=== PATIENT | female | born 1950 | race Caucasian/White ===

== ENCOUNTER → 2016-11-04 | Outpatient (CLI) | payer BC ==
--- NOTE | 2016-11-04 13:31 | US ---
EXAMINATION TYPE: US venous doppler duplex LE LT DATE OF EXAM: 11/04/2016 1:00 PM COMPARISON: NONE CLINICAL HISTORY: Lt [id number]/Calf pain Z86.718,. Patient had injury that required fluid to be kaylie ined from knee and it is swollen, patient in on thinners due to h/o right leg DVT previously SIDE PERFORMED: Left TECHNIQUE: The lower extremity deep venous system is examined utilizing real time linear array sonog mar with graded compression, doppler sonography and color-flow sonography. VESSELS IMAGED: External Iliac Vein (EIV) Common Femoral Vein Deep Femoral Vein Greater Saphenous Vein * Femoral Vein Popliteal Vein Small Saphenous Vein * Proximal Calf Veins (* superficial vessels) Left Leg: Appears negative for DVT, 4.0cm complex fluid collection noted at medial pop fossa anterio r to vessels. *tech impression to Dr Galindo's nurse @ 13:10 IMPRESSION: 1. No deep venous thrombosis by ultrasound left lower extremity.
== END | disposition home or self-care (01) ==
LOC: RADUSWWP 12:30
PROVIDERS: ATTEND Orthopaedic Surgery
DX: I80.9 Phlebitis and thrombophlebitis of unspecified site (principal); M17.12 Unilateral primary osteoarthritis, left knee

== ENCOUNTER 2017-03-31 09:08 | Day surgery (SDC) | payer BC ==
[2017-03-27 10:52] VITALS: BMI 28.7
[~2017-03-31 09:08] MED LIST: LACTATED RINGERS 1,000 ML IV SCH
[2017-03-31 10:01] VITALS: TEMP 97.1
[2017-03-31] MEDS ORDERED: LIDOCAINE 1% 20 ML VIAL (10MG/ML) FOR IV START INTRADERMA ONE (10:10)
[2017-03-31 10:19] LABS: Glucose,Whole Blood 142 mg/dL (75-99)
[2017-03-31] MEDS ORDERED: LIDOCAINE 1% INJ 10MG/ML (20 ML MDV) ONE (10:31)
[2017-03-31] MEDS ORDERED: fentaNYL (PF) 50 MCG/ML 2 ML AMP ONE (10:31)
[2017-03-31] MEDS ORDERED: PROPOFOL 10 MG/ML 20 ML VIAL IV ONE (10:31)
[2017-03-31] MEDS ORDERED: MIDAZOLAM 2 MG/2 ML VIAL ONE (10:31)
--- NOTE | 2017-03-31 11:27 | P.PCN ---
Date of Procedure: 03/31/17 Procedure(s) Performed: Procedures: 1. Esophagogastroduodenoscopy and biopsy. 2. Colonoscopy and polypectomy. Preoperative diagnosis: Hemoccult-positive stools. Postoperative diagnosis: 1. Small sliding hiatal hernia and low-grade distal esophagitis. 2. Mild antral gastritis. 3. Very early mild sigmoid diverticulosis with no evidence of acute diverticulitis or strictures. 4. Small splenic flexure polyp snared but no large polyps or cancer. Preparation: HalfLytely prep. Sedation: Was provided by anesthesia. Brief clinical history: The patient is a 66-year-old female with family history of colon cancer who I have evaluated in the past. Her last colonoscopy was in October 2011 which was essentially normal exam. The patient is referred for this evaluation this time because of finding of blood in her stools. She denies any new GI complaints or any overt bleeding or anemia. Procedure: With the patient on her left lateral decubitus position and after informed consent and adequate sedation, I passed the Olympus-GIF 160 video upper endoscope through cricopharyngeus down the esophagus. GE junction was around 39-40 cm from the incisors and there was a small sliding hiatal hernia. There was a very short superficial distal esophageal erosion terminating at the GE junction, with no ulcers or strictures or any evidence of Gerardo's esophagus. The endoscope was then passed into the stomach which was insufflated with air and inspected in detail including the retroflex view in the cardia. There was some mottling and erythema in the antrum but no ulcers or erosions. Pyloric channel, duodenal bulb, post bulbar area and descending duodenum appeared within normal limits. I obtained biopsies from the antrum and the esophagus then the endoscope was withdrawn and I then proceeded to do colonoscopy. Perianal area did not show any fissures or fistulas. There were no masses felt on digital rectal examination. The Olympus CFQ 160L video colonoscope was then inserted in the rectum in the usual fashion and advanced to the cecum. There was a small polyp around the splenic flexure which I snared and retrieved by suction. No other significant polyps or tumors were seen. In the distal sigmoid, there was an occasional very small early diverticular orifice with no evidence of acute diverticulitis or strictures. The mucosa appeared healthy. I retroflexed the endoscope in the rectum before the endoscope was withdrawn. The patient tolerated the procedure well. Plan: The patient was reassured. Will await pathology results. I anticipate repeating her colonoscopy in 5 years. We discussed dietary measures. She will follow-up with you as planned.
[2017-03-31 11:37] VITALS: RESP 16
[2017-03-31 12:00] VITALS: BP 135/74; PULSE 86
== END 2017-03-31 12:15 | disposition home or self-care (01) ==
LOC: ORWHC2ENDO 09:08
DX: D12.3 Benign neoplasm of transverse colon (principal); K57.30 Diverticulosis of large intestine without perforation or abscess without bleeding; K21.0 Gastro-esophageal reflux disease with esophagitis; K29.50 Unspecified chronic gastritis without bleeding; K44.9 Diaphragmatic hernia without obstruction or gangrene; Z80.0 Family history of malignant neoplasm of digestive organs; Z87.01 Personal history of pneumonia (recurrent); I10 Essential (primary) hypertension; E78.5 Hyperlipidemia, unspecified; Z87.09 Personal history of other diseases of the respiratory system; E11.9 Type 2 diabetes mellitus without complications; Z79.84 Long term (current) use of oral hypoglycemic drugs; Z79.01 Long term (current) use of anticoagulants; Z79.811 Long term (current) use of aromatase inhibitors; Z79.51 Long term (current) use of inhaled steroids; Z79.899 Other long term (current) drug therapy; Z88.0 Allergy status to penicillin; Z88.2 Allergy status to sulfonamides; Z88.8 Allergy status to other drugs, medicaments and biological substances; Z91.09 Other allergy status, other than to drugs and biological substances
CPT/HCPCS: 81025; 88305; 88342; 45385; 43239; J2250; J2001; J3010; J2704

== ENCOUNTER → 2017-04-09 | Outpatient (CLI) | payer BC ==
--- NOTE | 2017-04-11 09:09 | MM ---
Reason for exam: screening (asymptomatic). Last mammogram was performed 3 years and 2 months ago. History: Patient is postmenopausal, has history of high-risk lesion on a previous biopsy at age 57, and has history of breast cancer at age 52. Family history of breast cancer in paternal aunt and premenopausal breast cancer in daughter at age 32. Excisional biopsy of the left breast, January 01, 2008. High risk left mammotome panel of the left breast, October 07, 2007. Took estrogen for 20 years beginning at age 27. Taking other hormone for 6 months beginning at age 57. Physical Findings: A clinical breast exam by your physician is recommended on an annual basis and results should be correlated with mammographic findings. MG Screening Mammo w CAD Bilateral CC and MLO view(s) were taken. Prior study comparison: January 25, 2014, bilateral MG diagnostic mammo w CAD JERMAINE. August 24, 2010, CAD bilateral diagnostic mammogram. Possible skin thickening right breast, clinical correlation recommended. Scar marker x 2 left breast. ASSESSMENT: Benign, BI-RAD 2 RECOMMENDATION: Routine screening mammogram of both breasts in 1 year.
== END | disposition home or self-care (01) ==
LOC: RADMAMWWP 14:06
PROVIDERS: ATTEND Family Medicine
DX: Z12.31 Encounter for screening mammogram for malignant neoplasm of breast (principal)
CPT/HCPCS: 77067

== ENCOUNTER 2018-05-28 08:12 | Inpatient (IN) | payer MEDICARE ==
[2018-05-28 11:38] LABS: Glucose,Whole Blood 184 mg/dL (75-99)
[2018-05-28] MEDS ORDERED: IPRATROPIUM-ALBUTEROL 3 ML NEB INHALATION PRN (13:59)
--- NOTE | 2018-05-28 15:59 | XR ---
EXAMINATION TYPE: XR chest 1V DATE OF EXAM: 05/28/2018 CLINICAL HISTORY: Difficulty breathing progress study. Cough and congestion. TECHNIQUE: Single AP portable upright view of the chest is obtained. COMPARISON: Chest x-ray from September 12, 2014. Outside chest x-ray and CTA chest from 2 days ago. Outsid e chest x-ray earlier today. FINDINGS: Background cardiomegaly is redemonstrated. Postsurgical change bilateral shoulders is part ially imaged. Multifocal alveolar and interstitial opacities remains present bilaterally involving up per and lower lungs most prominent centrally. No pleural effusion or pneumothorax is seen. Progressio n from May 26 is seen. No significant change from outside study earlier today. IMPRESSION: Cardiomegaly with multifocal bilateral alveolar and interstitial edema and/or infiltrates all redemonstrated. No significant change from chest x-ray earlier today. Progression from studies 2 days earlier noted. Consider developing ARDS.
[2018-05-28] MEDS: IPRATROPIUM-ALBUTEROL 3 ML NEB INHALATION SCH ×2 (16:14→20:53)
[2018-05-28 16:37] LABS: Glucose,Whole Blood 248 mg/dL (75-99)
--- NOTE | 2018-05-28 16:38 | P.HPIM ---
History of Present Illness H&P Date: 05/28/18 Chief Complaint: Shortness of breath Patient is a 67-year-old female with a known history of atrial fibrillation on anticoagulation, history of DVT/PE, diabetes type 2, history of CVA/TIA and hypertension, hypothyroidism and other multiple medical problems initially presents to walk-in clinic [facility] on Friday with complaints of shortness of breath cough and fever 102.4. Patient was sent home with Z-Samuel and Tessalon pearls as well as Mucinex. Patient has been taking her medications and symptoms did not resolve which made her to go back to hospital on Friday. Patient was hypoxic and tachycardic at the time. Patient had CT angiogram of the chest to rule out pulmonary embolism. No pulmonary embolism was noted. Patient was found to have pulmonary nodules and repeat CT was recommended after resolution of pneumonia. Due to extensive pneumonia and pulmonary nodules and sepsis patient was transferred to [facility] for further evaluation and possible pulmonary consult. Currently patient is on oxygen via nasal cannula. Patient otherwise denied any complaints of chest pain. Patient does have nausea and bloating in the abdomen. No diarrhea. Currently patient is afebrile. No headache or dizziness or lightheadedness. Patient does have shortness of breath. No complaints of chest pain otherwise. Laboratory data reviewed from [facility]. Influenza was negative. Review of Systems Constitutional: Patient does have fever and chills. Generalized weakness and malaise.. Abdomen: Patient denied nausea vomiting and diarrhea and abdominal pain. Cardiovascular: Patient denies any chest pain or short of breath no palpitations. Respiratory: Without sputum production and patient does have short of breath Neurologic: Patient denied any numbness or tingling headache. Musculoskeletal: Patient denies any complaints of joint swelling or deformity. Skin: Negative Psychiatric: Negative Endocrine: No heat or cold intolerance. No recent weight gain. Genitourinary: No dysuria or hematuria. All other 14 point ROS negative except the above Past Medical History Past Medical History: Atrial Fibrillation, Asthma, Cancer, CVA/TIA, Diabetes Mellitus, Deep Vein Thrombosis (DVT), Eye Disorder, GERD/Reflux, Hyperlipidemia, Hypertension, Osteoarthritis (OA), Pneumonia, Pulmonary Embolus (PE), Skin Disorder, Thyroid Disorder Additional Past Medical History / Comment(s): NIDDM type II, neuropathy bilateral feet, bronchitis, sarcoidosis of the lung, seasonal allergies, sinus problems, TIA, DVT R leg x 3, pulmonary emboli x 1, L breast cancer with surgery/chemo, migraines, DDD, chronic back and cervical pain, L leg sciatica, possibly one seizure following cervical surgery, hypothyroid, pt had some kind of liver problem as a child and was hospitalized, cellulitis at IV site, recently states she had dark "spot" cover her R eye and then it lifted but still having vision changes in that eye. History of Any Multi-Drug Resistant Organisms: None Reported Past Surgical History: Appendectomy, Breast Surgery, Section, Hysterectomy, Joint Replacement, Orthopedic Surgery, Tonsillectomy Additional Past Surgical History / Comment(s): DVT 16 inches long removed from R leg, R thorascopy-diagnosed with sarcoidosis, D&C, salpingoophorectomy d/t ectopic , L breast biopsy, L breast lumpectomy, bilateral total shoulder replacements, cervical fusions x2 has titanium plate/screws, EGD, colonoscopy with benign polypectomy, epidural injections, D&C Past Anesthesia/Blood Transfusion Reactions: Motion Sickness Additional Past Anesthesia/Blood Transfusion Reaction / Comment(s): diff IV starts Smoking Status: Never smoker - Past Family History Daughter(s) Family Medical History: Cancer Father Family Medical History: Deep Vein Thrombosis (DVT) Mother Family Medical History: Deep Vein Thrombosis (DVT) Additional Family Medical History / Comment(s): Maternal grandmother had DVT and 3 of pt's maternal aunts had DVTs. Medications and Allergies Home Medications Medication Instructions Recorded Confirmed Type Citalopram Hydrobromide [CeleXA] 40 mg PO HS 07/19/13 03/27/17 History Ezetimibe [Zetia] 10 mg PO HS 07/19/13 05/28/18 History Levothyroxine Sodium [Synthroid] 200 mcg PO DAILY 07/19/13 05/28/18 History Lisinopril [Zestril] 10 mg PO HS 07/19/13 03/27/17 History Morphine Sulfate ER [Ms Contin] 60 mg PO Q12HR 07/19/13 05/28/18 History Anastrozole [Arimidex] 1 mg PO QAM 07/28/13 03/27/17 History Docusate [Colace] 100 mg PO TID 07/28/13 03/27/17 History Calcium Citrate 500 mg PO DAILY 08/30/14 05/28/18 History Cholecalciferol [Vitamin D3] 2,000 unit PO DAILY 08/30/14 05/28/18 History Citalopram Hydrobromide [CeleXA] 20 mg PO QAM 08/30/14 05/28/18 History Ipratropium/Albuterol Sulfate 1 puff INHALATION DAILY PRN 08/30/14 03/27/17 History [Combivent Respimat Inhaler] Multivitamins, Thera [Multivitamin 1 tab PO DAILY 08/30/14 05/28/18 History (formulary)] Rolaids 1 - 2 tab PO DAILY PRN 08/30/14 03/31/17 History Triamcinolone 0.1% Cream [Kenalog 1 applic TOPICAL BID 08/30/14 03/27/17 History 0.1% Cream] Warfarin [Coumadin] 5 mg PO SUSA 08/30/14 05/28/18 History Biotin 5,000 mcg PO DAILY 03/27/17 05/28/18 History Fenofibrate Nanocrystallized 145 mg PO DAILY 03/27/17 03/27/17 History [Tricor] Morphine Sulfate Ir [Msir] 15 mg PO TID PRN 03/27/17 05/28/18 History clonazePAM [KlonoPIN] 0.5 mg PO HS 03/27/17 03/27/17 History metFORMIN HCL 1,000 mg PO BID 03/27/17 05/28/18 History tiZANidine [Zanaflex] 4 mg PO TID PRN 03/27/17 03/27/17 History Cetirizine HCl [Zyrtec] 10 mg PO DAILY 05/28/18 05/28/18 History Fenofibrate [Lofibra] 160 mg PO DAILY 05/28/18 05/28/18 History Fluticasone Nasal [place] [Flonase 1 spray EA NOSTRIL DAILY 05/28/18 05/28/18 History Nasal [place]] Spironolactone 75 mg PO DAILY 05/28/18 05/28/18 History Warfarin [Coumadin] 2.5 mg PO MOTUWETHFR 05/28/18 05/28/18 History busPIRone HCl [Buspar] 10 mg PO BID 05/28/18 05/28/18 History Allergies Allergy/AdvReac Type Severity Reaction Status Date / Time guaifenesin Allergy Rapid Verified 05/28/18 12:53 Heart Rate loratadine Allergy Rapid Verified 05/28/18 12:53 [From Claritin-D 12 Hour] Heart Rate monosodium glutamate Allergy swelling, Verified 05/28/18 12:53 headache Penicillins Allergy Anaphylaxis Verified 05/28/18 12:53 pseudoephedrine HCl Allergy Dyspnea/rapid Verified 05/28/18 12:53 [From Sudafed] heart rate pseudoephedrine sulfate Allergy Rapid Verified 05/28/18 12:53 [From Claritin-D 12 Hour] Heart Rate Sulfa (Sulfonamide Allergy Itching Verified 05/28/18 12:53 Antibiotics) molds Allergy Anaphylaxis Uncoded 03/31/17 09:48 Physical Exam Vitals: Vital Signs Temp Pulse Resp BP Pulse Ox 05/28/18 11:32 94 L 05/28/18 11:07 98.0 F 75 20 159/75 95 Intake and Output 05/28/18 05/28/18 05/28/18 06:59 14:59 22:59 Intake Total 480 Balance 480 Intake: Oral 480 Other: # Voids 1 Weight 105.7 kg PHYSICAL EXAMINATION: Patient is lying in the bed comfortably, no acute distress, awake alert and oriented.. HEENT: Normocephalic. Neck is supple. Pupils reactive. Nostrils clear. Oral cavity is moist. Ears reveal no drainage. Neck reveals no JVD, carotid bruits, or thyromegaly. CHEST EXAMINATION: Trachea is central. Symmetrical expansion. Bilateral diffuse coarse breath sounds. No wheezing. Nonlabored breathing.. CARDIAC: Normal S1, S2 with no gallops. No murmurs ABDOMEN: Soft. Bowel sounds normal. No organomegaly. No abdominal bruits. Extremities: Trace edema. No clubbing or cyanosis Neurologically awake, alert, oriented x3 with well-coordinated movements. No focal deficits noted Skin: No rash or skin lesions. Psychiatric: Coperative. Nonsuicidal Musculoskeletal: No joint swelling or deformity. Normal range of motion. Results Labs: Abnormal Lab Results - Last 24 Hours (Table) 05/28/18 Range/Units 11:35 POC Glucose (mg/dL) 184 H (75-99) mg/dL Thrombosis Risk Factor Assmnt - DVT/VTE Prophylaxis DVT/VTE Prophylaxis: Pharmacologic Prophylaxis ordered - Choose All That Apply Any of the Below Risk Factors Present?: Yes Each Factor Represents 1 point: Obesity (BMI >25), Serious lung disease incl. pneumonia (< 1month) Other Risk Factors: Yes Each Risk Factor Represents 2 Points: Age 61-74 years, Malignancy Each Risk Factor Represents 3 Points: Family history of DVT/PE, History of DVT/PE Other congenital or acquired thrombophilia - If yes, enter type in comment: No Thrombosis Risk Factor Assessment Total Risk Factor Score: 12 Thrombosis Risk Factor Assessment Level: High Risk Assessment and Plan Assessment: Acute hypoxic respiratory failure secondary to pneumonia. Multifocal pneumonia with sepsis Pulmonary nodules multiple likely infectious etiology. Repeat CT in 3 months was recommended. Chronic atrial fibrillation on anticoagulation with Coumadin Right lower extremity DVT extensively with 16 inches long was removed Asthma History of breast cancer status post surgery and chemotherapy Migraine headaches Degenerative disc disease and chronic back pain and cervical pain Left leg sciatic pain Hypothyroidism History of CVA/TIA with no residual weakness GERD Hypertension Hyperlipidemia Osteoarthritis of multiple joints GI prophylaxis with Protonix. DVT prophylaxis patient is already on Coumadin. Plan: Patient be continued on antibiotics of Levaquin. Continue with DuoNeb's. Continue with home medications including anticoagulation. Pulmonary is following. Further recommendations based on the clinical course. r Time with Patient: Greater than 30
--- NOTE | 2018-05-28 17:06 | CONS ---
CONSULTATION DATE OF SERVICE: 05/28/2018. PULMONARY/CRITICAL CARE CONSULTATION: This is a 67-year-old female whom I saw last summer. At that time she was getting over an episode of bilateral pneumonia [facility]. She had a history of sarcoidosis, but no history of intrinsic pulmonary disease. She was inpatient at [facility] for about 4 or 5 days and saw me in followup. When she saw me in followup, the patient was still on oxygen and we were able to determine that she did not need the oxygen. Her room-air and exercise-induced saturations were all above 90. Hence the oxygen was discontinued. Her primary care physician is Dr. Renea Nieto down in [place]. Anyway, she was seen in the hospital up in [place]. There she was evaluated and admitted and had an influenza screen which was negative and a CT angiogram which was apparently negative for pulmonary embolism. She did have multiple pulmonary nodules which might relate to her underlying sarcoidosis. They were bilateral and they were all less than a centimeter in size. In addition, she has some ground-glass opacities at the lower lobe, possibly consistent with pneumonia. Her symptoms over the last couple of days prior to admission included shortness of breath, cough, wheezing, chest tightness, phlegm production and some fever and chills. Again, she tested negative for influenza and she also was ruled out for pulmonary embolism. We have asked the radiology department to download her CT scan. Currently she is requiring oxygen at higher than normal concentrations. She states that she just was not getting better at that hospital. As mentioned, her complaints include chest congestion, cough, wheezing, shortness of breath and occasional phlegm production. CURRENT HOME MEDICATIONS: Include: 1. BuSpar. 2. Aldactone. 3. Multivitamins. 4. Morphine sulfate. 5. Calcium citrate. 6. Biotin. 7. Zanaflex. 8. Metformin. 9. Clonazepam. 10.Warfarin. 11.Triamcinolone cream. 12.Rolaids. 13.Zestril. 14.Levothyroxine. 15.Updrafts. 16.Fenofibrate. 17.Zetia. 18.Colace. 19.Celexa. 20.Vitamin D3. 21.Arimidex. ALLERGIES: 1. GUAIFENESIN. 2. LORATADINE. 3. MONOSODIUM GLUTAMATE (MSG). 4. PENICILLIN. 5. SUDAFED. 6. SULFA. 7. MOLDS. PAST MEDICAL HISTORY: Positive for: 1. Diabetes mellitus. 2. DVT. 3. GERD. 4. Hypertension. 5. Hyperlipidemia. 6. DJD. 7. Pulmonary embolism. 8. Hypothyroidism. 9. Sarcoidosis. 10.She also has a previous history of pneumonia. FAMILY HISTORY: Positive for DVT and pulmonary embolism. SOCIAL HISTORY: Negative for tobacco use. She is a lifelong nonsmoker. Home medications are reviewed. Surgical history is remote or negative. REVIEW OF SYSTEMS: CONSTITUTIONAL: Fever, chills. NEUROLOGIC: Negative. HEENT: Negative. CARDIOVASCULAR: Negative. PULMONARY: Shortness of breath, chest tightness, wheezing, cough and occasional phlegm production. GI/: Negative. RHEUMATOLOGIC/IMMUNOLOGIC: Negative. ENDOCRINOLOGIC: Negative. DERMATOLOGIC: Negative. PHYSICAL EXAMINATION: Current vital signs are reviewed. Her temperature is 98, heart rate 75, respiratory rate 20, blood pressure 159/75, mean 103, and saturations on 15 L high flow are 95% to 96%. Appears in no acute distress. Certainly not tachypneic or dyspneic. No conversational dyspnea. No use of accessory muscles. No audible wheezing. HEENT examination is grossly unremarkable. Mucous membranes are moist. No oral lesions. Mask is noted. NECK: Supple. Full range of motion. No adenopathy or thyromegaly. Neck veins are flat. Cardiovascular examination reveals regular rhythm and rate. S1, S2 normal. There is no S3, S4 or murmur. LUNGS: Scattered rhonchi. No wheezes. No crackles. Breath sounds are equal bilaterally but diminished throughout. Abdomen is obese. Bowel sounds are heard. Extremities are intact. No cyanosis, clubbing or edema. Skin without rash. Neurologic examination is brief but nonfocal. LAB DATA/IMAGING: Lab data currently pending. Chest x-ray has not yet been loaded, nor has the CT scan. Medications are reviewed. No medications have been ordered as yet. A chest x-ray was ordered. It does not appear that it has been done as yet. ASSESSMENT: 1. Bibasilar pneumonia based on CT scan results at [facility]. 2. No evidence of pulmonary embolism. 3. No evidence of influenza. 4. History of diabetes mellitus. 5. History of deep venous thrombosis and pulmonary embolism. 6. History of gastroesophageal reflux disease. 7. History of hypertension. 8. Hyperlipidemia. 9. Degenerative joint disease. 10.History of hypothyroidism. PLAN: Will await the chest x-ray. Will make sure the patient is on updrafts and breathing treatments. Additional recommendations and suggestions are forthcoming. Prognosis is guarded. Pending results of the chest x-ray, additional recommendations and suggestions might be made, including bronchoscopy or repeat CT scan. Apparently the CT scan at the outside hospital was negative for pulmonary embolism. MMODL / IJN: [id number] /
[2018-05-28] MEDS: LEVOFLOXACIN 750MG-D5W PMX 750 MG in DEXTROSE/WATER 1 150ML.BAG IVPB SCH (17:08)
[2018-05-28] MEDS: PANTOPRAZOLE 40 MG TABLET PO SCH (17:09)
[2018-05-28] MEDS ORDERED: WARFARIN 2.5 MG TAB PO SCH (18:00)
[2018-05-28] MEDS ORDERED: MORPHINE SULFATE IR 15 MG TABLET PO PRN (20:28)
[2018-05-28 20:56] LABS: Glucose,Whole Blood 197 mg/dL (75-99)
[2018-05-28] MEDS: metFORMIN 500 MG TAB PO SCH (20:59)
[2018-05-28] MEDS: DOCUSATE 100 MG CAP PO SCH (20:59)
[2018-05-28] MEDS: EZETIMIBE 10 MG TAB PO SCH (20:59)
[2018-05-28] MEDS: busPIRone HCl 10 MG TAB PO SCH (20:59)
[2018-05-28] MEDS: LISINOPRIL 10 MG TAB PO SCH (20:59)
[2018-05-28] MEDS ORDERED: MORPHINE SULFATE ER 60 MG TABLET PO SCH (21:00)
[2018-05-28] MEDS ORDERED: clonazePAM 0.5 MG TAB PO SCH (21:00)
[2018-05-28] MEDS ORDERED: FUROSEMIDE 10 MG/ML 4 ML VIAL IV STA (21:18)
[2018-05-28] MEDS ORDERED: FUROSEMIDE 10 MG/ML 4 ML VIAL ONE (21:18)
--- NOTE | 2018-05-28 21:45 | XR ---
EXAMINATION TYPE: XR chest 1V DATE OF EXAM: 05/28/2018 COMPARISON: Today HISTORY: Respiratory distress TECHNIQUE: Single frontal view of the chest is obtained. FINDINGS: There is pulmonary edema. Heart appears enlarged. There are chest leads. There are bilater al shoulder prostheses. IMPRESSION: Moderate pulmonary edema that is unchanged compared to exam earlier today. This is consi stent with heart failure or RDS.
[2018-05-28 22:00] LABS: Basophils % (A) 0 %; Eosinophils # (A) 0.1 k/uL (0-0.7); Eosinophils % (A) 2 %; HGB 13.3 gm/dL (11.4-16.0); Lymphocytes # (A) 0.3 k/uL (1.0-4.8); Lymphocytes % (A) 8 %; MCH 27.2 pg (25.0-35.0); MCHC 32.4 g/dL (31.0-37.0); MCV 84.2 fL (80.0-100.0); Mean Platelet Volume 6.2; Monocytes # (A) 0.1 k/uL (0-1.0); Monocytes % (A) 2 %; Neutrophils # (A) 3.1 k/uL (1.3-7.7); Neutrophils % (A) 86 %; Platelet Count 254 k/uL (150-450); RBC 4.87 m/uL (3.80-5.40); RDW 13.3 % (11.5-15.5); WBC 3.6 k/uL (3.8-10.6)
[2018-05-28 22:09] LABS: Creatine Kinase 105 U/L (30-135)
[2018-05-28 22:22] LABS: Anion Gap 11 mmol/L; Blood Urea Nitrogen 10 mg/dL (7-17); Calcium 8.7 mg/dL (8.4-10.2); Carbon Dioxide 26 mmol/L (22-30); Chloride 103 mmol/L (98-107); Glucose 207 mg/dL (74-99); Magnesium 1.7 mg/dL (1.6-2.3); Potassium 4.2 mmol/L (3.5-5.1); Sodium 140 mmol/L (137-145)
[2018-05-28 22:23] LABS: Creatine Kinase MB 1.2 ng/mL (0.0-2.4); Troponin I <0.012 ng/mL (0.000-0.034)
[2018-05-28] MEDS: ONDANSETRON 4 MG/2 ML VIAL IVP PRN (23:38)
[2018-05-28 23:50] LABS: Appearance,Urine Clear (Clear); Bilirubin,Urine Negative (Negative); Blood,Urine Negative (Negative); Color,Urine Light Yellow; Glucose,Urine (UA) 4+ (Negative); Ketones,Urine Negative (Negative); Leukocyte Esterase,Urine Negative (Negative); Nitrite,Urine Negative (Negative); PH, Urine 6.5 (5.0-8.0); Protein,Urine Negative (Negative); Specific Gravity,Urine 1.007 (1.001-1.035); Urobilinogen,Urine <2.0 mg/dL (<2.0)
[2018-05-29 06:04] LABS: Glucose,Whole Blood 216 mg/dL (75-99)
[2018-05-29] MEDS: LEVOTHYROXINE 100 MCG TAB PO SCH (06:29)
[2018-05-29] MEDS: PANTOPRAZOLE 40 MG TABLET PO SCH (06:29)
[2018-05-29 06:55] LABS: Basophils % (A) 0 %; Eosinophils % (A) 1 %; HCT 36.2 % (34.0-46.0); HGB 11.5 gm/dL (11.4-16.0); Hypochromasia Slight; Lymphocytes # (A) 0.3 k/uL (1.0-4.8); Lymphocytes % (A) 9 %; MCH 27.5 pg (25.0-35.0); MCHC 31.8 g/dL (31.0-37.0); MCV 86.5 fL (80.0-100.0); Mean Platelet Volume 6.1; Monocytes # (A) 0.1 k/uL (0-1.0); Monocytes % (A) 3 %; Neutrophils # (A) 2.5 k/uL (1.3-7.7); Neutrophils % (A) 85 %; Platelet Count 256 k/uL (150-450); RBC 4.19 m/uL (3.80-5.40); RDW 13.4 % (11.5-15.5)
[2018-05-29 07:11] LABS: ALT 37 U/L (9-52); AST 52 U/L (14-36); Albumin 2.9 g/dL (3.5-5.0); Alkaline Phosphatase 76 U/L (38-126); Anion Gap 10 mmol/L; Blood Urea Nitrogen 13 mg/dL (7-17); Calcium 8.3 mg/dL (8.4-10.2); Carbon Dioxide 27 mmol/L (22-30); Chloride 103 mmol/L (98-107); Glucose 196 mg/dL (74-99); Potassium 4.1 mmol/L (3.5-5.1); Sodium 140 mmol/L (137-145); Total Bilirubin 0.4 mg/dL (0.2-1.3); Total Protein 5.5 g/dL (6.3-8.2)
[2018-05-29] MEDS: IPRATROPIUM-ALBUTEROL 3 ML NEB INHALATION SCH ×4 (07:19→19:32)
[2018-05-29] MEDS ORDERED: FENOFIBRATE 160 MG TAB PO SCH (09:00)
[2018-05-29 11:10] LABS: Glucose,Whole Blood 140 mg/dL (75-99)
[2018-05-29] MEDS: FUROSEMIDE 10 MG/ML 2 ML VIAL IV SCH ×2 (12:09→21:44)
[2018-05-29 12:57] LABS: INR 6.3 (<1.2)
[2018-05-29] MEDS: metFORMIN 500 MG TAB PO SCH ×2 (13:16→21:44)
[2018-05-29] MEDS: ZYRTEC 10MG PO SCH (13:17)
[2018-05-29] MEDS: NON-FORMULARY DRUG (Biotin [Biotin] 5,000 MCG) PO SCH (13:17)
[2018-05-29] MEDS: FLUTICASONE 50MCG/SPRAY NASAL 16GM EA NOSTRIL SCH (13:18)
--- NOTE | 2018-05-29 13:54 | P.PN ---
Subjective Progress Note Date: 05/29/18 Principal diagnosis: Bibasilar pneumonia, hypoxemic respiratory failure This is a 67-year-old white female patient who was received as a transfer from [facility] on 05/28/2018. Patient had presented with complaints of chest congestion, cough, wheezing, shortness of breath and occasional phlegm production. Influenza screen and CT angiogram were completed at the [facility], and they were negative for influenza A and pulmonary embolism. Patient did have multiple pulmonary nodules that could relate to her underlying sarcoidosis. In addition she has some groundglass opacities at the lower lobes possibly consistent with pneumonia. We did obtain a chest x-ray at this hospital yesterday, which showed cardiomegaly with multifocal bilateral alveolar and interstitial edema and/or infiltrates. Possible developing ARDS. She lab work showed a white blood cell count of 3.6, hemoglobin 13.3, d-dimer was slightly elevated at 1.05, but CT angios was negative for any evidence of PE, renal profile and electrolytes were within normal limits, proBNP was within normal limits at 467, troponin was negative, urinalysis was negative for any sign of infection. Patient's medical history significant for atrial fibrillation on anticoagulation in the form of Coumadin, history of DVT/PE, diabetes mellitus type 2, history of CVA and TIA and hypertension, hypo thyroidism. The patient was given IV lasix, and she has significantly diuresed, she is in -3560 mL fluid balance in last 24 hours, in her breathing had worsened, along with her oxygenation, and patient had to be placed on BiPAP support. On today's exam patient is seen on BiPAP support with pressures of 12 and 5, 80%, and her pulse ox is 94%, she is quite tachypneic, lung sounds are positive for diffuse crackles, and rhonchi, patient appears to be in mild to moderate amount of distress, and for that reason patient will be removed down to the intensive care unit, today's chest x-ray has been reviewed, showed persistence of bladder pulmonary edema, and airspace disease bilaterally, likely related to underlying pneumonia. Afebrile, hemodynamically stable. Denies any chest pain, wasn't able to produce any sputum for culture. She states she still has the urge to cough, but not able to bring up anything. Antibiotic coverage in the form of Levaquin. Objective - Vital Signs Vital signs: Vital Signs Temp 98.1 F 05/29/18 13:01 Pulse 74 05/29/18 13:01 Resp 19 05/29/18 13:01 BP 156/76 05/29/18 13:01 Pulse Ox 97 05/29/18 13:01 Intake & Output 05/28/18 05/29/18 05/29/18 18:59 06:59 18:59 Intake Total 720 220 Output Total 4500 Balance 720 -4280 Weight 105.7 kg 105.5 kg Intake: Oral 720 220 Output: Urine 4500 Uretheral (Anaya) 950 Other: Voiding Method Toilet Toilet Indwelling Catheter # Voids 1 1 - Exam GENERAL EXAM: Alert, slightly anxious, 67-year-old white female, currently on BiPAP support, with pressures of 12 and 5, and FiO2 of 80%, with O2 saturation is 94%, tachypnea HEAD: Normocephalic/atraumatic. EYES: Normal reaction of pupils, equal size. Conjunctiva pink, sclera white. NOSE: Clear with pink turbinates. THROAT: No erythema or exudates. NECK: No masses, no JVD, no thyroid enlargement, no adenopathy. CHEST: No chest wall deformity. Symmetrical expansion. LUNGS: Equal air entry with diffuse crackles and rhonchi CVS: Regular rate and rhythm, normal S1 and S2, no gallops, no murmurs, no rubs ABDOMEN: Soft, nontender. No hepatosplenomegaly, normal bowel sounds, no guarding or rigidity. EXTREMITIES: No clubbing, no edema, no cyanosis, 2+ pulses and upper and lower extremities. MUSCULOSKELETAL: Muscle strength and tone normal. SPINE: No scoliosis or deformity SKIN: No rashes CENTRAL NERVOUS SYSTEM: Alert and oriented -3. No focal deficits, tone is normal in all 4 extremities. PSYCHIATRIC: Alert and oriented -3. Appropriate affect. Intact judgment and insight. - Labs CBC & Chem 7: 05/29/18 06:20 05/29/18 06:20 Labs: Abnormal Lab Results - Last 24 Hours (Table) 05/28/18 05/28/18 05/28/18 Range/Units 16:35 20:55 21:34 WBC (3.8-10.6) k/uL Lymphocytes # (1.0-4.8) k/uL PT (9.0-12.0) sec INR (<1.2) D-Dimer (<0.60) mg/L FEU Glucose (74-99) mg/dL POC Glucose (mg/dL) 248 H 197 H (75-99) mg/dL Calcium (8.4-10.2) mg/dL AST (14-36) U/L Total Protein (6.3-8.2) g/dL Albumin (3.5-5.0) g/dL Urine Glucose (UA) 4+ H (Negative) 05/28/18 05/28/18 05/28/18 Range/Units 21:35 21:35 21:35 WBC 3.6 L (3.8-10.6) k/uL Lymphocytes # 0.3 L (1.0-4.8) k/uL PT (9.0-12.0) sec INR (<1.2) D-Dimer 1.05 H (<0.60) mg/L FEU Glucose 207 H (74-99) mg/dL POC Glucose (mg/dL) (75-99) mg/dL Calcium (8.4-10.2) mg/dL AST (14-36) U/L Total Protein (6.3-8.2) g/dL Albumin (3.5-5.0) g/dL Urine Glucose (UA) (Negative) 05/29/18 05/29/18 05/29/18 Range/Units 06:03 06:20 06:20 WBC 3.0 L (3.8-10.6) k/uL Lymphocytes # 0.3 L (1.0-4.8) k/uL PT (9.0-12.0) sec INR (<1.2) D-Dimer (<0.60) mg/L FEU Glucose 196 H (74-99) mg/dL POC Glucose (mg/dL) 216 H (75-99) mg/dL Calcium 8.3 L (8.4-10.2) mg/dL AST 52 H (14-36) U/L Total Protein 5.5 L (6.3-8.2) g/dL Albumin 2.9 L (3.5-5.0) g/dL Urine Glucose (UA) (Negative) 05/29/18 05/29/18 Range/Units 11:08 11:57 WBC (3.8-10.6) k/uL Lymphocytes # (1.0-4.8) k/uL PT 61.0 H (9.0-12.0) sec INR 6.3 H* (<1.2) D-Dimer (<0.60) mg/L FEU Glucose (74-99) mg/dL POC Glucose (mg/dL) 140 H (75-99) mg/dL Calcium (8.4-10.2) mg/dL AST (14-36) U/L Total Protein (6.3-8.2) g/dL Albumin (3.5-5.0) g/dL Urine Glucose (UA) (Negative) Assessment and Plan Plan: Assessment: #1. Acute hypoxemic respiratory failure secondary to bilateral pneumonia, and there may be a component of pulmonary edema/ARDS, proBNP was within normal limits. Influenza screen was negative, CT angios the chest was negative for any pulmonary embolism, showed groundglass opacities at bilateral bases, likely related to underlying pneumonia #2. Pulmonary nodules, could relate to underlying sarcoidosis, or infectious etiology #3. Diabetes mellitus type 2 #4. Chronic atrial fibrillation, and history of DVT and pulmonary embolism, on chronic anticoagulation in the form of Coumadin. Supratherapeutic on today's l abs we'll hold Coumadin #5. GERD/reflux #6. Hypertention, hyperlipidemia #7. DJD #8. Hypothyroidism #9. Osteoarthritis of multiple joints Plan: Patient has been transferred to the intensive care unit for closer monitoring, there has been no worsening in the appearance of bilateral lung infiltrates today's chest x-ray, will continue with BiPAP support, at 12 and 5 and FiO2 to keep her saturations above 92%. Patient is diuresing, continue current antibiotic coverage, breathing treatments, will continue close hemodynamic monitoring. INR is supratherapeutic today, we'll hold the Coumadin. GI and DVT prophylaxis. I performed a history & physical examination of the patient and discussed their management with my nurse practitioner, Sharona Klein. I reviewed the nurse practitioner's note and agree with the documented findings and plan of care. Lung sounds are positive for diffuse rhonchi. The findings and the impression was discussed with the patient. I attest to the documentation by the nurse practitioner. Time with Patient: Greater than 30
[2018-05-29] MEDS: DOCUSATE 100 MG CAP PO SCH ×3 (14:13→21:44)
[2018-05-29] MEDS: MULTIVITAMINS, THERA 1 EACH TAB PO SCH (14:14)
[2018-05-29] MEDS: ACETAMINOPHEN IV (For NPO) 1,000 MG in EMPTY BAG 1 BAG IVPB PRN ×2 (14:38→23:26)
[2018-05-29] MEDS: ANASTROZOLE 1 MG TAB PO SCH (14:45)
[2018-05-29] MEDS: CHOLECALCIFEROL 1,000 UNIT TAB PO SCH (14:45)
[2018-05-29] MEDS: busPIRone HCl 10 MG TAB PO SCH ×2 (14:55→22:41)
[2018-05-29] MEDS: SPIRONOLACTONE 25 MG TAB PO SCH (15:06)
[2018-05-29] MEDS: CITALOPRAM HYDROBROMIDE 20 MG TAB PO SCH (15:06)
[2018-05-29] MEDS: CALCIUM CARBONATE 500 MG CHEWABLE PO SCH (15:06)
[2018-05-29] MEDS: LEVOFLOXACIN 750MG-D5W PMX 750 MG in DEXTROSE/WATER 1 150ML.BAG IVPB SCH (15:32)
[2018-05-29] MEDS: BACLOFEN 10 MG TAB PO PRN (15:32)
[2018-05-29] MEDS: FENOFIBRATE 160 MG TAB PO SCH (15:32)
[2018-05-29 17:25] LABS: Glucose,Whole Blood 179 mg/dL (75-99)
[2018-05-29 21:00] LABS: Glucose,Whole Blood 146 mg/dL (75-99)
[2018-05-29] MEDS: LISINOPRIL 10 MG TAB PO SCH (21:44)
[2018-05-29] MEDS: INSULIN ASPART (NovoLOG) 100 UNIT/ML VIAL SQ SCH (21:45)
[2018-05-29] MEDS: traZODone HCL 50 MG TAB PO SCH (22:41)
[2018-05-29] MEDS: EZETIMIBE 10 MG TAB PO SCH (22:41)
[2018-05-29] MEDS: ONDANSETRON 4 MG/2 ML VIAL IVP PRN (23:39)
--- NOTE | 2018-05-29 23:51 | P.PN ---
Subjective Progress Note Date: 05/29/18 Principal diagnosis: Multifocal pneumonia Acute hypoxemic respiratory failure Patient is a 67-year-old female with a known history of atrial fibrillation on anticoagulation, history of DVT/PE, diabetes type 2, history of CVA/TIA and hypertension, hypothyroidism and other multiple medical problems initially presents to walk-in clinic [facility] on Friday with complaints of shortness of breath cough and fever 102.4. Patient was sent home with Z-Samuel and [employer] pearls as well as Mucinex. Patient has been taking her medications and symptoms did not resolve which made her to go back to hospital on Friday. Patient was hypoxic and tachycardic at the time. Patient had CT angiogram of the chest to rule out pulmonary embolism. No pulmonary embolism was noted. Patient was found to have pulmonary nodules and repeat CT was recommended after resolution of pneumonia. Due to extensive pneumonia and pulmonary nodules and sepsis patient was transferred to [facility] for further evaluation and possible pulmonary consult. Currently patient is on oxygen via nasal cannula. Patient otherwise denied any complaints of chest pain. Patient does have nausea and bloating in the abdomen. No diarrhea. Currently patient is afebrile. No headache or dizziness or lightheadedness. Patient does have shortness of breath. No complaints of chest pain otherwise. Laboratory data reviewed from [facility]. Influenza was negative. 05/29/2018 Patient did have worsening shortness of breath last night and was placed on BiPAP. Chest x-ray showed moderate pulmonary edema. Patient was given a dose of IV Lasix and is being continued currently. Patient appears to be in moderate distress and is being transferred to MICU. Otherwise patient is being continued on antibiotics in the form of Levaquin. Continued on breathing treatments and oxygen therapy. Patient has been afebrile. No complaints of chest pain. Active Medications Generic Name Dose Route Start Last Admin Trade Name Freq PRN Reason Stop Dose Admin Albuterol/Ipratropium 3 ml 05/28/18 16:00 05/29/18 19:32 Duoneb 0.5 Mg-3 Mg/3 Ml Soln INHALATION 3 ml RT-QID SHELBY Administration Albuterol/Ipratropium 3 ml 05/28/18 13:59 Duoneb 0.5 Mg-3 Mg/3 Ml Soln INHALATION RT-QID PRN Shortness Of Breath Or Wheezing Anastrozole 1 mg 05/29/18 09:00 05/29/18 14:45 Arimidex PO Not Given QAM SHELBY Baclofen 10 mg 05/29/18 14:52 05/29/18 15:32 Lioresal PO 10 mg TID PRN Administration Muscle Spasm Buspirone HCl 10 mg 05/28/18 21:00 05/29/18 22:41 Buspar PO 10 mg BID SHELBY Administration Calcium Carbonate/Glycine 500 mg 05/29/18 09:00 05/29/18 15:06 Tums PO 500 mg DAILY SHELBY Administration Cholecalciferol 2,000 unit 05/29/18 09:00 05/29/18 14:45 Vitamin D3 PO Not Given DAILY [facility] Citalopram Hydrobromide 20 mg 05/29/18 09:00 05/29/18 15:06 Celexa PO 20 mg QAM SHELBY Administration Docusate Sodium 100 mg 05/28/18 22:00 05/29/18 21:44 Colace PO 100 mg TID SHELBY Administration Ezetimibe 10 mg 05/28/18 21:00 05/29/18 22:41 Zetia PO 10 mg HS SHELBY Administration Fenofibrate 160 mg 05/29/18 09:00 05/29/18 15:32 Lofibra PO 160 mg DAILY [facility] Administration Fluticasone Propionate 1 spray 05/29/18 09:00 05/29/18 13:18 Flonase Nasal [place] EA NOSTRIL Not Given DAILY [facility] Furosemide 20 mg 05/29/18 12:00 05/29/18 21:44 Lasix IV 20 mg Q12HR SHELBY Administration Levofloxacin 750 mg/ IV 150 mls @ 100 mls/hr 05/28/18 15:00 05/29/18 15:32 Solution IVPB 100 mls/hr Q24H SHELBY Administration Acetaminophen 1,000 mg/ IV 100 mls @ 400 mls/hr 05/29/18 13:36 05/29/18 23:26 Solution IVPB 05/30/18 06:14 400 mls/hr Q6HR PRN Administration Pain Insulin Aspart 0 unit 05/29/18 21:00 05/29/18 21:45 Novolog SQ 1 unit ACHS SHELBY Administration Protocol Levothyroxine Sodium 200 mcg 05/29/18 06:30 05/29/18 06:29 Synthroid PO 200 mcg 0630 SHELBY Administration Lisinopril 10 mg 05/28/18 21:00 05/29/18 21:44 Zestril PO 10 mg HS [facility] Administration Metformin HCl 1,000 mg 05/28/18 21:00 05/29/18 21:44 Glucophage PO 1,000 mg BID SHELBY Administration Multivitamins 1 each 05/29/18 12:00 05/29/18 14:14 Theragran PO Not Given 1200 [facility] Non-Formulary Medication 5,000 mcg 05/29/18 09:00 05/29/18 13:17 Biotin [Biotin] PO Not Given DAILY [facility] Non-Formulary Medication 10 mg 05/29/18 09:00 05/29/18 13:17 Cetirizine Hcl [Zyrtec] PO Not Given DAILY [facility] Ondansetron HCl 4 mg 05/28/18 22:33 05/29/18 23:39 Zofran IVP 4 mg Q6HR PRN Administration Nausea And Vomiting Pantoprazole Sodium 40 mg 05/28/18 16:00 05/29/18 06:29 Protonix PO 40 mg AC-BRKFST [facility] Administration Spironolactone 75 mg 05/29/18 09:00 05/29/18 15:06 Aldactone PO 75 mg DAILY [facility] Administration Trazodone HCl 50 mg 05/29/18 21:00 05/29/18 22:41 Desyrel PO 50 mg HS [facility] Administration Objective - Vital Signs Vital signs: Vital Signs Temp 97.9 F 05/29/18 16:00 Pulse 81 05/29/18 19:43 Resp 14 05/29/18 19:30 BP 138/70 05/29/18 19:30 Pulse Ox 93 L 05/29/18 19:30 Intake & Output 05/29/18 05/29/18 05/30/18 06:59 18:59 06:59 Intake Total 220 250 Output Total 4500 1525 60 Balance -4280 -1275 -60 Weight 105.5 kg Intake: IV 250 ACETAMINOPHEN IV (For NPO 100 ) 1,000 mg In Empty Bag 1 bag @ 400 mls/hr IVPB Q6HR PRN Rx#:[id number] Levofloxacin 750Mg-D5w 150 Pmx 750 mg In Dextrose/ Water 1 150ml.bag @ 100 mls/hr IVPB Q24H [facility]LBY Rx#: [id number] Oral 220 Output: Urine 4500 1525 60 Uretheral (Anaya) 950 Other: Voiding Method Toilet Indwelling Catheter # Voids 1 - Exam PHYSICAL EXAMINATION: Patient is lying in the bed comfortably, no acute distress, awake alert and oriented. Currently on BiPAP. HEENT: Normocephalic. Neck is supple. Pupils reactive. Nostrils clear. Oral cavity is moist. Ears reveal no drainage. Neck reveals no JVD, carotid bruits, or thyromegaly. CHEST EXAMINATION: Trachea is central. Symmetrical expansion. Bilateral diffuse rhonchi and crackles.. CARDIAC: Normal S1, S2 with no gallops. No murmurs ABDOMEN: Soft. Bowel sounds normal. No organomegaly. No abdominal bruits. Extremities: reveal no edema. No clubbing or cyanosis Neurologically awake, alert, oriented x3 with well-coordinated movements. No focal deficits noted Skin: No rash or skin lesions. Psychiatric: Coperative. Nonsuicidal Musculoskeletal: No joint swelling or deformity. Normal range of motion. - Labs CBC & Chem 7: 05/29/18 06:20 05/29/18 06:20 Labs: Abnormal Lab Results - Last 24 Hours (Table) 05/28/18 05/29/18 05/29/18 Range/Units 21:34 06:03 06:20 WBC 3.0 L (3.8-10.6) k/uL Lymphocytes # 0.3 L (1.0-4.8) k/uL PT (9.0-12.0) sec INR (<1.2) Glucose (74-99) mg/dL POC Glucose (mg/dL) 216 H (75-99) mg/dL Calcium (8.4-10.2) mg/dL AST (14-36) U/L Total Protein (6.3-8.2) g/dL Albumin (3.5-5.0) g/dL Urine Glucose (UA) 4+ H (Negative) 05/29/18 05/29/18 05/29/18 Range/Units 06:20 11:08 11:57 WBC (3.8-10.6) k/uL Lymphocytes # (1.0-4.8) k/uL PT 61.0 H (9.0-12.0) sec INR 6.3 H* (<1.2) Glucose 196 H (74-99) mg/dL POC Glucose (mg/dL) 140 H (75-99) mg/dL Calcium 8.3 L (8.4-10.2) mg/dL AST 52 H (14-36) U/L Total Protein 5.5 L (6.3-8.2) g/dL Albumin 2.9 L (3.5-5.0) g/dL Urine Glucose (UA) (Negative) 05/29/18 05/29/18 Range/Units 17:23 20:59 WBC (3.8-10.6) k/uL Lymphocytes # (1.0-4.8) k/uL PT (9.0-12.0) sec INR (<1.2) Glucose (74-99) mg/dL POC Glucose (mg/dL) 179 H 146 H (75-99) mg/dL Calcium (8.4-10.2) mg/dL AST (14-36) U/L Total Protein (6.3-8.2) g/dL Albumin (3.5-5.0) g/dL Urine Glucose (UA) (Negative) Assessment and Plan Assessment: Acute hypoxic respiratory failure secondary to pneumonia with pulmonary interstitial edema/ARDS. Multifocal pneumonia with sepsis Pulmonary nodules multiple likely infectious etiology. Repeat CT in 3 months was recommended. Chronic atrial fibrillation on anticoagulation with Coumadin Right lower extremity DVT extensively with 16 inches long was removed Asthma History of breast cancer status post surgery and chemotherapy Migraine headaches Degenerative disc disease and chronic back pain and cervical pain Left leg sciatic pain Hypothyroidism History of CVA/TIA with no residual weakness GERD Hypertension Hyperlipidemia Osteoarthritis of multiple joints GI prophylaxis with Protonix. DVT prophylaxis patient is already on Coumadin. Plan: Continued on BiPAP. Transferred to MICU. Patient be continued on antibiotics of Levaquin. Continue with DuoNeb's. Continue with home medications including anticoagulation. Pulmonary is following. Further recommendations based on the clinical course. r Time with Patient: Greater than 30
[2018-05-30] MEDS ORDERED: NITROGLYCERIN SL TABS 0.4 MG TAB SUBLINGUAL PRN (02:34)
[2018-05-30 06:10] LABS: Basophils % (A) 1 %; Eosinophils % (A) 0 %; HCT 38.9 % (34.0-46.0); HGB 12.2 gm/dL (11.4-16.0); Hypochromasia Slight; Lymphocytes # (A) 0.4 k/uL (1.0-4.8); Lymphocytes % (A) 11 %; MCH 26.9 pg (25.0-35.0); MCHC 31.3 g/dL (31.0-37.0); MCV 85.8 fL (80.0-100.0); Mean Platelet Volume 6.3; Monocytes # (A) 0.2 k/uL (0-1.0); Monocytes % (A) 6 %; Neutrophils # (A) 3.1 k/uL (1.3-7.7); Neutrophils % (A) 80 %; Platelet Count 329 k/uL (150-450); RBC 4.54 m/uL (3.80-5.40); RDW 13.2 % (11.5-15.5); WBC 3.9 k/uL (3.8-10.6)
[2018-05-30 06:32] LABS: Anion Gap 15 mmol/L; Calcium 8.7 mg/dL (8.4-10.2); Carbon Dioxide 23 mmol/L (22-30); Chloride 103 mmol/L (98-107); Glucose 140 mg/dL (74-99); Sodium 141 mmol/L (137-145)
[2018-05-30 06:33] LABS: Blood Urea Nitrogen 13 mg/dL (7-17); Magnesium 1.8 mg/dL (1.6-2.3); Phosphorus 1.8 mg/dL (2.5-4.5); Potassium 4.1 mmol/L (3.5-5.1)
--- NOTE | 2018-05-30 06:41 | XR ---
EXAMINATION TYPE: XR chest 1V DATE OF EXAM: 05/30/2018 HISTORY: shortness of breath. REFERENCE: Previous study dated 05/28/2018. FINDINGS: There are bilateral shoulder prostheses in place. There has been a previous ACDF in the low er cervical spine. There continues be bilateral airspace disease. There may have been some interval clearing. Heart size upper limits of normal. Pleural spaces are clear. IMPRESSION: OPTIMISTICALLY, THERE MAY HAVE BEEN SLIGHT IMPROVED AERATION OF THE LUNGS.
[2018-05-30 06:46] LABS: Prothrombin Time 64.5 sec (9.0-12.0)
[2018-05-30 06:49] LABS: INR 6.6 (<1.2)
[2018-05-30] MEDS: LEVOTHYROXINE 100 MCG TAB PO SCH (06:53)
[2018-05-30] MEDS: IPRATROPIUM-ALBUTEROL 3 ML NEB INHALATION SCH ×4 (06:56→19:24)
[2018-05-30 07:10] LABS: Glucose,Whole Blood 140 mg/dL (75-99)
[2018-05-30] MEDS ORDERED: PHYTONADIONE ORAL 5 MG/5 ML ORAL.SYRG PO STA (07:55)
[2018-05-30 08:23] LABS: Glucose,Whole Blood 138 mg/dL (75-99)
[2018-05-30] MEDS: INSULIN ASPART (NovoLOG) 100 UNIT/ML VIAL SQ SCH ×4 (08:39→20:11)
[2018-05-30] MEDS: FUROSEMIDE 10 MG/ML 2 ML VIAL IV SCH ×2 (08:40→20:10)
[2018-05-30] MEDS: ONDANSETRON 4 MG/2 ML VIAL IVP PRN (08:40)
[2018-05-30] MEDS: DOCUSATE 100 MG CAP PO SCH ×3 (08:41→20:13)
[2018-05-30] MEDS: CHOLECALCIFEROL 1,000 UNIT TAB PO SCH (08:41)
[2018-05-30] MEDS: METOPROLOL TARTRATE 25 MG TAB PO SCH ×2 (08:41→20:10)
[2018-05-30] MEDS: metFORMIN 500 MG TAB PO SCH ×2 (08:41→20:10)
[2018-05-30] MEDS: CITALOPRAM HYDROBROMIDE 20 MG TAB PO SCH (08:42)
[2018-05-30] MEDS: FENOFIBRATE 160 MG TAB PO SCH (08:42)
[2018-05-30] MEDS: CALCIUM CARBONATE 500 MG CHEWABLE PO SCH (08:42)
[2018-05-30] MEDS: ANASTROZOLE 1 MG TAB PO SCH (08:43)
[2018-05-30] MEDS: busPIRone HCl 10 MG TAB PO SCH ×2 (08:43→20:10)
[2018-05-30] MEDS: FLUTICASONE 50MCG/SPRAY NASAL 16GM EA NOSTRIL SCH (08:46)
[2018-05-30] MEDS: SPIRONOLACTONE 25 MG TAB PO SCH (08:59)
[2018-05-30] MEDS: ZYRTEC 10MG PO SCH (09:31)
[2018-05-30] MEDS: NON-FORMULARY DRUG (Biotin [Biotin] 5,000 MCG) PO SCH (09:31)
[2018-05-30] MEDS ORDERED: HYDROmorphone 0.5 MG/0.5 ML SYRINGE IVP PRN (10:37)
[2018-05-30] MEDS: HYDROmorphone 1 MG/ML 1 ML SYRINGE IVP PRN ×6 (10:57→22:12)
[2018-05-30] MEDS: PANTOPRAZOLE 40 MG TABLET PO SCH (10:59)
[2018-05-30] MEDS ORDERED: VANCOMYCIN 1,000 MG in SODIUM CHLORIDE 0.9% 250 ML IVPB STA (11:47)
--- NOTE | 2018-05-30 11:55 | P.PN ---
Subjective Progress Note Date: 05/30/18 Principal diagnosis: Bibasilar pneumonia, hypoxemic respiratory failure The patient is seen today in follow-up in the intensive care unit. She is currently awake and alert answering appropriately. She has mainly remained BiPAP dependent due to the severity of her hypoxemia and pneumonia. She is currently on settings of 12/5 in the 100% FiO2. According to staff she desatura nikole rather quickly went off the BiPAP. She continues to maintain O2 saturations in the low 90s. She's been afebrile. Hemodynamically stable. White count 3.9. Hemoglobin 12.2. INR 6.6. Creatinine 0.55. Troponins were negative 2. Glucose 138. She is currently maintained on DuoNeb inhalations, IV here at X, Levaquin. Today's chest x-ray continues to show bilateral airspace disease with some minimal improvement in aeration. Objective - Vital Signs Vital signs: Vital Signs Temp 97.1 F L 05/30/18 04:00 Pulse 74 05/30/18 11:32 Resp 20 05/30/18 11:00 BP 127/69 05/30/18 11:00 Pulse Ox 93 L 05/30/18 11:00 Intake & Output 05/29/18 05/30/18 05/30/18 18:59 06:59 18:59 Intake Total 250 400 500 Output Total 1525 1600 1200 Balance -1275 -1200 -700 Weight 105.5 kg 101.5 kg Intake: IV 250 100 ACETAMINOPHEN IV (For NPO 100 100 ) 1,000 mg In Empty Bag 1 bag @ 400 mls/hr IVPB Q6HR PRN Rx#:[id number] Levofloxacin 750Mg-D5w 150 Pmx 750 mg In Dextrose/ Water 1 150ml.bag @ 100 mls/hr IVPB Q24H [facility] Rx#: [id number] Oral 300 500 Output: Urine 1525 1600 1200 Other: Voiding Method Indwelling Catheter Indwelling Catheter - Exam GENERAL EXAM: Alert, anxious female, currently on BiPAP support, with pressures of 12 and 5, and FiO2 of 100%, with O2 saturation is 94%, tachypnea HEAD: Normocephalic/atraumatic. EYES: Normal reaction of pupils, equal size. Conjunctiva pink, sclera white. NOSE: Clear with pink turbinates. THROAT: No erythema or exudates. NECK: No masses, no JVD, no thyroid enlargement, no adenopathy. CHEST: No chest wall deformity. Symmetrical expansion. LUNGS: Equal air entry with diffuse crackles and rhonchi CVS: Regular rate and rhythm, normal S1 and S2, no gallops, no murmurs, no rubs ABDOMEN: Soft, nontender. No hepatosplenomegaly, normal bowel sounds, no guarding or rigidity. EXTREMITIES: No clubbing, no edema, no cyanosis, 2+ pulses and upper and lower extremities. MUSCULOSKELETAL: Muscle strength and tone normal. SPINE: No scoliosis or deformity SKIN: No rashes CENTRAL NERVOUS SYSTEM: No focal deficits, tone is normal in all 4 extremities. PSYCHIATRIC: Alert and oriented -3. Appropriate affect. Intact judgment and i nsight. - Labs CBC & Chem 7: 05/30/18 05:48 05/30/18 05:48 Labs: Abnormal Lab Results - Last 24 Hours (Table) 05/29/18 05/29/18 05/29/18 Range/Units 11:57 17:23 20:59 Lymphocytes # (1.0-4.8) k/uL PT 61.0 H (9.0-12.0) sec INR 6.3 H* (<1.2) Glucose (74-99) mg/dL POC Glucose (mg/dL) 179 H 146 H (75-99) mg/dL Phosphorus (2.5-4.5) mg/dL 05/30/18 05/30/18 05/30/18 Range/Units 05:48 05:48 05:48 Lymphocytes # 0.4 L (1.0-4.8) k/uL PT 64.5 H (9.0-12.0) sec INR 6.6 H* (<1.2) Glucose 140 H (74-99) mg/dL POC Glucose (mg/dL) (75-99) mg/dL Phosphorus 1.8 L (2.5-4.5) mg/dL 05/30/18 05/30/18 Range/Units 07:09 08:21 Lymphocytes # (1.0-4.8) k/uL PT (9.0-12.0) sec INR (<1.2) Glucose (74-99) mg/dL POC Glucose (mg/dL) 140 H 138 H (75-99) mg/dL Phosphorus (2.5-4.5) mg/dL Assessment and Plan Assessment: Assessment: #1. Acute hypoxemic respiratory failure secondary to bilateral pneumonia, and there may be a component of pulmonary edema/ARDS, proBNP was within normal limits. Influenza screen was negative, CT angios the chest was negative for any pulmonary embolism, showed groundglass opacities at bilateral bases, likely related to underlying pneumonia #2. Pulmonary nodules, could relate to underlying sarcoidosis, or infectious etiology #3. Diabetes mellitus type 2 #4. Chronic atrial fibrillation, and history of DVT and pulmonary embolism, on chronic anticoagulation in the form of Coumadin. Supratherapeutic 6.6 on today's labs we'll hold Coumadin #5. GERD/reflux #6. Hypertention, hyperlipidemia #7. DJD #8. Hypothyroidism #9. Osteoarthritis of multiple joints Plan: The patient was seen and evaluated by Dr. Garzon. Chest x-ray and labs reviewed. The patient is requiring 100% FiO2 on the BiPAP 12/5 to maintain O2 saturations in the low 90s. We'll discontinue the Levaquin. Give vancomycin 1 g 1, initiate Rocephin and azithromycin. Repeat cultures that were previously done at outside hospital. Utilize minimal Dilaudid as needed. Continue to monitor her here here closely in the intensive care unit. Continue to titrate down the FiO2 as tolerated. Repeat a chest x-ray in the a.m. We will continue to follow and make further recommendations based on her clinical status. Critical care time 38 minutes. I, the cosigning physician, performed a history & physical examination of the patient. Lungs sounds with bilateral scattered rhonchi, crackles in the bases. Maintaining good O2 saturations in the 90s on 100% FiO2 via BiPAP 12/5. I discussed the assessment and plan of care with my nurse practitioner, Chasity Duarte. I attest to the above note as dictated by her. Time with Patient: Greater than 30
[2018-05-30] MEDS ORDERED: VANCOMYCIN 2,000 MG in SODIUM CHLORIDE 0.9% 500 ML 500 ML IVPB STA (12:01)
[2018-05-30] MEDS: MULTIVITAMINS, THERA 1 EACH TAB PO SCH (12:03)
[2018-05-30 12:08] LABS: Glucose,Whole Blood 188 mg/dL (75-99)
[2018-05-30] MEDS: AZITHROMYCIN 500 MG in SODIUM CHLORIDE 0.9% 250 ML IVPB SCH (13:04)
--- NOTE | 2018-05-30 16:38 | ECHOF ---
Referral Reason:Afib history MEASUREMENTS -------- HEIGHT: 157.5 cm WEIGHT: 113.4 kg BP: RVIDd: 3.2 cm (< 3.3) IVSd: 1.4 cm (0.6 - 1.1) LVIDd: 4.2 cm (3.9 - 5.3) LVPWd: 1.3 cm (0.6 - 1.1) IVSs: 1.5 cm LVIDs: 3.1 cm LVPWs: 1.2 cm LA Diam: 3.9 cm (2.7 - 3.8) LAESV Index (A-L): 25.73 ml/m Ao Diam: 3.4 cm (2.0 - 3.7) AV Cusp: 2.1 cm (1.5 - 2.6) LA Diam: 3.2 cm (2.7 - 3.8) MV E Jameel: 0.72 m/s MV DecT: 218 ms MV A Jameel: 0.69 m/s MV E/A Ratio: 1.04 RAP: 5.00 mmHg RVSP: 13.38 mmHg FINDINGS -------- Sinus rhythm. This was a technically adequate study. The left ventricular size is normal. There is moderate concentric left ventricular hypertrophy. O verall left ventricular systolic function is normal with, an EF between 55 - 60 %. The right ventricle is normal in size. The left atrial size is normal. The right atrial size is normal. The aortic valve was not well visualized. Mild mitral annular calcification present. Mild mitral regurgitation is present. Mild tricuspid regurgitation present. There is no evidence of pulmonary hypertension. The right v entricular systolic pressure, as measured by Doppler, is 13.38mmHg. The pulmonic valve was not well visualized. The aortic root size is normal. Echo free space represents a pericardial fat pad. CONCLUSIONS -------- 1. The left ventricular size is normal. 2. There is moderate concentric left ventricular hypertrophy. 3. The right ventricle is normal in size. 4. The left atrial size is normal. 5. The right atrial size is normal. 6. The aortic valve was not well visualized. 7. Mild mitral annular calcification present. 8. Mild mitral regurgitation is present. 9. Mild tricuspid regurgitation present. 10. There is no evidence of pulmonary hypertension. 11. The right ventricular systolic pressure, as measured by Doppler, is 13.38mmHg. 12. The pulmonic valve was not well visualized. 13. The aortic root size is normal. 14. Echo free space represents a pericardial fat pad. COPY CHIEF: Loreta Richey RDCS
[2018-05-30 17:02] LABS: Glucose,Whole Blood 133 mg/dL (75-99)
--- NOTE | 2018-05-30 17:59 | CONS ---
CONSULTATION Cris Uribe is a 67-year-old lady who has been transferred here to [facility] from [facility] where she was in the acute care. This is a 67-year-old lady apparently she [place] [facility]. She is known to have had previous bilateral pneumonia. She came in to [facility], was evaluated and her main complaint was increasing shortness of breath, lack of energy. A CT angiogram was performed and pulmonary embolism was ruled out. Influenza screen was also negative. She is known to have pulmonary nodules with underlying sarcoidosis. Because of the fact that she had bilateral lower lobe pneumonia and was not getting better from a respiratory standpoint, she was transferred here and after arrival she complained of some sharp pains in the chest. The quality of the chest pain seems very atypical. The pain at the time of my questioning is completely resolved. She indicated to me that she had pain and sharp feeling on the right anterior chest and also in the mid sternal area, but she is quite asymptomatic at the time of my evaluation. Her troponin levels are normal and EKG does not reveal any significant ST- segment changes to indicate ischemia. Patient was on BiPAP and her oxygenation was somewhat suboptimal, but she seems to be holding her own. Another issue also was that she has history of paroxysmal or chronic atrial fibrillation and has been on Coumadin. INR was 6.6. She seems to have paroxysmal atrial fibrillation and EKG that was performed here today suggests possible flutter with a controlled ventricular rate. She does not have any chest pain at the time of my evaluation. PAST MEDICAL HISTORY: 1. Remarkable for atrial fibrillation probably paroxysmal. 2. Hypertension. 3. Bronchial asthma. 4. Sarcoidosis. 5. History of pulmonary embolism in the past. 6. Type 2 diabetes mellitus. 7. Smoking and chronic obstructive pulmonary disease. MEDICATIONS: At home include Celexa, Zetia, Synthroid, Zestril, Coumadin 5 mg daily, fenofibrate, Aldactone 75 mg daily and also takes some vitamin supplements. ALLERGIES: SHE IS ALLERGIC TO GUAIFENESIN. SHE IS ALSO ALLERGIC TO PSEUDOEPHEDRINE AND SULFA, ALSO LORATADINE. SHE IS ALSO ALLERGIC TO PENICILLIN. PHYSICAL EXAMINATION: Blood pressure is 130/70, pulse rate is 70 per minute. Appears to be regular today. HEENT unremarkable. Fundus was not examined by me. NECK: Supple. There is JVD of 1 cm. No carotid bruit. S1-S2 heard normally. Short systolic murmur is audible. Lungs reveal bilateral diminished air entry over both bases with fine rales. Abdomen is soft, nontender. Lower extremities reveal diminished pulses. Central nervous system is normal. IMPRESSION: 1. Bilateral pneumonia with respiratory failure showing modest improvement. 2. History of atrial flutter fibrillation syndrome, probably paroxysmal. The patient had mostly sinus rhythm but there is 1 EKG with atrial flutter. 3. History of hypertension. 4. History of sarcoidosis. RECOMMENDATIONS: I am recommending that we give vitamin K 10 mg orally. Check PT/INR daily. Obtain echocardiogram to assess LV function and also add metoprolol tartrate 25 mg b.i.d. to her regimen. I discussed my thoughts in detail with the patient. Thank you very much for the consult. HERNANDEZ / RADHA: [id number] / MTDD
[2018-05-30] MEDS ORDERED: WARFARIN 5 MG TAB PO SCH (18:00)
[2018-05-30 20:07] LABS: Glucose,Whole Blood 198 mg/dL (75-99)
[2018-05-30] MEDS: traZODone HCL 50 MG TAB PO SCH (20:10)
[2018-05-30] MEDS: LISINOPRIL 10 MG TAB PO SCH (20:10)
[2018-05-30] MEDS: EZETIMIBE 10 MG TAB PO SCH (20:10)
--- NOTE | 2018-05-30 23:42 | P.PN ---
Subjective Progress Note Date: 05/30/18 Principal diagnosis: Multifocal pneumonia Acute hypoxemic respiratory failure Patient is a 67-year-old female with a known history of atrial fibrillation on anticoagulation, history of DVT/PE, diabetes type 2, history of CVA/TIA and hypertension, hypothyroidism and other multiple medical problems initially presents to walk-in clinic [facility] on Friday with complaints of shortness of breath cough and fever 102.4. Patient was sent home with Z-Samuel and GCWsalFiix pearls as well as Mucinex. Patient has been taking her medications and symptoms did not resolve which made her to go back to hospital on Friday. Patient was hypoxic and tachycardic at the time. Patient had CT angiogram of the chest to rule out pulmonary embolism. No pulmonary embolism was noted. Patient was found to have pulmonary nodules and repeat CT was recommended after resolution of pneumonia. Due to extensive pneumonia and pulmonary nodules and sepsis patient was transferred to [facility] for further evaluation and possible pulmonary consult. Currently patient is on oxygen via nasal cannula. Patient otherwise denied any complaints of chest pain. Patient does have nausea and bloating in the abdomen. No diarrhea. Currently patient is afebrile. No headache or dizziness or lightheadedness. Patient does have shortness of breath. No complaints of chest pain otherwise. Laboratory data reviewed from [facility]. Influenza was negative. 05/29/2018 Patient did have worsening shortness of breath last night and was placed on BiPAP. Chest x-ray showed moderate pulmonary edema. Patient was given a dose of IV Lasix and is being continued currently. Patient appears to be in moderate distress and is being transferred to MICU. Otherwise patient is being continued on antibiotics in the form of Levaquin. Continued on breathing treatments and oxygen therapy. Patient has been afebrile. No complaints of chest pain. 05/30/2018 Patient is currently on BiPAP machine and being monitored in the MICU.. No complaints of chest pain. No worsening shortness of breath. Chest x-ray showed improved aeration. Minimal. Otherwise patient is being continued on IV steroids and breathing treatments and antibiotics in the form of Levaquin. No fever no chills. No nausea vomiting or abdominal pain. No diarrhea. Current medications reviewed. Active Medications Generic Name Dose Route Start Last Admin Trade Name Freq PRN Reason Stop Dose Admin Albuterol/Ipratropium 3 ml 05/28/18 16:00 05/30/18 19:24 Duoneb 0.5 Mg-3 Mg/3 Ml Soln INHALATION 3 ml RT-QID [facility] Administration Albuterol/Ipratropium 3 ml 05/28/18 13:59 Duoneb 0.5 Mg-3 Mg/3 Ml Soln INHALATION RT-QID PRN Shortness Of Breath Or Wheezing Anastrozole 1 mg 05/29/18 09:00 05/30/18 08:43 Arimidex PO Not Given QAM [facility] Baclofen 10 mg 05/29/18 14:52 05/29/18 15:32 Lioresal PO 10 mg TID PRN Administration Muscle Spasm Buspirone HCl 10 mg 05/28/18 21:00 05/30/18 20:10 Buspar PO 10 mg BID [facility] Administration Calcium Carbonate/Glycine 500 mg 05/29/18 09:00 05/30/18 08:42 Tums PO 500 mg DAILY [facility] Administration Cholecalciferol 2,000 unit 05/29/18 09:00 05/30/18 08:41 Vitamin D3 PO 2,000 unit DAILY [facility] Administration Citalopram Hydrobromide 20 mg 05/29/18 09:00 05/30/18 08:42 Celexa PO 20 mg QAM [facility] Administration Docusate Sodium 100 mg 05/28/18 22:00 05/30/18 20:13 Colace PO Not Given TID [facility] Ezetimibe 10 mg 05/28/18 21:00 05/30/18 20:10 Zetia PO 10 mg HS [facility] Administration Fenofibrate 160 mg 05/29/18 09:00 05/30/18 08:42 Lofibra PO 160 mg DAILY [facility] Administration Fluticasone Propionate 1 spray 05/29/18 09:00 05/30/18 08:46 Flonase Nasal [place] EA NOSTRIL 1 spray DAILY [facility] Administration Furosemide 20 mg 05/29/18 12:00 05/30/18 20:10 Lasix IV 20 mg Q12HR [facility] Administration Hydromorphone HCl 0.5 mg 05/30/18 10:37 Dilaudid IVP Q2HR PRN Moderate Pain Hydromorphone HCl 1 mg 05/30/18 10:37 05/30/18 22:12 Dilaudid IVP 1 mg Q2HR PRN Administration Severe Pain Azithromycin 500 mg/ Sodium 250 mls @ 250 mls/hr 05/30/18 12:00 05/30/18 13:04 Chloride IVPB 250 mls/hr DAILY [facility] Administration Ceftriaxone Sodium 1 gm/ 50 mls @ 100 mls/hr 05/30/18 12:00 05/30/18 13:04 Sodium Chloride IVPB 100 mls/hr Q24HR [facility] Administration Insulin Aspart 0 unit 05/29/18 21:00 05/30/18 20:11 Novolog SQ 3 unit ACHS [facility] Administration Protocol Levothyroxine Sodium 200 mcg 05/29/18 06:30 05/30/18 06:53 Synthroid PO 200 mcg 0630 [facility] Administration Lisinopril 10 mg 05/28/18 21:00 05/30/18 20:10 Zestril PO 10 mg HS [facility] Administration Metformin HCl 1,000 mg 05/28/18 21:00 05/30/18 20:10 Glucophage PO 1,000 mg BID [facility] Administration Metoprolol Tartrate 25 mg 05/30/18 09:00 05/30/18 20:10 Lopressor PO 25 mg BID [facility] Administration Multivitamins 1 each 05/29/18 12:00 05/30/18 12:03 Theragran PO 1 each 1200 [facility] Administration Nitroglycerin 0.4 mg 05/30/18 02:34 Nitrostat SUBLINGUAL Q10M PRN Chest Pain Non-Formulary Medication 5,000 mcg 05/29/18 09:00 05/30/18 09:31 Biotin [Biotin] PO Not Given DAILY [facility] Non-Formulary Medication 10 mg 05/29/18 09:00 05/30/18 09:31 Cetirizine Hcl [Zyrtec] PO Not Given DAILY [facility] Ondansetron HCl 4 mg 05/28/18 22:33 05/30/18 08:40 Zofran IVP 4 mg Q6HR PRN Administration Nausea And Vomiting Pantoprazole Sodium 40 mg 05/28/18 16:00 05/30/18 10:59 Protonix PO 40 mg AC-BRKFST [facility] Administration Spironolactone 75 mg 05/29/18 09:00 05/30/18 08:59 Aldactone PO 75 mg DAILY [facility] Administration Trazodone HCl 50 mg 05/29/18 21:00 05/30/18 20:10 Desyrel PO 50 mg HS [facility] Administration Objective - Vital Signs Vital signs: Vital Signs Temp 97.8 F 05/30/18 20:00 Pulse 68 05/30/18 22:00 Resp 14 05/30/18 22:00 BP 126/66 05/30/18 22:00 Pulse Ox 88 L 05/30/18 22:00 Intake & Output 05/30/18 05/30/18 05/31/18 06:59 18:59 06:59 Intake Total 400 1800 Output Total 1600 1660 1325 Balance -1200 140 -1325 Weight 101.5 kg Intake: IV 100 800 ACETAMINOPHEN IV (For NPO 100 ) 1,000 mg In Empty Bag 1 bag @ 400 mls/hr IVPB Q6HR PRN Rx#:[id number] Azithromycin 500 mg In 250 Sodium Chloride 0.9% 250 ml @ 250 mls/hr IVPB DAILY [facility] Rx#:[id number] Vancomycin 2,000 mg In 500 Sodium Chloride 0.9% 500 ml 500 ml @ 167 mls/hr IVPB ONCE STA Rx#: [id number] cefTRIAXone 1 gm In 50 Sodium Chloride 0.9% 50 ml @ 100 mls/hr IVPB Q24HR [facility] Rx#:[id number] Oral 300 1000 Output: Urine 1600 1660 1325 Other: Voiding Method Indwelling Catheter Indwelling Catheter - Exam PHYSICAL EXAMINATION: Patient is lying in the bed comfortably, no acute distress, awake alert and oriented. Currently on BiPAP. HEENT: Normocephalic. Neck is supple. Pupils reactive. Nostrils clear. Oral cavity is moist. Ears reveal no drainage. Neck reveals no JVD, carotid bruits, or thyromegaly. CHEST EXAMINATION: Trachea is central. Symmetrical expansion. Bilateral diffuse rhonchi and crackles.. CARDIAC: Normal S1, S2 with no gallops. No murmurs ABDOMEN: Soft. Bowel sounds normal. No organomegaly. No abdominal bruits. Extremities: reveal no edema. No clubbing or cyanosis Neurologically awake, alert, oriented x3 with well-coordinated movements. No focal deficits noted Skin: No rash or skin lesions. Psychiatric: Coperative. Nonsuicidal Musculoskeletal: No joint swelling or deformity. Normal range of motion. - Labs CBC & Chem 7: 05/30/18 05:48 05/30/18 05:48 Labs: Abnormal Lab Results - Last 24 Hours (Table) 05/30/18 05/30/18 05/30/18 Range/Units 05:48 05:48 05:48 Lymphocytes # 0.4 L (1.0-4.8) k/uL PT 64.5 H (9.0-12.0) sec INR 6.6 H* (<1.2) Glucose 140 H (74-99) mg/dL POC Glucose (mg/dL) (75-99) mg/dL Phosphorus 1.8 L (2.5-4.5) mg/dL 05/30/18 05/30/18 05/30/18 Range/Units 07:09 08:21 12:06 Lymphocytes # (1.0-4.8) k/uL PT (9.0-12.0) sec INR (<1.2) Glucose (74-99) mg/dL POC Glucose (mg/dL) 140 H 138 H 188 H (75-99) mg/dL Phosphorus (2.5-4.5) mg/dL 05/30/18 05/30/18 Range/Units 17:00 20:05 Lymphocytes # (1.0-4.8) k/uL PT (9.0-12.0) sec INR (<1.2) Glucose (74-99) mg/dL POC Glucose (mg/dL) 133 H 198 H (75-99) mg/dL Phosphorus (2.5-4.5) mg/dL Microbiology - Last 24 Hours (Table) 05/30/18 11:50 Urine Culture - Preliminary Urine,Catheterized Assessment and Plan Assessment: Acute hypoxic respiratory failure secondary to pneumonia with pulmonary interstitial edema/ARDS. Multifocal pneumonia with sepsis Pulmonary nodules multiple likely infectious etiology. Rule out sarcoidosis. Repeat CT in 3 months was recommended. Chronic atrial fibrillation on anticoagulation with Coumadin Right lower extremity DVT extensively with 16 inches long was removed Asthma History of breast cancer status post surgery and chemotherapy Migraine headaches Degenerative disc disease and chronic back pain and cervical pain Left leg sciatic pain Hypothyroidism History of CVA/TIA with no residual weakness GERD Hypertension Hyperlipidemia Osteoarthritis of multiple joints GI prophylaxis with Protonix. DVT prophylaxis patient is already on Coumadin. Plan: Continued on BiPAP. Patient be continued on antibiotics of Levaquin. Continue with DuoNeb's. Continue with home medications including anticoagulation. Pulmonary is following. Further recommendations based on the clinical course. r Time with Patient: Greater than 30
[2018-05-31] MEDS: HYDROmorphone 1 MG/ML 1 ML SYRINGE IVP PRN ×10 (00:30→23:05)
[2018-05-31 04:54] LABS: Basophils % (A) 1 %; Eosinophils % (A) 1 %; HCT 37.4 % (34.0-46.0); Hypochromasia Slight; Lymphocytes # (A) 0.4 k/uL (1.0-4.8); Lymphocytes % (A) 9 %; MCH 27.5 pg (25.0-35.0); MCV 85.8 fL (80.0-100.0); Mean Platelet Volume 6.2; Monocytes # (A) 0.4 k/uL (0-1.0); Monocytes % (A) 8 %; Neutrophils # (A) 4.1 k/uL (1.3-7.7); Neutrophils % (A) 80 %; Platelet Count 404 k/uL (150-450); RBC 4.36 m/uL (3.80-5.40); RDW 13.1 % (11.5-15.5); WBC 5.1 k/uL (3.8-10.6)
[2018-05-31 04:57] LABS: INR 1.5 (<1.2); Prothrombin Time 15.4 sec (9.0-12.0)
[2018-05-31 05:07] LABS: Anion Gap 11 mmol/L; Blood Urea Nitrogen 15 mg/dL (7-17); Calcium 8.8 mg/dL (8.4-10.2); Carbon Dioxide 30 mmol/L (22-30); Chloride 97 mmol/L (98-107); Glucose 160 mg/dL (74-99); Magnesium 1.6 mg/dL (1.6-2.3); Phosphorus 2.1 mg/dL (2.5-4.5); Potassium 3.9 mmol/L (3.5-5.1); Sodium 138 mmol/L (137-145)
[2018-05-31] MEDS ORDERED: Phosphorus Replacement Protoco 1 EACH MISC MISCELLANE PRN (05:34)
[2018-05-31] MEDS ORDERED: Magnesium Replacement Protocol 1 EACH MISC MISCELLANE PRN (05:35)
[2018-05-31] MEDS: LEVOTHYROXINE 100 MCG TAB PO SCH (05:39)
[2018-05-31] MEDS: MAGNESIUM SULFATE-D5W PMX 1 GM in DEXTROSE/WATER 1 100ML.BAG IVPB SCH ×2 (06:13→08:57)
[2018-05-31] MEDS ORDERED: POTASSIUM PHOSPHATE 10 MMOL in SODIUM CHLORIDE 0.9% 250 ML IV ONE (06:30)
[2018-05-31] MEDS: ONDANSETRON 4 MG/2 ML VIAL IVP PRN ×2 (06:32→15:18)
[2018-05-31] MEDS ORDERED: WARFARIN 2 MG TAB PO ONE ×2 (06:55→18:00)
[2018-05-31 06:59] LABS: Glucose,Whole Blood 164 mg/dL (75-99)
[2018-05-31] MEDS: INSULIN ASPART (NovoLOG) 100 UNIT/ML VIAL SQ SCH ×4 (07:03→20:53)
[2018-05-31] MEDS: IPRATROPIUM-ALBUTEROL 3 ML NEB INHALATION SCH ×4 (07:09→19:18)
--- NOTE | 2018-05-31 07:52 | XR ---
EXAMINATION TYPE: XR chest 1V portable DATE OF EXAM: 05/31/2018 COMPARISON: Prior chest x-ray 05/30/2018 HISTORY: Pneumonia TECHNIQUE: Single frontal view of the chest is obtained. FINDINGS: There are overlying cardiac leads. Bilateral airspace disease persists. Heart size is stab le. Interstitium and central vascularity are prominent. IMPRESSION: Essentially stable findings. Correlate for pneumonia, pulmonary edema, congestive heart failure, follow-up recommended
[2018-05-31] MEDS: ANASTROZOLE 1 MG TAB PO SCH (08:41)
--- NOTE | 2018-05-31 08:57 | PN ---
PROGRESS NOTE Mrs. Uribe is a lady with a paroxysmal atrial fibrillation, came in with bilateral pneumonia. She also had a coagulopathy with INR of 6.6. I gave her 10 mg of vitamin K. This morning she is in sinus rhythm. Her INR is 1.5. I will resume Coumadin at 2 mg daily. Echo was performed yesterday. Ejection fraction 55%. Her hypoxia is also improving gradually. Vital signs are stable. S1-S2 heard normally. Short systolic murmur noted. Lungs reveal fine rales over both bases. Abdomen and lower extremity exam unchanged. Patient has used BiPAP through the night, but she feels better this morning. From a cardiac standpoint, I would recommend that we continue anticoagulation, keep the INR between 2.0 and 2.5. We will resume Coumadin at 2 mg today and continue her other medications including antibiotics. MMFLASHL / KAYLINN: [id number] /
[2018-05-31] MEDS: PANTOPRAZOLE 40 MG TABLET PO SCH (08:58)
[2018-05-31] MEDS: SPIRONOLACTONE 25 MG TAB PO SCH (08:58)
[2018-05-31] MEDS: AZITHROMYCIN 500 MG in SODIUM CHLORIDE 0.9% 250 ML IVPB SCH (08:58)
[2018-05-31] MEDS: metFORMIN 500 MG TAB PO SCH ×2 (08:58→20:54)
[2018-05-31] MEDS: DOCUSATE 100 MG CAP PO SCH ×3 (08:58→20:54)
[2018-05-31] MEDS: CHOLECALCIFEROL 1,000 UNIT TAB PO SCH (08:58)
[2018-05-31] MEDS: CITALOPRAM HYDROBROMIDE 20 MG TAB PO SCH ×2 (08:59→20:53)
[2018-05-31] MEDS: FLUTICASONE 50MCG/SPRAY NASAL 16GM EA NOSTRIL SCH (08:59)
[2018-05-31] MEDS: FUROSEMIDE 10 MG/ML 2 ML VIAL IV SCH ×2 (08:59→20:53)
[2018-05-31] MEDS: CALCIUM CARBONATE 500 MG CHEWABLE PO SCH (08:59)
[2018-05-31] MEDS: METOPROLOL TARTRATE 25 MG TAB PO SCH ×2 (08:59→20:54)
[2018-05-31] MEDS: FENOFIBRATE 160 MG TAB PO SCH (09:00)
[2018-05-31] MEDS: NON-FORMULARY DRUG (Biotin [Biotin] 5,000 MCG) PO SCH (09:00)
[2018-05-31] MEDS: busPIRone HCl 10 MG TAB PO SCH ×2 (09:00→20:52)
--- NOTE | 2018-05-31 09:14 | P.PN ---
Subjective Progress Note Date: 05/31/18 Principal diagnosis: Bibasilar pneumonia, hypoxemic respiratory failure This is a 67-year-old white female patient who was received as a transfer from [facility] on 05/28/2018. Patient had presented with complaints of chest congestion, cough, wheezing, shortness of breath and occasional phlegm production. Influenza screen and CT angiogram were completed at the [facility], and they were negative for influenza A and pulmonary embolism. Patient did have multiple pulmonary nodules that could relate to her underlying sarcoidosis. In addition she has some groundglass opacities at the lower lobes possibly consistent with pneumonia. We did obtain a chest x-ray at this hospital yesterday, which showed cardiomegaly with multifocal bilateral alveolar and interstitial edema and/or infiltrates. Possible developing ARDS. She lab work showed a white blood cell count of 3.6, hemoglobin 13.3, d-dimer was slightly elevated at 1.05, but CT angios was negative for any evidence of PE, renal profile and electrolytes were within normal limits, proBNP was within normal limits at 467, troponin was negative, urinalysis was negative for any sign of infection. Patient's medical history significant for atrial fibrillation on anticoagulation in the form of Coumadin, history of DVT/PE, diabetes mellitus type 2, history of CVA and TIA and hypertension, hypo thyroidism. The patient was given IV lasix, and she has significantly diuresed, she is in -3560 mL fluid balance in last 24 hours, in her breathing had worsened, along with her oxygenation, and patient had to be placed on BiPAP support. On today's exam patient is seen on BiPAP support with pressures of 12 and 5, 80%, and her pulse ox is 94%, she is quite tachypneic, lung sounds are positive for diffuse crackles, and rhonchi, patient appears to be in mild to moderate amount of distress, and for that reason patient will be removed down to the intensive care unit, today's chest x-ray has been reviewed, showed persistence of bladder pulmonary edema, and airspace disease bilaterally, likely related to underlying pneumonia. Afebrile, hemodynamically stable. Denies any chest pain, wasn't able to produce any sputum for culture. She states she still has the urge to cough, but not able to bring up anything. Antibiotic coverage in the form of Levaquin. On 05/31/2018 patient seen in follow-up in the intensive care unit, she is awake and alert, she is anxious, she states she could not sleep last night, but overall her breathing is better, she remains on BiPAP support with pressures of 12 and 5 and FiO2 of 100%, her O2 sat is 98%, she sinus rhythm on the monitor at a rate of 81 BPM, no IV fluids, IVs have been hep-locked, today's chest x-ray has been reviewed with Dr. Sotomayor, and shows bilateral diffuse infiltrates, improved in appearance from previous exams. Today's INR is 1.5, and we'll start the patient on heparin drip per weight-based protocol for anticoagulation, hold off on Coumadin right now in case patient needs any invasive procedures. His labs have been reviewed, and his CBC was essentially unremarkable, sodium was 138, potassium 3.9, chloride was 97, CO2 is 30, BUN was 15 and creatinine 0.54, antibiotic coverage in the form of Zithromax and Rocephin, and vancomycin. So far the culture data remains negative, patient is still not able to produce any sputum for culture. No fever or chills. We'll try the patient on Airvo. Lung sounds reveal diminished breath sounds, with a few scattered rales. Objective - Vital Signs Vital signs: Vital Signs Temp 98.5 F 05/31/18 04:00 Pulse 84 05/31/18 07:23 Resp 20 05/31/18 07:00 BP 131/60 05/31/18 07:00 Pulse Ox 97 05/31/18 08:53 Intake & Output 05/30/18 05/31/18 05/31/18 18:59 06:59 18:59 Intake Total 1800 225 Output Total 1660 1855 95 Balance 140 -1855 130 Weight 99.1 kg Intake: IV 800 225 Azithromycin 500 mg In 250 Sodium Chloride 0.9% 250 ml @ 250 mls/hr IVPB DAILY [facility] Rx#:[id number] Magnesium Sulfate-D5w Pmx 100 1 gm In Dextrose/Water 1 100ml.bag @ 100 mls/hr IVPB Q1H [facility] Rx#: [id number] Potassium Phosphate 10 125 mmol In Sodium Chloride 0 .9% 250 ml @ 125 mls/hr IV ONCE ONE Rx#:[id number] Vancomycin 2,000 mg In 500 Sodium Chloride 0.9% 500 ml 500 ml @ 167 mls/hr IVPB ONCE STA Rx#: [id number] cefTRIAXone 1 gm In 50 Sodium Chloride 0.9% 50 ml @ 100 mls/hr IVPB Q24HR [facility] Rx#:[id number] Oral 1000 Output: Urine 1660 1855 95 Other: Voiding Method Indwelling Catheter Indwelling Catheter - Exam GENERAL EXAM: Alert, slightly anxious, 67-year-old white female, currently on BiPAP support, with pressures of 12 and 5, and FiO2 of 100%, with O2 saturation is 98%, a bit emotional, anxious, but not tachypneic, not using accessory muscles of breathing. HEAD: Normocephalic/atraumatic. EYES: Normal reaction of pupils, equal size. Conjunctiva pink, sclera white. NOSE: Clear with pink turbinates. THROAT: No erythema or exudates. NECK: No masses, no JVD, no thyroid enlargement, no adenopathy. CHEST: No chest wall deformity. Symmetrical expansion. LUNGS: Equal air entry with diffuse crackles CVS: Regular rate and rhythm, normal S1 and S2, no gallops, no murmurs, no rubs ABDOMEN: Soft, nontender. No hepatosplenomegaly, normal bowel sounds, no guarding or rigidity. EXTREMITIES: No clubbing, no edema, no cyanosis, 2+ pulses and upper and lower extremities. MUSCULOSKELETAL: Muscle strength and tone normal. SPINE: No scoliosis or deformity SKIN: No rashes CENTRAL NERVOUS SYSTEM: Alert and oriented -3. No focal deficits, tone is normal in all 4 extremities. PSYCHIATRIC: Alert and oriented -3. Appropriate affect. Intact judgment and insight. - Labs CBC & Chem 7: 05/31/18 04:23 05/31/18 04:23 Labs: Abnormal Lab Results - Last 24 Hours (Table) 05/30/18 05/30/18 05/30/18 Range/Units 12:06 17:00 20:05 Lymphocytes # (1.0-4.8) k/uL PT (9.0-12.0) sec INR (<1.2) Chloride (98-107) mmol/L Glucose (74-99) mg/dL POC Glucose (mg/dL) 188 H 133 H 198 H (75-99) mg/dL Phosphorus (2.5-4.5) mg/dL 05/31/18 05/31/18 05/31/18 Range/Units 04:23 04:23 04:23 Lymphocytes # 0.4 L (1.0-4.8) k/uL PT 15.4 H (9.0-12.0) sec INR 1.5 H (<1.2) Chloride 97 L (98-107) mmol/L Glucose 160 H (74-99) mg/dL POC Glucose (mg/dL) (75-99) mg/dL Phosphorus 2.1 L (2.5-4.5) mg/dL 05/31/18 Range/Units 06:57 Lymphocytes # (1.0-4.8) k/uL PT (9.0-12.0) sec INR (<1.2) Chloride (98-107) mmol/L Glucose (74-99) mg/dL POC Glucose (mg/dL) 164 H (75-99) mg/dL Phosphorus (2.5-4.5) mg/dL Microbiology - Last 24 Hours (Table) 05/30/18 11:50 Urine Culture - Preliminary Urine,Catheterized Assessment and Plan Plan: Assessment: #1. Acute hypoxemic respiratory failure secondary to bilateral pneumonia, and there may be a component of pulmonary edema/ARDS, proBNP was within normal limits. Influenza screen was negative, CT angios the chest was negative for any pulmonary embolism, showed groundglass opacities at bilateral bases, likely related to underlying pneumonia #2. Pulmonary nodules, could relate to underlying sarcoidosis, or infectious etiology #3. Diabetes mellitus type 2 #4. Chronic atrial fibrillation, and history of DVT and pulmonary embolism, on chronic anticoagulation in the form of Coumadin. Supratherapeutic on today's labs we'll hold Coumadin #5. GERD/reflux #6. Hypertention, hyperlipidemia #7. DJD #8. Hypothyroidism #9. Osteoarthritis of multiple joints Plan: We'll continue current antibiotic coverage, nebulized treatments, today's chest x-ray has been reviewed with Dr. Sotomayor, and there is some improvement in the appearance of infiltrates. Clinically patient is doing better, breathing easier, no tachypnea, and uses accessory muscles of breathing, we'll try the patient on Airvo, incentive spirometer to the bedside, encouraged her breathing and coughing, culture dated remains negative thus far, fever or chills. We'll continue to follow, patient will remain in the ICU today. I performed a history & physical examination of the patient and discussed their management with my nurse practitioner, Sharona Klein. I reviewed the nurse practitioner's note and agree with the documented findings and plan of care. Lung sounds are positive for diffuse rhonchi. The findings and the impression was discussed with the patient. I attest to the documentation by the nurse practitioner. Time with Patient: Greater than 30
[2018-05-31] MEDS ORDERED: HEPARIN SODIUM,PORCINE 5,000 UNIT/ML 1 ML VIAL IV ONE (09:54)
[2018-05-31] MEDS: BACLOFEN 10 MG TAB PO PRN ×2 (10:09→21:01)
[2018-05-31 10:25] LABS: Basophils % (A) 0 %; Eosinophils % (A) 0 %; HCT 40.6 % (34.0-46.0); HGB 12.7 gm/dL (11.4-16.0); Lymphocytes # (A) 0.3 k/uL (1.0-4.8); Lymphocytes % (A) 5 %; MCH 26.4 pg (25.0-35.0); MCHC 31.2 g/dL (31.0-37.0); MCV 84.8 fL (80.0-100.0); Mean Platelet Volume 6.5; Monocytes # (A) 0.4 k/uL (0-1.0); Monocytes % (A) 6 %; Neutrophils # (A) 5.4 k/uL (1.3-7.7); Neutrophils % (A) 87 %; Platelet Count 393 k/uL (150-450); RDW 13.4 % (11.5-15.5); WBC 6.2 k/uL (3.8-10.6)
[2018-05-31 10:34] LABS: INR 1.3 (<1.2); Partial Thromboplastin Time 25.7 sec (22.0-30.0); Prothrombin Time 13.4 sec (9.0-12.0)
[2018-05-31] MEDS: HEPARIN SOD,PORK IN 0.45% NACL 25,000 UNIT in 0.45% NACL 1 250ML.BAG IV SCH (10:46)
[2018-05-31] MEDS: ZYRTEC 10MG PO SCH (10:58)
[2018-05-31 11:54] LABS: Glucose,Whole Blood 176 mg/dL (75-99)
[2018-05-31] MEDS: MULTIVITAMINS, THERA 1 EACH TAB PO SCH (12:18)
[2018-05-31 17:32] LABS: Glucose,Whole Blood 183 mg/dL (75-99)
[2018-05-31] MEDS: HEPARIN SODIUM,PORCINE 5,000 UNIT/ML 1 ML VIAL IV PRN (17:37)
[2018-05-31 20:32] LABS: Glucose,Whole Blood 176 mg/dL (75-99)
[2018-05-31] MEDS: EZETIMIBE 10 MG TAB PO SCH (20:53)
[2018-05-31] MEDS: traZODone HCL 50 MG TAB PO SCH (20:54)
[2018-05-31] MEDS: LISINOPRIL 10 MG TAB PO SCH (20:54)
[2018-06-01] MEDS ORDERED: HEPARIN SODIUM,PORCINE 5,000 UNIT/ML 1 ML VIAL IV STA (00:58)
[2018-06-01] MEDS: HYDROmorphone 1 MG/ML 1 ML SYRINGE IVP PRN ×4 (01:11→08:49)
[2018-06-01] MEDS: HEPARIN SODIUM,PORCINE 5,000 UNIT/ML 1 ML VIAL IV PRN (01:12)
[2018-06-01 05:31] LABS: INR 1.2 (<1.2); Prothrombin Time 12.3 sec (9.0-12.0)
[2018-06-01 05:34] LABS: Basophils % (A) 0 %; Eosinophils % (A) 0 %; HCT 36.1 % (34.0-46.0); HGB 11.4 gm/dL (11.4-16.0); Lymphocytes # (A) 0.6 k/uL (1.0-4.8); Lymphocytes % (A) 9 %; MCH 26.3 pg (25.0-35.0); MCHC 31.4 g/dL (31.0-37.0); MCV 83.8 fL (80.0-100.0); Mean Platelet Volume 7.2; Monocytes # (A) 0.5 k/uL (0-1.0); Monocytes % (A) 8 %; Neutrophils % (A) 81 %; Platelet Count 386 k/uL (150-450); RBC 4.31 m/uL (3.80-5.40); RDW 13.4 % (11.5-15.5); WBC 6.2 k/uL (3.8-10.6)
[2018-06-01 05:35] LABS: Anion Gap 7 mmol/L; Blood Urea Nitrogen 12 mg/dL (7-17); Calcium 8.6 mg/dL (8.4-10.2); Carbon Dioxide 34 mmol/L (22-30); Chloride 98 mmol/L (98-107); Glucose 155 mg/dL (74-99); Magnesium 1.6 mg/dL (1.6-2.3); Phosphorus 2.5 mg/dL (2.5-4.5); Potassium 3.7 mmol/L (3.5-5.1); Sodium 139 mmol/L (137-145)
[2018-06-01] MEDS ORDERED: Potassium Replacement Protocol 1 EACH MISC MISCELLANE PRN (05:55)
[2018-06-01] MEDS ORDERED: POTASSIUM CHLORIDE ER 20 MEQ TAB.ER PO SCH (06:00)
[2018-06-01] MEDS: LEVOTHYROXINE 100 MCG TAB PO SCH (06:08)
[2018-06-01] MEDS: MAGNESIUM SULFATE-D5W PMX 1 GM in DEXTROSE/WATER 1 100ML.BAG IVPB SCH ×2 (06:08→08:53)
[2018-06-01 06:57] LABS: Glucose,Whole Blood 167 mg/dL (75-99)
[2018-06-01] MEDS: INSULIN ASPART (NovoLOG) 100 UNIT/ML VIAL SQ SCH ×4 (07:04→21:21)
--- NOTE | 2018-06-01 07:22 | XR ---
EXAMINATION TYPE: XR chest 1V portable DATE OF EXAM: 06/01/2018 Comparison: 05/31/2018 Clinical History: 67-year-old female Bilateral pna Findings: Heart mildly enlarged. Worsening bilateral diffuse airspace opacity. Underlying trace left pleural ef fusion difficult to exclude. Prominent aortic knob is unchanged. Bilateral shoulder arthroplasties. Impression: Cardiomegaly with worsening bilateral diffuse airspace disease. Correlate for severe multifocal pneum onia, developing ARDS, vasculitis, or pulmonary edema.
[2018-06-01] MEDS: IPRATROPIUM-ALBUTEROL 3 ML NEB INHALATION SCH ×4 (07:44→19:42)
[2018-06-01] MEDS: PANTOPRAZOLE 40 MG TABLET PO SCH (08:54)
[2018-06-01] MEDS: ANASTROZOLE 1 MG TAB PO SCH (08:55)
[2018-06-01] MEDS: ZYRTEC 10MG PO SCH (08:56)
[2018-06-01] MEDS: busPIRone HCl 10 MG TAB PO SCH ×2 (08:56→20:28)
[2018-06-01] MEDS: CALCIUM CARBONATE 500 MG CHEWABLE PO SCH (08:56)
[2018-06-01] MEDS: CITALOPRAM HYDROBROMIDE 20 MG TAB PO SCH ×2 (08:57→20:29)
[2018-06-01] MEDS: DOCUSATE 100 MG CAP PO SCH ×3 (08:57→21:16)
[2018-06-01] MEDS: CHOLECALCIFEROL 1,000 UNIT TAB PO SCH (08:57)
[2018-06-01] MEDS: FENOFIBRATE 160 MG TAB PO SCH (08:57)
[2018-06-01] MEDS: FLUTICASONE 50MCG/SPRAY NASAL 16GM EA NOSTRIL SCH (08:58)
[2018-06-01] MEDS: FUROSEMIDE 10 MG/ML 2 ML VIAL IV SCH (08:58)
[2018-06-01] MEDS: metFORMIN 500 MG TAB PO SCH ×2 (08:59→20:29)
[2018-06-01] MEDS: SPIRONOLACTONE 25 MG TAB PO SCH (08:59)
[2018-06-01] MEDS: METOPROLOL TARTRATE 25 MG TAB PO SCH ×2 (08:59→20:29)
[2018-06-01] MEDS ORDERED: AZITHROMYCIN 500 MG TAB PO SCH (09:00)
[2018-06-01] MEDS: NON-FORMULARY DRUG (Biotin [Biotin] 5,000 MCG) PO SCH (09:00)
[2018-06-01] MEDS: CEFEPIME 2 GM in SODIUM CHLORIDE 0.9% 100 ML IVPB SCH ×2 (09:11→20:28)
[2018-06-01] MEDS: methylPREDNISolone SOD SUCCI 125 MG/2 ML VIAL IV SCH ×4 (09:46→23:36)
--- NOTE | 2018-06-01 09:58 | PN ---
PROGRESS NOTE Mrs Uribe is here with bilateral pneumonia, transferred from [place]. She is in sinus rhythm doing better. Denies chest pain. Her breathing is easier. She is on a BiPAP at night. Vital signs stable. S1-S2 heard normally. Short systolic murmur noted, regular rhythm. Lungs reveal fine rales over both bases. Abdomen and lower extremity exam is unchanged. Plan is to add Eliquis 5 mg b.i.d. if okay with Dr. Garzon. She has history of DVT, previous episodes of paroxysmal atrial fibrillation, and therefore, Eliquis would be advisable unless any procedure is being performed. MMODL / IJN: [id number] /
[2018-06-01] MEDS: HEPARIN SOD,PORK IN 0.45% NACL 25,000 UNIT in 0.45% NACL 1 250ML.BAG IV SCH ×2 (10:58→20:31)
[2018-06-01] MEDS: MORPHINE SULFATE ER 60 MG TABLET PO SCH ×2 (10:59→20:30)
[2018-06-01] MEDS: LEVOFLOXACIN 750MG-D5W PMX 750 MG in DEXTROSE/WATER 1 150ML.BAG IVPB SCH (10:59)
[2018-06-01] MEDS: BACLOFEN 10 MG TAB PO PRN ×2 (11:00→20:31)
[2018-06-01] MEDS: ONDANSETRON 4 MG/2 ML VIAL IVP PRN ×2 (12:10→19:41)
[2018-06-01] MEDS: MULTIVITAMINS, THERA 1 EACH TAB PO SCH (12:10)
[2018-06-01 12:32] LABS: Glucose,Whole Blood 206 mg/dL (75-99)
[2018-06-01] MEDS: MORPHINE SULFATE IR 15 MG TABLET PO PRN (14:50)
--- NOTE | 2018-06-01 16:40 | P.PN ---
Subjective Progress Note Date: 06/01/18 67-year-old here patient was being seen in follow-up in the intensive care unit for acute hypoxic respiratory failure and bilateral pneumonia. The patient has history of sarcoidosis. She also has history of chronic bronchial asthma, hypothyroidism and previous history of DVT 3 and pulmonary embolism and for that reason the patient is demented on long-term articulation with warfarin. The patient also has previous history of breast cancer for which she has undergone lumpectomy. She has chronic back pain and she has undergone previous back fusion, chronic anxiety and depression. On today's evaluation the patient continues to be BiPAP dependent. I reviewed her chest x-ray and there is extensive bilateral infiltrate typical of bilateral pneumonia/ARDS. Her previous influenza screen was negative. Unable to provide any sputum Gram stain and culture. She had blood cultures of been negative. She was being treated with a combination of Rocephin and Zithromax. Noted the patient has been given Zithromax even on outpatient basis on 05/24/2018 in addition to Tessalon Perles and despite that her condition progressed. For that reason she end up in the hospital. She has also developed leukocytosis. The white cell count is at 6.2. Hemoglobin is 11.4. This morning she is on a BiPAP at a pressure of 12/5 cm of water and FiO2 100%. She was unable to tolerate airflow/high flow oxygen that was provided to her at the flow of 60 L with an FiO2 of 90%. For that reason she was switched back to BiPAP which is able to tolerate without any major difficulties. She remains hemodynamically stable. She remains in a normal sinus rhythm in the mid 80s. She is able to communicate. She is rather strong and she is able to get herself out of bed without any major difficulties.Echocardiogram showed an ejection fraction of 55- 60%. Currently she is on IV fluids at [facility]. The toxic Coumadin level at the time of admission was treated and the patient's INR is down to 1.2 and the patient is currently on IV heparin. She has peripheral lines. Her CODE STATUS is full. Objective - Vital Signs Vital signs: Vital Signs Temp 98.5 F 06/01/18 08:00 Pulse 73 06/01/18 16:24 Resp 10 L 06/01/18 15:00 BP 116/59 06/01/18 15:00 Pulse Ox 94 L 06/01/18 16:08 Intake & Output 05/31/18 06/01/18 06/01/18 18:59 06:59 18:59 Intake Total 1693.826 281.174 500 Output Total 1580 1575 1270 Balance 113.826 -1293.826 -770 Weight 99.1 kg 97.5 kg Intake: IV 625 100 400 Azithromycin 500 mg In 250 Sodium Chloride 0.9% 250 ml @ 250 mls/hr IVPB DAILY [facility] Rx#:[id number] Levofloxacin 750Mg-D5w 150 Pmx 750 mg In Dextrose/ Water 1 150ml.bag @ 100 mls/hr IVPB Q24H [facility] Rx#: [id number] Magnesium Sulfate-D5w Pmx 200 100 1 gm In Dextrose/Water 1 100ml.bag @ 100 mls/hr IVPB Q1H [facility] Rx#: [id number] Magnesium Sulfate-D5w Pmx 200 1 gm In Dextrose/Water 1 100ml.bag @ 100 mls/hr IVPB Q1H [facility] Rx#: [id number] Potassium Phosphate 10 125 mmol In Sodium Chloride 0 .9% 250 ml @ 125 mls/hr IV ONCE ONE Rx#:[id number] cefTRIAXone 1 gm In 50 50 Sodium Chloride 0.9% 50 ml @ 100 mls/hr IVPB Q24HR [facility] Rx#:[id number] Intake, IV Titration 68.826 181.174 100 Amount Cefepime 2 gm In Sodium 100 Chloride 0.9% 100 ml @ 200 mls/hr IVPB Q12HR [facility] Rx#:[id number] Heparin Sod,Pork in 0.45% 68.826 181.174 NaCl 25,000 unit In 0.45 % NaCl 1 250ml.bag @ 10. 09 UNITS/KG/HR 9.999 mls/ hr IV .Q24H [facility] Rx#: [id number] Oral 1000 Output: Urine 1580 1575 1270 Other: Voiding Method Indwelling Catheter Indwelling Catheter Indwelling Catheter # Bowel Movements 1 1 1 - Exam GENERAL EXAM: Alert, slightly anxious, 67-year-old white female, currently on BiPAP support, with pressures of 12 and 5, and FiO2 of 100%, with O2 saturation is 98%, a bit emotional, anxious, but not tachypneic, not using accessory muscles of breathing. HEAD: Normocephalic/atraumatic. EYES: Normal reaction of pupils, equal size. Conjunctiva pink, sclera white. NOSE: Clear with pink turbinates. THROAT: No erythema or exudates. NECK: No masses, no JVD, no thyroid enlargement, no adenopathy. CHEST: No chest wall deformity. Symmetrical expansion. LUNGS: Equal air entry with diffuse crackles CVS: Regular rate and rhythm, normal S1 and S2, no gallops, no murmurs, no rubs ABDOMEN: Soft, nontender. No hepatosplenomegaly, normal bowel sounds, no guarding or rigidity. EXTREMITIES: No clubbing, no edema, no cyanosis, 2+ pulses and upper and lower extremities. MUSCULOSKELETAL: Muscle strength and tone normal. SPINE: No scoliosis or deformity SKIN: No rashes CENTRAL NERVOUS SYSTEM: Alert and oriented -3. No focal deficits, tone is normal in all 4 extremities. PSYCHIATRIC: Alert and oriented -3. Appropriate affect. Intact judgment and insight. - Labs CBC & Chem 7: 06/01/18 04:43 06/01/18 04:43 Labs: Abnormal Lab Results - Last 24 Hours (Table) 05/31/18 05/31/18 05/31/18 Range/Units 17:31 20:31 23:59 Lymphocytes # (1.0-4.8) k/uL PT (9.0-12.0) sec INR (<1.2) APTT 32.6 H (22.0-30.0) sec Carbon Dioxide (22-30) mmol/L Glucose (74-99) mg/dL POC Glucose (mg/dL) 183 H 176 H (75-99) mg/dL 06/01/18 06/01/18 06/01/18 Range/Units 04:43 04:43 04:43 Lymphocytes # 0.6 L (1.0-4.8) k/uL PT 12.3 H (9.0-12.0) sec INR 1.2 H (<1.2) APTT (22.0-30.0) sec Carbon Dioxide 34 H (22-30) mmol/L Glucose 155 H (74-99) mg/dL POC Glucose (mg/dL) (75-99) mg/dL 06/01/18 06/01/18 06/01/18 Range/Units 06:56 07:58 12:30 Lymphocytes # (1.0-4.8) k/uL PT (9.0-12.0) sec INR (<1.2) APTT 49.5 H (22.0-30.0) sec Carbon Dioxide (22-30) mmol/L Glucose (74-99) mg/dL POC Glucose (mg/dL) 167 H 206 H (75-99) mg/dL Microbiology - Last 24 Hours (Table) 05/30/18 12:21 Blood Culture - Preliminary Blood No Growth after 48 hours 05/30/18 11:50 Urine Culture - Final Urine,Catheterized Assessment and Plan Plan: #1. Acute hypoxemic respiratory failure secondary to bilateral pneumonia, and there may be a component of pulmonary edema/ARDS, proBNP was within normal limits. Influenza screen was negative, CT angios the chest was negative for any pulmonary embolism, showed groundglass opacities at bilateral bases, likely related to underlying pneumonia. Suspect atypical or viral pneumonia although possibilities of other gram-negative pneumonia is cannot be completely excluded. Staphylococcal pneumonia is felt to be less likely at this point. The patient remains in acute hypoxic respiratory failure, very much BiPAP dependent which is being done at a pressure of 12/5 cm support there were no FiO2 of 100%. Chest x-ray from today shows cardiomegaly with worsening of bilateral diffuse airspace disease consistent with severe multifocal pneumonia. #2. Pulmonary nodules, could relate to underlying sarcoidosis, #3. Diabetes mellitus type 2 #4. Chronic atrial fibrillation, and her current rhythm is sinus and the patient is hemodynamically stable. #5. GERD/reflux #6. Hypertention, #7. DJD #8. Hypothyroidism #9. Osteoarthritis of multiple joints #10 history of DVT and pulmonary embolism, on chronic anticoagulation in the form of Coumadin. Supratherapeutic at a time of admission and INR is down to 1.2 and the patient is currently on IV heparin. #11 hyperlipidemia Plan Check a Legionella urine antigen. Broaden antibiotic coverage to utilize a combination of cefepime and Levaquin. Initiate the patient on IV Solu-Medrol 60 mg every 6 hours. Daily chest x-ray. Continue BiPAP therapy for now and try to go to high flow oxygen and the patient is able to tolerate and she maintained a saturation above 90%. We'll continue IV heparin for now. Monitor the cardiac rhythm. Echo cardiac exam was noted. Ejection fraction is 55-60%. Restart this patient for influenza. Agree on daily Lasix 20 mg IV push every 24 hours to keep the patient is-year-old were negative fluid balance. Rest of the outpatient medications have been ordered resume. I'm going to discontinue the Dilaudid and put the patient MS Contin. We'll continue to follow. High likely that the patient may ultimately failed requiring intubation mechanical vent ilation. She was made aware of that. We'll continue to follow. Critically care evaluation that was done more than 30 minutes. Time with Patient: Greater than 30
[2018-06-01 18:34] LABS: Glucose,Whole Blood 341 mg/dL (75-99)
[2018-06-01] MEDS: LISINOPRIL 10 MG TAB PO SCH (20:29)
[2018-06-01] MEDS: EZETIMIBE 10 MG TAB PO SCH (20:29)
[2018-06-01] MEDS: traZODone HCL 50 MG TAB PO SCH (20:30)
[2018-06-01 21:20] LABS: Glucose,Whole Blood 161 mg/dL (75-99)
[2018-06-02] MEDS: MORPHINE SULFATE IR 15 MG TABLET PO PRN ×2 (04:25→12:07)
[2018-06-02 04:55] LABS: Basophils % (A) 0 %; Eosinophils % (A) 1 %; HCT 36.5 % (34.0-46.0); HGB 11.5 gm/dL (11.4-16.0); Lymphocytes # (A) 0.3 k/uL (1.0-4.8); Lymphocytes % (A) 5 %; MCH 26.8 pg (25.0-35.0); MCHC 31.6 g/dL (31.0-37.0); MCV 84.6 fL (80.0-100.0); Mean Platelet Volume 6.4; Monocytes # (A) 0.3 k/uL (0-1.0); Monocytes % (A) 5 %; Neutrophils # (A) 5.3 k/uL (1.3-7.7); Neutrophils % (A) 87 %; Platelet Count 461 k/uL (150-450); RBC 4.31 m/uL (3.80-5.40); RDW 13.1 % (11.5-15.5)
[2018-06-02 05:04] LABS: INR 1.1 (<1.2); Partial Thromboplastin Time 40.7 sec (22.0-30.0); Prothrombin Time 11.2 sec (9.0-12.0)
[2018-06-02 05:07] LABS: Anion Gap 8 mmol/L; Blood Urea Nitrogen 13 mg/dL (7-17); Calcium 8.9 mg/dL (8.4-10.2); Carbon Dioxide 33 mmol/L (22-30); Chloride 98 mmol/L (98-107); Glucose 231 mg/dL (74-99); Magnesium 1.9 mg/dL (1.6-2.3); Phosphorus 2.8 mg/dL (2.5-4.5); Potassium 4.2 mmol/L (3.5-5.1); Sodium 139 mmol/L (137-145)
[2018-06-02] MEDS: HEPARIN SODIUM,PORCINE 5,000 UNIT/ML 1 ML VIAL IV PRN (05:46)
[2018-06-02] MEDS: methylPREDNISolone SOD SUCCI 125 MG/2 ML VIAL IV SCH ×4 (05:51→23:51)
[2018-06-02] MEDS: LEVOTHYROXINE 100 MCG TAB PO SCH (05:52)
[2018-06-02] MEDS: MAGNESIUM SULFATE-D5W PMX 1 GM in DEXTROSE/WATER 1 100ML.BAG IVPB SCH ×2 (06:41→08:46)
[2018-06-02 06:52] LABS: Glucose,Whole Blood 204 mg/dL (75-99)
[2018-06-02] MEDS: INSULIN ASPART (NovoLOG) 100 UNIT/ML VIAL SQ SCH ×4 (07:08→21:33)
--- NOTE | 2018-06-02 07:28 | XR ---
EXAMINATION TYPE: XR chest 1V portable DATE OF EXAM: 06/02/2018 COMPARISON: 06/01/2018 HISTORY: Hypoxemia TECHNIQUE: Single frontal view of the chest is obtained. FINDINGS: Diffuse centrally predominant alveolar and interstitial airspace disease is seen with a ce ntral predominance. No pleural effusion or pneumothorax. Cardiomediastinal silhouette is mildly enlar ged. Postsurgical changes are seen of the glenohumeral joints. IMPRESSION: Redemonstration of multifocal alveolar and interstitial edema with relative sparing of t he peripheral upper lungs. ARDS or multifocal pneumonia are possibilities however considering the mor e central predominance other etiologies such as on her hemorrhage or pulmonary edema are also conside rations.
[2018-06-02] MEDS: IPRATROPIUM-ALBUTEROL 3 ML NEB INHALATION SCH ×4 (08:12→20:20)
[2018-06-02] MEDS: ANASTROZOLE 1 MG TAB PO SCH (08:36)
[2018-06-02] MEDS: NON-FORMULARY DRUG (Biotin [Biotin] 5,000 MCG) PO SCH (08:36)
[2018-06-02] MEDS: DOCUSATE 100 MG CAP PO SCH ×3 (08:37→21:34)
[2018-06-02] MEDS: PANTOPRAZOLE 40 MG TABLET PO SCH (08:47)
[2018-06-02] MEDS: busPIRone HCl 10 MG TAB PO SCH ×2 (08:47→21:31)
[2018-06-02] MEDS: CEFEPIME 2 GM in SODIUM CHLORIDE 0.9% 100 ML IVPB SCH ×2 (08:48→21:45)
[2018-06-02] MEDS: CALCIUM CARBONATE 500 MG CHEWABLE PO SCH (08:48)
[2018-06-02] MEDS: FUROSEMIDE 10 MG/ML 2 ML VIAL IV SCH (08:49)
[2018-06-02] MEDS: FENOFIBRATE 160 MG TAB PO SCH (08:49)
[2018-06-02] MEDS: CITALOPRAM HYDROBROMIDE 20 MG TAB PO SCH ×2 (08:49→21:28)
[2018-06-02] MEDS: CHOLECALCIFEROL 1,000 UNIT TAB PO SCH (08:49)
[2018-06-02] MEDS: metFORMIN 500 MG TAB PO SCH ×2 (08:50→21:30)
[2018-06-02] MEDS: METOPROLOL TARTRATE 25 MG TAB PO SCH ×2 (08:50→21:31)
[2018-06-02] MEDS: MORPHINE SULFATE ER 60 MG TABLET PO SCH ×2 (08:50→21:28)
[2018-06-02] MEDS: ZYRTEC 10MG PO SCH (08:51)
[2018-06-02] MEDS: FLUTICASONE 50MCG/SPRAY NASAL 16GM EA NOSTRIL SCH (08:51)
[2018-06-02] MEDS: SPIRONOLACTONE 25 MG TAB PO SCH (09:15)
[2018-06-02] MEDS: LEVOFLOXACIN 750MG-D5W PMX 750 MG in DEXTROSE/WATER 1 150ML.BAG IVPB SCH (09:39)
[2018-06-02] MEDS: BACLOFEN 10 MG TAB PO PRN ×2 (09:39→22:02)
--- NOTE | 2018-06-02 10:26 | PN ---
PROGRESS NOTE Mrs Uribe is here with bilateral pneumonia. She is still hypoxic, uses a CPAP. She also has paroxysmal AFib. Yesterday, I had considered Eliquis but Dr. Hartley feels he may do bronchoscopy. Therefore, we will leave her on heparin. She is maintaining sinus rhythm. Vital signs are stable, S1-S2 heard normally. Lungs reveal diminished air entry with rales on both bases. Abdomen and lower extremity exam unchanged. Whenever she is ready to for oral anticoagulation, will switch her to Eliquis and then bridge over to Coumadin. Discussed my thoughts in detail with the patient. Thank you very much for the consult. MMODL / IJN: [id number] /
[2018-06-02] MEDS: HEPARIN SOD,PORK IN 0.45% NACL 25,000 UNIT in 0.45% NACL 1 250ML.BAG IV SCH (11:06)
[2018-06-02] MEDS: MULTIVITAMINS, THERA 1 EACH TAB PO SCH (16:02)
--- NOTE | 2018-06-02 16:30 | P.PN ---
Subjective Progress Note Date: 06/02/18 Principal diagnosis: Bibasilar pneumonia, hypoxemic respiratory failure This is a 67-year-old white female patient who was received as a transfer from [facility] on 05/28/2018. Patient had presented with complaints of chest congestion, cough, wheezing, shortness of breath and occasional phlegm production. Influenza screen and CT angiogram were completed at the [facility], and they were negative for influenza A and pulmonary embolism. Patient did have multiple pulmonary nodules that could relate to her underlying sarcoidosis. In addition she has some groundglass opacities at the lower lobes possibly consistent with pneumonia. We did obtain a chest x-ray at this hospital yesterday, which showed cardiomegaly with multifocal bilateral alveolar and interstitial edema and/or infiltrates. Possible developing ARDS. She lab work showed a white blood cell count of 3.6, hemoglobin 13.3, d-dimer was slightly elevated at 1.05, but CT angios was negative for any evidence of PE, renal profile and electrolytes were within normal limits, proBNP was within normal limits at 467, troponin was negative, urinalysis was negative for any sign of infection. Patient's medical history significant for atrial fibrillation on anticoagulation in the form of Coumadin, history of DVT/PE, diabetes mellitus type 2, history of CVA and TIA and hypertension, hypo thyroidism. The patient was given IV lasix, and she has significantly diuresed, she is in -3560 mL fluid balance in last 24 hours, in her breathing had worsened, along with her oxygenation, and patient had to be placed on BiPAP support. On today's exam patient is seen on BiPAP support with pressures of 12 and 5, 80%, and her pulse ox is 94%, she is quite tachypneic, lung sounds are positive for diffuse crackles, and rhonchi, patient appears to be in mild to moderate amount of distress, and for that reason patient will be removed down to the intensive care unit, today's chest x-ray has been reviewed, showed persistence of bladder pulmonary edema, and airspace disease bilaterally, likely related to underlying pneumonia. Afebrile, hemodynamically stable. Denies any chest pain, wasn't able to produce any sputum for culture. She states she still has the urge to cough, but not able to bring up anything. Antibiotic coverage in the form of Levaquin. On 05/31/2018 patient seen in follow-up in the intensive care unit, she is awake and alert, she is anxious, she states she could not sleep last night, but overall her breathing is better, she remains on BiPAP support with pressures of 12 and 5 and FiO2 of 100%, her O2 sat is 98%, she sinus rhythm on the monitor at a rate of 81 BPM, no IV fluids, IVs have been hep-locked, today's chest x-ray has been reviewed with Dr. Sotomayor, and shows bilateral diffuse infiltrates, improved in appearance from previous exams. Today's INR is 1.5, and we'll start the patient on heparin drip per weight-based protocol for anticoagulation, hold off on Coumadin right now in case patient needs any invasive procedures. His labs have been reviewed, and his CBC was essentially unremarkable, sodium was 138, potassium 3.9, chloride was 97, CO2 is 30, BUN was 15 and creatinine 0.54, antibiotic coverage in the form of Zithromax and Rocephin, and vancomycin. So far the culture data remains negative, patient is still not able to produce any sputum for culture. No fever or chills. We'll try the patient on Airvo. Lung sounds reveal diminished breath sounds, with a few scattered rales. On 06/02/2018 patient seen in follow-up in the intensive care unit, she remains on interval, currently at 60 L and FiO2 of 91%, and her pulse ox is 91-93%, but patient is noted to be easily desaturating with any exertion, speaking or eating. She is awake and alert, in no acute distress, lung sounds reveal a few scattered rhonchi, she is in sinus rhythm with a rate of 80 BPM, today's chest x-ray shows slight improvement in the appearance of diffuse pulmonary infiltrates. Afebrile, blood and urine cultures showed no growth, we have not been able to collect a sputum specimen. Legionella urine antigen is pending, today's lab work showed a white blood cell count of 6.0, hemoglobin is 11.5, electrolytes were within normal limits, CO2 is 33, renal profile was within normal limits. No complaint of chest pain, no significant chest congestion or coughing. Yesterday we switched the antibiotic coverage to cefepime, Levaquin and vancomycin, we added IV Solu-Medrol, nebulized bronchodilators. Objective - Vital Signs Vital signs: Vital Signs Temp 98.1 F 06/02/18 16:00 Pulse 64 06/02/18 16:00 Resp 19 06/02/18 16:00 BP 101/53 06/02/18 16:00 Pulse Ox 92 L 06/02/18 16:00 Intake & Output 06/01/18 06/02/18 06/02/18 18:59 06:59 18:59 Intake Total 500 349.766 695.611 Output Total 1821944 1370 Balance -1320 -1595.234 -674.389 Weight 98.8 kg Intake: IV 400 50 600 Cefepime 2 gm In Sodium 200 Chloride 0.9% 100 ml @ 200 mls/hr IVPB Q12HR [facility] Rx#:[id number] Levofloxacin 750Mg-D5w 150 100 Pmx 750 mg In Dextrose/ Water 1 150ml.bag @ 100 mls/hr IVPB Q24H [facility] Rx#: [id number] Magnesium Sulfate-D5w Pmx 200 100 1 gm In Dextrose/Water 1 100ml.bag @ 100 mls/hr IVPB Q1H [facility] Rx#: [id number] Magnesium Sulfate-D5w Pmx 200 1 gm In Dextrose/Water 1 100ml.bag @ 100 mls/hr IVPB Q1H [facility] Rx#: [id number] cefTRIAXone 1 gm In 50 50 Sodium Chloride 0.9% 50 ml @ 100 mls/hr IVPB Q24HR [facility] Rx#:[id number] Intake, IV Titration 100 299.766 95.611 Amount Cefepime 2 gm In Sodium 100 Chloride 0.9% 100 ml @ 200 mls/hr IVPB Q12HR [facility] Rx#:[id number] Heparin Sod,Pork in 0.45% 299.766 95.611 NaCl 25,000 unit In 0.45 % NaCl 1 250ml.bag @ 10. 09 UNITS/KG/HR 9.999 mls/ hr IV .Q24H [facility] Rx#: [id number] Output: Urine 1819 1944 1370 Other: Voiding Method Indwelling Catheter Indwelling Catheter Indwelling Catheter # Bowel Movements 1 - Exam GENERAL EXAM: Alert, slightly anxious, 67-year-old white female, on Airvo, currently at 60 L, and FiO2 of 91%, fairly comfortable HEAD: Normocephalic/atraumatic. EYES: Normal reaction of pupils, equal size. Conjunctiva pink, sclera white. NOSE: Clear with pink turbinates. THROAT: No erythema or exudates. NECK: No masses, no JVD, no thyroid enlargement, no adenopathy. CHEST: No chest wall deformity. Symmetrical expansion. LUNGS: Equal air entry with diffuse crackles CVS: Regular rate and rhythm, normal S1 and S2, no gallops, no murmurs, no rubs ABDOMEN: Soft, nontender. No hepatosplenomegaly, normal bowel sounds, no guarding or rigidity. EXTREMITIES: No clubbing, no edema, no cyanosis, 2+ pulses and upper and lower extremities. MUSCULOSKELETAL: Muscle strength and tone normal. SPINE: No scoliosis or deformity SKIN: No rashes CENTRAL NERVOUS SYSTEM: Alert and oriented -3. No focal deficits, tone is normal in all 4 extremities. PSYCHIATRIC: Alert and oriented -3. Appropriate affect. Intact judgment and insight. - Labs CBC & Chem 7: 06/02/18 04:11 06/02/18 04:11 Labs: Abnormal Lab Results - Last 24 Hours (Table) 06/01/18 06/01/18 06/02/18 Range/Units 18:33 21:18 04:11 Plt Count (150-450) k/uL Lymphocytes # (1.0-4.8) k/uL APTT 40.7 H (22.0-30.0) sec Carbon Dioxide (22-30) mmol/L Glucose (74-99) mg/dL POC Glucose (mg/dL) 341 H 161 H (75-99) mg/dL 06/02/18 06/02/18 06/02/18 Range/Units 04:11 04:11 06:50 Plt Count 461 H (150-450) k/uL Lymphocytes # 0.3 L (1.0-4.8) k/uL APTT (22.0-30.0) sec Carbon Dioxide 33 H (22-30) mmol/L Glucose 231 H (74-99) mg/dL POC Glucose (mg/dL) 204 H (75-99) mg/dL 06/02/18 Range/Units 11:50 Plt Count (150-450) k/uL Lymphocytes # (1.0-4.8) k/uL APTT 52.4 H (22.0-30.0) sec Carbon Dioxide (22-30) mmol/L Glucose (74-99) mg/dL POC Glucose (mg/dL) (75-99) mg/dL Microbiology - Last 24 Hours (Table) 05/30/18 12:21 Blood Culture - Preliminary Blood No Growth after 72 hours Assessment and Plan Plan: Assessment: #1. Acute hypoxemic respiratory failure secondary to bilateral pneumonia, and there may be a component of pulmonary edema/ARDS, proBNP was within normal limits. Influenza screen was negative, CT angios the chest was negative for any pulmonary embolism, showed groundglass opacities at bilateral bases, likely related to underlying pneumonia #2. Pulmonary nodules, could relate to underlying sarcoidosis, or infectious etiology #3. Diabetes mellitus type 2 #4. Chronic atrial fibrillation, and history of DVT and pulmonary embolism, on chronic anticoagulation in the form of Coumadin. Supratherapeutic on today's labs we'll hold Coumadin #5. GERD/reflux #6. Hypertention, hyperlipidemia #7. DJD #8. Hypothyroidism #9. Osteoarthritis of multiple joints Plan: Continue IV diuretics, continue IV Solu-Medrol, current antibiotic coverage, sputum for culture, Legionella urine antigen is pending, no fever or chills, on today's exam patient sounds less congested and wheezy, she is breathing easier, continue titrating down the FiO2. GI and DVT prophylaxis, repeat chest x-ray in the morning. I performed a history & physical examination of the patient and discussed their management with my nurse practitioner, Sharona Klein. I reviewed the nurse practitioner's note and agree with the documented findings and plan of care. Lung sounds are positive for diffuse rhonchi. The findings and the impression was discussed with the patient. I attest to the documentation by the nurse practitioner. Time with Patient: Greater than 30
[2018-06-02 17:16] LABS: Glucose,Whole Blood 199 mg/dL (75-99)
[2018-06-02 20:27] LABS: Glucose,Whole Blood 264 mg/dL (75-99)
[2018-06-02] MEDS ORDERED: INSULIN DETEMIR (LEVEMIR) 100 UNIT/ML SYR SQ SCH (21:00)
[2018-06-02] MEDS ORDERED: INSULIN ASPART (NovoLOG) 100 UNIT/ML VIAL SQ ONE (21:12)
[2018-06-02] MEDS: LISINOPRIL 10 MG TAB PO SCH (21:28)
[2018-06-02] MEDS: traZODone HCL 50 MG TAB PO SCH (21:31)
[2018-06-02] MEDS: EZETIMIBE 10 MG TAB PO SCH (21:31)
--- NOTE | 2018-06-02 22:44 | P.PN ---
Subjective Progress Note Date: 05/31/18 Principal diagnosis: Multifocal pneumonia Acute hypoxemic respiratory failure Patient is a 67-year-old female with a known history of atrial fibrillation on anticoagulation, history of DVT/PE, diabetes type 2, history of CVA/TIA and hypertension, hypothyroidism and other multiple medical problems initially presents to walk-in clinic [facility] on Friday with complaints of shortness of breath cough and fever 102.4. Patient was sent home with Z-Samuel and Tessalon pearls as well as Mucinex. Patient has been taking her medications and symptoms did not resolve which made her to go back to hospital on Friday. Patient was hypoxic and tachycardic at the time. Patient had CT angiogram of the chest to rule out pulmonary embolism. No pulmonary embolism was noted. Patient was found to have pulmonary nodules and repeat CT was recommended after resolution of pneumonia. Due to extensive pneumonia and pulmonary nodules and sepsis patient was transferred to [facility] for further evaluation and possible pulmonary consult. Currently patient is on oxygen via nasal cannula. Patient otherwise denied any complaints of chest pain. Patient does have nausea and bloating in the abdomen. No diarrhea. Currently patient is afebrile. No headache or dizziness or lightheadedness. Patient does have shortness of breath. No complaints of chest pain otherwise. Laboratory data reviewed from [facility]. Influenza was negative. 05/29/2018 Patient did have worsening shortness of breath last night and was placed on BiPAP. Chest x-ray showed moderate pulmonary edema. Patient was given a dose of IV Lasix and is being continued currently. Patient appears to be in moderate distress and is being transferred to MICU. Otherwise patient is being continued on antibiotics in the form of Levaquin. Continued on breathing treatments and oxygen therapy. Patient has been afebrile. No complaints of chest pain. 05/30/2018 Patient is currently on BiPAP machine and being monitored in the MICU.. No complaints of chest pain. No worsening shortness of breath. Chest x-ray showed improved aeration. Minimal. Otherwise patient is being continued on IV steroids and breathing treatments and antibiotics in the form of Levaquin. No fever no chills. No nausea vomiting or abdominal pain. No diarrhea. 05/31/2018 Patient is currently on BiPAP support. Chest x-ray showed bilateral diffuse infiltrates improved from previous exam. Patient was started on heparin and subtherapeutic INR level. Otherwise patient is being continued on antibiotics in the form of ceftriaxone and azithromycin. Cultures have been negative. No fever or chills. Current medications reviewed. Objective - Vital Signs Vital signs: Vital Signs Temp 97.9 F 05/31/18 16:00 Pulse 71 05/31/18 17:00 Resp 23 05/31/18 17:00 BP 111/61 05/31/18 17:00 Pulse Ox 93 L 05/31/18 17:00 Intake & Output 05/30/18 05/31/18 05/31/18 18:59 06:59 18:59 Intake Total 1800 1693.826 Output Total 1660 1855 1455 Balance 140 -1855 238.826 Weight 99.1 kg 99.1 kg Intake: IV 800 625 Azithromycin 500 mg In 250 250 Sodium Chloride 0.9% 250 ml @ 250 mls/hr IVPB DAILY [facility] Rx#:[id number] Magnesium Sulfate-D5w Pmx 200 1 gm In Dextrose/Water 1 100ml.bag @ 100 mls/hr IVPB Q1H [facility] Rx#: [id number] Potassium Phosphate 10 125 mmol In Sodium Chloride 0 .9% 250 ml @ 125 mls/hr IV ONCE ONE Rx#:[id number] Vancomycin 2,000 mg In 500 Sodium Chloride 0.9% 500 ml 500 ml @ 167 mls/hr IVPB ONCE [facility] Rx#: [id number] cefTRIAXone 1 gm In 50 50 Sodium Chloride 0.9% 50 ml @ 100 mls/hr IVPB Q24HR [facility] Rx#:[id number] Intake, IV Titration 68.826 Amount Heparin Sod,Pork in 0.45% 68.826 NaCl 25,000 unit In 0.45 % NaCl 1 250ml.bag @ 10. 09 UNITS/KG/HR 9.999 mls/ hr IV .Q24H [facility] Rx#: [id number] Oral 1000 1000 Output: Urine 1660 1855 1455 Other: Voiding Method Indwelling Catheter Indwelling Catheter Indwelling Catheter # Bowel Movements 1 - Exam PHYSICAL EXAMINATION: Patient is lying in the bed comfortably, no acute distress, awake alert and oriented. Currently on BiPAP. HEENT: Normocephalic. Neck is supple. Pupils reactive. Nostrils clear. Oral cavity is moist. Ears reveal no drainage. Neck reveals no JVD, carotid bruits, or thyromegaly. CHEST EXAMINATION: Trachea is central. Symmetrical expansion. Bilateral diffuse rhonchi and crackles.. CARDIAC: Normal S1, S2 with no gallops. No murmurs ABDOMEN: Soft. Bowel sounds normal. No organomegaly. No abdominal bruits. Extremities: reveal no edema. No clubbing or cyanosis Neurologically awake, alert, oriented x3 with well-coordinated movements. No focal deficits noted Skin: No rash or skin lesions. Psychiatric: Coperative. Nonsuicidal Musculoskeletal: No joint swelling or deformity. Normal range of motion. - Labs CBC & Chem 7: 06/02/18 04:11 06/02/18 04:11 Labs: Abnormal Lab Results - Last 24 Hours (Table) 05/30/18 05/31/18 05/31/18 Range/Units 20:05 04:23 04:23 Lymphocytes # 0.4 L (1.0-4.8) k/uL PT 15.4 H (9.0-12.0) sec INR 1.5 H (<1.2) Chloride (98-107) mmol/L Glucose (74-99) mg/dL POC Glucose (mg/dL) 198 H (75-99) mg/dL Phosphorus (2.5-4.5) mg/dL 05/31/18 05/31/18 05/31/18 Range/Units 04:23 06:57 10:16 Lymphocytes # 0.3 L (1.0-4.8) k/uL PT (9.0-12.0) sec INR (<1.2) Chloride 97 L (98-107) mmol/L Glucose 160 H (74-99) mg/dL POC Glucose (mg/dL) 164 H (75-99) mg/dL Phosphorus 2.1 L (2.5-4.5) mg/dL 05/31/18 05/31/18 05/31/18 Range/Units 10:16 11:52 17:31 Lymphocytes # (1.0-4.8) k/uL PT 13.4 H (9.0-12.0) sec INR 1.3 H (<1.2) Chloride (98-107) mmol/L Glucose (74-99) mg/dL POC Glucose (mg/dL) 176 H 183 H (75-99) mg/dL Phosphorus (2.5-4.5) mg/dL Microbiology - Last 24 Hours (Table) 05/30/18 12:21 Blood Culture - Preliminary Blood No Growth after 24 hours 05/30/18 11:50 Urine Culture - Preliminary Urine,Catheterized Assessment and Plan Assessment: Acute hypoxic respiratory failure secondary to pneumonia with pulmonary inters titial edema/ARDS. Multifocal pneumonia with sepsis Pulmonary nodules multiple likely infectious etiology. Rule out sarcoidosis. Repeat CT in 3 months was recommended. Chronic atrial fibrillation on anticoagulation with Coumadin Right lower extremity DVT extensively with 16 inches long was removed Asthma History of breast cancer status post surgery and chemotherapy Migraine headaches Degenerative disc disease and chronic back pain and cervical pain Left leg sciatic pain Hypothyroidism History of CVA/TIA with no residual weakness GERD Hypertension Hyperlipidemia Osteoarthritis of multiple joints GI prophylaxis with Protonix. DVT prophylaxis patient is already on Coumadin. Plan: Continued on BiPAP. Patient was on Levaquin. Changed to ceftriaxone and azithromycin and vancomycin added. Continue with DuoNeb's. Continue with home medications including anticoagulation. Pulmonary is following. Further recommendations based on the clinical course. r Time with Patient: Greater than 30
--- NOTE | 2018-06-02 22:48 | P.PN ---
Subjective Progress Note Date: 06/01/18 Principal diagnosis: Multifocal pneumonia Acute hypoxemic respiratory failure Patient is a 67-year-old female with a known history of atrial fibrillation on anticoagulation, history of DVT/PE, diabetes type 2, history of CVA/TIA and hypertension, hypothyroidism and other multiple medical problems initially presents to walk-in clinic [facility] on Friday with complaints of shortness of breath cough and fever 102.4. Patient was sent home with Z-Samuel and Tessalon pearls as well as Mucinex. Patient has been taking her medications and symptoms did not resolve which made her to go back to hospital on Friday. Patient was hypoxic and tachycardic at the time. Patient had CT angiogram of the chest to rule out pulmonary embolism. No pulmonary embolism was noted. Patient was found to have pulmonary nodules and repeat CT was recommended after resolution of pneumonia. Due to extensive pneumonia and pulmonary nodules and sepsis patient was transferred to [facility] for further evaluation and possible pulmonary consult. Currently patient is on oxygen via nasal cannula. Patient otherwise denied any complaints of chest pain. Patient does have nausea and bloating in the abdomen. No diarrhea. Currently patient is afebrile. No headache or dizziness or lightheadedness. Patient does have shortness of breath. No complaints of chest pain otherwise. Laboratory data reviewed from [facility]. Influenza was negative. 05/29/2018 Patient did have worsening shortness of breath last night and was placed on BiPAP. Chest x-ray showed moderate pulmonary edema. Patient was given a dose of IV Lasix and is being continued currently. Patient appears to be in moderate distress and is being transferred to MICU. Otherwise patient is being continued on antibiotics in the form of Levaquin. Continued on breathing treatments and oxygen therapy. Patient has been afebrile. No complaints of chest pain. 05/30/2018 Patient is currently on BiPAP machine and being monitored in the MICU.. No complaints of chest pain. No worsening shortness of breath. Chest x-ray showed improved aeration. Minimal. Otherwise patient is being continued on IV steroids and breathing treatments and antibiotics in the form of Levaquin. No fever no chills. No nausea vomiting or abdominal pain. No diarrhea. 05/31/2018 Patient is currently on BiPAP support. Chest x-ray showed bilateral diffuse infiltrates improved from previous exam. Patient was started on heparin and subtherapeutic INR level. Otherwise patient is being continued on antibiotics in the form of ceftriaxone and azithromycin. Cultures have been negative. No fever or chills. 06/01/2018 Patient is currently on BiPAP machine last night and this morning.. Antibiotics have been changed to Levaquin and vancomycin. Otherwise patient is awake alert oriented 3. No complaints of chest pain. No worsening shortness of breath. No nausea vomiting or abdominal pain or diarrhea. Chest x-ray showed extensive bilateral infiltrate. Continued on IV heparin due to subtherapeutic INR level Current medications reviewed. Objective - Vital Signs Vital signs: Vital Signs Temp 98.5 F 06/01/18 20:00 Pulse 67 06/01/18 22:00 Resp 17 06/01/18 22:00 BP 110/57 06/01/18 22:00 Pulse Ox 90 L 06/01/18 22:00 Intake & Output 06/01/18 06/01/18 06/02/18 06:59 18:59 06:59 Intake Total 281.174 500 202.275 Output Total 1575 1820 825 Balance -1293.826 -1320 -622.725 Weight 97.5 kg Intake: IV 100 400 50 Levofloxacin 750Mg-D5w 150 Pmx 750 mg In Dextrose/ Water 1 150ml.bag @ 100 mls/hr IVPB Q24H [facility] Rx#: [id number] Magnesium Sulfate-D5w Pmx 100 1 gm In Dextrose/Water 1 100ml.bag @ 100 mls/hr IVPB Q1H [facility] Rx#: [id number] Magnesium Sulfate-D5w Pmx 200 1 gm In Dextrose/Water 1 100ml.bag @ 100 mls/hr IVPB Q1H [facility] Rx#: [id number] cefTRIAXone 1 gm In 50 50 Sodium Chloride 0.9% 50 ml @ 100 mls/hr IVPB Q24HR [facility] Rx#:[id number] Intake, IV Titration 181.174 100 152.275 Amount Cefepime 2 gm In Sodium 100 Chloride 0.9% 100 ml @ 200 mls/hr IVPB Q12HR [facility] Rx#:[id number] Heparin Sod,Pork in 0.45% 181.174 152.275 NaCl 25,000 unit In 0.45 % NaCl 1 250ml.bag @ 10. 09 UNITS/KG/HR 9.999 mls/ hr IV .Q24H [facility] Rx#: [id number] Output: Urine 1575 1820 825 Other: Voiding Method Indwelling Catheter Indwelling Catheter Indwelling Catheter # Bowel Movements 1 1 - Exam PHYSICAL EXAMINATION: Patient is lying in the bed comfortably, no acute distress, awake alert and oriented. Currently on BiPAP. HEENT: Normocephalic. Neck is supple. Pupils reactive. Nostrils clear. Oral cavity is moist. Ears reveal no drainage. Neck reveals no JVD, carotid bruits, or thyromegaly. CHEST EXAMINATION: Trachea is central. Symmetrical expansion. Bilateral diffuse rhonchi and crackles.. CARDIAC: Normal S1, S2 with no gallops. No murmurs ABDOMEN: Soft. Bowel sounds normal. No organomegaly. No abdominal bruits. Extremities: reveal no edema. No clubbing or cyanosis Neurologically awake, alert, oriented x3 with well-coordinated movements. No focal deficits noted Skin: No rash or skin lesions. Psychiatric: Coperative. Nonsuicidal Musculoskeletal: No joint swelling or deformity. Normal range of motion. - Labs CBC & Chem 7: 06/02/18 04:11 06/02/18 04:11 Labs: Abnormal Lab Results - Last 24 Hours (Table) 05/31/18 06/01/18 06/01/18 Range/Units 23:59 04:43 04:43 Lymphocytes # (1.0-4.8) k/uL PT 12.3 H (9.0-12.0) sec INR 1.2 H (<1.2) APTT 32.6 H (22.0-30.0) sec Carbon Dioxide 34 H (22-30) mmol/L Glucose 155 H (74-99) mg/dL POC Glucose (mg/dL) (75-99) mg/dL 06/01/18 06/01/18 06/01/18 Range/Units 04:43 06:56 07:58 Lymphocytes # 0.6 L (1.0-4.8) k/uL PT (9.0-12.0) sec INR (<1.2) APTT 49.5 H (22.0-30.0) sec Carbon Dioxide (22-30) mmol/L Glucose (74-99) mg/dL POC Glucose (mg/dL) 167 H (75-99) mg/dL 06/01/18 06/01/18 06/01/18 Range/Units 12:30 18:33 21:18 Lymphocytes # (1.0-4.8) k/uL PT (9.0-12.0) sec INR (<1.2) APTT (22.0-30.0) sec Carbon Dioxide (22-30) mmol/L Glucose (74-99) mg/dL POC Glucose (mg/dL) 206 H 341 H 161 H (75-99) mg/dL Microbiology - Last 24 Hours (Table) 05/30/18 12:21 Blood Culture - Preliminary Blood No Growth after 48 hours 05/30/18 11:50 Urine Culture - Final Urine,Catheterized Assessment and Plan Assessment: Acute hypoxic respiratory failure secondary to pneumonia with pulmonary int erstitial edema/ARDS. Multifocal pneumonia with sepsis Pulmonary nodules multiple likely infectious etiology. Rule out sarcoidosis. Repeat CT in 3 months was recommended. Chronic atrial fibrillation on anticoagulation with Coumadin Right lower extremity DVT extensively with 16 inches long was removed Asthma History of breast cancer status post surgery and chemotherapy Migraine headaches Degenerative disc disease and chronic back pain and cervical pain Left leg sciatic pain Hypothyroidism History of CVA/TIA with no residual weakness GERD Hypertension Hyperlipidemia Osteoarthritis of multiple joints GI prophylaxis with Protonix. DVT prophylaxis patient is already on Coumadin. Plan: Continued on BiPAP. Patient was on Levaquin. Changed ceftriaxone and azithromycin to Levaquin and vancomycin added. Continue with DuoNeb's. Continue with home medications including anticoagulation. Pulmonary is following. Further recommendations based on the clinical course. r Time with Patient: Greater than 30
--- NOTE | 2018-06-02 22:50 | P.PN ---
Subjective Progress Note Date: 06/02/18 Principal diagnosis: Multifocal pneumonia Acute hypoxemic respiratory failure Patient is a 67-year-old female with a known history of atrial fibrillation on anticoagulation, history of DVT/PE, diabetes type 2, history of CVA/TIA and hypertension, hypothyroidism and other multiple medical problems initially presents to walk-in clinic [facility] on Friday with complaints of shortness of breath cough and fever 102.4. Patient was sent home with Z-Samuel and Tessalon pearls as well as Mucinex. Patient has been taking her medications and symptoms did not resolve which made her to go back to hospital on Friday. Patient was hypoxic and tachycardic at the time. Patient had CT angiogram of the chest to rule out pulmonary embolism. No pulmonary embolism was noted. Patient was found to have pulmonary nodules and repeat CT was recommended after resolution of pneumonia. Due to extensive pneumonia and pulmonary nodules and sepsis patient was transferred to [facility] for further evaluation and possible pulmonary consult. Currently patient is on oxygen via nasal cannula. Patient otherwise denied any complaints of chest pain. Patient does have nausea and bloating in the abdomen. No diarrhea. Currently patient is afebrile. No headache or dizziness or lightheadedness. Patient does have shortness of breath. No complaints of chest pain otherwise. Laboratory data reviewed from [facility]. Influenza was negative. 05/29/2018 Patient did have worsening shortness of breath last night and was placed on BiPAP. Chest x-ray showed moderate pulmonary edema. Patient was given a dose of IV Lasix and is being continued currently. Patient appears to be in moderate distress and is being transferred to MICU. Otherwise patient is being continued on antibiotics in the form of Levaquin. Continued on breathing treatments and oxygen therapy. Patient has been afebrile. No complaints of chest pain. 05/30/2018 Patient is currently on BiPAP machine and being monitored in the MICU.. No complaints of chest pain. No worsening shortness of breath. Chest x-ray showed improved aeration. Minimal. Otherwise patient is being continued on IV steroids and breathing treatments and antibiotics in the form of Levaquin. No fever no chills. No nausea vomiting or abdominal pain. No diarrhea. 05/31/2018 Patient is currently on BiPAP support. Chest x-ray showed bilateral diffuse infiltrates improved from previous exam. Patient was started on heparin and subtherapeutic INR level. Otherwise patient is being continued on antibiotics in the form of ceftriaxone and azithromycin. Cultures have been negative. No fever or chills. 06/01/2018 Patient is currently on BiPAP machine last night and this morning.. Antibiotics have been changed to Levaquin and vancomycin. Otherwise patient is awake alert oriented 3. No complaints of chest pain. No worsening shortness of breath. No nausea vomiting or abdominal pain or diarrhea. Chest x-ray showed extensive bilateral infiltrate. Continued on IV heparin due to subtherapeutic INR level 06/02/2018 Patient is currently sitting in the chair. Currently on high flow oxygen. Awake alert and no distress. No compressive chest pain. No nausea vomiting or abdominal pain. Patient chest x-ray showed slight improvement in the appearance of diffuse pulmonary infiltrates. Patient has been afebrile. Cultures have been no growth so far. Patient is currently on vancomycin and cefepime and Levaquin. IV Solu-Medrol has been added. Pulmonary is following closely. No fever no chills. Current medications reviewed. Objective - Vital Signs Vital signs: Vital Signs Temp 98.1 F 06/02/18 16:00 Pulse 79 06/02/18 20:32 Resp 13 06/02/18 19:00 BP 124/66 06/02/18 19:00 Pulse Ox 93 L 06/02/18 20:20 Intake & Output 06/02/18 06/02/18 06/03/18 06:59 18:59 06:59 Intake Total 349.766 695.611 600 Output Total 1945 1870 100 Balance -1595.234 -1174.389 500 Weight 98.8 kg Intake: IV 50 600 Cefepime 2 gm In Sodium 200 Chloride 0.9% 100 ml @ 200 mls/hr IVPB Q12HR [facility] Rx#:[id number] Levofloxacin 750Mg-D5w 100 Pmx 750 mg In Dextrose/ Water 1 150ml.bag @ 100 mls/hr IVPB Q24H [facility] Rx#: [id number] Magnesium Sulfate-D5w Pmx 100 1 gm In Dextrose/Water 1 100ml.bag @ 100 mls/hr IVPB Q1H [facility] Rx#: [id number] Magnesium Sulfate-D5w Pmx 200 1 gm In Dextrose/Water 1 100ml.bag @ 100 mls/hr IVPB Q1H [facility] Rx#: [id number] cefTRIAXone 1 gm In 50 Sodium Chloride 0.9% 50 ml @ 100 mls/hr IVPB Q24HR [facility] Rx#:[id number] Intake, IV Titration 299.766 95.611 Amount Heparin Sod,Pork in 0.45% 299.766 95.611 NaCl 25,000 unit In 0.45 % NaCl 1 250ml.bag @ 10. 09 UNITS/KG/HR 9.999 mls/ hr IV .Q24H [facility] Rx#: [id number] Oral 600 Output: Urine 19440 100 Other: Voiding Method Indwelling Catheter Indwelling Catheter - Exam PHYSICAL EXAMINATION: Patient is lying in the bed comfortably, no acute distress, awake alert and oriented. Currently on BiPAP. HEENT: Normocephalic. Neck is supple. Pupils reactive. Nostrils clear. Oral cavity is moist. Ears reveal no drainage. Neck reveals no JVD, carotid bruits, or thyromegaly. CHEST EXAMINATION: Trachea is central. Symmetrical expansion. Bilateral diffuse rhonchi and crackles.. CARDIAC: Normal S1, S2 with no gallops. No murmurs ABDOMEN: Soft. Bowel sounds normal. No organomegaly. No abdominal bruits. Extremities: reveal no edema. No clubbing or cyanosis Neurologically awake, alert, oriented x3 with well-coordinated movements. No focal deficits noted Skin: No rash or skin lesions. Psychiatric: Coperative. Nonsuicidal Musculoskeletal: No joint swelling or deformity. Normal range of motion. - Labs CBC & Chem 7: 06/02/18 04:11 06/02/18 04:11 Labs: Abnormal Lab Results - Last 24 Hours (Table) 06/02/18 06/02/18 06/02/18 Range/Units 04:11 04:11 04:11 Plt Count 461 H (150-450) k/uL Lymphocytes # 0.3 L (1.0-4.8) k/uL APTT 40.7 H (22.0-30.0) sec Carbon Dioxide 33 H (22-30) mmol/L Glucose 231 H (74-99) mg/dL POC Glucose (mg/dL) (75-99) mg/dL 06/02/18 06/02/18 06/02/18 Range/Units 06:50 11:50 17:14 Plt Count (150-450) k/uL Lymphocytes # (1.0-4.8) k/uL APTT 52.4 H (22.0-30.0) sec Carbon Dioxide (22-30) mmol/L Glucose (74-99) mg/dL POC Glucose (mg/dL) 204 H 199 H (75-99) mg/dL 06/02/18 Range/Units 20:25 Plt Count (150-450) k/uL Lymphocytes # (1.0-4.8) k/uL APTT (22.0-30.0) sec Carbon Dioxide (22-30) mmol/L Glucose (74-99) mg/dL POC Glucose (mg/dL) 264 H (75-99) mg/dL Microbiology - Last 24 Hours (Table) 05/30/18 12:21 Blood Culture - Preliminary Blood No Growth after 72 hours Assessment and Plan Assessment: Acute hypoxic respiratory failure secondary to pneumonia with pulmonary interstitial edema/ARDS. Multifocal pneumonia with sepsis Pulmonary nodules multiple likely infectious etiology. Rule out sarcoidosis. Repeat CT in 3 months was recommended. Chronic atrial fibrillation on anticoagulation with Coumadin Right lower extremity DVT extensively with 16 inches long was removed Asthma History of breast cancer status post surgery and chemotherapy Migraine headaches Degenerative disc disease and chronic back pain and cervical pain Left leg sciatic pain Hypothyroidism History of CVA/TIA with no residual weakness GERD Hypertension Hyperlipidemia Osteoarthritis of multiple joints GI prophylaxis with Protonix. DVT prophylaxis patient is already on Coumadin. Plan: Continued on BiPAP. Patient was on Levaquin. Changed ceftriaxone and azithromycin to Levaquin and cefepime/vancomycin added. Continue with DuoNeb's. Continue with current management and IV heparin.. Pulmonary is following. Further recommendations based on the clinical course. r Time with Patient: Greater than 30
[2018-06-03] MEDS: HEPARIN SOD,PORK IN 0.45% NACL 25,000 UNIT in 0.45% NACL 1 250ML.BAG IV SCH ×2 (01:28→17:13)
[2018-06-03] MEDS: MORPHINE SULFATE IR 15 MG TABLET PO PRN ×2 (01:38→15:01)
[2018-06-03 04:56] LABS: Basophils % (A) 0 %; Eosinophils % (A) 0 %; HCT 36.3 % (34.0-46.0); HGB 11.1 gm/dL (11.4-16.0); Lymphocytes # (A) 0.4 k/uL (1.0-4.8); Lymphocytes % (A) 5 %; MCH 25.8 pg (25.0-35.0); MCHC 30.6 g/dL (31.0-37.0); MCV 84.5 fL (80.0-100.0); Mean Platelet Volume 6.5; Monocytes # (A) 0.6 k/uL (0-1.0); Monocytes % (A) 7 %; Neutrophils % (A) 87 %; Platelet Count 528 k/uL (150-450); RDW 13.2 % (11.5-15.5); WBC 8.1 k/uL (3.8-10.6)
[2018-06-03 05:51] LABS: Anion Gap 5 mmol/L; Blood Urea Nitrogen 15 mg/dL (7-17); Calcium 9.3 mg/dL (8.4-10.2); Carbon Dioxide 36 mmol/L (22-30); Chloride 100 mmol/L (98-107); Glucose 148 mg/dL (74-99); Magnesium 1.9 mg/dL (1.6-2.3); Sodium 141 mmol/L (137-145)
[2018-06-03 06:09] LABS: Potassium 4.4 mmol/L (3.5-5.1)
[2018-06-03] MEDS: methylPREDNISolone SOD SUCCI 125 MG/2 ML VIAL IV SCH ×4 (06:43→23:35)
[2018-06-03] MEDS: MAGNESIUM SULFATE-D5W PMX 1 GM in DEXTROSE/WATER 1 100ML.BAG IVPB SCH ×2 (06:44→08:07)
[2018-06-03] MEDS: LEVOTHYROXINE 100 MCG TAB PO SCH (06:44)
[2018-06-03 06:45] LABS: Glucose,Whole Blood 167 mg/dL (75-99)
[2018-06-03] MEDS: PANTOPRAZOLE 40 MG TABLET PO SCH (07:11)
[2018-06-03] MEDS: BACLOFEN 10 MG TAB PO PRN ×2 (07:11→22:15)
[2018-06-03] MEDS: IPRATROPIUM-ALBUTEROL 3 ML NEB INHALATION SCH ×4 (07:13→19:13)
[2018-06-03] MEDS: INSULIN ASPART (NovoLOG) 100 UNIT/ML VIAL SQ SCH ×4 (08:06→21:08)
--- NOTE | 2018-06-03 08:10 | XR ---
EXAMINATION TYPE: XR chest 1V portable DATE OF EXAM: 06/03/2018 COMPARISON: 06/02/2018 HISTORY: SOB, Follow Up FINDINGS: Diffuse bilateral airspace infiltrates persist. Correlate for pneumonia or ARDS. Stable appearance of the cardio-mediastinal structures at this time. Pleural effusion not present. IMPRESSION: 1. Stable portable chest. Clinical correlation and follow up until resolution is recommended.
[2018-06-03] MEDS: ANASTROZOLE 1 MG TAB PO SCH (08:22)
[2018-06-03] MEDS: NON-FORMULARY DRUG (Biotin [Biotin] 5,000 MCG) PO SCH (08:23)
[2018-06-03] MEDS: busPIRone HCl 10 MG TAB PO SCH ×2 (08:23→21:09)
[2018-06-03] MEDS: CEFEPIME 2 GM in SODIUM CHLORIDE 0.9% 100 ML IVPB SCH ×2 (08:24→21:08)
[2018-06-03] MEDS: CALCIUM CARBONATE 500 MG CHEWABLE PO SCH (08:24)
[2018-06-03] MEDS: ZYRTEC 10MG PO SCH (08:24)
[2018-06-03] MEDS: CITALOPRAM HYDROBROMIDE 20 MG TAB PO SCH ×2 (08:25→21:09)
[2018-06-03] MEDS: CHOLECALCIFEROL 1,000 UNIT TAB PO SCH (08:25)
[2018-06-03] MEDS: DOCUSATE 100 MG CAP PO SCH ×3 (08:26→21:13)
[2018-06-03] MEDS: FENOFIBRATE 160 MG TAB PO SCH (08:26)
[2018-06-03] MEDS: FUROSEMIDE 10 MG/ML 2 ML VIAL IV SCH (08:27)
[2018-06-03] MEDS: metFORMIN 500 MG TAB PO SCH ×2 (08:27→21:11)
[2018-06-03] MEDS: FLUTICASONE 50MCG/SPRAY NASAL 16GM EA NOSTRIL SCH (08:27)
[2018-06-03] MEDS: MORPHINE SULFATE ER 60 MG TABLET PO SCH ×2 (08:28→21:11)
[2018-06-03] MEDS: METOPROLOL TARTRATE 25 MG TAB PO SCH ×2 (08:28→21:11)
[2018-06-03] MEDS: SPIRONOLACTONE 25 MG TAB PO SCH (08:29)
[2018-06-03] MEDS: FLUCONAZOLE 100 MG TAB PO SCH (10:08)
[2018-06-03] MEDS: LEVOFLOXACIN 750MG-D5W PMX 750 MG in DEXTROSE/WATER 1 150ML.BAG IVPB SCH (10:08)
[2018-06-03 11:51] LABS: Glucose,Whole Blood 223 mg/dL (75-99)
[2018-06-03] MEDS: MULTIVITAMINS, THERA 1 EACH TAB PO SCH (12:12)
--- NOTE | 2018-06-03 15:00 | PN ---
PROGRESS NOTE This is a 67-year-old lady with bilateral pneumonia who also has paroxysmal atrial fibrillation and history of DVT. Cardiac-arias, she is doing well. She is maintaining sinus rhythm. Vital signs are stable. Her oxygenation is actually somewhat better, S1-S2 heard normally. Lungs reveal improved air entry with fine rales over both bases. Abdomen and lower extremity exam unchanged. The patient's anticoagulation can be resumed and I would recommend that we use Eliquis and we can always switch over to Coumadin as an outpatient after a week or so by bridging it with Eliquis which will be more expeditious for her. I explained this to her and she is agreeable with this approach. I will see her as needed from a cardiac standpoint. Vital signs stable, S1-S2 heard normally. There is no short systolic murmur noted. Lungs reveal bilateral diminished breath sounds over both bases with fine rales. Abdomen and lower extremity exam unchanged. Overall air entry appears to be better in the lungs. MMODL / IJN: [id number] /
--- NOTE | 2018-06-03 16:11 | P.PN ---
Subjective Progress Note Date: 06/03/18 This is a 67-year-old white female patient who was received as a transfer from [facility] on 05/28/2018. Patient had presented with complaints of chest congestion, cough, wheezing, shortness of breath and occasional phlegm production. Influenza screen and CT angiogram were completed at the [facility], and they were negative for influenza A and pulmonary embolism. Patient did have multiple pulmonary nodules that could relate to her underlying sarcoidosis. In addition she has some groundglass opacities at the lower lobes possibly consistent with pneumonia. We did obtain a chest x-ray at this hospital yesterday, which showed cardiomegaly with multifocal bilateral alveolar and interstitial edema and/or infiltrates. Possible developing ARDS. She lab work showed a white blood cell count of 3.6, hemoglobin 13.3, d-dimer was slightly elevated at 1.05, but CT angios was negative for any evidence of PE, renal profile and electrolytes were within normal limits, proBNP was within normal limits at 467, troponin was negative, urinalysis was negative for any sign of infection. Patient's medical history significant for atrial fibrillation on anticoagulation in the form of Coumadin, history of DVT/PE, diabetes mellitus type 2, history of CVA and TIA and hypertension, hy pothyroidism. The patient was given IV lasix, and she has significantly diuresed, she is in -3560 mL fluid balance in last 24 hours, in her breathing had worsened, along with her oxygenation, and patient had to be placed on BiPAP support. On today's exam patient is seen on BiPAP support with pressures of 12 and 5, 80%, and her pulse ox is 94%, she is quite tachypneic, lung sounds are positive for diffuse crackles, and rhonchi, patient appears to be in mild to moderate amount of distress, and for that reason patient will be removed down to the intensive care unit, today's chest x-ray has been reviewed, showed persistence of bladder pulmonary edema, and airspace disease bilaterally, likely related to underlying pneumonia. Afebrile, hemodynamically stable. Denies any chest pain, wasn't able to produce any sputum for culture. She states she still has the urge to cough, but not able to bring up anything. Antibiotic coverage in the form of Levaquin. On 05/31/2018 patient seen in follow-up in the intensive care unit, she is awake and alert, she is anxious, she states she could not sleep last night, but overall her breathing is better, she remains on BiPAP support with pressures of 12 and 5 and FiO2 of 100%, her O2 sat is 98%, she sinus rhythm on the monitor at a rate of 81 BPM, no IV fluids, IVs have been hep-locked, today's chest x-ray has been reviewed with Dr. Sotomayor, and shows bilateral diffuse infiltrates, improved in appearance from previous exams. Today's INR is 1.5, and we'll start the patient on heparin drip per weight-based protocol for anticoagulation, hold off on Coumadin right now in case patient needs any invasive procedures. His labs have been reviewed, and his CBC was essentially unremarkable, sodium was 138, potassium 3.9, chloride was 97, CO2 is 30, BUN was 15 and creatinine 0.54, antibiotic coverage in the form of Zithromax and Rocephin, and vancomycin. So far the culture data remains negative, patient is still not able to produce any sputum for culture. No fever or chills. We'll try the patient on Airvo. Lung sounds reveal diminished breath sounds, with a few scattered rales. On 06/02/2018 patient seen in follow-up in the intensive care unit, she remains on interval, currently at 60 L and FiO2 of 91%, and her pulse ox is 91-93%, but patient is noted to be easily desaturating with any exertion, speaking or eating. She is awake and alert, in no acute distress, lung sounds reveal a few scattered rhonchi, she is in sinus rhythm with a rate of 80 BPM, today's chest x-ray shows slight improvement in the appearance of diffuse pulmonary infiltrates. Afebrile, blood and urine cultures showed no growth, we have not been able to collect a sputum specimen. Legionella urine antigen is pending, today's lab work showed a white blood cell count of 6.0, hemoglobin is 11.5, electrolytes were within normal limits, CO2 is 33, renal profile was within normal limits. No complaint of chest pain, no significant chest congestion or coughing. Yesterday we switched the antibiotic coverage to cefepime, Levaquin and vancomycin, we added IV Solu-Medrol, nebulized bronchodilators. On 06/03/2018, I'm seeing this patient for a follow-up. The patient remains in acute hypoxic respiratory failure and the patient is currently on Airvo 60 L, 7 5% FiO2. The patient is calm and comfortable. She is hemodynamically stable. No tachycardia. No hypotension. Hemodynamically stable and she is on no pressors. Antibiotic coverage including a combination of cefepime, Levaquin and Diflucan was also added as the patient was noted to have some thrush. The patient is calm and comfortable. She is interactive. She is able to sit up on a chair. Her chest x-ray still showing stable bilateral pulmonary infiltrates, that remains rather unchanged over the past 24 hours. All of the cultures of been negative. Urine Legionella was not detected and was negative. Patient is receiving 20 mg of IV Lasix every 24 hours. She remains on IV Solu-Medrol. No signs of any fluid overload. No altered mentation. No hemoptysis. No chest pain. No pleurisy. No other significant events overnight. She is tolerating her diet for now. Objective - Vital Signs Vital signs: Vital Signs Temp 97.5 F L 06/03/18 12:00 Pulse 68 06/03/18 15:34 Resp 16 06/03/18 14:00 BP 101/56 06/03/18 14:00 Pulse Ox 94 L 06/03/18 15:20 Intake & Output 06/02/18 06/03/18 06/03/18 18:59 06:59 18:59 Intake Total 137.878 5520 2960 Output Total 1870 1825 2450 Balance -1174.389 -455 510 Weight 98.6 kg 98.6 kg Intake: IV 600 280 440 Cefepime 2 gm In Sodium 200 100 100 Chloride 0.9% 100 ml @ 200 mls/hr IVPB Q12HR [facility] Rx#:[id number] Levofloxacin 750Mg-D5w 100 150 Pmx 750 mg In Dextrose/ Water 1 150ml.bag @ 100 mls/hr IVPB Q24H [facility] Rx#: [id number] Magnesium Sulfate-D5w Pmx 100 1 gm In Dextrose/Water 1 100ml.bag @ 100 mls/hr IVPB Q1H [facility] Rx#: [id number] Magnesium Sulfate-D5w Pmx 200 1 gm In Dextrose/Water 1 100ml.bag @ 100 mls/hr IVPB Q1H [facility] Rx#: [id number] Magnesium Sulfate-D5w Pmx 100 1 gm In Dextrose/Water 1 100ml.bag @ 100 mls/hr IVPB Q1H [facility] Rx#: [id number] kvo 180 90 Intake, IV Titration 95.611 250 Amount Heparin Sod,Pork in 0.45% 95.611 250 NaCl 25,000 unit In 0.45 % NaCl 1 250ml.bag @ 10. 09 UNITS/KG/HR 9.999 mls/ hr IV .Q24H [facility] Rx#: [id number] Oral 840 2520 Output: Urine 1870 1825 2450 Other: Voiding Method Indwelling Catheter Indwelling Catheter Indwelling Catheter # Voids 1 - Exam GENERAL EXAM: Alert, slightly anxious, 67-year-old white female, on Airvo, currently at 60 L, and FiO2 of 75% HEAD: Normocephalic/atraumatic. EYES: Normal reaction of pupils, equal size. Conjunctiva pink, sclera white. NOSE: Clear with pink turbinates. THROAT: No erythema or exudates. NECK: No masses, no JVD, no thyroid enlargement, no adenopathy. CHEST: No chest wall deformity. Symmetrical expansion. LUNGS: Equal air entry with diffuse crackles CVS: Regular rate and rhythm, normal S1 and S2, no gallops, no murmurs, no rubs ABDOMEN: Soft, nontender. No hepatosplenomegaly, normal bowel sounds, no guarding or rigidity. EXTREMITIES: No clubbing, no edema, no cyanosis, 2+ pulses and upper and lower extremities. MUSCULOSKELETAL: Muscle strength and tone normal. SPINE: No scoliosis or deformity SKIN: No rashes CENTRAL NERVOUS SYSTEM: Alert and oriented -3. No focal deficits, tone is normal in all 4 extremities. PSYCHIATRIC: Alert and oriented -3. Appropriate affect. Intact judgment and insight. - Labs CBC & Chem 7: 06/03/18 04:06 06/03/18 04:06 Labs: Abnormal Lab Results - Last 24 Hours (Table) 06/02/18 06/02/18 06/03/18 Range/Units 17:14 20:25 04:06 Hgb (11.4-16.0) gm/dL MCHC (31.0-37.0) g/dL Plt Count (150-450) k/uL Lymphocytes # (1.0-4.8) k/uL APTT 51.9 H (22.0-30.0) sec Carbon Dioxide (22-30) mmol/L Glucose (74-99) mg/dL POC Glucose (mg/dL) 199 H 264 H (75-99) mg/dL 06/03/18 06/03/18 06/03/18 Range/Units 04:06 04:06 06:42 Hgb 11.1 L (11.4-16.0) gm/dL MCHC 30.6 L (31.0-37.0) g/dL Plt Count 528 H (150-450) k/uL Lymphocytes # 0.4 L (1.0-4.8) k/uL APTT (22.0-30.0) sec Carbon Dioxide 36 H (22-30) mmol/L Glucose 148 H (74-99) mg/dL POC Glucose (mg/dL) 167 H (75-99) mg/dL 06/03/18 Range/Units 11:49 Hgb (11.4-16.0) gm/dL MCHC (31.0-37.0) g/dL Plt Count (150-450) k/uL Lymphocytes # (1.0-4.8) k/uL APTT (22.0-30.0) sec Carbon Dioxide (22-30) mmol/L Glucose (74-99) mg/dL POC Glucose (mg/dL) 223 H (75-99) mg/dL Microbiology - Last 24 Hours (Table) 05/30/18 12:21 Blood Culture - Preliminary Blood No Growth after 96 hours Assessment and Plan Plan: #1. Acute hypoxemic respiratory failure secondary to bilateral pneumonia, and there may be a component of pulmonary edema/ARDS, proBNP was within normal limits. Influenza screen was negative, CT angios the chest was negative for any pulmonary embolism, showed groundglass opacities at bilateral bases, likely related to underlying pneumonia. Suspect atypical or viral pneumonia although possibilities of other gram-negative pneumonia is cannot be completely excluded. Staphylococcal pneumonia is felt to be less likely at this point. The patient was initially on a BiPAP. At the later stages the patient was switched to a high flow oxygen at a flow of 60 L and FiO2 of 75%. She is actually taking well. Chest x-ray findings are stable. Antibiotics are essentially the same she remains on IV Solu-Medrol. Consider development of a postinfectious ARDS. All of the cultures of been negative including a Legionella urine antigen that came back negative. #2. Pulmonary nodules, could relate to underlying sarcoidosis, #3. Diabetes mellitus type 2 currently on Levemir 20 units daily #4. Chronic atrial fibrillation, and her current rhythm is sinus and the patient is hemodynamically stable. #5. GERD/reflux #6. Hypertention, #7. DJD #8. Hypothyroidism #9. Osteoarthritis of multiple joints #10 history of DVT and pulmonary embolism, on chronic anticoagulation in the form of Coumadin. Supratherapeutic at a time of admission and INR is down to 1.2 and the patient is currently on IV heparin. #11 hyperlipidemia Plan Antinea our efforts to wean down the FiO2 as tolerated to maintain a saturation above 90%. Continue the same antibiotic coverage. Continue the bronchodilat ors. Continue systemic steroids. Monitor the blood sugar. Keep the patient IV heparin. The patient was recommended to be switched to Eliquis. However she wanted to go on warfarin and Eliquis. For that reason, I'm going to give her another day of IV heparin and started on gradual antibiotic ventilation with warfarin once and make sure that her pneumonia is settled and she is improving and there is going to be no need for any further procedures or interventions. We'll continue to follow. She'll be kept in ICU for now. Quite
[2018-06-03 16:51] LABS: Glucose,Whole Blood 189 mg/dL (75-99)
[2018-06-03] MEDS ORDERED: INSULIN ASPART (NovoLOG) 100 UNIT/ML VIAL SQ SCH (17:30)
[2018-06-03 20:35] LABS: Glucose,Whole Blood 270 mg/dL (75-99)
[2018-06-03] MEDS ORDERED: INSULIN ASPART (NovoLOG) 100 UNIT/ML VIAL SQ ONE (21:00)
[2018-06-03] MEDS: EZETIMIBE 10 MG TAB PO SCH (21:10)
[2018-06-03] MEDS: LISINOPRIL 10 MG TAB PO SCH (21:10)
[2018-06-03] MEDS: traZODone HCL 50 MG TAB PO SCH (21:12)
[2018-06-03] MEDS: INSULIN DETEMIR (LEVEMIR) 100 UNIT/ML SYR SQ SCH (22:15)
[2018-06-04] MEDS: MORPHINE SULFATE IR 15 MG TABLET PO PRN (04:38)
[2018-06-04] MEDS: LEVOTHYROXINE 100 MCG TAB PO SCH (05:30)
[2018-06-04] MEDS: HEPARIN SOD,PORK IN 0.45% NACL 25,000 UNIT in 0.45% NACL 1 250ML.BAG IV SCH ×2 (05:30→20:55)
[2018-06-04] MEDS: methylPREDNISolone SOD SUCCI 125 MG/2 ML VIAL IV SCH ×3 (05:30→17:52)
[2018-06-04 05:37] LABS: Basophils % (A) 0 %; Eosinophils % (A) 0 %; HCT 36.3 % (34.0-46.0); HGB 11.6 gm/dL (11.4-16.0); Lymphocytes # (A) 0.4 k/uL (1.0-4.8); Lymphocytes % (A) 4 %; MCV 84.7 fL (80.0-100.0); Mean Platelet Volume 6.7; Monocytes # (A) 0.6 k/uL (0-1.0); Monocytes % (A) 6 %; Neutrophils # (A) 8.4 k/uL (1.3-7.7); Neutrophils % (A) 88 %; Platelet Count 551 k/uL (150-450); RBC 4.28 m/uL (3.80-5.40); RDW 13.2 % (11.5-15.5); WBC 9.5 k/uL (3.8-10.6)
[2018-06-04 06:25] LABS: Anion Gap 8 mmol/L; Blood Urea Nitrogen 15 mg/dL (7-17); Calcium 9.2 mg/dL (8.4-10.2); Carbon Dioxide 33 mmol/L (22-30); Chloride 96 mmol/L (98-107); Glucose 200 mg/dL (74-99); Magnesium 1.7 mg/dL (1.6-2.3); Potassium 4.3 mmol/L (3.5-5.1); Sodium 137 mmol/L (137-145)
[2018-06-04] MEDS: MAGNESIUM SULFATE-D5W PMX 1 GM in DEXTROSE/WATER 1 100ML.BAG IVPB SCH ×2 (06:53→09:06)
[2018-06-04 07:08] LABS: Glucose,Whole Blood 183 mg/dL (75-99)
[2018-06-04] MEDS: INSULIN ASPART (NovoLOG) 100 UNIT/ML VIAL SQ SCH ×7 (07:11→20:54)
[2018-06-04] MEDS: IPRATROPIUM-ALBUTEROL 3 ML NEB INHALATION SCH ×4 (07:41→20:29)
--- NOTE | 2018-06-04 07:51 | XR ---
EXAMINATION TYPE: XR chest 1V portable DATE OF EXAM: 06/04/2018 Comparison: 06/03/2018 Clinical History: 67-year-old female pneumonia/ARDS Findings: Heart remains borderline enlarged. Multifocal interstitial and airspace opacities persist. Possible t race left effusion. No significant change from prior. Right shoulder arthroplasty partially visualize d. Only a small portion of the patient's left shoulder arthroplasty is seen. Impression: Stable multifocal patchy and confluent airspace disease.
[2018-06-04] MEDS: PANTOPRAZOLE 40 MG TABLET PO SCH (09:06)
[2018-06-04] MEDS: NON-FORMULARY DRUG (Biotin [Biotin] 5,000 MCG) PO SCH (09:07)
[2018-06-04] MEDS: ANASTROZOLE 1 MG TAB PO SCH (09:07)
[2018-06-04] MEDS: CALCIUM CARBONATE 500 MG CHEWABLE PO SCH (09:08)
[2018-06-04] MEDS: CHOLECALCIFEROL 1,000 UNIT TAB PO SCH (09:09)
[2018-06-04] MEDS: DOCUSATE 100 MG CAP PO SCH ×3 (09:09→20:55)
[2018-06-04] MEDS: FENOFIBRATE 160 MG TAB PO SCH (09:09)
[2018-06-04] MEDS: FLUTICASONE 50MCG/SPRAY NASAL 16GM EA NOSTRIL SCH (09:09)
[2018-06-04] MEDS: ZYRTEC 10MG PO SCH (09:09)
[2018-06-04] MEDS: CITALOPRAM HYDROBROMIDE 20 MG TAB PO SCH ×2 (09:09→20:52)
[2018-06-04] MEDS: MORPHINE SULFATE ER 60 MG TABLET PO SCH ×2 (09:10→20:52)
[2018-06-04] MEDS: metFORMIN 500 MG TAB PO SCH ×2 (09:10→20:51)
[2018-06-04] MEDS: LEVOFLOXACIN 750 MG TAB PO SCH (09:10)
[2018-06-04] MEDS: METOPROLOL TARTRATE 25 MG TAB PO SCH ×2 (09:10→20:50)
[2018-06-04] MEDS: FUROSEMIDE 10 MG/ML 2 ML VIAL IV SCH (09:10)
[2018-06-04] MEDS: SPIRONOLACTONE 25 MG TAB PO SCH (09:11)
[2018-06-04] MEDS: BACLOFEN 10 MG TAB PO PRN ×2 (09:12→21:31)
[2018-06-04] MEDS: busPIRone HCl 10 MG TAB PO SCH ×2 (09:12→20:50)
[2018-06-04] MEDS: FLUCONAZOLE 100 MG TAB PO SCH (09:13)
[2018-06-04] MEDS: CEFEPIME 2 GM in SODIUM CHLORIDE 0.9% 100 ML IVPB SCH ×2 (09:28→20:50)
[2018-06-04 12:16] LABS: Glucose,Whole Blood 164 mg/dL (75-99)
[2018-06-04] MEDS: MULTIVITAMINS, THERA 1 EACH TAB PO SCH (13:34)
--- NOTE | 2018-06-04 15:07 | P.PN ---
Subjective Progress Note Date: 06/04/18 This is a 67-year-old white female patient who was received as a transfer from [facility] on 05/28/2018. Patient had presented with complaints of chest congestion, cough, wheezing, shortness of breath and occasional phlegm production. Influenza screen and CT angiogram were completed at the [facility], and they were negative for influenza A and pulmonary embolism. Patient did have multiple pulmonary nodules that could relate to her underlying sarcoidosis. In addition she has some groundglass opacities at the lower lobes possibly consistent with pneumonia. We did obtain a chest x-ray at this hospital yesterday, which showed cardiomegaly with multifocal bilateral alveolar and interstitial edema and/or infiltrates. Possible developing ARDS. She lab work showed a white blood cell count of 3.6, hemoglobin 13.3, d-dimer was slightly elevated at 1.05, but CT angios was negative for any evidence of PE, renal profile and electrolytes were within normal limits, proBNP was within normal limits at 467, troponin was negative, urinalysis was negative for any sign of infection. Patient's medical history significant for atrial fibrillation on anticoagulation in the form of Coumadin, history of DVT/PE, diabetes mellitus type 2, history of CVA and TIA and hypertension, hy pothyroidism. The patient was given IV lasix, and she has significantly diuresed, she is in -3560 mL fluid balance in last 24 hours, in her breathing had worsened, along with her oxygenation, and patient had to be placed on BiPAP support. On today's exam patient is seen on BiPAP support with pressures of 12 and 5, 80%, and her pulse ox is 94%, she is quite tachypneic, lung sounds are positive for diffuse crackles, and rhonchi, patient appears to be in mild to moderate amount of distress, and for that reason patient will be removed down to the intensive care unit, today's chest x-ray has been reviewed, showed persistence of bladder pulmonary edema, and airspace disease bilaterally, likely related to underlying pneumonia. Afebrile, hemodynamically stable. Denies any chest pain, wasn't able to produce any sputum for culture. She states she still has the urge to cough, but not able to bring up anything. Antibiotic coverage in the form of Levaquin. On 05/31/2018 patient seen in follow-up in the intensive care unit, she is awake and alert, she is anxious, she states she could not sleep last night, but overall her breathing is better, she remains on BiPAP support with pressures of 12 and 5 and FiO2 of 100%, her O2 sat is 98%, she sinus rhythm on the monitor at a rate of 81 BPM, no IV fluids, IVs have been hep-locked, today's chest x-ray has been reviewed with Dr. Sotomayor, and shows bilateral diffuse infiltrates, improved in appearance from previous exams. Today's INR is 1.5, and we'll start the patient on heparin drip per weight-based protocol for anticoagulation, hold off on Coumadin right now in case patient needs any invasive procedures. His labs have been reviewed, and his CBC was essentially unremarkable, sodium was 138, potassium 3.9, chloride was 97, CO2 is 30, BUN was 15 and creatinine 0.54, antibiotic coverage in the form of Zithromax and Rocephin, and vancomycin. So far the culture data remains negative, patient is still not able to produce any sputum for culture. No fever or chills. We'll try the patient on Airvo. Lung sounds reveal diminished breath sounds, with a few scattered rales. On 06/02/2018 patient seen in follow-up in the intensive care unit, she remains on interval, currently at 60 L and FiO2 of 91%, and her pulse ox is 91-93%, but patient is noted to be easily desaturating with any exertion, speaking or eating. She is awake and alert, in no acute distress, lung sounds reveal a few scattered rhonchi, she is in sinus rhythm with a rate of 80 BPM, today's chest x-ray shows slight improvement in the appearance of diffuse pulmonary infiltrates. Afebrile, blood and urine cultures showed no growth, we have not been able to collect a sputum specimen. Legionella urine antigen is pending, today's lab work showed a white blood cell count of 6.0, hemoglobin is 11.5, electrolytes were within normal limits, CO2 is 33, renal profile was within normal limits. No complaint of chest pain, no significant chest congestion or coughing. Yesterday we switched the antibiotic coverage to cefepime, Levaquin and vancomycin, we added IV Solu-Medrol, nebulized bronchodilators. On 06/03/2018, I'm seeing this patient for a follow-up. The patient remains in acute hypoxic respiratory failure and the patient is currently on Airvo 60 L, 7 5% FiO2. The patient is calm and comfortable. She is hemodynamically stable. No tachycardia. No hypotension. Hemodynamically stable and she is on no pressors. Antibiotic coverage including a combination of cefepime, Levaquin and Diflucan was also added as the patient was noted to have some thrush. The patient is calm and comfortable. She is interactive. She is able to sit up on a chair. Her chest x-ray still showing stable bilateral pulmonary infiltrates, that remains rather unchanged over the past 24 hours. All of the cultures of been negative. Urine Legionella was not detected and was negative. Patient is receiving 20 mg of IV Lasix every 24 hours. She remains on IV Solu-Medrol. No signs of any fluid overload. No altered mentation. No hemoptysis. No chest pain. No pleurisy. No other significant events overnight. She is tolerating her diet for now. On 06/04/2018 and seeing this patient for a follow-up. The patient is on high flow oxygen. FiO2 has been increased up to 81%. She is doing well. Chest x- ray findings are essentially stable and the patient has bilateral pulmonary infiltrates unchanged compared to yesterday. Clinically she is feeling better. She is able to get up on a chair. She still on the same antibiotic coverage including a combination of cefepime, Levaquin and Diflucan. The patient is also on IV Solu-Medrol. No significant cough or sputum production. No pleurisy or hemoptysis. No nausea or vomiting. No abdominal distention. She is resting comfortably in bed. We will try to attempt to wean down the FiO2 to maintain a saturation above 90%. Cultures of been all negative. This is a postinfectious ARDS and the patient is being supported with high flow oxygen for now. The patient is also receiving Lasix on a daily basis. No signs of fluid overload. Objective - Vital Signs Vital signs: Vital Signs Temp 97.5 F L 06/04/18 12:00 Pulse 65 06/04/18 14:00 Resp 13 06/04/18 14:00 BP 113/59 06/04/18 14:00 Pulse Ox 93 L 06/04/18 14:00 Intake & Output 06/03/18 06/04/18 06/04/18 18:59 06:59 18:59 Intake Total 4490 3080.203 390 Output Total 3725 3300 2280 Balance 765 -219.797 -1890 Weight 98.6 kg 99.3 kg Intake: IV 520 460 390 Cefepime 2 gm In Sodium 100 100 100 Chloride 0.9% 100 ml @ 200 mls/hr IVPB Q12HR [facility] Rx#:[id number] Levofloxacin 750Mg-D5w 150 Pmx 750 mg In Dextrose/ Water 1 150ml.bag @ 100 mls/hr IVPB Q24H [facility] Rx#: [id number] Magnesium Sulfate-D5w Pmx 100 100 1 gm In Dextrose/Water 1 100ml.bag @ 100 mls/hr IVPB Q1H [facility] Rx#: [id number] Magnesium Sulfate-D5w Pmx 200 1 gm In Dextrose/Water 1 100ml.bag @ 100 mls/hr IVPB Q1H [facility] Rx#: [id number] kvo 170 260 90 Intake, IV Titration 250 220.203 Amount Heparin Sod,Pork in 0.45% 250 220.203 NaCl 25,000 unit In 0.45 % NaCl 1 250ml.bag @ 10. 09 UNITS/KG/HR 9.999 mls/ hr IV .Q24H [facility] Rx#: [id number] Oral 3720 2400 Output: Urine 3725 3300 2280 Other: Voiding Method Indwelling Catheter Indwelling Catheter Indwelling Catheter - Exam GENERAL EXAM: Alert, slightly anxious, 67-year-old white female, on Airvo, currently at 60 L, and FiO2 of 75% HEAD: Normocephalic/atraumatic. EYES: Normal reaction of pupils, equal size. Conjunctiva pink, sclera white. NOSE: Clear with pink turbinates. THROAT: No erythema or exudates. NECK: No masses, no JVD, no thyroid enlargement, no adenopathy. CHEST: No chest wall deformity. Symmetrical expansion. LUNGS: Equal air entry with diffuse crackles CVS: Regular rate and rhythm, normal S1 and S2, no gallops, no murmurs, no rubs ABDOMEN: Soft, nontender. No hepatosplenomegaly, normal bowel sounds, no guarding or rigidity. EXTREMITIES: No clubbing, no edema, no cyanosis, 2+ pulses and upper and lower extremities. MUSCULOSKELETAL: Muscle strength and tone normal. SPINE: No scoliosis or deformity SKIN: No rashes CENTRAL NERVOUS SYSTEM: Alert and oriented -3. No focal deficits, tone is normal in all 4 extremities. PSYCHIATRIC: Alert and oriented -3. Appropriate affect. Intact judgment and insight. - Labs CBC & Chem 7: 06/04/18 05:02 06/04/18 05:02 Labs: Abnormal Lab Results - Last 24 Hours (Table) 06/03/18 06/03/18 06/04/18 Range/Units 16:50 20:33 05:02 Plt Count 551 H (150-450) k/uL Neutrophils # 8.4 H (1.3-7.7) k/uL Lymphocytes # 0.4 L (1.0-4.8) k/uL APTT (22.0-30.0) sec Chloride (98-107) mmol/L Carbon Dioxide (22-30) mmol/L Glucose (74-99) mg/dL POC Glucose (mg/dL) 189 H 270 H (75-99) mg/dL 06/04/18 06/04/18 06/04/18 Range/Units 05:02 05:02 07:06 Plt Count (150-450) k/uL Neutrophils # (1.3-7.7) k/uL Lymphocytes # (1.0-4.8) k/uL APTT 66.5 H (22.0-30.0) sec Chloride 96 L (98-107) mmol/L Carbon Dioxide 33 H (22-30) mmol/L Glucose 200 H (74-99) mg/dL POC Glucose (mg/dL) 183 H (75-99) mg/dL 06/04/18 Range/Units 12:15 Plt Count (150-450) k/uL Neutrophils # (1.3-7.7) k/uL Lymphocytes # (1.0-4.8) k/uL APTT (22.0-30.0) sec Chloride (98-107) mmol/L Carbon Dioxide (22-30) mmol/L Glucose (74-99) mg/dL POC Glucose (mg/dL) 164 H (75-99) mg/dL Microbiology - Last 24 Hours (Table) 05/30/18 12:21 Blood Culture - Preliminary Blood No Growth after 120 hours Assessment and Plan Plan: #1. Acute hypoxemic respiratory failure secondary to bilateral pneumonia, and there may be a component of pulmonary edema/ARDS. Oxidation remains stable and the patient remains on high flow oxygen at 80% FiO2. Chest x-ray findings are also stable. Clinically stable. She remains on a combination of bronchodilators and steroids. She is mainly receiving supportive care in the ICU. #2. Pulmonary nodules, could relate to underlying sarcoidosis, #3. Diabetes mellitus type 2 currently on Levemir 20 units daily #4. Chronic atrial fibrillation, and her current rhythm is sinus and the patient is hemodynamically stable. #5. GERD/reflux #6. Hypertention, #7. DJD #8. Hypothyroidism #9. Osteoarthritis of multiple joints #10 history of DVT and pulmonary embolism, on chronic anticoagulation in the form of Coumadin. Supratherapeutic at a time of admission and INR is down to 1.2 and the patient is currently on IV heparin. #11 hyperlipidemia Plan Continue supportive care. Continue high flow oxygen for oxygenation. Keep same antibiotic coverage. Continue with IV Solu-Medrol. We will attempt to wean down the FiO2 gradually to maintain a saturation above 90%. Chest x-ray findings are stable. Hemodynamically stable. Blood work is also within normal limits. Continue to follow.
[2018-06-04 17:17] LABS: Glucose,Whole Blood 163 mg/dL (75-99)
[2018-06-04 20:29] LABS: Glucose,Whole Blood 138 mg/dL (75-99)
[2018-06-04] MEDS: traZODone HCL 50 MG TAB PO SCH (20:50)
[2018-06-04] MEDS: LISINOPRIL 10 MG TAB PO SCH (20:52)
[2018-06-04] MEDS: INSULIN DETEMIR (LEVEMIR) 100 UNIT/ML SYR SQ SCH (20:54)
[2018-06-04] MEDS: EZETIMIBE 10 MG TAB PO SCH (21:31)
--- NOTE | 2018-06-04 22:47 | P.PN ---
Subjective Progress Note Date: 06/03/18 Principal diagnosis: Multifocal pneumonia Acute hypoxemic respiratory failure Patient is a 67-year-old female with a known history of atrial fibrillation on anticoagulation, history of DVT/PE, diabetes type 2, history of CVA/TIA and hypertension, hypothyroidism and other multiple medical problems initially presents to walk-in clinic [facility] on Friday with complaints of shortness of breath cough and fever 102.4. Patient was sent home with Z-Samuel and Tessalon pearls as well as Mucinex. Patient has been taking her medications and symptoms did not resolve which made her to go back to hospital on Friday. Patient was hypoxic and tachycardic at the time. Patient had CT angiogram of the chest to rule out pulmonary embolism. No pulmonary embolism was noted. Patient was found to have pulmonary nodules and repeat CT was recommended after resolution of pneumonia. Due to extensive pneumonia and pulmonary nodules and sepsis patient was transferred to [facility] for further evaluation and possible pulmonary consult. Currently patient is on oxygen via nasal cannula. Patient otherwise denied any complaints of chest pain. Patient does have nausea and bloating in the abdomen. No diarrhea. Currently patient is afebrile. No headache or dizziness or lightheadedness. Patient does have shortness of breath. No complaints of chest pain otherwise. Laboratory data reviewed from [facility]. Influenza was negative. 05/29/2018 Patient did have worsening shortness of breath last night and was placed on BiPAP. Chest x-ray showed moderate pulmonary edema. Patient was given a dose of IV Lasix and is being continued currently. Patient appears to be in moderate distress and is being transferred to MICU. Otherwise patient is being continued on antibiotics in the form of Levaquin. Continued on breathing treatments and oxygen therapy. Patient has been afebrile. No complaints of chest pain. 05/30/2018 Patient is currently on BiPAP machine and being monitored in the MICU.. No complaints of chest pain. No worsening shortness of breath. Chest x-ray showed improved aeration. Minimal. Otherwise patient is being continued on IV steroids and breathing treatments and antibiotics in the form of Levaquin. No fever no chills. No nausea vomiting or abdominal pain. No diarrhea. 05/31/2018 Patient is currently on BiPAP support. Chest x-ray showed bilateral diffuse infiltrates improved from previous exam. Patient was started on heparin and subtherapeutic INR level. Otherwise patient is being continued on antibiotics in the form of ceftriaxone and azithromycin. Cultures have been negative. No fever or chills. 06/01/2018 Patient is currently on BiPAP machine last night and this morning.. Antibiotics have been changed to Levaquin and vancomycin. Otherwise patient is awake alert oriented 3. No complaints of chest pain. No worsening shortness of breath. No nausea vomiting or abdominal pain or diarrhea. Chest x-ray showed extensive bilateral infiltrate. Continued on IV heparin due to subtherapeutic INR level 06/02/2018 Patient is currently sitting in the chair. Currently on high flow oxygen. Awake alert and no distress. No compressive chest pain. No nausea vomiting or abdominal pain. Patient chest x-ray showed slight improvement in the appearance of diffuse pulmonary infiltrates. Patient has been afebrile. Cultures have been no growth so far. Patient is currently on vancomycin and cefepime and Levaquin. IV Solu-Medrol has been added. Pulmonary is following closely. No fever no chills. 06/03/2018 Patient is currently sitting on the change. Comfortable. Still on high flow oxygen via AirvO2. Acute on breathing treatments and IV Solu-Medrol. No complaints of chest pain. Currently being continued on antibiotics the form of cefepime, Levaquin. Chest x-ray showed stable bilateral pulmonary infiltrates, unchanged over the past 24 hours. Urine Legionella antigen is negative. Tolerating oral diet. No nausea vomiting or abdominal pain or diarrhea. Current medications reviewed. Objective - Vital Signs Vital signs: Vital Signs Temp 97.6 F 06/03/18 16:00 Pulse 74 06/03/18 19:27 Resp 12 06/03/18 19:00 BP 118/56 06/03/18 19:00 Pulse Ox 90 L 06/03/18 19:13 Intake & Output 06/03/18 06/03/18 06/04/18 06:59 18:59 06:59 Intake Total 1370 4490 500 Output Total 1825 3725 500 Balance -455 765 0 Weight 98.6 kg 98.6 kg Intake: IV 280 520 20 Cefepime 2 gm In Sodium 100 100 Chloride 0.9% 100 ml @ 200 mls/hr IVPB Q12HR [facility] Rx#:[id number] Levofloxacin 750Mg-D5w 150 Pmx 750 mg In Dextrose/ Water 1 150ml.bag @ 100 mls/hr IVPB Q24H [facility] Rx#: [id number] Magnesium Sulfate-D5w Pmx 100 1 gm In Dextrose/Water 1 100ml.bag @ 100 mls/hr IVPB Q1H [facility] Rx#: [id number] kvo 180 170 20 Intake, IV Titration 250 250 Amount Heparin Sod,Pork in 0.45% 250 250 NaCl 25,000 unit In 0.45 % NaCl 1 250ml.bag @ 10. 09 UNITS/KG/HR 9.999 mls/ hr IV .Q24H [facility] Rx#: [id number] Oral 840 3720 480 Output: Urine 1825 3725 500 Other: Voiding Method Indwelling Catheter Indwelling Catheter # Voids 1 - Exam PHYSICAL EXAMINATION: Patient is lying in the bed comfortably, no acute distress, awake alert and oriented. Currently on BiPAP. HEENT: Normocephalic. Neck is supple. Pupils reactive. Nostrils clear. Oral cavity is moist. Ears reveal no drainage. Neck reveals no JVD, carotid bruits, or thyromegaly. CHEST EXAMINATION: Trachea is central. Symmetrical expansion. Bilateral air entry improved. Scattered rhonchi and bibasilar diminished sounds... CARDIAC: Normal S1, S2 with no gallops. No murmurs ABDOMEN: Soft. Bowel sounds normal. No organomegaly. No abdominal bruits. Extremities: reveal no edema. No clubbing or cyanosis Neurologically awake, alert, oriented x3 with well-coordinated movements. No focal deficits noted Skin: No rash or skin lesions. Psychiatric: Coperative. Nonsuicidal Musculoskeletal: No joint swelling or deformity. Normal range of motion. - Labs CBC & Chem 7: 06/04/18 05:02 06/04/18 05:02 Labs: Abnormal Lab Results - Last 24 Hours (Table) 06/03/18 06/03/18 06/03/18 Range/Units 04:06 04:06 04:06 Hgb 11.1 L (11.4-16.0) gm/dL MCHC 30.6 L (31.0-37.0) g/dL Plt Count 528 H (150-450) k/uL Lymphocytes # 0.4 L (1.0-4.8) k/uL APTT 51.9 H (22.0-30.0) sec Carbon Dioxide 36 H (22-30) mmol/L Glucose 148 H (74-99) mg/dL POC Glucose (mg/dL) (75-99) mg/dL 06/03/18 06/03/18 06/03/18 Range/Units 06:42 11:49 16:50 Hgb (11.4-16.0) gm/dL MCHC (31.0-37.0) g/dL Plt Count (150-450) k/uL Lymphocytes # (1.0-4.8) k/uL APTT (22.0-30.0) sec Carbon Dioxide (22-30) mmol/L Glucose (74-99) mg/dL POC Glucose (mg/dL) 167 H 223 H 189 H (75-99) mg/dL 06/03/18 Range/Units 20:33 Hgb (11.4-16.0) gm/dL MCHC (31.0-37.0) g/dL Plt Count (150-450) k/uL Lymphocytes # (1.0-4.8) k/uL APTT (22.0-30.0) sec Carbon Dioxide (22-30) mmol/L Glucose (74-99) mg/dL POC Glucose (mg/dL) 270 H (75-99) mg/dL Microbiology - Last 24 Hours (Table) 05/30/18 12:21 Blood Culture - Preliminary Blood No Growth after 96 hours Assessment and Plan Assessment: Acute hypoxic respiratory failure secondary to pneumonia with pulmonary interst itial edema/ARDS. Multifocal pneumonia with sepsis Pulmonary nodules multiple likely infectious etiology. Rule out sarcoidosis. Repeat CT in 3 months was recommended. Chronic atrial fibrillation on anticoagulation with Coumadin Right lower extremity DVT extensively with 16 inches long was removed Asthma History of breast cancer status post surgery and chemotherapy Migraine headaches Degenerative disc disease and chronic back pain and cervical pain Left leg sciatic pain Hypothyroidism History of CVA/TIA with no residual weakness GERD Hypertension Hyperlipidemia Osteoarthritis of multiple joints GI prophylaxis with Protonix. DVT prophylaxis patient is already on Coumadin. Plan: Continued on BiPAP as needed. High flow oxygen.. Patient was on Levaquin and cefepime. Continue with IV steroids. Continue with DuoNeb's. Continue with current management and IV heparin.. Pulmonary is following. Further recommendations based on the clinical course. r Time with Patient: Greater than 30
--- NOTE | 2018-06-04 22:50 | P.PN ---
Subjective Progress Note Date: 06/04/18 Principal diagnosis: Multifocal pneumonia Acute hypoxemic respiratory failure Patient is a 67-year-old female with a known history of atrial fibrillation on anticoagulation, history of DVT/PE, diabetes type 2, history of CVA/TIA and hypertension, hypothyroidism and other multiple medical problems initially presents to walk-in clinic [facility] on Friday with complaints of shortness of breath cough and fever 102.4. Patient was sent home with Z-Samuel and Tessalon pearls as well as Mucinex. Patient has been taking her medications and symptoms did not resolve which made her to go back to hospital on Friday. Patient was hypoxic and tachycardic at the time. Patient had CT angiogram of the chest to rule out pulmonary embolism. No pulmonary embolism was noted. Patient was found to have pulmonary nodules and repeat CT was recommended after resolution of pneumonia. Due to extensive pneumonia and pulmonary nodules and sepsis patient was transferred to [facility] for further evaluation and possible pulmonary consult. Currently patient is on oxygen via nasal cannula. Patient otherwise denied any complaints of chest pain. Patient does have nausea and bloating in the abdomen. No diarrhea. Currently patient is afebrile. No headache or dizziness or lightheadedness. Patient does have shortness of breath. No complaints of chest pain otherwise. Laboratory data reviewed from [facility]. Influenza was negative. 05/29/2018 Patient did have worsening shortness of breath last night and was placed on BiPAP. Chest x-ray showed moderate pulmonary edema. Patient was given a dose of IV Lasix and is being continued currently. Patient appears to be in moderate distress and is being transferred to MICU. Otherwise patient is being continued on antibiotics in the form of Levaquin. Continued on breathing treatments and oxygen therapy. Patient has been afebrile. No complaints of chest pain. 05/30/2018 Patient is currently on BiPAP machine and being monitored in the MICU.. No complaints of chest pain. No worsening shortness of breath. Chest x-ray showed improved aeration. Minimal. Otherwise patient is being continued on IV steroids and breathing treatments and antibiotics in the form of Levaquin. No fever no chills. No nausea vomiting or abdominal pain. No diarrhea. 05/31/2018 Patient is currently on BiPAP support. Chest x-ray showed bilateral diffuse infiltrates improved from previous exam. Patient was started on heparin and subtherapeutic INR level. Otherwise patient is being continued on antibiotics in the form of ceftriaxone and azithromycin. Cultures have been negative. No fever or chills. 06/01/2018 Patient is currently on BiPAP machine last night and this morning.. Antibiotics have been changed to Levaquin and vancomycin. Otherwise patient is awake alert oriented 3. No complaints of chest pain. No worsening shortness of breath. No nausea vomiting or abdominal pain or diarrhea. Chest x-ray showed extensive bilateral infiltrate. Continued on IV heparin due to subtherapeutic INR level 06/02/2018 Patient is currently sitting in the chair. Currently on high flow oxygen. Awake alert and no distress. No compressive chest pain. No nausea vomiting or abdominal pain. Patient chest x-ray showed slight improvement in the appearance of diffuse pulmonary infiltrates. Patient has been afebrile. Cultures have been no growth so far. Patient is currently on vancomycin and cefepime and Levaquin. IV Solu-Medrol has been added. Pulmonary is following closely. No fever no chills. 06/03/2018 Patient is currently sitting on the change. Comfortable. Still on high flow oxygen via AirvO2. Acute on breathing treatments and IV Solu-Medrol. No complaints of chest pain. Currently being continued on antibiotics the form of cefepime, Levaquin. Chest x-ray showed stable bilateral pulmonary infiltrates, unchanged over the past 24 hours. Urine Legionella antigen is negative. Tolerating oral diet. No nausea vomiting or abdominal pain or diarrhea. 06/04/2018 Patient was to the hospital with pneumonia and ARDS like chest x-ray findings. Patient remained on the high flow oxygen. Currently in the ICU. Otherwise, and comfortable and sitting in the chair. Chest x-ray showed essentially stable findings and bilateral pulmonary infiltrates unchanged compared to yesterday. Continue on antibiotics in the form of cefepime and Levaquin along with breathing treatments and IV Solu-Medrol. No fever no chills. No nausea vomiting or abdominal pain or diarrhea. Cultures including Legionella urine antigen is negative. Current medications reviewed. Objective - Vital Signs Vital signs: Vital Signs Temp 97.5 F L 06/04/18 12:00 Pulse 72 06/04/18 20:42 Resp 21 06/04/18 18:00 BP 110/58 06/04/18 17:00 Pulse Ox 92 L 06/04/18 20:29 Intake & Output 06/04/18 06/04/18 06/05/18 06:59 18:59 06:59 Intake Total 3080.203 430 250 Output Total 3300 3060 Balance -219.797 -2630 250 Weight 99.3 kg Intake: IV 460 430 Cefepime 2 gm In Sodium 100 100 Chloride 0.9% 100 ml @ 200 mls/hr IVPB Q12HR [facility] Rx#:[id number] Magnesium Sulfate-D5w Pmx 100 1 gm In Dextrose/Water 1 100ml.bag @ 100 mls/hr IVPB Q1H [facility] Rx#: [id number] Magnesium Sulfate-D5w Pmx 200 1 gm In Dextrose/Water 1 100ml.bag @ 100 mls/hr IVPB Q1H [facility] Rx#: [id number] kvo 260 130 Intake, IV Titration 220.203 250 Amount Heparin Sod,Pork in 0.45% 220.203 250 NaCl 25,000 unit In 0.45 % NaCl 1 250ml.bag @ 10. 09 UNITS/KG/HR 9.999 mls/ hr IV .Q24H [facility] Rx#: [id number] Oral 2400 Output: Urine 3300 3060 Other: Voiding Method Indwelling Catheter Indwelling Catheter # Bowel Movements 1 - Exam PHYSICAL EXAMINATION: Patient is lying in the bed comfortably, no acute distress, awake alert and oriented. Currently on BiPAP. HEENT: Normocephalic. Neck is supple. Pupils reactive. Nostrils clear. Oral cavity is moist. Ears reveal no drainage. Neck reveals no JVD, carotid bruits, or thyromegaly. CHEST EXAMINATION: Trachea is central. Symmetrical expansion. Bilateral air entry improved. Scattered rhonchi and bibasilar diminished sounds... CARDIAC: Normal S1, S2 with no gallops. No murmurs ABDOMEN: Soft. Bowel sounds normal. No organomegaly. No abdominal bruits. Extremities: reveal no edema. No clubbing or cyanosis Neurologically awake, alert, oriented x3 with well-coordinated movements. No focal deficits noted Skin: No rash or skin lesions. Psychiatric: Coperative. Nonsuicidal Musculoskeletal: No joint swelling or deformity. Normal range of motion. - Labs CBC & Chem 7: 06/04/18 05:02 06/04/18 05:02 Labs: Abnormal Lab Results - Last 24 Hours (Table) 06/04/18 06/04/18 06/04/18 Range/Units 05:02 05:02 05:02 Plt Count 551 H (150-450) k/uL Neutrophils # 8.4 H (1.3-7.7) k/uL Lymphocytes # 0.4 L (1.0-4.8) k/uL APTT 66.5 H (22.0-30.0) sec Chloride 96 L (98-107) mmol/L Carbon Dioxide 33 H (22-30) mmol/L Glucose 200 H (74-99) mg/dL POC Glucose (mg/dL) (75-99) mg/dL 06/04/18 06/04/18 06/04/18 Range/Units 07:06 12:15 17:15 Plt Count (150-450) k/uL Neutrophils # (1.3-7.7) k/uL Lymphocytes # (1.0-4.8) k/uL APTT (22.0-30.0) sec Chloride (98-107) mmol/L Carbon Dioxide (22-30) mmol/L Glucose (74-99) mg/dL POC Glucose (mg/dL) 183 H 164 H 163 H (75-99) mg/dL 06/04/18 Range/Units 20:27 Plt Count (150-450) k/uL Neutrophils # (1.3-7.7) k/uL Lymphocytes # (1.0-4.8) k/uL APTT (22.0-30.0) sec Chloride (98-107) mmol/L Carbon Dioxide (22-30) mmol/L Glucose (74-99) mg/dL POC Glucose (mg/dL) 138 H (75-99) mg/dL Microbiology - Last 24 Hours (Table) 05/30/18 12:21 Blood Culture - Preliminary Blood No Growth after 120 hours Assessment and Plan Assessment: Acute hypoxic respiratory failure secondary to pneumonia with pulmonary intersti tial edema/ARDS. Multifocal pneumonia with sepsis Pulmonary nodules multiple likely infectious etiology. Rule out sarcoidosis. Repeat CT in 3 months was recommended. Chronic atrial fibrillation on anticoagulation with Coumadin Right lower extremity DVT extensively with 16 inches long was removed Asthma History of breast cancer status post surgery and chemotherapy Migraine headaches Degenerative disc disease and chronic back pain and cervical pain Left leg sciatic pain Hypothyroidism History of CVA/TIA with no residual weakness GERD Hypertension Hyperlipidemia Osteoarthritis of multiple joints GI prophylaxis with Protonix. DVT prophylaxis patient is already on Coumadin. Plan: Continued on BiPAP as needed. High flow oxygen.. Patient was on Levaquin and cefepime. Added Diflucan. Continue with IV steroids. Continue with DuoNeb's. Continue with current management and IV heparin.. Pulmonary is following. Further recommendations based on the clinical course. r Time with Patient: Greater than 30
[2018-06-05] MEDS: methylPREDNISolone SOD SUCCI 125 MG/2 ML VIAL IV SCH ×4 (04:24→17:50)
[2018-06-05] MEDS: MORPHINE SULFATE IR 15 MG TABLET PO PRN ×2 (04:48→18:19)
[2018-06-05 06:07] LABS: Basophils % (A) 0 %; Eosinophils # (A) 0.1 k/uL (0-0.7); Eosinophils % (A) 1 %; HCT 37.6 % (34.0-46.0); HGB 11.6 gm/dL (11.4-16.0); Lymphocytes # (A) 0.9 k/uL (1.0-4.8); Lymphocytes % (A) 9 %; MCH 26.1 pg (25.0-35.0); MCHC 30.8 g/dL (31.0-37.0); Mean Platelet Volume 6.6; Monocytes # (A) 0.6 k/uL (0-1.0); Monocytes % (A) 7 %; Neutrophils # (A) 7.7 k/uL (1.3-7.7); Neutrophils % (A) 82 %; Platelet Count 588 k/uL (150-450); RBC 4.42 m/uL (3.80-5.40); RDW 13.5 % (11.5-15.5); WBC 9.4 k/uL (3.8-10.6)
[2018-06-05 06:21] LABS: Anion Gap 4 mmol/L; Blood Urea Nitrogen 16 mg/dL (7-17); Calcium 8.9 mg/dL (8.4-10.2); Carbon Dioxide 36 mmol/L (22-30); Chloride 96 mmol/L (98-107); Glucose 129 mg/dL (74-99); Potassium 4.4 mmol/L (3.5-5.1); Sodium 136 mmol/L (137-145)
[2018-06-05] MEDS: LEVOTHYROXINE 100 MCG TAB PO SCH (06:23)
[2018-06-05] MEDS: PANTOPRAZOLE 40 MG TABLET PO SCH (06:24)
--- NOTE | 2018-06-05 06:54 | XR ---
EXAMINATION TYPE: XR chest 1V portable DATE OF EXAM: 06/05/2018 CLINICAL HISTORY: Difficulty breathing , pneumonia, ARDS progress study. TECHNIQUE: Single AP portable upright view of the chest is obtained. COMPARISON: Chest x-ray from one day earlier and older studies. Outside CTA chest May 26, 2018. FINDINGS: Metallic hardware from bilateral shoulder surgery is partially imaged. There is persistent multifocal bilateral opacities. Cardiac silhouette size is stable and within normal limits. Anterior fusion plate lower cervical spine is redemonstrated. No large pleural effusion or pneumothorax is no yazmin. IMPRESSION: Overall stable findings over last few days, multifocal areas of edema and/or infiltrate suspicious for ARDS.
[2018-06-05] MEDS: IPRATROPIUM-ALBUTEROL 3 ML NEB INHALATION SCH ×4 (07:04→19:46)
[2018-06-05] MEDS: BACLOFEN 10 MG TAB PO PRN ×2 (07:04→21:07)
[2018-06-05 07:12] LABS: Glucose,Whole Blood 90 mg/dL (75-99)
[2018-06-05] MEDS: INSULIN ASPART (NovoLOG) 100 UNIT/ML VIAL SQ SCH ×7 (07:48→20:54)
[2018-06-05] MEDS: ANASTROZOLE 1 MG TAB PO SCH (08:22)
[2018-06-05] MEDS: CALCIUM CARBONATE 500 MG CHEWABLE PO SCH (08:23)
[2018-06-05] MEDS: metFORMIN 500 MG TAB PO SCH ×2 (08:23→20:56)
[2018-06-05] MEDS: DOCUSATE 100 MG CAP PO SCH ×3 (08:23→23:28)
[2018-06-05] MEDS: SPIRONOLACTONE 25 MG TAB PO SCH (08:24)
[2018-06-05] MEDS: LEVOFLOXACIN 750 MG TAB PO SCH (08:24)
[2018-06-05] MEDS: CHOLECALCIFEROL 1,000 UNIT TAB PO SCH (08:24)
[2018-06-05] MEDS: CITALOPRAM HYDROBROMIDE 20 MG TAB PO SCH ×2 (08:25→20:56)
[2018-06-05] MEDS: METOPROLOL TARTRATE 25 MG TAB PO SCH ×2 (08:25→20:58)
[2018-06-05] MEDS: MORPHINE SULFATE ER 60 MG TABLET PO SCH ×2 (08:26→20:57)
[2018-06-05] MEDS: FUROSEMIDE 10 MG/ML 2 ML VIAL IV SCH (08:26)
[2018-06-05] MEDS: FENOFIBRATE 160 MG TAB PO SCH (08:27)
[2018-06-05] MEDS: busPIRone HCl 10 MG TAB PO SCH ×2 (08:27→20:57)
[2018-06-05] MEDS: FLUCONAZOLE 100 MG TAB PO SCH (08:28)
[2018-06-05] MEDS: FLUTICASONE 50MCG/SPRAY NASAL 16GM EA NOSTRIL SCH (08:29)
[2018-06-05] MEDS: ZYRTEC 10MG PO SCH (08:29)
[2018-06-05] MEDS: NON-FORMULARY DRUG (Biotin [Biotin] 5,000 MCG) PO SCH (08:37)
[2018-06-05] MEDS: CEFEPIME 2 GM in SODIUM CHLORIDE 0.9% 100 ML IVPB SCH ×2 (08:51→20:55)
[2018-06-05] MEDS: HEPARIN SOD,PORK IN 0.45% NACL 25,000 UNIT in 0.45% NACL 1 250ML.BAG IV SCH (11:16)
[2018-06-05 11:54] LABS: Glucose,Whole Blood 130 mg/dL (75-99)
[2018-06-05] MEDS: MULTIVITAMINS, THERA 1 EACH TAB PO SCH (12:04)
--- NOTE | 2018-06-05 16:07 | P.PN ---
Subjective Progress Note Date: 06/05/18 This is a 67-year-old white female patient who was received as a transfer from [facility] on 05/28/2018. Patient had presented with complaints of chest congestion, cough, wheezing, shortness of breath and occasional phlegm production. Influenza screen and CT angiogram were completed at the [facility], and they were negative for influenza A and pulmonary embolism. Patient did have multiple pulmonary nodules that could relate to her underlying sarcoidosis. In addition she has some groundglass opacities at the lower lobes possibly consistent with pneumonia. We did obtain a chest x-ray at this hospital yesterday, which showed cardiomegaly with multifocal bilateral alveolar and interstitial edema and/or infiltrates. Possible developing ARDS. She lab work showed a white blood cell count of 3.6, hemoglobin 13.3, d-dimer was slightly elevated at 1.05, but CT angios was negative for any evidence of PE, renal profile and electrolytes were within normal limits, proBNP was within normal limits at 467, troponin was negative, urinalysis was negative for any sign of infection. Patient's medical history significant for atrial fibrillation on anticoagulation in the form of Coumadin, history of DVT/PE, diabetes mellitus type 2, history of CVA and TIA and hypertension, hy pothyroidism. The patient was given IV lasix, and she has significantly diuresed, she is in -3560 mL fluid balance in last 24 hours, in her breathing had worsened, along with her oxygenation, and patient had to be placed on BiPAP support. On today's exam patient is seen on BiPAP support with pressures of 12 and 5, 80%, and her pulse ox is 94%, she is quite tachypneic, lung sounds are positive for diffuse crackles, and rhonchi, patient appears to be in mild to moderate amount of distress, and for that reason patient will be removed down to the intensive care unit, today's chest x-ray has been reviewed, showed persistence of bladder pulmonary edema, and airspace disease bilaterally, likely related to underlying pneumonia. Afebrile, hemodynamically stable. Denies any chest pain, wasn't able to produce any sputum for culture. She states she still has the urge to cough, but not able to bring up anything. Antibiotic coverage in the form of Levaquin. On 05/31/2018 patient seen in follow-up in the intensive care unit, she is awake and alert, she is anxious, she states she could not sleep last night, but overall her breathing is better, she remains on BiPAP support with pressures of 12 and 5 and FiO2 of 100%, her O2 sat is 98%, she sinus rhythm on the monitor at a rate of 81 BPM, no IV fluids, IVs have been hep-locked, today's chest x-ray has been reviewed with Dr. Sotomayor, and shows bilateral diffuse infiltrates, improved in appearance from previous exams. Today's INR is 1.5, and we'll start the patient on heparin drip per weight-based protocol for anticoagulation, hold off on Coumadin right now in case patient needs any invasive procedures. His labs have been reviewed, and his CBC was essentially unremarkable, sodium was 138, potassium 3.9, chloride was 97, CO2 is 30, BUN was 15 and creatinine 0.54, antibiotic coverage in the form of Zithromax and Rocephin, and vancomycin. So far the culture data remains negative, patient is still not able to produce any sputum for culture. No fever or chills. We'll try the patient on Airvo. Lung sounds reveal diminished breath sounds, with a few scattered rales. On 06/02/2018 patient seen in follow-up in the intensive care unit, she remains on interval, currently at 60 L and FiO2 of 91%, and her pulse ox is 91-93%, but patient is noted to be easily desaturating with any exertion, speaking or eating. She is awake and alert, in no acute distress, lung sounds reveal a few scattered rhonchi, she is in sinus rhythm with a rate of 80 BPM, today's chest x-ray shows slight improvement in the appearance of diffuse pulmonary infiltrates. Afebrile, blood and urine cultures showed no growth, we have not been able to collect a sputum specimen. Legionella urine antigen is pending, today's lab work showed a white blood cell count of 6.0, hemoglobin is 11.5, electrolytes were within normal limits, CO2 is 33, renal profile was within normal limits. No complaint of chest pain, no significant chest congestion or coughing. Yesterday we switched the antibiotic coverage to cefepime, Levaquin and vancomycin, we added IV Solu-Medrol, nebulized bronchodilators. On 06/03/2018, I'm seeing this patient for a follow-up. The patient remains in acute hypoxic respiratory failure and the patient is currently on Airvo 60 L, 7 5% FiO2. The patient is calm and comfortable. She is hemodynamically stable. No tachycardia. No hypotension. Hemodynamically stable and she is on no pressors. Antibiotic coverage including a combination of cefepime, Levaquin and Diflucan was also added as the patient was noted to have some thrush. The patient is calm and comfortable. She is interactive. She is able to sit up on a chair. Her chest x-ray still showing stable bilateral pulmonary infiltrates, that remains rather unchanged over the past 24 hours. All of the cultures of been negative. Urine Legionella was not detected and was negative. Patient is receiving 20 mg of IV Lasix every 24 hours. She remains on IV Solu-Medrol. No signs of any fluid overload. No altered mentation. No hemoptysis. No chest pain. No pleurisy. No other significant events overnight. She is tolerating her diet for now. On 06/04/2018 and seeing this patient for a follow-up. The patient is on high flow oxygen. FiO2 has been increased up to 81%. She is doing well. Chest x- ray findings are essentially stable and the patient has bilateral pulmonary infiltrates unchanged compared to yesterday. Clinically she is feeling better. She is able to get up on a chair. She still on the same antibiotic coverage including a combination of cefepime, Levaquin and Diflucan. The patient is also on IV Solu-Medrol. No significant cough or sputum production. No pleurisy or hemoptysis. No nausea or vomiting. No abdominal distention. She is resting comfortably in bed. We will try to attempt to wean down the FiO2 to maintain a saturation above 90%. Cultures of been all negative. This is a postinfectious ARDS and the patient is being supported with high flow oxygen for now. The patient is also receiving Lasix on a daily basis. No signs of fluid overload. on 06/05/2018, I'm seeing this patient for a follow-up. The patient states that she's feeling better. She states that she is less short of breath. Nevertheless, her oxygenation has remained essentially unchanged compared to yesterday. She remains on high flow oxygen with an FiO2 of 80%. Pulse ox is around 90-91% and there is not much room for her weaning off FiO2. Her chest x- ray also showing diffuse breath and pulmonary infiltrates which remain unchanged compared to yesterday's chest x-ray. I will say objectively the patient is essentially the same and stable compared to yesterday. She remains on a combination of antibiotics including cefepime, Levaquin and Diflucan. The patient is also on IV Solu-Medrol. She is tolerating her diet. Is active. No nausea or vomiting. No abdominal distention. No leg swelling. No chest pain. No pleurisy. No hemoptysis. No altered mentation. No renal insufficiency. No other significant events over the past 24 hours. Family is at the bedside. Objective - Vital Signs Vital signs: Vital Signs Temp 36.1 F L 06/05/18 12:00 Pulse 68 06/05/18 15:46 Resp 31 H 06/05/18 15:00 BP 111/61 06/05/18 15:00 Pulse Ox 96 06/05/18 15:32 Intake & Output 06/04/18 06/05/18 06/05/18 18:59 06:59 18:59 Intake Total 357 477 8751.291 Output Total 3060 1465 1625 Balance -2630 -695 94.291 Weight 99.2 kg Intake: IV 430 120 270 Cefepime 2 gm In Sodium 100 100 Chloride 0.9% 100 ml @ 200 mls/hr IVPB Q12HR [facility] Rx#:[id number] Magnesium Sulfate-D5w Pmx 200 1 gm In Dextrose/Water 1 100ml.bag @ 100 mls/hr IVPB Q1H [facility] Rx#: [id number] kvo 130 120 170 Intake, IV Titration 250 249.291 Amount Heparin Sod,Pork in 0.45% 250 249.291 NaCl 25,000 unit In 0.45 % NaCl 1 250ml.bag @ 10. 09 UNITS/KG/HR 9.999 mls/ hr IV .Q24H [facility] Rx#: [id number] Oral 400 1200 Output: Urine 3060 1465 1625 Other: Voiding Method Indwelling Catheter Indwelling Catheter Indwelling Catheter # Bowel Movements 1 - Exam GENERAL EXAM: Alert, slightly anxious, 67-year-old white female, on Airvo, currently at 60 L, and FiO2 of 80% HEAD: Normocephalic/atraumatic. EYES: Normal reaction of pupils, equal size. Conjunctiva pink, sclera white. NOSE: Clear with pink turbinates. THROAT: No erythema or exudates. NECK: No masses, no JVD, no thyroid enlargement, no adenopathy. CHEST: No chest wall deformity. Symmetrical expansion. LUNGS: Equal air entry with diffuse crackles CVS: Regular rate and rhythm, normal S1 and S2, no gallops, no murmurs, no rubs ABDOMEN: Soft, nontender. No hepatosplenomegaly, normal bowel sounds, no guarding or rigidity. EXTREMITIES: No clubbing, no edema, no cyanosis, 2+ pulses and upper and lower extremities. MUSCULOSKELETAL: Muscle strength and tone normal. SPINE: No scoliosis or deformity SKIN: No rashes CENTRAL NERVOUS SYSTEM: Alert and oriented -3. No focal deficits, tone is normal in all 4 extremities. PSYCHIATRIC: Alert and oriented -3. Appropriate affect. Intact judgment and insight. - Labs CBC & Chem 7: 06/05/18 05:20 06/05/18 05:20 Labs: Abnormal Lab Results - Last 24 Hours (Table) 06/04/18 06/04/18 06/05/18 Range/Units 17:15 20:27 05:20 MCHC 30.8 L (31.0-37.0) g/dL Plt Count 588 H (150-450) k/uL Lymphocytes # 0.9 L (1.0-4.8) k/uL APTT (22.0-30.0) sec Sodium (137-145) mmol/L Chloride (98-107) mmol/L Carbon Dioxide (22-30) mmol/L Glucose (74-99) mg/dL POC Glucose (mg/dL) 163 H 138 H (75-99) mg/dL 06/05/18 06/05/18 06/05/18 Range/Units 05:20 06:53 11:52 MCHC (31.0-37.0) g/dL Plt Count (150-450) k/uL Lymphocytes # (1.0-4.8) k/uL APTT 88.7 H (22.0-30.0) sec Sodium 136 L (137-145) mmol/L Chloride 96 L (98-107) mmol/L Carbon Dioxide 36 H (22-30) mmol/L Glucose 129 H (74-99) mg/dL POC Glucose (mg/dL) 130 H (75-99) mg/dL 06/05/18 Range/Units 14:32 MCHC (31.0-37.0) g/dL Plt Count (150-450) k/uL Lymphocytes # (1.0-4.8) k/uL APTT 61.2 H (22.0-30.0) sec Sodium (137-145) mmol/L Chloride (98-107) mmol/L Carbon Dioxide (22-30) mmol/L Glucose (74-99) mg/dL POC Glucose (mg/dL) (75-99) mg/dL Microbiology - Last 24 Hours (Table) 05/30/18 12:21 Blood Culture - Final Blood No Growth after 144 hours Assessment and Plan Plan: #1. Acute hypoxemic respiratory failure secondary to bilateral pneumonia, and there may be a component of pulmonary edema/ARDS. Oxidation remains stable and the patient remains on high flow oxygen at 80% FiO2. Chest x-ray findings are also stable. Clinically stable. She remains on a combination of bronchodilators and steroids. She is mainly receiving supportive care in the ICU.compared to yesterday, the patient's condition remains critical but stable. Her oxygenation has remained stable. The patient remains on high flow oxygen at 80%. No change in her chest x-ray findings with still showing diffuse bilaterally pulmonary infiltrates. Continue same treatment. Continue high flow oxygen. Continue bronchodilators. Continue steroids. Continue same antibiotic coverage. #2. Pulmonary nodules, could relate to underlying sarcoidosis, #3. Diabetes mellitus type 2 currently on Levemir 20 units daily #4. Chronic atrial fibrillation, and her current rhythm is sinus and the patient is hemodynamically stable. #5. GERD/reflux #6. Hypertention, #7. DJD #8. Hypothyroidism #9. Osteoarthritis of multiple joints #10 history of DVT and pulmonary embolism, on chronic anticoagulation in the form of Coumadin. Supratherapeutic at a time of admission and INR is down to 1.2 and the patient is currently on IV heparin. #11 hyperlipidemia Plan Continue supportive care. Continue high flow oxygen for oxygenation. Keep same antibiotic coverage. Continue with IV Solu-Medrol. suggest continuing the same treatment and keep the patient in ICU. I think she is in a postinfectious ARDS state which will need supportive care unit ICU and very close monitoring. Anti cipate improvement hopefully within next 48 hours. Meanwhile, the patient will be kept on the same treatment. No need for any further adjustments. Her cardiac rhythm is sinus and the patient is on IV heparin regarding his history of DVT and pulmonary embolism.
[2018-06-05 17:00] LABS: Glucose,Whole Blood 203 mg/dL (75-99)
[2018-06-05 20:52] LABS: Glucose,Whole Blood 176 mg/dL (75-99)
[2018-06-05] MEDS: INSULIN DETEMIR (LEVEMIR) 100 UNIT/ML SYR SQ SCH (20:54)
[2018-06-05] MEDS: traZODone HCL 50 MG TAB PO SCH (20:55)
[2018-06-05] MEDS: EZETIMIBE 10 MG TAB PO SCH (20:56)
[2018-06-05] MEDS: LISINOPRIL 10 MG TAB PO SCH (20:57)
[2018-06-05] MEDS: BENZOCAINE/MENTHOL LOZENG 1 EACH LOZENGE MUCOUS MEM PRN (21:02)
[2018-06-06] MEDS: methylPREDNISolone SOD SUCCI 125 MG/2 ML VIAL IV SCH ×5 (01:26→23:26)
[2018-06-06] MEDS: BENZOCAINE/MENTHOL LOZENG 1 EACH LOZENGE MUCOUS MEM PRN ×4 (02:04→21:15)
[2018-06-06 05:37] LABS: HCT 38.1 % (34.0-46.0); HGB 11.9 gm/dL (11.4-16.0); MCH 26.6 pg (25.0-35.0); MCHC 31.3 g/dL (31.0-37.0); Mean Platelet Volume 6.8; Platelet Count 573 k/uL (150-450); RBC 4.48 m/uL (3.80-5.40); RDW 13.5 % (11.5-15.5); WBC 10.5 k/uL (3.8-10.6)
[2018-06-06 06:16] LABS: ALT 25 U/L (9-52); AST 19 U/L (14-36); Albumin 2.7 g/dL (3.5-5.0); Alkaline Phosphatase 74 U/L (38-126); Anion Gap 6 mmol/L; Blood Urea Nitrogen 19 mg/dL (7-17); Calcium 9.3 mg/dL (8.4-10.2); Carbon Dioxide 35 mmol/L (22-30); Chloride 94 mmol/L (98-107); Glucose 217 mg/dL (74-99); Magnesium 1.7 mg/dL (1.6-2.3); Phosphorus 3.5 mg/dL (2.5-4.5); Potassium 4.8 mmol/L (3.5-5.1); Sodium 135 mmol/L (137-145); Total Bilirubin 0.4 mg/dL (0.2-1.3); Total Protein 5.6 g/dL (6.3-8.2)
[2018-06-06] MEDS ORDERED: Magnesium Replacement Protocol 1 EACH MISC MISCELLANE PRN (06:29)
[2018-06-06] MEDS: LEVOTHYROXINE 100 MCG TAB PO SCH (06:35)
[2018-06-06] MEDS: PANTOPRAZOLE 40 MG TABLET PO SCH (06:36)
[2018-06-06] MEDS: HEPARIN SOD,PORK IN 0.45% NACL 25,000 UNIT in 0.45% NACL 1 250ML.BAG IV SCH (06:37)
--- NOTE | 2018-06-06 06:40 | XR ---
EXAMINATION TYPE: XR chest 1V portable DATE OF EXAM: 06/06/2018 HISTORY: pneumonia/ARDS. REFERENCE: Previous study dated 06/05/2018. FINDINGS: A right shoulder hemiarthroplasties in place. There is alveolar airspace disease present bilaterally. This may have worsened slightly. Heart size u pper limits of normal. I could not exclude tiny, bilateral pleural effusions. IMPRESSION: SLIGHT WORSENING IN THE PATIENT'S BILATERAL ALVEOLAR AIRSPACE DISEASE.
[2018-06-06] MEDS: MAGNESIUM SULFATE-D5W PMX 1 GM in DEXTROSE/WATER 1 100ML.BAG IVPB SCH ×2 (06:44→08:23)
[2018-06-06 07:08] LABS: Glucose,Whole Blood 182 mg/dL (75-99)
[2018-06-06] MEDS: NON-FORMULARY DRUG (Biotin [Biotin] 5,000 MCG) PO SCH (08:04)
[2018-06-06] MEDS: CEFEPIME 2 GM in SODIUM CHLORIDE 0.9% 100 ML IVPB SCH ×2 (08:22→21:00)
[2018-06-06] MEDS: FLUTICASONE 50MCG/SPRAY NASAL 16GM EA NOSTRIL SCH (08:23)
[2018-06-06] MEDS: FUROSEMIDE 10 MG/ML 2 ML VIAL IV SCH (08:24)
[2018-06-06] MEDS: CALCIUM CARBONATE 500 MG CHEWABLE PO SCH (08:24)
[2018-06-06] MEDS: ZYRTEC 10MG PO SCH (08:24)
[2018-06-06] MEDS: metFORMIN 500 MG TAB PO SCH ×2 (08:24→20:59)
[2018-06-06] MEDS: CITALOPRAM HYDROBROMIDE 20 MG TAB PO SCH ×2 (08:25→20:59)
[2018-06-06] MEDS: LEVOFLOXACIN 750 MG TAB PO SCH (08:25)
[2018-06-06] MEDS: DOCUSATE 100 MG CAP PO SCH ×3 (08:25→20:56)
[2018-06-06] MEDS: CHOLECALCIFEROL 1,000 UNIT TAB PO SCH (08:25)
[2018-06-06] MEDS: INSULIN ASPART (NovoLOG) 100 UNIT/ML VIAL SQ SCH ×7 (08:26→21:01)
[2018-06-06] MEDS: SPIRONOLACTONE 25 MG TAB PO SCH (08:26)
[2018-06-06] MEDS: busPIRone HCl 10 MG TAB PO SCH ×2 (08:27→21:00)
[2018-06-06] MEDS: IPRATROPIUM-ALBUTEROL 3 ML NEB INHALATION SCH ×4 (08:27→19:27)
[2018-06-06] MEDS: ANASTROZOLE 1 MG TAB PO SCH (08:27)
[2018-06-06] MEDS: METOPROLOL TARTRATE 25 MG TAB PO SCH ×2 (08:28→21:14)
[2018-06-06] MEDS: MORPHINE SULFATE ER 60 MG TABLET PO SCH ×2 (08:28→20:58)
[2018-06-06] MEDS: FENOFIBRATE 160 MG TAB PO SCH (08:28)
[2018-06-06] MEDS: FLUCONAZOLE 100 MG TAB PO SCH (08:28)
[2018-06-06] MEDS: ENOXAPARIN 100 MG/ML SYRINGE SQ SCH ×2 (11:23→20:55)
[2018-06-06] MEDS: MULTIVITAMINS, THERA 1 EACH TAB PO SCH (11:23)
--- NOTE | 2018-06-06 11:27 | P.PN ---
Subjective Progress Note Date: 06/05/18 Principal diagnosis: Acute hypoxic respiratory failure Multifocal pneumonia 67-year-old female with a known history of atrial fibrillation on anticoagulation, history of DVT/PE, diabetes type 2, history of CVA/TIA and hypertension, hypothyroidism and other multiple medical problems initially presents to walk-in clinic [facility] on Friday with complaints of shortness of breath cough and fever 102.4. Patient was sent home with Z-Samuel and Tessalon pearls as well as Mucinex. Patient has been taking her medications and symptoms did not resolve which made her to go back to hospital on Friday. Patient was hypoxic and tachycardic at the time. Patient had CT angiogram of the chest; no pulmonary embolism was noted. Patient was found to have pulmonary nodules and repeat CT was recommended after resolution of pneumonia. Due to extensive pneumonia and pulmonary nodules and sepsis patient was transferred to [facility] for further evaluation and possible pulmonary consult. Influenza was negative. Patient was to the hospital with pneumonia and ARDS like chest x-ray findings. Patient remained on the high flow oxygen. Currently in the ICU. Otherwise, and comfortable and sitting in the chair. Chest x-ray showed essentially stable findings and bilateral pulmonary infiltrates unchanged compared to yesterday. Continue on antibiotics in the form of cefepime and Levaquin along with breathing treatments and IV Solu-Medrol. No fever no chills. No nausea vomiting or abdominal pain or diarrhea. Cultures including Legionella urine antigen is negative. 06/05/2018 Patient is seen and evaluated for a follow-up. The patient states that she is less short of breath; oxygenation has remained essentially unchanged compared to yesterday. She remains on high flow oxygen with an FiO2 of 80%. Pulse ox is around 90-91% and there is not much room for her weaning off FiO2. Her chest x-ray also showing diffuse breath and pulmonary infiltrates which remain unchanged compared to yesterday's chest x-ray. remains on a combination of antibiotics including cefepime, Levaquin and Diflucan. The patient is also on IV Solu-Medrol. She is tolerating her diet; No other significant events over the past 24 hours. Family is at the bedside. Objective - Vital Signs Vital signs: Vital Signs Temp 98.3 F 06/05/18 08:00 Pulse 80 06/05/18 11:33 Resp 17 06/05/18 11:00 BP 124/66 06/05/18 11:00 Pulse Ox 96 06/05/18 11:15 Intake & Output 06/04/18 06/05/18 06/05/18 18:59 06:59 18:59 Intake Total 006 030 1214.291 Output Total 3060 1465 1000 Balance -2630 -695 39.291 Weight 99.2 kg Intake: IV 430 120 190 Cefepime 2 gm In Sodium 100 100 Chloride 0.9% 100 ml @ 200 mls/hr IVPB Q12HR [facility] Rx#:[id number] Magnesium Sulfate-D5w Pmx 200 1 gm In Dextrose/Water 1 100ml.bag @ 100 mls/hr IVPB Q1H [facility] Rx#: [id number] kvo 130 120 90 Intake, IV Titration 250 249.291 Amount Heparin Sod,Pork in 0.45% 250 249.291 NaCl 25,000 unit In 0.45 % NaCl 1 250ml.bag @ 10. 09 UNITS/KG/HR 9.999 mls/ hr IV .Q24H [facility] Rx#: [id number] Oral 400 600 Output: Urine 3060 1465 1000 Other: Voiding Method Indwelling Catheter Indwelling Catheter Indwelling Catheter # Bowel Movements 1 - Exam Patient is lying in the bed comfortably, no acute distress, awake alert and oriented. Currently on BiPAP. HEENT: Normocephalic. Neck is supple. Pupils reactive. Nostrils clear. Oral cavity is moist. Ears reveal no drainage. Neck reveals no JVD, carotid bruits, or thyromegaly. CHEST EXAMINATION: Trachea is central. Symmetrical expansion. Bilateral air entry improved. Scattered rhonchi and bibasilar diminished sounds... CARDIAC: Normal S1, S2 with no gallops. No murmurs ABDOMEN: Soft. Bowel sounds normal. No organomegaly. No abdominal bruits. Extremities: reveal no edema. No clubbing or cyanosis Neurologically awake, alert, oriented x3 with well-coordinated movements. No focal deficits noted - Labs CBC & Chem 7: 06/06/18 04:23 06/06/18 04:23 Labs: Abnormal Lab Results - Last 24 Hours (Table) 06/04/18 06/04/18 06/05/18 Range/Units 17:15 20:27 05:20 MCHC 30.8 L (31.0-37.0) g/dL Plt Count 588 H (150-450) k/uL Lymphocytes # 0.9 L (1.0-4.8) k/uL APTT (22.0-30.0) sec Sodium (137-145) mmol/L Chloride (98-107) mmol/L Carbon Dioxide (22-30) mmol/L Glucose (74-99) mg/dL POC Glucose (mg/dL) 163 H 138 H (75-99) mg/dL 06/05/18 06/05/18 06/05/18 Range/Units 05:20 06:53 11:52 MCHC (31.0-37.0) g/dL Plt Count (150-450) k/uL Lymphocytes # (1.0-4.8) k/uL APTT 88.7 H (22.0-30.0) sec Sodium 136 L (137-145) mmol/L Chloride 96 L (98-107) mmol/L Carbon Dioxide 36 H (22-30) mmol/L Glucose 129 H (74-99) mg/dL POC Glucose (mg/dL) 130 H (75-99) mg/dL Microbiology - Last 24 Hours (Table) 05/30/18 12:21 Blood Culture - Preliminary Blood No Growth after 120 hours Assessment and Plan Assessment: 1. Acute hypoxemic respiratory failure secondary to bilateral pneumonia; component of pulmonary edema/ARDS. -Oxygenation remains stable and the patient remains on high flow oxygen at 80% FiO2. Chest x-ray findings are also stable. Clinically stable. She remains on a combination of bronchodilators and steroids. She is mainly receiving supportive care in the ICU. 2. Pulmonary nodules; underlying sarcoidosis, 3. Diabetes mellitus type 2; remains on Levemir 20 units daily; we will continue with Accu-Cheks every before meals and at bedtime with insulin sliding scale 4. Chronic atrial fibrillation; in normal sinus rhythm. 5. GERD/reflux 6. Hypertention, 7. Hypothyroidism 8. Hyperlipidemia 9. History of DVT and pulmonary embolism, - Patient is on chronic anticoagulation in the form of Coumadin; currently on IV heparin. CODE STATUS; full code Time with Patient: Greater than 30
[2018-06-06 11:28] LABS: Glucose,Whole Blood 260 mg/dL (75-99)
[2018-06-06 11:59] LABS: Glucose,Whole Blood 277 mg/dL (75-99)
--- NOTE | 2018-06-06 13:47 | P.PN ---
Subjective Progress Note Date: 06/06/18 This is a 67-year-old white female patient who was received as a transfer from [facility] on 05/28/2018. Patient had presented with complaints of chest congestion, cough, wheezing, shortness of breath and occasional phlegm production. Influenza screen and CT angiogram were completed at the [facility], and they were negative for influenza A and pulmonary embolism. Patient did have multiple pulmonary nodules that could relate to her underlying sarcoidosis. In addition she has some groundglass opacities at the lower lobes possibly consistent with pneumonia. We did obtain a chest x-ray at this hospital yesterday, which showed cardiomegaly with multifocal bilateral alveolar and interstitial edema and/or infiltrates. Possible developing ARDS. She lab work showed a white blood cell count of 3.6, hemoglobin 13.3, d-dimer was slightly elevated at 1.05, but CT angios was negative for any evidence of PE, renal profile and electrolytes were within normal limits, proBNP was within normal limits at 467, troponin was negative, urinalysis was negative for any sign of infection. Patient's medical history significant for atrial fibrillation on anticoagulation in the form of Coumadin, history of DVT/PE, diabetes mellitus type 2, history of CVA and TIA and hypertension, hy pothyroidism. The patient was given IV lasix, and she has significantly diuresed, she is in -3560 mL fluid balance in last 24 hours, in her breathing had worsened, along with her oxygenation, and patient had to be placed on BiPAP support. On today's exam patient is seen on BiPAP support with pressures of 12 and 5, 80%, and her pulse ox is 94%, she is quite tachypneic, lung sounds are positive for diffuse crackles, and rhonchi, patient appears to be in mild to moderate amount of distress, and for that reason patient will be removed down to the intensive care unit, today's chest x-ray has been reviewed, showed persistence of bladder pulmonary edema, and airspace disease bilaterally, likely related to underlying pneumonia. Afebrile, hemodynamically stable. Denies any chest pain, wasn't able to produce any sputum for culture. She states she still has the urge to cough, but not able to bring up anything. Antibiotic coverage in the form of Levaquin. On 05/31/2018 patient seen in follow-up in the intensive care unit, she is awake and alert, she is anxious, she states she could not sleep last night, but overall her breathing is better, she remains on BiPAP support with pressures of 12 and 5 and FiO2 of 100%, her O2 sat is 98%, she sinus rhythm on the monitor at a rate of 81 BPM, no IV fluids, IVs have been hep-locked, today's chest x-ray has been reviewed with Dr. Sotomayor, and shows bilateral diffuse infiltrates, improved in appearance from previous exams. Today's INR is 1.5, and we'll start the patient on heparin drip per weight-based protocol for anticoagulation, hold off on Coumadin right now in case patient needs any invasive procedures. His labs have been reviewed, and his CBC was essentially unremarkable, sodium was 138, potassium 3.9, chloride was 97, CO2 is 30, BUN was 15 and creatinine 0.54, antibiotic coverage in the form of Zithromax and Rocephin, and vancomycin. So far the culture data remains negative, patient is still not able to produce any sputum for culture. No fever or chills. We'll try the patient on Airvo. Lung sounds reveal diminished breath sounds, with a few scattered rales. On 06/02/2018 patient seen in follow-up in the intensive care unit, she remains on interval, currently at 60 L and FiO2 of 91%, and her pulse ox is 91-93%, but patient is noted to be easily desaturating with any exertion, speaking or eating. She is awake and alert, in no acute distress, lung sounds reveal a few scattered rhonchi, she is in sinus rhythm with a rate of 80 BPM, today's chest x-ray shows slight improvement in the appearance of diffuse pulmonary infiltrates. Afebrile, blood and urine cultures showed no growth, we have not been able to collect a sputum specimen. Legionella urine antigen is pending, today's lab work showed a white blood cell count of 6.0, hemoglobin is 11.5, electrolytes were within normal limits, CO2 is 33, renal profile was within normal limits. No complaint of chest pain, no significant chest congestion or coughing. Yesterday we switched the antibiotic coverage to cefepime, Levaquin and vancomycin, we added IV Solu-Medrol, nebulized bronchodilators. On 06/03/2018, I'm seeing this patient for a follow-up. The patient remains in acute hypoxic respiratory failure and the patient is currently on Airvo 60 L, 7 5% FiO2. The patient is calm and comfortable. She is hemodynamically stable. No tachycardia. No hypotension. Hemodynamically stable and she is on no pressors. Antibiotic coverage including a combination of cefepime, Levaquin and Diflucan was also added as the patient was noted to have some thrush. The patient is calm and comfortable. She is interactive. She is able to sit up on a chair. Her chest x-ray still showing stable bilateral pulmonary infiltrates, that remains rather unchanged over the past 24 hours. All of the cultures of been negative. Urine Legionella was not detected and was negative. Patient is receiving 20 mg of IV Lasix every 24 hours. She remains on IV Solu-Medrol. No signs of any fluid overload. No altered mentation. No hemoptysis. No chest pain. No pleurisy. No other significant events overnight. She is tolerating her diet for now. On 06/04/2018 and seeing this patient for a follow-up. The patient is on high flow oxygen. FiO2 has been increased up to 81%. She is doing well. Chest x- ray findings are essentially stable and the patient has bilateral pulmonary infiltrates unchanged compared to yesterday. Clinically she is feeling better. She is able to get up on a chair. She still on the same antibiotic coverage including a combination of cefepime, Levaquin and Diflucan. The patient is also on IV Solu-Medrol. No significant cough or sputum production. No pleurisy or hemoptysis. No nausea or vomiting. No abdominal distention. She is resting comfortably in bed. We will try to attempt to wean down the FiO2 to maintain a saturation above 90%. Cultures of been all negative. This is a postinfectious ARDS and the patient is being supported with high flow oxygen for now. The patient is also receiving Lasix on a daily basis. No signs of fluid overload. on 06/05/2018, I'm seeing this patient for a follow-up. The patient states that she's feeling better. She states that she is less short of breath. Nevertheless, her oxygenation has remained essentially unchanged compared to yesterday. She remains on high flow oxygen with an FiO2 of 80%. Pulse ox is around 90-91% and there is not much room for her weaning off FiO2. Her chest x- ray also showing diffuse breath and pulmonary infiltrates which remain unchanged compared to yesterday's chest x-ray. I will say objectively the patient is essentially the same and stable compared to yesterday. She remains on a combination of antibiotics including cefepime, Levaquin and Diflucan. The patient is also on IV Solu-Medrol. She is tolerating her diet. Is active. No nausea or vomiting. No abdominal distention. No leg swelling. No chest pain. No pleurisy. No hemoptysis. No altered mentation. No renal insufficiency. No other significant events over the past 24 hours. Family is at the bedside. On 06/06/2018, there has been no major improvement the patient's condition. The patient remains in acute hypoxic respiratory failure related to the bilateral p neumonia/ARDS. FiO2 is still at 80%. The patient is on high flow oxygen. Hemodynamically stable. Chest x-ray findings is still showing diffuse bilateral pulmonary infiltrates unchanged compared to yesterday. Remains on cefepime, Levaquin and Diflucan. Remains on IV Solu-Medrol. Despite all this, the patient has a single organ dysfunction which is essentially pulmonary dysfunction related to the pneumonia/ARDS. Renal function stable. Hemodynamically stable. No altered mentation. No nausea or vomiting pH is able to sit up on a chair and she is quite strong in interactive. She is also in a positive spirits as the patient was to get better recovered from her pneumonia. Objective - Vital Signs Vital signs: Vital Signs Temp 98.1 F 06/06/18 12:00 Pulse 76 06/06/18 13:36 Resp 15 06/06/18 12:00 BP 129/70 06/06/18 12:00 Pulse Ox 92 L 06/06/18 12:00 Intake & Output 06/05/18 06/06/18 06/06/18 18:59 06:59 18:59 Intake Total 2539.291 1070 320 Output Total 1977 2412 9031 Balance 603.969 -3465 -7462 Weight 96.4 kg Intake: IV 330 340 120 Cefepime 2 gm In Sodium 100 100 Chloride 0.9% 100 ml @ 200 mls/hr IVPB Q12HR [facility] Rx#:[id number] kvo 230 240 120 Intake, IV Titration 249.291 250 200 Amount Cefepime 2 gm In Sodium 100 Chloride 0.9% 100 ml @ 200 mls/hr IVPB Q12HR [facility] Rx#:[id number] Heparin Sod,Pork in 0.45% 249.291 250 NaCl 25,000 unit In 0.45 % NaCl 1 250ml.bag @ 10 mls/hr IV .Q24H [facility] Rx#: [id number] Magnesium Sulfate-D5w Pmx 100 1 gm In Dextrose/Water 1 100ml.bag @ 100 mls/hr IVPB Q1H [facility] Rx#: [id number] Oral 1960 480 Output: Urine 2375 2525 2635 Other: Voiding Method Indwelling Catheter Indwelling Catheter Indwelling Catheter - Exam GENERAL EXAM: Alert, slightly anxious, 67-year-old white female, on Airvo, currently at 60 L, and FiO2 of 80% HEAD: Normocephalic/atraumatic. EYES: Normal reaction of pupils, equal size. Conjunctiva pink, sclera white. NOSE: Clear with pink turbinates. THROAT: No erythema or exudates. NECK: No masses, no JVD, no thyroid enlargement, no adenopathy. CHEST: No chest wall deformity. Symmetrical expansion. LUNGS: Equal air entry with diffuse crackles CVS: Regular rate and rhythm, normal S1 and S2, no gallops, no murmurs, no rubs ABDOMEN: Soft, nontender. No hepatosplenomegaly, normal bowel sounds, no guarding or rigidity. EXTREMITIES: No clubbing, no edema, no cyanosis, 2+ pulses and upper and lower extremities. MUSCULOSKELETAL: Muscle strength and tone normal. SPINE: No scoliosis or deformity SKIN: No rashes CENTRAL NERVOUS SYSTEM: Alert and oriented -3. No focal deficits, tone is normal in all 4 extremities. PSYCHIATRIC: Alert and oriented -3. Appropriate affect. Intact judgment and insight. - Labs CBC & Chem 7: 06/06/18 04:23 06/06/18 04:23 Labs: Abnormal Lab Results - Last 24 Hours (Table) 06/05/18 06/05/18 06/05/18 Range/Units 14:32 16:58 20:50 Plt Count (150-450) k/uL APTT 61.2 H (22.0-30.0) sec Sodium (137-145) mmol/L Chloride (98-107) mmol/L Carbon Dioxide (22-30) mmol/L BUN (7-17) mg/dL Glucose (74-99) mg/dL POC Glucose (mg/dL) 203 H 176 H (75-99) mg/dL Total Protein (6.3-8.2) g/dL Albumin (3.5-5.0) g/dL 06/06/18 06/06/18 06/06/18 Range/Units 04:23 04:23 04:23 Plt Count 573 H (150-450) k/uL APTT 67.1 H (22.0-30.0) sec Sodium 135 L (137-145) mmol/L Chloride 94 L (98-107) mmol/L Carbon Dioxide 35 H (22-30) mmol/L BUN 19 H (7-17) mg/dL Glucose 217 H (74-99) mg/dL POC Glucose (mg/dL) (75-99) mg/dL Total Protein 5.6 L (6.3-8.2) g/dL Albumin 2.7 L (3.5-5.0) g/dL 06/06/18 06/06/18 06/06/18 Range/Units 07:06 11:26 11:57 Plt Count (150-450) k/uL APTT (22.0-30.0) sec Sodium (137-145) mmol/L Chloride (98-107) mmol/L Carbon Dioxide (22-30) mmol/L BUN (7-17) mg/dL Glucose (74-99) mg/dL POC Glucose (mg/dL) 182 H 260 H 277 H (75-99) mg/dL Total Protein (6.3-8.2) g/dL Albumin (3.5-5.0) g/dL Microbiology - Last 24 Hours (Table) 05/30/18 12:21 Blood Culture - Final Blood No Growth after 144 hours Assessment and Plan Plan: #1. Acute hypoxemic respiratory failure secondary to bilateral pneumonia, and there may be a component of pulmonary edema/ARDS. Oxidation remains stable and the patient remains on high flow oxygen at 80% FiO2. Chest x-ray findings are also stable. Clinically stable. She remains on a combination of bronchodilators and steroids. She is mainly receiving supportive care in the ICU.compared to yesterday, the patient's condition remains critical but stable. Her oxygenation has remained stable. The patient remains on high flow oxygen at 80%. No change in her chest x-ray findings with still showing diffuse bilaterally pulmonary infiltrates. Continue same treatment. Continue high flow oxygen. Continue bronchodilators. Continue steroids. Continue same antibiotic coverage. #2. Pulmonary nodules, could relate to underlying sarcoidosis, #3. Diabetes mellitus type 2 currently on Levemir 20 units daily #4. Chronic atrial fibrillation, and her current rhythm is sinus and the patient is hemodynamically stable. #5. GERD/reflux #6. Hypertention, #7. DJD #8. Hypothyroidism #9. Osteoarthritis of multiple joints #10 history of DVT and pulmonary embolism, on chronic anticoagulation in the form of Coumadin. Supratherapeutic at a time of admission and INR is down to 1.2 and the patient is currently on IV heparin. #11 hyperlipidemia Plan On today's evaluation 06/05/2018, the findings are essentially stable. Not a whole lot of room for wean the FiO2 for now. Continue same antibiotics. Continue steroids. Anticipate slow recovery. The patient is post ARDS and will continue the steroids and will continue supportive care. No need for BiPAP therapy for now. Continue high flow oxygen. No need in the change in her medications. We'll stop the IV heparin and put the patient on Lovenox 1 mg per KG every 12 hours regarding her previous history of DVT. This is a therapeutic dose. It'll be easier to have a compared to IV heparin. We'll transition this patient to warfarin once she starts recovering from her ARDS. Rest of the medication will be kept unchanged. We'll continue to follow.
[2018-06-06 15:03] LABS: Glucose,Whole Blood 212 mg/dL (75-99)
[2018-06-06 16:56] LABS: Glucose,Whole Blood 179 mg/dL (75-99)
[2018-06-06] MEDS: MORPHINE SULFATE IR 15 MG TABLET PO PRN (19:11)
[2018-06-06 20:33] LABS: Glucose,Whole Blood 247 mg/dL (75-99)
[2018-06-06] MEDS: traZODone HCL 50 MG TAB PO SCH (20:55)
[2018-06-06] MEDS: MELATONIN 5 MG TABLET PO SCH (20:55)
[2018-06-06] MEDS: EZETIMIBE 10 MG TAB PO SCH (20:59)
[2018-06-06] MEDS: LISINOPRIL 10 MG TAB PO SCH (21:00)
[2018-06-06] MEDS: INSULIN DETEMIR (LEVEMIR) 100 UNIT/ML SYR SQ SCH (21:01)
[2018-06-06] MEDS: BACLOFEN 10 MG TAB PO PRN (22:25)
[2018-06-06] MEDS: ZOLPIDEM 5 MG TAB PO PRN (23:26)
[2018-06-07 05:06] LABS: Basophils % (A) 0 %; Eosinophils % (A) 0 %; HCT 39.5 % (34.0-46.0); HGB 12.2 gm/dL (11.4-16.0); Lymphocytes # (A) 0.5 k/uL (1.0-4.8); Lymphocytes % (A) 3 %; MCH 26.1 pg (25.0-35.0); MCHC 30.8 g/dL (31.0-37.0); MCV 84.8 fL (80.0-100.0); Mean Platelet Volume 6.7; Monocytes # (A) 0.8 k/uL (0-1.0); Monocytes % (A) 6 %; Neutrophils # (A) 12.9 k/uL (1.3-7.7); Neutrophils % (A) 89 %; Platelet Count 562 k/uL (150-450); RBC 4.65 m/uL (3.80-5.40); RDW 13.6 % (11.5-15.5); WBC 14.5 k/uL (3.8-10.6)
[2018-06-07 05:17] LABS: Anion Gap 7 mmol/L; Blood Urea Nitrogen 21 mg/dL (7-17); Calcium 9.9 mg/dL (8.4-10.2); Carbon Dioxide 36 mmol/L (22-30); Chloride 93 mmol/L (98-107); Glucose 198 mg/dL (74-99); Magnesium 1.9 mg/dL (1.6-2.3); Sodium 136 mmol/L (137-145)
[2018-06-07] MEDS ORDERED: Magnesium Replacement Protocol 1 EACH MISC MISCELLANE PRN (05:40)
[2018-06-07] MEDS: LEVOTHYROXINE 100 MCG TAB PO SCH (06:51)
[2018-06-07] MEDS: BENZOCAINE/MENTHOL LOZENG 1 EACH LOZENGE MUCOUS MEM PRN (06:51)
[2018-06-07] MEDS: PANTOPRAZOLE 40 MG TABLET PO SCH (06:52)
[2018-06-07] MEDS: methylPREDNISolone SOD SUCCI 125 MG/2 ML VIAL IV SCH ×3 (06:52→17:37)
[2018-06-07] MEDS: MAGNESIUM SULFATE-D5W PMX 1 GM in DEXTROSE/WATER 1 100ML.BAG IVPB SCH ×2 (06:52→09:27)
[2018-06-07 07:01] LABS: Glucose,Whole Blood 183 mg/dL (75-99)
[2018-06-07] MEDS: INSULIN ASPART (NovoLOG) 100 UNIT/ML VIAL SQ SCH ×7 (07:06→22:10)
--- NOTE | 2018-06-07 07:28 | XR ---
EXAMINATION TYPE: XR chest 1V portable DATE OF EXAM: 06/07/2018 Comparison: 06/06/2018 Clinical History: 67-year-old female pneumonia/ARDS Findings: Heart remains mildly enlarged. Continued diffuse bilateral patchy airspace opacities. Partially visua lized right lateral shoulder arthroplasties. Impression: Continued diffuse bilateral airspace disease.
[2018-06-07] MEDS: IPRATROPIUM-ALBUTEROL 3 ML NEB INHALATION SCH ×4 (07:54→19:26)
[2018-06-07] MEDS: ENOXAPARIN 100 MG/ML SYRINGE SQ SCH ×2 (08:13→22:15)
[2018-06-07] MEDS: CEFEPIME 2 GM in SODIUM CHLORIDE 0.9% 100 ML IVPB SCH ×2 (08:13→22:15)
[2018-06-07] MEDS: FLUTICASONE 50MCG/SPRAY NASAL 16GM EA NOSTRIL SCH (08:14)
[2018-06-07] MEDS: ZYRTEC 10MG PO SCH (08:14)
[2018-06-07] MEDS: FENOFIBRATE 160 MG TAB PO SCH (08:14)
[2018-06-07] MEDS: FLUCONAZOLE 100 MG TAB PO SCH (08:14)
[2018-06-07] MEDS: busPIRone HCl 10 MG TAB PO SCH ×2 (08:15→22:10)
[2018-06-07] MEDS: ANASTROZOLE 1 MG TAB PO SCH (08:15)
[2018-06-07] MEDS: MORPHINE SULFATE ER 60 MG TABLET PO SCH ×2 (08:16→21:57)
[2018-06-07] MEDS: CHOLECALCIFEROL 1,000 UNIT TAB PO SCH (08:16)
[2018-06-07] MEDS: metFORMIN 500 MG TAB PO SCH ×2 (08:16→22:12)
[2018-06-07] MEDS: FUROSEMIDE 10 MG/ML 2 ML VIAL IV SCH (08:16)
[2018-06-07] MEDS: CALCIUM CARBONATE 500 MG CHEWABLE PO SCH (08:16)
[2018-06-07] MEDS: LEVOFLOXACIN 750 MG TAB PO SCH (08:17)
[2018-06-07] MEDS: NON-FORMULARY DRUG (Biotin [Biotin] 5,000 MCG) PO SCH (08:17)
[2018-06-07] MEDS: SPIRONOLACTONE 25 MG TAB PO SCH (08:17)
[2018-06-07] MEDS: CITALOPRAM HYDROBROMIDE 20 MG TAB PO SCH ×2 (08:17→22:12)
[2018-06-07] MEDS: METOPROLOL TARTRATE 25 MG TAB PO SCH ×2 (08:17→22:11)
[2018-06-07] MEDS: DOCUSATE 100 MG CAP PO SCH ×3 (08:18→22:16)
[2018-06-07] MEDS: BACLOFEN 10 MG TAB PO PRN ×2 (09:22→22:13)
--- NOTE | 2018-06-07 09:54 | P.PN ---
Subjective Progress Note Date: 06/07/18 This is a 67-year-old white female patient who was received as a transfer from [facility] on 05/28/2018. Patient had presented with complaints of chest congestion, cough, wheezing, shortness of breath and occasional phlegm production. Influenza screen and CT angiogram were completed at the [facility], and they were negative for influenza A and pulmonary embolism. Patient did have multiple pulmonary nodules that could relate to her underlying sarcoidosis. In addition she has some groundglass opacities at the lower lobes possibly consistent with pneumonia. We did obtain a chest x-ray at this hospital yesterday, which showed cardiomegaly with multifocal bilateral alveolar and interstitial edema and/or infiltrates. Possible developing ARDS. She lab work showed a white blood cell count of 3.6, hemoglobin 13.3, d-dimer was slightly elevated at 1.05, but CT angios was negative for any evidence of PE, renal profile and electrolytes were within normal limits, proBNP was within normal limits at 467, troponin was negative, urinalysis was negative for any sign of infection. Patient's medical history significant for atrial fibrillation on anticoagulation in the form of Coumadin, history of DVT/PE, diabetes mellitus type 2, history of CVA and TIA and hypertension, hy pothyroidism. The patient was given IV lasix, and she has significantly diuresed, she is in -3560 mL fluid balance in last 24 hours, in her breathing had worsened, along with her oxygenation, and patient had to be placed on BiPAP support. On today's exam patient is seen on BiPAP support with pressures of 12 and 5, 80%, and her pulse ox is 94%, she is quite tachypneic, lung sounds are positive for diffuse crackles, and rhonchi, patient appears to be in mild to moderate amount of distress, and for that reason patient will be removed down to the intensive care unit, today's chest x-ray has been reviewed, showed persistence of bladder pulmonary edema, and airspace disease bilaterally, likely related to underlying pneumonia. Afebrile, hemodynamically stable. Denies any chest pain, wasn't able to produce any sputum for culture. She states she still has the urge to cough, but not able to bring up anything. Antibiotic coverage in the form of Levaquin. On 05/31/2018 patient seen in follow-up in the intensive care unit, she is awake and alert, she is anxious, she states she could not sleep last night, but overall her breathing is better, she remains on BiPAP support with pressures of 12 and 5 and FiO2 of 100%, her O2 sat is 98%, she sinus rhythm on the monitor at a rate of 81 BPM, no IV fluids, IVs have been hep-locked, today's chest x-ray has been reviewed with Dr. Sotomayor, and shows bilateral diffuse infiltrates, improved in appearance from previous exams. Today's INR is 1.5, and we'll start the patient on heparin drip per weight-based protocol for anticoagulation, hold off on Coumadin right now in case patient needs any invasive procedures. His labs have been reviewed, and his CBC was essentially unremarkable, sodium was 138, potassium 3.9, chloride was 97, CO2 is 30, BUN was 15 and creatinine 0.54, antibiotic coverage in the form of Zithromax and Rocephin, and vancomycin. So far the culture data remains negative, patient is still not able to produce any sputum for culture. No fever or chills. We'll try the patient on Airvo. Lung sounds reveal diminished breath sounds, with a few scattered rales. On 06/02/2018 patient seen in follow-up in the intensive care unit, she remains on interval, currently at 60 L and FiO2 of 91%, and her pulse ox is 91-93%, but patient is noted to be easily desaturating with any exertion, speaking or eating. She is awake and alert, in no acute distress, lung sounds reveal a few scattered rhonchi, she is in sinus rhythm with a rate of 80 BPM, today's chest x-ray shows slight improvement in the appearance of diffuse pulmonary infiltrates. Afebrile, blood and urine cultures showed no growth, we have not been able to collect a sputum specimen. Legionella urine antigen is pending, today's lab work showed a white blood cell count of 6.0, hemoglobin is 11.5, electrolytes were within normal limits, CO2 is 33, renal profile was within normal limits. No complaint of chest pain, no significant chest congestion or coughing. Yesterday we switched the antibiotic coverage to cefepime, Levaquin and vancomycin, we added IV Solu-Medrol, nebulized bronchodilators. On 06/03/2018, I'm seeing this patient for a follow-up. The patient remains in acute hypoxic respiratory failure and the patient is currently on Airvo 60 L, 7 5% FiO2. The patient is calm and comfortable. She is hemodynamically stable. No tachycardia. No hypotension. Hemodynamically stable and she is on no pressors. Antibiotic coverage including a combination of cefepime, Levaquin and Diflucan was also added as the patient was noted to have some thrush. The patient is calm and comfortable. She is interactive. She is able to sit up on a chair. Her chest x-ray still showing stable bilateral pulmonary infiltrates, that remains rather unchanged over the past 24 hours. All of the cultures of been negative. Urine Legionella was not detected and was negative. Patient is receiving 20 mg of IV Lasix every 24 hours. She remains on IV Solu-Medrol. No signs of any fluid overload. No altered mentation. No hemoptysis. No chest pain. No pleurisy. No other significant events overnight. She is tolerating her diet for now. On 06/04/2018 and seeing this patient for a follow-up. The patient is on high flow oxygen. FiO2 has been increased up to 81%. She is doing well. Chest x- ray findings are essentially stable and the patient has bilateral pulmonary infiltrates unchanged compared to yesterday. Clinically she is feeling better. She is able to get up on a chair. She still on the same antibiotic coverage including a combination of cefepime, Levaquin and Diflucan. The patient is also on IV Solu-Medrol. No significant cough or sputum production. No pleurisy or hemoptysis. No nausea or vomiting. No abdominal distention. She is resting comfortably in bed. We will try to attempt to wean down the FiO2 to maintain a saturation above 90%. Cultures of been all negative. This is a postinfectious ARDS and the patient is being supported with high flow oxygen for now. The patient is also receiving Lasix on a daily basis. No signs of fluid overload. on 06/05/2018, I'm seeing this patient for a follow-up. The patient states that she's feeling better. She states that she is less short of breath. Nevertheless, her oxygenation has remained essentially unchanged compared to yesterday. She remains on high flow oxygen with an FiO2 of 80%. Pulse ox is around 90-91% and there is not much room for her weaning off FiO2. Her chest x- ray also showing diffuse breath and pulmonary infiltrates which remain unchanged compared to yesterday's chest x-ray. I will say objectively the patient is essentially the same and stable compared to yesterday. She remains on a combination of antibiotics including cefepime, Levaquin and Diflucan. The patient is also on IV Solu-Medrol. She is tolerating her diet. Is active. No nausea or vomiting. No abdominal distention. No leg swelling. No chest pain. No pleurisy. No hemoptysis. No altered mentation. No renal insufficiency. No other significant events over the past 24 hours. Family is at the bedside. On 06/06/2018, there has been no major improvement the patient's condition. The patient remains in acute hypoxic respiratory failure related to the bilateral p neumonia/ARDS. FiO2 is still at 80%. The patient is on high flow oxygen. Hemodynamically stable. Chest x-ray findings is still showing diffuse bilateral pulmonary infiltrates unchanged compared to yesterday. Remains on cefepime, Levaquin and Diflucan. Remains on IV Solu-Medrol. Despite all this, the patient has a single organ dysfunction which is essentially pulmonary dysfunction related to the pneumonia/ARDS. Renal function stable. Hemodynamically stable. No altered mentation. No nausea or vomiting pH is able to sit up on a chair and she is quite strong in interactive. She is also in a positive spirits as the patient was to get better recovered from her pneumonia. 06/07/2018 I'm seeing this patient in follow-up post pneumonia/ARDS. X-ray still showing diffuse breath and pulmonary infiltrates. Infiltrates are essentially stable and unchanged over the past 48 hours. In fact I do not see any improvement or worsening the patient's condition over the past 48 hours. Chest x-ray findings are essentially the same. Oxidation something. She is able to get up and sit up on a bedside recliner. No significant cough or sputum production. She claims that she had a good night sleep yesterday. She remains on IV Solu-Medrol. Antibiotic coverage includes cefepime Levaquin and Diflucan. Fluid balance is -3.9 L over the past 24 hours and the patient is producing adequate amount of urine output. She is receiving Lasix 20 mg IV every 24 hours. White cell count is at 14.5 which is stable. No significant leukocytosis. No fever. She is tolerating diet and is using incentive spirometer. Objective - Vital Signs Vital signs: Vital Signs Temp 97.1 F L 06/07/18 08:00 Pulse 70 06/07/18 09:00 Resp 13 06/07/18 09:00 BP 128/65 06/07/18 09:00 Pulse Ox 90 L 06/07/18 09:00 Intake & Output 06/06/18 06/07/18 06/07/18 18:59 06:59 18:59 Intake Total 380 2794 20 Output Total 4315 2850 375 Balance -3935 -56 -355 Weight 96.5 kg Intake: IV 180 310 20 Cefepime 2 gm In Sodium 200 Chloride 0.9% 100 ml @ 200 mls/hr IVPB Q12HR [facility] Rx#:[id number] kvo 180 110 20 Intake, IV Titration 200 Amount Cefepime 2 gm In Sodium 100 Chloride 0.9% 100 ml @ 200 mls/hr IVPB Q12HR [facility] Rx#:[id number] Magnesium Sulfate-D5w Pmx 100 1 gm In Dextrose/Water 1 100ml.bag @ 100 mls/hr IVPB Q1H [facility] Rx#: [id number] Oral 2484 Output: Urine 4315 2850 375 Other: Voiding Method Indwelling Catheter Indwelling Catheter - Exam GENERAL EXAM: Alert, slightly anxious, 67-year-old white female, on Airvo, currently at 60 L, and FiO2 of 80% HEAD: Normocephalic/atraumatic. EYES: Normal reaction of pupils, equal size. Conjunctiva pink, sclera white. NOSE: Clear with pink turbinates. THROAT: No erythema or exudates. NECK: No masses, no JVD, no thyroid enlargement, no adenopathy. CHEST: No chest wall deformity. Symmetrical expansion. LUNGS: Equal air entry with diffuse crackles CVS: Regular rate and rhythm, normal S1 and S2, no gallops, no murmurs, no rubs ABDOMEN: Soft, nontender. No hepatosplenomegaly, normal bowel sounds, no guarding or rigidity. EXTREMITIES: No clubbing, no edema, no cyanosis, 2+ pulses and upper and lower extremities. MUSCULOSKELETAL: Muscle strength and tone normal. SPINE: No scoliosis or deformity SKIN: No rashes CENTRAL NERVOUS SYSTEM: Alert and oriented -3. No focal deficits, tone is normal in all 4 extremities. PSYCHIATRIC: Alert and oriented -3. Appropriate affect. Intact judgment and insight. - Labs CBC & Chem 7: 06/07/18 04:35 06/07/18 04:20 Labs: Abnormal Lab Results - Last 24 Hours (Table) 06/06/18 06/06/18 06/06/18 Range/Units 11:26 11:57 15:01 WBC (3.8-10.6) k/uL MCHC (31.0-37.0) g/dL Plt Count (150-450) k/uL Neutrophils # (1.3-7.7) k/uL Lymphocytes # (1.0-4.8) k/uL Sodium (137-145) mmol/L Chloride (98-107) mmol/L Carbon Dioxide (22-30) mmol/L BUN (7-17) mg/dL Glucose (74-99) mg/dL POC Glucose (mg/dL) 260 H 277 H 212 H (75-99) mg/dL 06/06/18 06/06/18 06/07/18 Range/Units 16:55 20:32 04:20 WBC (3.8-10.6) k/uL MCHC (31.0-37.0) g/dL Plt Count (150-450) k/uL Neutrophils # (1.3-7.7) k/uL Lymphocytes # (1.0-4.8) k/uL Sodium 136 L (137-145) mmol/L Chloride 93 L (98-107) mmol/L Carbon Dioxide 36 H (22-30) mmol/L BUN 21 H (7-17) mg/dL Glucose 198 H (74-99) mg/dL POC Glucose (mg/dL) 179 H 247 H (75-99) mg/dL 06/07/18 06/07/18 Range/Units 04:35 06:59 WBC 14.5 H (3.8-10.6) k/uL MCHC 30.8 L (31.0-37.0) g/dL Plt Count 562 H (150-450) k/uL Neutrophils # 12.9 H (1.3-7.7) k/uL Lymphocytes # 0.5 L (1.0-4.8) k/uL Sodium (137-145) mmol/L Chloride (98-107) mmol/L Carbon Dioxide (22-30) mmol/L BUN (7-17) mg/dL Glucose (74-99) mg/dL POC Glucose (mg/dL) 183 H (75-99) mg/dL Assessment and Plan Plan: #1. Acute hypoxemic respiratory failure secondary to bilateral pneumonia, and there may be a component of pulmonary edema/ARDS. The biology was all negative. The patient continues to have diffuse bilateral pulmonary infiltrates typical of ARDS. I think she is in a fibroproliferative phase of ARDS. We'll continue with IV Solu-Medrol. She is gradually show some improvements. No signs of active pneumonia. No fever. No chills. No leukocytosis. No significant spu abdon production. Chest x-rays consistent with diffuse breath and pulmonary infiltrates/ARDS. Negative fluid balance. She was also switched to Lovenox yesterday. #2. Pulmonary nodules, could relate to underlying sarcoidosis, #3. Diabetes mellitus type 2 currently on Levemir 20 units daily #4. Chronic atrial fibrillation, and her current rhythm is sinus and the patient is hemodynamically stable. #5. GERD/reflux #6. Hypertention, #7. DJD #8. Hypothyroidism #9. Osteoarthritis of multiple joints #10 history of DVT and pulmonary embolism, on chronic anticoagulation in the form of Coumadin. Supratherapeutic at a time of admission and INR is down to 1.2 and the patient is currently on IV heparin. #11 hyperlipidemia Plan Condition is essentially stable. No major improvement or progression over the past 48 hours. We'll continue to follow. We'll keep her in ICU for now. She is still keeping up with the program. No altered mentation. She is feeling a bit weak. She is able to tolerate her diet. Rest of the organs are all function at this point in time. We'll continue to follow.
[2018-06-07 11:55] LABS: Glucose,Whole Blood 253 mg/dL (75-99)
[2018-06-07] MEDS: MULTIVITAMINS, THERA 1 EACH TAB PO SCH (12:14)
--- NOTE | 2018-06-07 14:41 | P.PN ---
Subjective Progress Note Date: 06/06/18 Principal diagnosis: Acute hypoxic respiratory failure Multifocal pneumonia 67-year-old female with a known history of atrial fibrillation on anticoagulation, history of DVT/PE, diabetes type 2, history of CVA/TIA and hypertension, hypothyroidism and other multiple medical problems initially presents to walk-in clinic [facility] on Friday with complaints of shortness of breath cough and fever 102.4. Patient was sent home with Z-Samuel and Tessalon pearls as well as Mucinex. Patient has been taking her medications and symptoms did not resolve which made her to go back to hospital on Friday. Patient was hypoxic and tachycardic at the time. Patient had CT angiogram of the chest; no pulmonary embolism was noted. Patient was found to have pulmonary nodules and repeat CT was recommended after resolution of pneumonia. Due to extensive pneumonia and pulmonary nodules and sepsis patient was transferred to [facility] for further evaluation and possible pulmonary consult. Influenza was negative. Patient was to the hospital with pneumonia and ARDS like chest x-ray findings. Patient remained on the high flow oxygen. Currently in the ICU. Otherwise, and comfortable and sitting in the chair. Chest x-ray showed essentially stable findings and bilateral pulmonary infiltrates unchanged compared to yesterday. Continue on antibiotics in the form of cefepime and Levaquin along with breathing treatments and IV Solu-Medrol. No fever no chills. No nausea vomiting or abdominal pain or diarrhea. Cultures including Legionella urine antigen is negative. 06/05/2018 Patient is seen and evaluated for a follow-up. The patient states that she is less short of breath; oxygenation has remained essentially unchanged compared to yesterday. She remains on high flow oxygen with an FiO2 of 80%. Pulse ox is around 90-91% and there is not much room for her weaning off FiO2. Her chest x-ray also showing diffuse breath and pulmonary infiltrates which remain unchanged compared to yesterday's chest x-ray. remains on a combination of antibiotics including cefepime, Levaquin and Diflucan. The patient is also on IV Solu-Medrol. She is tolerating her diet; No other significant events over the past 24 hours. Family is at the bedside. 06/06/2018, there has been no major improvement the patient's condition. The patient remains in acute hypoxic respiratory failure related to the bilateral pneumonia/ARDS. FiO2 is still at 80%. The patient is on high flow oxygen. Hemodynamically stable. Chest x-ray findings is still showing diffuse bilateral pulmonary infiltrates unchanged compared to yesterday. Remains on cefepime, Levaquin and Diflucan. Remains on IV Solu-Medrol. Despite all this, the patient has a single organ dysfunction which is essentially pulmonary dysfunction related to the pneumonia/ARDS. Renal function stable. Hemodynamically stable. No altered mentation. No nausea or vomiting pH is able to sit up on a chair and she is quite strong in interactive. She is also in a positive spirits as the patient was to get better recovered from her pneumonia. Objective - Vital Signs Vital signs: Vital Signs Temp 98.2 F 06/06/18 08:00 Pulse 73 06/06/18 11:00 Resp 20 06/06/18 11:00 BP 119/72 06/06/18 11:00 Pulse Ox 90 L 06/06/18 11:00 Intake & Output 06/05/18 06/06/18 06/06/18 18:59 06:59 18:59 Intake Total 2539.291 1070 280 Output Total 2375 2525 1925 Balance 164.291 -1455 -1645 Weight 96.4 kg Intake: IV 330 340 80 Cefepime 2 gm In Sodium 100 100 Chloride 0.9% 100 ml @ 200 mls/hr IVPB Q12HR [facility] Rx#:[id number] kvo 230 240 80 Intake, IV Titration 249.291 250 200 Amount Cefepime 2 gm In Sodium 100 Chloride 0.9% 100 ml @ 200 mls/hr IVPB Q12HR [facility] Rx#:[id number] Heparin Sod,Pork in 0.45% 249.291 250 NaCl 25,000 unit In 0.45 % NaCl 1 250ml.bag @ 10 mls/hr IV .Q24H [facility] Rx#: [id number] Magnesium Sulfate-D5w Pmx 100 1 gm In Dextrose/Water 1 100ml.bag @ 100 mls/hr IVPB Q1H [facility] Rx#: [id number] Oral 1960 480 Output: Urine 2375 2525 1925 Other: Voiding Method Indwelling Catheter Indwelling Catheter Indwelling Catheter - Exam Patient is lying in the bed comfortably, no acute distress, awake alert and oriented. Currently on BiPAP. HEENT: Normocephalic. Neck is supple. Pupils reactive. Nostrils clear. Oral cavi ty is moist. Ears reveal no drainage. Neck reveals no JVD, carotid bruits, or thyromegaly. CHEST EXAMINATION: Trachea is central. Symmetrical expansion. Bilateral air entry improved. Scattered rhonchi and bibasilar diminished sounds... CARDIAC: Normal S1, S2 with no gallops. No murmurs ABDOMEN: Soft. Bowel sounds normal. No organomegaly. No abdominal bruits. Extremities: reveal no edema. No clubbing or cyanosis Neurologically awake, alert, oriented x3 with well-coordinated movements. No focal deficits noted - Labs CBC & Chem 7: 06/07/18 04:35 06/07/18 04:20 Labs: Abnormal Lab Results - Last 24 Hours (Table) 06/05/18 06/05/18 06/05/18 Range/Units 11:52 14:32 16:58 Plt Count (150-450) k/uL APTT 61.2 H (22.0-30.0) sec Sodium (137-145) mmol/L Chloride (98-107) mmol/L Carbon Dioxide (22-30) mmol/L BUN (7-17) mg/dL Glucose (74-99) mg/dL POC Glucose (mg/dL) 130 H 203 H (75-99) mg/dL Total Protein (6.3-8.2) g/dL Albumin (3.5-5.0) g/dL 06/05/18 06/06/18 06/06/18 Range/Units 20:50 04:23 04:23 Plt Count 573 H (150-450) k/uL APTT 67.1 H (22.0-30.0) sec Sodium (137-145) mmol/L Chloride (98-107) mmol/L Carbon Dioxide (22-30) mmol/L BUN (7-17) mg/dL Glucose (74-99) mg/dL POC Glucose (mg/dL) 176 H (75-99) mg/dL Total Protein (6.3-8.2) g/dL Albumin (3.5-5.0) g/dL 06/06/18 06/06/18 06/06/18 Range/Units 04:23 07:06 11:26 Plt Count (150-450) k/uL APTT (22.0-30.0) sec Sodium 135 L (137-145) mmol/L Chloride 94 L (98-107) mmol/L Carbon Dioxide 35 H (22-30) mmol/L BUN 19 H (7-17) mg/dL Glucose 217 H (74-99) mg/dL POC Glucose (mg/dL) 182 H 260 H (75-99) mg/dL Total Protein 5.6 L (6.3-8.2) g/dL Albumin 2.7 L (3.5-5.0) g/dL Microbiology - Last 24 Hours (Table) 05/30/18 12:21 Blood Culture - Final Blood No Growth after 144 hours Assessment and Plan Assessment: 1. Acute hypoxemic respiratory failure secondary to bilateral pneumonia; component of pulmonary edema/ARDS. -Oxygenation remains stable and the patient remains on high flow oxygen at 80% FiO2. Chest x-ray findings are also stable. Clinically stable. She remains on a combination of bronchodilators and steroids. She is mainly receiving supportive care in the ICU. 2. Pulmonary nodules; underlying sarcoidosis, 3. Diabetes mellitus type 2; remains on Levemir 20 units daily; we will continue with Accu-Cheks every before meals and at bedtime with insulin sliding scale 4. Chronic atrial fibrillation; in normal sinus rhythm. 5. GERD/reflux 6. Hypertention, 7. Hypothyroidism 8. Hyperlipidemia 9. History of DVT and pulmonary embolism, - Patient is on chronic anticoagulation in the form of Coumadin; currently on IV heparin. CODE STATUS; full code Time with Patient: Greater than 30
[2018-06-07] MEDS: MORPHINE SULFATE IR 15 MG TABLET PO PRN (15:50)
[2018-06-07 16:56] LABS: Glucose,Whole Blood 175 mg/dL (75-99)
[2018-06-07 20:44] LABS: Glucose,Whole Blood 317 mg/dL (75-99)
[2018-06-07] MEDS: INSULIN DETEMIR (LEVEMIR) 100 UNIT/ML SYR SQ SCH (22:10)
[2018-06-07] MEDS: ZOLPIDEM 5 MG TAB PO PRN (22:10)
[2018-06-07] MEDS: MELATONIN 5 MG TABLET PO SCH (22:10)
[2018-06-07] MEDS: LISINOPRIL 10 MG TAB PO SCH (22:11)
[2018-06-07] MEDS: EZETIMIBE 10 MG TAB PO SCH (22:12)
[2018-06-07] MEDS: traZODone HCL 50 MG TAB PO SCH (22:13)
[2018-06-08] MEDS: methylPREDNISolone SOD SUCCI 125 MG/2 ML VIAL IV SCH ×5 (00:37→23:47)
[2018-06-08 02:41] LABS: Glucose,Whole Blood 184 mg/dL (75-99)
[2018-06-08] MEDS: IPRATROPIUM-ALBUTEROL 3 ML NEB INHALATION SCH ×4 (05:41→19:47)
[2018-06-08 06:05] LABS: HCT 40.5 % (34.0-46.0); HGB 12.6 gm/dL (11.4-16.0); MCH 26.3 pg (25.0-35.0); Mean Platelet Volume 6.6; Platelet Count 526 k/uL (150-450); RBC 4.77 m/uL (3.80-5.40); RDW 13.5 % (11.5-15.5); WBC 16.1 k/uL (3.8-10.6)
[2018-06-08 06:22] LABS: Anion Gap 7 mmol/L; Blood Urea Nitrogen 22 mg/dL (7-17); Calcium 9.9 mg/dL (8.4-10.2); Carbon Dioxide 36 mmol/L (22-30); Chloride 92 mmol/L (98-107); Glucose 111 mg/dL (74-99); Magnesium 1.9 mg/dL (1.6-2.3); Potassium 4.7 mmol/L (3.5-5.1); Sodium 135 mmol/L (137-145)
[2018-06-08] MEDS: MORPHINE SULFATE IR 15 MG TABLET PO PRN ×2 (06:40→16:33)
[2018-06-08] MEDS: LEVOTHYROXINE 100 MCG TAB PO SCH (06:40)
[2018-06-08 06:58] LABS: Glucose,Whole Blood 103 mg/dL (75-99)
[2018-06-08] MEDS: INSULIN ASPART (NovoLOG) 100 UNIT/ML VIAL SQ SCH ×7 (07:04→22:03)
[2018-06-08] MEDS: PANTOPRAZOLE 40 MG TABLET PO SCH (07:06)
--- NOTE | 2018-06-08 07:10 | XR ---
EXAMINATION TYPE: XR chest 1V portable DATE OF EXAM: 06/08/2018 COMPARISON: 06/07/2018 HISTORY: Shortness of breath TECHNIQUE: Single frontal view of the chest is obtained. FINDINGS: Confluent alveolar and interstitial opacities are seen throughout the lungs with relative sparing of the left lung apex. Right hemidiaphragm elevation is similar to the prior. Cardia mediasti nal silhouette is again enlarged. No sizable pneumothorax or pleural effusion. IMPRESSION: Stable alveolar and interstitial diffuse bilateral airspace disease that may represent A RDS, pneumonia or pulmonary edema.
[2018-06-08] MEDS: ENOXAPARIN 100 MG/ML SYRINGE SQ SCH ×2 (08:24→20:30)
[2018-06-08] MEDS: ANASTROZOLE 1 MG TAB PO SCH (08:24)
[2018-06-08] MEDS: FUROSEMIDE 10 MG/ML 2 ML VIAL IV SCH (08:24)
[2018-06-08] MEDS: CALCIUM CARBONATE 500 MG CHEWABLE PO SCH (08:25)
[2018-06-08] MEDS: BACLOFEN 10 MG TAB PO PRN ×2 (08:25→22:06)
[2018-06-08] MEDS: CHOLECALCIFEROL 1,000 UNIT TAB PO SCH (08:25)
[2018-06-08] MEDS: busPIRone HCl 10 MG TAB PO SCH ×2 (08:25→20:29)
[2018-06-08] MEDS: METOPROLOL TARTRATE 25 MG TAB PO SCH ×2 (08:26→20:31)
[2018-06-08] MEDS: FENOFIBRATE 160 MG TAB PO SCH (08:26)
[2018-06-08] MEDS: CITALOPRAM HYDROBROMIDE 20 MG TAB PO SCH ×2 (08:26→20:45)
[2018-06-08] MEDS: FLUCONAZOLE 100 MG TAB PO SCH (08:26)
[2018-06-08] MEDS: SPIRONOLACTONE 25 MG TAB PO SCH (08:26)
[2018-06-08] MEDS: LEVOFLOXACIN 750 MG TAB PO SCH (08:26)
[2018-06-08] MEDS: DOCUSATE 100 MG CAP PO SCH ×3 (08:27→20:32)
[2018-06-08] MEDS: metFORMIN 500 MG TAB PO SCH ×2 (08:27→20:31)
[2018-06-08] MEDS: FLUTICASONE 50MCG/SPRAY NASAL 16GM EA NOSTRIL SCH (08:30)
[2018-06-08] MEDS: ZYRTEC 10MG PO SCH (08:30)
[2018-06-08] MEDS: NON-FORMULARY DRUG (Biotin [Biotin] 5,000 MCG) PO SCH (08:40)
[2018-06-08] MEDS: CEFEPIME 2 GM in SODIUM CHLORIDE 0.9% 100 ML IVPB SCH ×2 (08:51→20:29)
[2018-06-08] MEDS: MORPHINE SULFATE ER 60 MG TABLET PO SCH ×2 (08:51→20:31)
--- NOTE | 2018-06-08 10:04 | P.PN ---
Subjective Progress Note Date: 06/07/18 Principal diagnosis: Acute hypoxic respiratory failure Multifocal pneumonia 67-year-old female with a known history of atrial fibrillation on anticoagulation, history of DVT/PE, diabetes type 2, history of CVA/TIA and hypertension, hypothyroidism and other multiple medical problems initially presents to walk-in clinic [facility] on Friday with complaints of shortness of breath cough and fever 102.4. Patient was sent home with Z-Samuel and Tessalon pearls as well as Mucinex. Patient has been taking her medications and symptoms did not resolve which made her to go back to hospital on Friday. Patient was hypoxic and tachycardic at the time. Patient had CT angiogram of the chest; no pulmonary embolism was noted. Patient was found to have pulmonary nodules and repeat CT was recommended after resolution of pneumonia. Due to extensive pneumonia and pulmonary nodules and sepsis patient was transferred to [facility] for further evaluation and possible pulmonary consult. Influenza was negative. Patient was to the hospital with pneumonia and ARDS like chest x-ray findings. Patient remained on the high flow oxygen. Currently in the ICU. Otherwise, and comfortable and sitting in the chair. Chest x-ray showed essentially stable findings and bilateral pulmonary infiltrates unchanged compared to yesterday. Continue on antibiotics in the form of cefepime and Levaquin along with breathing treatments and IV Solu-Medrol. No fever no chills. No nausea vomiting or abdominal pain or diarrhea. Cultures including Legionella urine antigen is negative. 06/05/2018 Patient is seen and evaluated for a follow-up. The patient states that she is less short of breath; oxygenation has remained essentially unchanged compared to yesterday. She remains on high flow oxygen with an FiO2 of 80%. Pulse ox is around 90-91% and there is not much room for her weaning off FiO2. Her chest x-ray also showing diffuse breath and pulmonary infiltrates which remain unchanged compared to yesterday's chest x-ray. remains on a combination of antibiotics including cefepime, Levaquin and Diflucan. The patient is also on IV Solu-Medrol. She is tolerating her diet; No other significant events over the past 24 hours. Family is at the bedside. 06/06/2018, there has been no major improvement the patient's condition. The patient remains in acute hypoxic respiratory failure related to the bilateral pneumonia/ARDS. FiO2 is still at 80%. The patient is on high flow oxygen. Hemodynamically stable. Chest x-ray findings is still showing diffuse bilateral pulmonary infiltrates unchanged compared to yesterday. Remains on cefepime, Levaquin and Diflucan. Remains on IV Solu-Medrol. Despite all this, the patient has a single organ dysfunction which is essentially pulmonary dysfunction related to the pneumonia/ARDS. Renal function stable. Hemodynamically stable. No altered mentation. No nausea or vomiting pH is able to sit up on a chair and she is quite strong in interactive. She is also in a positive spirits as the patient was to get better recovered from her pneumonia. 06/07/2018 Remains in ICU for post pneumonia/ARDS. X-ray still showing diffuse breath and pulmonary infiltrates. Infiltrates are essentially stable and unchanged over the past 48 hours. In fact I do not see any improvement or worsening the patient's condition over the past 48 hours. Chest x-ray findings are essentially the same. Oxidation something. She is able to get up and sit up on a bedside recliner. No significant cough or sputum production. She claims that she had a good night sleep yesterday. She remains on IV Solu-Medrol. Antibiotic coverage includes cefepime Levaquin and Diflucan. Fluid balance is - 3.9 L over the past 24 hours and the patient is producing adequate amount of urine output. She is receiving Lasix 20 mg IV every 24 hours. White cell count is at 14.5 which is stable. No significant leukocytosis. No fever. She is tolerating diet and is using incentive spirometer. Objective - Vital Signs Vital signs: Vital Signs Temp 96.8 F L 06/07/18 12:00 Pulse 71 06/07/18 13:08 Resp 17 06/07/18 13:00 BP 117/67 06/07/18 13:00 Pulse Ox 95 06/07/18 13:00 Intake & Output 06/06/18 06/07/18 06/07/18 18:59 06:59 18:59 Intake Total 380 2794 70 Output Total 1786 6503 8 Balance -3935 -56 Weight 96.5 kg Intake: IV 180 310 70 Cefepime 2 gm In Sodium 200 Chloride 0.9% 100 ml @ 200 mls/hr IVPB Q12HR [facility] Rx#:[id number] kvo 180 110 70 Intake, IV Titration 200 Amount Cefepime 2 gm In Sodium 100 Chloride 0.9% 100 ml @ 200 mls/hr IVPB Q12HR [facility] Rx#:[id number] Magnesium Sulfate-D5w Pmx 100 1 gm In Dextrose/Water 1 100ml.bag @ 100 mls/hr IVPB Q1H [facility] Rx#: [id number] Oral 2484 Output: Urine 4315 2850 2065 Other: Voiding Method Indwelling Catheter Indwelling Catheter Indwelling Catheter - Exam Patient is lying in the bed comfortably, no acute distress, awake alert and oriented. Currently on BiPAP. HEENT: Normocephalic. Neck is supple. Pupils reactive. Nostrils clear. Oral cavity is moist. Ears reveal no drainage. Neck reveals no JVD, carotid bruits, or thyromegaly. CHEST EXAMINATION: Trachea is central. Symmetrical expansion. Bilateral air entry improved. Scattered rhonchi and bibasilar diminished sounds... CARDIAC: Normal S1, S2 with no gallops. No murmurs ABDOMEN: Soft. Bowel sounds normal. No organomegaly. No abdominal bruits. Extremities: reveal no edema. No clubbing or cyanosis Neurologically awake, alert, oriented x3 with well-coordinated movements. No focal deficits noted - Labs CBC & Chem 7: 06/07/18 04:35 06/07/18 04:20 Labs: Abnormal Lab Results - Last 24 Hours (Table) 06/06/18 06/06/18 06/06/18 Range/Units 15:01 16:55 20:32 WBC (3.8-10.6) k/uL MCHC (31.0-37.0) g/dL Plt Count (150-450) k/uL Neutrophils # (1.3-7.7) k/uL Lymphocytes # (1.0-4.8) k/uL Sodium (137-145) mmol/L Chloride (98-107) mmol/L Carbon Dioxide (22-30) mmol/L BUN (7-17) mg/dL Glucose (74-99) mg/dL POC Glucose (mg/dL) 212 H 179 H 247 H (75-99) mg/dL 06/07/18 06/07/18 06/07/18 Range/Units 04:20 04:35 06:59 WBC 14.5 H (3.8-10.6) k/uL MCHC 30.8 L (31.0-37.0) g/dL Plt Count 562 H (150-450) k/uL Neutrophils # 12.9 H (1.3-7.7) k/uL Lymphocytes # 0.5 L (1.0-4.8) k/uL Sodium 136 L (137-145) mmol/L Chloride 93 L (98-107) mmol/L Carbon Dioxide 36 H (22-30) mmol/L BUN 21 H (7-17) mg/dL Glucose 198 H (74-99) mg/dL POC Glucose (mg/dL) 183 H (75-99) mg/dL 06/07/18 Range/Units 11:53 WBC (3.8-10.6) k/uL MCHC (31.0-37.0) g/dL Plt Count (150-450) k/uL Neutrophils # (1.3-7.7) k/uL Lymphocytes # (1.0-4.8) k/uL Sodium (137-145) mmol/L Chloride (98-107) mmol/L Carbon Dioxide (22-30) mmol/L BUN (7-17) mg/dL Glucose (74-99) mg/dL POC Glucose (mg/dL) 253 H (75-99) mg/dL Assessment and Plan Assessment: 1. Acute hypoxemic respiratory failure secondary to bilateral pneumonia; component of pulmonary edema/ARDS. -Oxygenation remains stable and the patient remains on high flow oxygen at 80% FiO2. Chest x-ray findings are also stable. Clinically stable. She remains on a combination of bronchodilators and steroids. She is mainly receiving support sandra care in the ICU. 2. Pulmonary nodules; underlying sarcoidosis, 3. Diabetes mellitus type 2; remains on Levemir 20 units daily; we will que nue with Accu-Cheks every before meals and at bedtime with insulin sliding scale 4. Chronic atrial fibrillation; in normal sinus rhythm. 5. GERD/reflux 6. Hypertention, 7. Hypothyroidism 8. Hyperlipidemia 9. History of DVT and pulmonary embolism, - Patient is on chronic anticoagulation in the form of Coumadin; currently on IV heparin. CODE STATUS; full code
[2018-06-08 11:41] LABS: Glucose,Whole Blood 212 mg/dL (75-99)
[2018-06-08 12:05] LABS: Glucose,Whole Blood 213 mg/dL (75-99)
[2018-06-08] MEDS: MULTIVITAMINS, THERA 1 EACH TAB PO SCH (12:06)
--- NOTE | 2018-06-08 12:48 | P.PN ---
Subjective Progress Note Date: 06/08/18 Principal diagnosis: Acute hypoxic respiratory failure secondary to pneumonia and ARDS. This is a 67-year-old white female patient who was received as a transfer from [facility] on 05/28/2018. Patient had presented with complaints of chest congestion, cough, wheezing, shortness of breath and occasional phlegm production. Influenza screen and CT angiogram were completed at the [facility], and they were negative for influenza A and pulmonary embolism. Patient did have multiple pulmonary nodules that could relate to her underlying sarcoidosis. In addition she has some groundglass opacities at the lower lobes possibly consistent with pneumonia. We did obtain a chest x-ray at this hospital yesterday, which showed cardiomegaly with multifocal bilateral alveolar and interstitial edema and/or infiltrates. Possible developing ARDS. She lab work showed a white blood cell count of 3.6, hemoglobin 13.3, d-dimer was slightly elevated at 1.05, but CT angios was negative for any evidence of PE, renal profile and electrolytes were within normal limits, proBNP was within normal limits at 467, troponin was negative, urinalysis was negative for any sign of infection. Patient's medical history significant for atrial fibrillation on anticoagulation in the form of Coumadin, history of DVT/PE, diabetes mellitus type 2, history of CVA and TIA and hypertension, hypothyroidism. The patient was given IV lasix, and she has significantly diuresed, she is in -3560 mL fluid balance in last 24 hours, in her breathing had worsened, along with her oxygenation, and patient had to be placed on BiPAP support. On today's exam patient is seen on BiPAP support with pressures of 12 and 5, 80%, and her pulse ox is 94%, she is quite tachypneic, lung sounds are positive for diffuse crackles, and rhonchi, patient appears to be in mild to moderate amount of distress, and for that reason patient will be removed down to the intensive care unit, today's chest x-ray has been reviewed, showed persistence of bladder pulmonary edema, and airspace disease bilaterally, likely related to underlying pneumonia. Afebrile, hemodynamically stable. Denies any chest pain, wasn't able to produce any sputum for culture. She states she still has the urge to cough, but not able to bring up anything. Antibiotic coverage in the form of Levaquin. 06/07/2018 I'm seeing this patient in follow-up post pneumonia/ARDS. X-ray still showing diffuse breath and pulmonary infiltrates. Infiltrates are essentially stable and unchanged over the past 48 hours. In fact I do not see any improvement or worsening the patient's condition over the past 48 hours. Chest x-ray findings are essentially the same. Oxidation something. She is able to get up and sit up on a bedside recliner. No significant cough or sputum production. She claims that she had a good night sleep yesterday. She remains on IV Solu-Medrol. Antibiotic coverage includes cefepime Levaquin and Diflucan. Fluid balance is -3.9 L over the past 24 hours and the patient is producing adequate amount of urine output. She is receiving Lasix 20 mg IV every 24 hours. White cell count is at 14.5 which is stable. No significant leukocytosis. No fever. She is tolerating diet and is using incentive sp irometer. Reevaluated today on 06/08/2018, patient remains on high flow oxygen, she is actually on airvo with 80% FiO2, 60 L/m, and her O2 saturation remains fairly marginal. However surprisingly the patient remains comfortable, in no distress, and her chest x-ray continues to show diffuse infiltrates bilaterally. Chest x- ray is basically about the same. Patient denies any significant cough, denies any fever or chills, denies any chest pain. Remains on antibiotics in the form of Levaquin and cefepime, she remains on bronchodilators and on Solu-Medrol. Her fluid balance is showing negative balance. Remains on Lasix 20 mg daily. Labs continued to show leukocytosis with WBC of 16.1 hemoglobin is 12.6. Basic metabolic profile is relatively normal. Objective - Vital Signs Vital signs: Vital Signs Temp 97.7 F 06/08/18 08:00 Pulse 64 06/08/18 12:05 Resp 30 H 06/08/18 10:00 BP 118/63 06/08/18 10:00 Pulse Ox 84 L 06/08/18 10:00 Intake & Output 06/07/18 06/08/18 06/08/18 18:59 06:59 18:59 Intake Total 120 680 700 Output Total 3422 5000 550 Balance -3305 -2650 150 Weight 95.3 kg Intake: IV 120 220 140 Cefepime 2 gm In Sodium 100 100 Chloride 0.9% 100 ml @ 200 mls/hr IVPB Q12HR [facility] Rx#:[id number] kvo 120 120 40 Oral 460 560 Output: Urine 3425 3330 550 Other: Voiding Method Indwelling Catheter Indwelling Catheter Indwelling Catheter - Exam Physical Exam: Revealed a 67-year-old female on high flow oxygen, in no distress. Head: Atraumatic, normocephalic HEENT:[Neck is supple.] [No neck masses.] [No thyromegaly.] [No JVD.] PERRLA, EOMI, no icterus. Moist mucous membranes. Chest: [Crackles at the bases, no rhonchi no wheezes. Symmetrical chest expansion.] Cardiac Exam: [Normal S1 and S2, no S3 gallop, no murmur.] Abdomen: [Soft, nontender, no megaly, no rebound, no guarding, normal bowel sounds.] Extremities: [No clubbing, no edema, no cyanosis.] Neurological Exam: [No focal neurologic deficit.] Alert and oriented 3 Skin: No rashes. Psychiatric: Normal mood, affect and mental status examination. Lymphatics: No lymphadenopathy. - Labs CBC & Chem 7: 06/08/18 05:26 06/08/18 05:26 Labs: Abnormal Lab Results - Last 24 Hours (Table) 06/07/18 06/07/18 06/08/18 Range/Units 16:54 20:43 02:30 WBC (3.8-10.6) k/uL Plt Count (150-450) k/uL Sodium (137-145) mmol/L Chloride (98-107) mmol/L Carbon Dioxide (22-30) mmol/L BUN (7-17) mg/dL Glucose (74-99) mg/dL POC Glucose (mg/dL) 175 H 317 H 184 H (75-99) mg/dL 06/08/18 06/08/18 06/08/18 Range/Units 05:26 05:26 06:57 WBC 16.1 H (3.8-10.6) k/uL Plt Count 526 H (150-450) k/uL Sodium 135 L (137-145) mmol/L Chloride 92 L (98-107) mmol/L Carbon Dioxide 36 H (22-30) mmol/L BUN 22 H (7-17) mg/dL Glucose 111 H (74-99) mg/dL POC Glucose (mg/dL) 103 H (75-99) mg/dL 06/08/18 06/08/18 Range/Units 11:39 12:03 WBC (3.8-10.6) k/uL Plt Count (150-450) k/uL Sodium (137-145) mmol/L Chloride (98-107) mmol/L Carbon Dioxide (22-30) mmol/L BUN (7-17) mg/dL Glucose (74-99) mg/dL POC Glucose (mg/dL) 212 H 213 H (75-99) mg/dL Assessment and Plan Assessment: Impression: 1 acute hypoxic respiratory failure secondary to pneumonia and suspect ARDS. 2 history of sarcoidosis 3 type 2 diabetes 4 chronic atrial fibrillation presently in sinus rhythm. 5 hypertension 6 hypothyroidism 7 history of deep vein thromboses and pulmonary embolism on Entocort ablation therapy 8 hyperlipidemia 9 degenerative joint disease and osteoarthritis of multiple joints. 10 GERD without esophagitis. Recommendation: Continue present treatment plan including high flow oxygen, antibiotics, diuretics, steroids, not ready to be transferred out of the ICU at this point yet. Patient is still requiring a high FiO2 and high O2 flow. We'll continue to follow. Prognosis is definitely guarded. Time with Patient: Greater than 30
[2018-06-08 17:25] LABS: Glucose,Whole Blood 148 mg/dL (75-99)
[2018-06-08 20:21] LABS: Glucose,Whole Blood 329 mg/dL (75-99)
[2018-06-08] MEDS: EZETIMIBE 10 MG TAB PO SCH (20:30)
[2018-06-08] MEDS: MELATONIN 5 MG TABLET PO SCH (20:31)
[2018-06-08] MEDS: INSULIN DETEMIR (LEVEMIR) 100 UNIT/ML SYR SQ SCH (20:31)
[2018-06-08] MEDS: LISINOPRIL 10 MG TAB PO SCH (20:31)
[2018-06-08] MEDS: traZODone HCL 50 MG TAB PO SCH (20:32)
[2018-06-08] MEDS: ZOLPIDEM 5 MG TAB PO PRN (20:45)
--- NOTE | 2018-06-08 21:05 | P.PN ---
Subjective Progress Note Date: 06/08/18 Principal diagnosis: Acute hypoxic respiratory failure Multifocal pneumonia 67-year-old female with a known history of atrial fibrillation on anticoagulation, history of DVT/PE, diabetes type 2, history of CVA/TIA and hypertension, hypothyroidism and other multiple medical problems initially presents to walk-in clinic [facility] on Friday with complaints of shortness of breath cough and fever 102.4. Patient was sent home with Z-Samuel and Tessalon pearls as well as Mucinex. Patient has been taking her medications and symptoms did not resolve which made her to go back to hospital on Friday. Patient was hypoxic and tachycardic at the time. Patient had CT angiogram of the chest; no pulmonary embolism was noted. Patient was found to have pulmonary nodules and repeat CT was recommended after resolution of pneumonia. Due to extensive pneumonia and pulmonary nodules and sepsis patient was transferred to [facility] for further evaluation and possible pulmonary consult. Influenza was negative. Patient was to the hospital with pneumonia and ARDS like chest x-ray findings. Patient remained on the high flow oxygen. Currently in the ICU. Otherwise, and comfortable and sitting in the chair. Chest x-ray showed essentially stable findings and bilateral pulmonary infiltrates unchanged compared to yesterday. Continue on antibiotics in the form of cefepime and Levaquin along with breathing treatments and IV Solu-Medrol. No fever no chills. No nausea vomiting or abdominal pain or diarrhea. Cultures including Legionella urine antigen is negative. 06/05/2018 Patient is seen and evaluated for a follow-up. The patient states that she is less short of breath; oxygenation has remained essentially unchanged compared to yesterday. She remains on high flow oxygen with an FiO2 of 80%. Pulse ox is around 90-91% and there is not much room for her weaning off FiO2. Her chest x-ray also showing diffuse breath and pulmonary infiltrates which remain unchanged compared to yesterday's chest x-ray. remains on a combination of antibiotics including cefepime, Levaquin and Diflucan. The patient is also on IV Solu-Medrol. She is tolerating her diet; No other significant events over the past 24 hours. Family is at the bedside. 06/06/2018, there has been no major improvement the patient's condition. The patient remains in acute hypoxic respiratory failure related to the bilateral pneumonia/ARDS. FiO2 is still at 80%. The patient is on high flow oxygen. Hemodynamically stable. Chest x-ray findings is still showing diffuse bilateral pulmonary infiltrates unchanged compared to yesterday. Remains on cefepime, Levaquin and Diflucan. Remains on IV Solu-Medrol. Despite all this, the patient has a single organ dysfunction which is essentially pulmonary dysfunction related to the pneumonia/ARDS. Renal function stable. Hemodynamically stable. No altered mentation. No nausea or vomiting pH is able to sit up on a chair and she is quite strong in interactive. She is also in a positive spirits as the patient was to get better recovered from her pneumonia. 06/07/2018 Remains in ICU for post pneumonia/ARDS. X-ray still showing diffuse breath and pulmonary infiltrates. Infiltrates are essentially stable and unchanged over the past 48 hours. In fact I do not see any improvement or worsening the patient's condition over the past 48 hours. Chest x-ray findings are essentially the same. Oxidation something. She is able to get up and sit up on a bedside recliner. No significant cough or sputum production. She claims that she had a good night sleep yesterday. She remains on IV Solu-Medrol. Antibiotic coverage includes cefepime Levaquin and Diflucan. Fluid balance is - 3.9 L over the past 24 hours and the patient is producing adequate amount of urine output. She is receiving Lasix 20 mg IV every 24 hours. White cell count is at 14.5 which is stable. No significant leukocytosis. No fever. She is tolerating diet and is using incentive spirometer. 06/08/2018, patient remains on high flow oxygen, she is actually on airvo with 80% FiO2, 60 L/m, and her O2 saturation remains fairly marginal. However surprisingly the patient remains comfortable, in no distress, and her chest x-ray continues to show diffuse infiltrates bilaterally. Chest x-ray is basically about the same. Patient denies any significant cough, denies any fever or chills, denies any chest pain. Remains on antibiotics in the form of Levaquin and cefepime, she remains on bronchodilators and on Solu-Medrol. Her fluid balance is showing negative balance. Remains on Lasix 20 mg daily. Labs continued to show leukocytosis with WBC of 16.1 hemoglobin is 12.6. Basic metabolic profile is relatively normal. Objective - Vital Signs Vital signs: Vital Signs Temp 97.7 F 06/08/18 08:00 Pulse 63 06/08/18 08:00 Resp 18 06/08/18 08:00 BP 133/106 06/08/18 08:00 Pulse Ox 94 L 06/08/18 08:00 Intake & Output 06/07/18 06/08/18 06/08/18 18:59 06:59 18:59 Intake Total 120 680 380 Output Total 3425 3330 240 Balance -3305 -2650 140 Weight 95.3 kg Intake: IV 120 220 20 Cefepime 2 gm In Sodium 100 Chloride 0.9% 100 ml @ 200 mls/hr IVPB Q12HR [facility] Rx#:[id number] kvo 120 120 20 Oral 460 360 Output: Urine 3425 3330 240 Other: Voiding Method Indwelling Catheter Indwelling Catheter - Exam Patient is lying in the bed comfortably, no acute distress, awake alert and oriented. Currently on BiPAP. HEENT: Normocephalic. Neck is supple. Pupils reactive. Nostrils clear. Oral cavity is moist. Ears reveal no drainage. Neck reveals no JVD, carotid bruits, or thyromegaly. CHEST EXAMINATION: Trachea is central. Symmetrical expansion. Bilateral air entry improved. Scattered rhonchi and bibasilar diminished sounds... CARDIAC: Normal S1, S2 with no gallops. No murmurs ABDOMEN: Soft. Bowel sounds normal. No organomegaly. No abdominal bruits. Extremities: reveal no edema. No clubbing or cyanosis Neurologically awake, alert, oriented x3 with well-coordinated movements. No focal deficits noted - Labs CBC & Chem 7: 06/08/18 05:26 06/08/18 05:26 Labs: Abnormal Lab Results - Last 24 Hours (Table) 06/07/18 06/07/18 06/07/18 Range/Units 11:53 16:54 20:43 WBC (3.8-10.6) k/uL Plt Count (150-450) k/uL Sodium (137-145) mmol/L Chloride (98-107) mmol/L Carbon Dioxide (22-30) mmol/L BUN (7-17) mg/dL Glucose (74-99) mg/dL POC Glucose (mg/dL) 253 H 175 H 317 H (75-99) mg/dL 06/08/18 06/08/18 06/08/18 Range/Units 02:30 05:26 05:26 WBC 16.1 H (3.8-10.6) k/uL Plt Count 526 H (150-450) k/uL Sodium 135 L (137-145) mmol/L Chloride 92 L (98-107) mmol/L Carbon Dioxide 36 H (22-30) mmol/L BUN 22 H (7-17) mg/dL Glucose 111 H (74-99) mg/dL POC Glucose (mg/dL) 184 H (75-99) mg/dL 06/08/18 Range/Units 06:57 WBC (3.8-10.6) k/uL Plt Count (150-450) k/uL Sodium (137-145) mmol/L Chloride (98-107) mmol/L Carbon Dioxide (22-30) mmol/L BUN (7-17) mg/dL Glucose (74-99) mg/dL POC Glucose (mg/dL) 103 H (75-99) mg/dL Assessment and Plan Assessment: 1. Acute hypoxemic respiratory failure secondary to bilateral pneumonia; component of pulmonary edema/ARDS. -Oxygenation remains stable and the patient remains on high flow oxygen at 80% FiO2. Chest x-ray findings are also stable. Clinically stable. She remains on a combination of bronchodilators and steroids. She is mainly receiving supportive care in the ICU. 2. Pulmonary nodules; underlying sarcoidosis, 3. Diabetes mellitus type 2; remains on Levemir 20 units daily; we will continue with Accu-Cheks every before meals and at bedtime with insulin sliding scale 4. Chronic atrial fibrillation; in normal sinus rhythm. 5. GERD/reflux 6. Hypertention, 7. Hypothyroidism 8. Hyperlipidemia 9. History of DVT and pulmonary embolism, - Patient is on chronic anticoagulation in the form of Coumadin; currently on IV heparin. CODE STATUS; full code Time with Patient: Greater than 30
[2018-06-08 22:09] LABS: Glucose,Whole Blood 304 mg/dL (75-99)
[2018-06-09] MEDS: MORPHINE SULFATE IR 15 MG TABLET PO PRN ×2 (05:17→12:03)
[2018-06-09 05:21] LABS: Basophils % (A) 0 %; Eosinophils # (A) 0.1 k/uL (0-0.7); Eosinophils % (A) 1 %; HCT 41.7 % (34.0-46.0); Hypochromasia Slight; Lymphocytes # (A) 0.5 k/uL (1.0-4.8); Lymphocytes % (A) 3 %; MCH 26.7 pg (25.0-35.0); MCHC 31.2 g/dL (31.0-37.0); MCV 85.4 fL (80.0-100.0); Mean Platelet Volume 7.2; Monocytes # (A) 1.1 k/uL (0-1.0); Monocytes % (A) 7 %; Neutrophils # (A) 13.9 k/uL (1.3-7.7); Neutrophils % (A) 88 %; Platelet Count 533 k/uL (150-450); RBC 4.88 m/uL (3.80-5.40); RDW 14.1 % (11.5-15.5); WBC 15.7 k/uL (3.8-10.6)
[2018-06-09 05:45] LABS: ALT 27 U/L (9-52); AST 21 U/L (14-36); Albumin 3.1 g/dL (3.5-5.0); Alkaline Phosphatase 77 U/L (38-126); Anion Gap 9 mmol/L; Blood Urea Nitrogen 27 mg/dL (7-17); Calcium 10.6 mg/dL (8.4-10.2); Carbon Dioxide 34 mmol/L (22-30); Chloride 91 mmol/L (98-107); Glucose 207 mg/dL (74-99); Magnesium 1.8 mg/dL (1.6-2.3); Phosphorus 4.3 mg/dL (2.5-4.5); Potassium 5.1 mmol/L (3.5-5.1); Sodium 134 mmol/L (137-145); Total Bilirubin 0.5 mg/dL (0.2-1.3); Total Protein 5.7 g/dL (6.3-8.2)
[2018-06-09] MEDS: methylPREDNISolone SOD SUCCI 125 MG/2 ML VIAL IV SCH ×4 (06:01→23:41)
[2018-06-09] MEDS: MAGNESIUM SULFATE-D5W PMX 1 GM in DEXTROSE/WATER 1 100ML.BAG IVPB SCH ×2 (06:01→07:08)
[2018-06-09] MEDS: LEVOTHYROXINE 100 MCG TAB PO SCH (06:02)
[2018-06-09] MEDS: PANTOPRAZOLE 40 MG TABLET PO SCH (07:07)
[2018-06-09] MEDS: INSULIN ASPART (NovoLOG) 100 UNIT/ML VIAL SQ SCH ×7 (07:07→21:05)
[2018-06-09 07:14] LABS: Glucose,Whole Blood 205 mg/dL (75-99)
--- NOTE | 2018-06-09 07:42 | XR ---
EXAMINATION TYPE: XR chest 1V portable DATE OF EXAM: 06/09/2018 COMPARISON: 06/08/2018 HISTORY: Shortness of breath TECHNIQUE: Single frontal view of the chest is obtained. FINDINGS: There is improved aeration in the lungs, however there remains diffuse interstitial promin ence and scattered alveolar opacities. No sizable pneumothorax or pleural effusion. Cardia mediastina l silhouette is rotated and stable. Bilateral humeral arthroplasties are partially visualized. No acu te osseous finding. IMPRESSION: Improved now predominantly interstitial airspace disease that may represent resolving AR DS, multifocal pneumonia or pulmonary edema.
[2018-06-09] MEDS: IPRATROPIUM-ALBUTEROL 3 ML NEB INHALATION SCH ×4 (07:45→19:29)
[2018-06-09] MEDS: ANASTROZOLE 1 MG TAB PO SCH (08:45)
[2018-06-09] MEDS: NON-FORMULARY DRUG (Biotin [Biotin] 5,000 MCG) PO SCH (08:45)
[2018-06-09] MEDS: busPIRone HCl 10 MG TAB PO SCH ×2 (08:46→20:05)
[2018-06-09] MEDS: CALCIUM CARBONATE 500 MG CHEWABLE PO SCH (08:46)
[2018-06-09] MEDS: ZYRTEC 10MG PO SCH (08:47)
[2018-06-09] MEDS: metFORMIN 500 MG TAB PO SCH ×2 (08:47→20:04)
[2018-06-09] MEDS: SPIRONOLACTONE 25 MG TAB PO SCH (08:47)
[2018-06-09] MEDS: METOPROLOL TARTRATE 25 MG TAB PO SCH ×2 (08:48→20:03)
[2018-06-09] MEDS: LEVOFLOXACIN 750 MG TAB PO SCH (08:48)
[2018-06-09] MEDS: MORPHINE SULFATE ER 60 MG TABLET PO SCH ×2 (08:49→20:04)
[2018-06-09] MEDS: FUROSEMIDE 10 MG/ML 2 ML VIAL IV SCH (08:50)
[2018-06-09] MEDS: CHOLECALCIFEROL 1,000 UNIT TAB PO SCH (08:51)
[2018-06-09] MEDS: FENOFIBRATE 160 MG TAB PO SCH (08:52)
[2018-06-09] MEDS: CITALOPRAM HYDROBROMIDE 20 MG TAB PO SCH ×2 (08:53→20:03)
[2018-06-09] MEDS: DOCUSATE 100 MG CAP PO SCH ×3 (08:53→20:04)
[2018-06-09] MEDS: FLUCONAZOLE 100 MG TAB PO SCH (08:53)
[2018-06-09] MEDS: FLUTICASONE 50MCG/SPRAY NASAL 16GM EA NOSTRIL SCH (08:54)
[2018-06-09] MEDS: CEFEPIME 2 GM in SODIUM CHLORIDE 0.9% 100 ML IVPB SCH ×2 (08:56→20:03)
[2018-06-09] MEDS: ENOXAPARIN 100 MG/ML SYRINGE SQ SCH ×2 (08:56→20:06)
[2018-06-09] MEDS: BACLOFEN 10 MG TAB PO PRN ×2 (09:47→20:04)
[2018-06-09 12:00] LABS: Glucose,Whole Blood 180 mg/dL (75-99)
[2018-06-09] MEDS: MULTIVITAMINS, THERA 1 EACH TAB PO SCH (12:03)
--- NOTE | 2018-06-09 12:37 | P.PN ---
Subjective Progress Note Date: 06/09/18 Principal diagnosis: Acute hypoxic respiratory failure secondary to pneumonia and ARDS. This is a 67-year-old white female patient who was received as a transfer from [facility] on 05/28/2018. Patient had presented with complaints of chest congestion, cough, wheezing, shortness of breath and occasional phlegm production. Influenza screen and CT angiogram were completed at the [facility], and they were negative for influenza A and pulmonary embolism. Patient did have multiple pulmonary nodules that could relate to her underlying sarcoidosis. In addition she has some groundglass opacities at the lower lobes possibly consistent with pneumonia. We did obtain a chest x-ray at this hospital yesterday, which showed cardiomegaly with multifocal bilateral alveolar and interstitial edema and/or infiltrates. Possible developing ARDS. She lab work showed a white blood cell count of 3.6, hemoglobin 13.3, d-dimer was slightly elevated at 1.05, but CT angios was negative for any evidence of PE, renal profile and electrolytes were within normal limits, proBNP was within normal limits at 467, troponin was negative, urinalysis was negative for any sign of infection. Patient's medical history significant for atrial fibrillation on anticoagulation in the form of Coumadin, history of DVT/PE, diabetes mellitus type 2, history of CVA and TIA and hypertension, hypothyroidism. The patient was given IV lasix, and she has significantly diuresed, she is in -3560 mL fluid balance in last 24 hours, in her breathing had worsened, along with her oxygenation, and patient had to be placed on BiPAP support. On today's exam patient is seen on BiPAP support with pressures of 12 and 5, 80%, and her pulse ox is 94%, she is quite tachypneic, lung sounds are positive for diffuse crackles, and rhonchi, patient appears to be in mild to moderate amount of distress, and for that reason patient will be removed down to the intensive care unit, today's chest x-ray has been reviewed, showed persistence of bladder pulmonary edema, and airspace disease bilaterally, likely related to underlying pneumonia. Afebrile, hemodynamically stable. Denies any chest pain, wasn't able to produce any sputum for culture. She states she still has the urge to cough, but not able to bring up anything. Antibiotic coverage in the form of Levaquin. 06/07/2018 I'm seeing this patient in follow-up post pneumonia/ARDS. X-ray still showing diffuse breath and pulmonary infiltrates. Infiltrates are essentially stable and unchanged over the past 48 hours. In fact I do not see any improvement or worsening the patient's condition over the past 48 hours. Chest x-ray findings are essentially the same. Oxidation something. She is able to get up and sit up on a bedside recliner. No significant cough or sputum production. She claims that she had a good night sleep yesterday. She remains on IV Solu-Medrol. Antibiotic coverage includes cefepime Levaquin and Diflucan. Fluid balance is -3.9 L over the past 24 hours and the patient is producing adequate amount of urine output. She is receiving Lasix 20 mg IV every 24 hours. White cell count is at 14.5 which is stable. No significant leukocytosis. No fever. She is tolerating diet and is using incentive sp irometer. Reevaluated today on 06/08/2018, patient remains on high flow oxygen, she is actually on airvo with 80% FiO2, 60 L/m, and her O2 saturation remains fairly marginal. However surprisingly the patient remains comfortable, in no distress, and her chest x-ray continues to show diffuse infiltrates bilaterally. Chest x- ray is basically about the same. Patient denies any significant cough, denies any fever or chills, denies any chest pain. Remains on antibiotics in the form of Levaquin and cefepime, she remains on bronchodilators and on Solu-Medrol. Her fluid balance is showing negative balance. Remains on Lasix 20 mg daily. Labs continued to show leukocytosis with WBC of 16.1 hemoglobin is 12.6. Basic metabolic profile is relatively normal. Reevaluated today on 06/09/2018, remains on high fluctuant, unchanged from yesterday. O2 saturation is marginal mostly in the low 90s. Patient is comfortable, in no distress, however she gets short of breath as soon as her O2 saturation dropped down to the mid 80s. Chest x-ray continues to show bilateral diffuse infiltrates. Slightly improved compared to the last few days. WBC count is 15.7 hemoglobin is 13 electrolytes are normal renal profile is normal. Objective - Vital Signs Vital signs: Vital Signs Temp 97.8 F 06/09/18 12:00 Pulse 58 L 06/09/18 12:00 Resp 16 03/26/19 12:00 BP 111/67 06/09/18 12:00 Pulse Ox 96 06/09/18 12:00 Intake & Output 06/08/18 06/09/18 06/09/18 18:59 06:59 18:59 Intake Total 1240 410 150 Output Total 1880 2910 2275 Balance -061 -3862 -1938 Weight 96.3 kg 96.3 kg Intake: IV 220 310 150 Cefepime 2 gm In Sodium 100 100 100 Chloride 0.9% 100 ml @ 200 mls/hr IVPB Q12HR [facility] Rx#:[id number] Magnesium Sulfate-D5w Pmx 100 1 gm In Dextrose/Water 1 100ml.bag @ 100 mls/hr IVPB Q1H [facility] Rx#: [id number] kvo 120 110 50 Oral 1020 100 Output: Urine 1879 2910 2275 Other: Voiding Method Indwelling Catheter Indwelling Catheter Indwelling Catheter - Exam Physical Exam: Revealed a 67-year-old female on high flow oxygen, in no distress. On high flow O2 and high flow FiO2 Head: Atraumatic, normocephalic HEENT:[Neck is supple.] [No neck masses.] [No thyromegaly.] [No JVD.] PERRLA, EOMI, no icterus. Moist mucous membranes. Chest: [Crackles at the bases, no rhonchi no wheezes. Symmetrical chest expansion.] Cardiac Exam: [Normal S1 and S2, no S3 gallop, no murmur.] Abdomen: [Soft, nontender, no megaly, no rebound, no guarding, normal bowel sounds.] Extremities: [No clubbing, no edema, no cyanosis.] Neurological Exam: [No focal neurologic deficit.] Alert and oriented 3 Skin: No rashes. Psychiatric: Normal mood, affect and mental status examination. Lymphatics: No lymphadenopathy. - Labs CBC & Chem 7: 06/09/18 04:48 06/09/18 04:48 Labs: Abnormal Lab Results - Last 24 Hours (Table) 06/08/18 06/08/18 06/08/18 Range/Units 16:54 20:09 21:56 WBC (3.8-10.6) k/uL Plt Count (150-450) k/uL Neutrophils # (1.3-7.7) k/uL Lymphocytes # (1.0-4.8) k/uL Monocytes # (0-1.0) k/uL Sodium (137-145) mmol/L Chloride (98-107) mmol/L Carbon Dioxide (22-30) mmol/L BUN (7-17) mg/dL Glucose (74-99) mg/dL POC Glucose (mg/dL) 148 H 329 H 304 H (75-99) mg/dL Calcium (8.4-10.2) mg/dL Total Protein (6.3-8.2) g/dL Albumin (3.5-5.0) g/dL 06/09/18 06/09/18 06/09/18 Range/Units 04:48 04:48 07:03 WBC 15.7 H (3.8-10.6) k/uL Plt Count 533 H (150-450) k/uL Neutrophils # 13.9 H (1.3-7.7) k/uL Lymphocytes # 0.5 L (1.0-4.8) k/uL Monocytes # 1.1 H (0-1.0) k/uL Sodium 134 L (137-145) mmol/L Chloride 91 L (98-107) mmol/L Carbon Dioxide 34 H (22-30) mmol/L BUN 27 H (7-17) mg/dL Glucose 207 H (74-99) mg/dL POC Glucose (mg/dL) 205 H (75-99) mg/dL Calcium 10.6 H (8.4-10.2) mg/dL Total Protein 5.7 L (6.3-8.2) g/dL Albumin 3.1 L (3.5-5.0) g/dL 06/09/18 Range/Units 11:48 WBC (3.8-10.6) k/uL Plt Count (150-450) k/uL Neutrophils # (1.3-7.7) k/uL Lymphocytes # (1.0-4.8) k/uL Monocytes # (0-1.0) k/uL Sodium (137-145) mmol/L Chloride (98-107) mmol/L Carbon Dioxide (22-30) mmol/L BUN (7-17) mg/dL Glucose (74-99) mg/dL POC Glucose (mg/dL) 180 H (75-99) mg/dL Calcium (8.4-10.2) mg/dL Total Protein (6.3-8.2) g/dL Albumin (3.5-5.0) g/dL Assessment and Plan Assessment: Impression: 1 acute hypoxic respiratory failure secondary to pneumonia and suspect ARDS. Improving but very slowly. Still requiring high flow oxygen and high FiO2 2 history of sarcoidosis 3 type 2 diabetes 4 chronic atrial fibrillation presently in sinus rhythm. 5 hypertension 6 hypothyroidism 7 history of deep vein thromboses and pulmonary embolism on Entocort ablation therapy 8 hyperlipidemia 9 degenerative joint disease and osteoarthritis of multiple joints. 10 GERD without esophagitis. Recommendation: Continue present treatment plan including high flow oxygen, antibiotics, diuretics, steroids, we'll continue to monitor in the ICU, continue GI and DVT prophylaxis, continue present meds as listed all were reviewed and discussed with the patient. Time with Patient: Less than 30
--- NOTE | 2018-06-09 14:45 | P.PN ---
Subjective Patient admitted for respiratory failure secondary to our to pneumonia She is still on high flow oxygen. She said that she feels slightly better than before but still short of breath. She still coughing. No fever no chills, no chest pain racing heart Objective - Vital Signs Vital signs: Vital Signs Temp 97.8 F 06/09/18 12:00 Pulse 71 06/09/18 14:00 Resp 17 06/09/18 14:00 BP 112/57 06/09/18 14:00 Pulse Ox 93 L 06/09/18 14:00 Intake & Output 06/08/18 06/09/18 06/09/18 18:59 06:59 18:59 Intake Total 1240 410 150 Output Total 1880 2910 2275 Balance -992 -7808 -0700 Weight 96.3 kg 96.3 kg Intake: IV 220 310 150 Cefepime 2 gm In Sodium 100 100 100 Chloride 0.9% 100 ml @ 200 mls/hr IVPB Q12HR [facility] Rx#:[id number] Magnesium Sulfate-D5w Pmx 100 1 gm In Dextrose/Water 1 100ml.bag @ 100 mls/hr IVPB Q1H [facility] Rx#: [id number] kvo 120 110 50 Oral 1020 100 Output: Urine 1880 2910 2275 Other: Voiding Method Indwelling Catheter Indwelling Catheter Indwelling Catheter - Exam On exam, alert and oriented x3. HEENT: Conjunctivae normal. eyes normal. NECK: No JVD. No thyroid enlargement. No LNs CARDIOVASCULAR: S1, S2 positive RESPIRATION: Crackles appreciated the basis ABDOMEN: Soft, nontender . No guarding. no masses palpable. No ascites, No hepatosplenomegaly.Bowel sounds heard. LEGS: No edema. no swelling NERVOUS SYSTEM: Cranial N 2-12 grossly normal. Moves all 4 limbs. No focal deficits. No sensory deficit. No signs of cerebellar dysfucntion. Skin: no ulcer no rash - Labs CBC & Chem 7: 06/09/18 04:48 06/09/18 04:48 Labs: Abnormal Lab Results - Last 24 Hours (Table) 06/08/18 06/08/18 06/08/18 Range/Units 16:54 20:09 21:56 WBC (3.8-10.6) k/uL Plt Count (150-450) k/uL Neutrophils # (1.3-7.7) k/uL Lymphocytes # (1.0-4.8) k/uL Monocytes # (0-1.0) k/uL Sodium (137-145) mmol/L Chloride (98-107) mmol/L Carbon Dioxide (22-30) mmol/L BUN (7-17) mg/dL Glucose (74-99) mg/dL POC Glucose (mg/dL) 148 H 329 H 304 H (75-99) mg/dL Calcium (8.4-10.2) mg/dL Total Protein (6.3-8.2) g/dL Albumin (3.5-5.0) g/dL 06/09/18 06/09/18 06/09/18 Range/Units 04:48 04:48 07:03 WBC 15.7 H (3.8-10.6) k/uL Plt Count 533 H (150-450) k/uL Neutrophils # 13.9 H (1.3-7.7) k/uL Lymphocytes # 0.5 L (1.0-4.8) k/uL Monocytes # 1.1 H (0-1.0) k/uL Sodium 134 L (137-145) mmol/L Chloride 91 L (98-107) mmol/L Carbon Dioxide 34 H (22-30) mmol/L BUN 27 H (7-17) mg/dL Glucose 207 H (74-99) mg/dL POC Glucose (mg/dL) 205 H (75-99) mg/dL Calcium 10.6 H (8.4-10.2) mg/dL Total Protein 5.7 L (6.3-8.2) g/dL Albumin 3.1 L (3.5-5.0) g/dL 06/09/18 Range/Units 11:48 WBC (3.8-10.6) k/uL Plt Count (150-450) k/uL Neutrophils # (1.3-7.7) k/uL Lymphocytes # (1.0-4.8) k/uL Monocytes # (0-1.0) k/uL Sodium (137-145) mmol/L Chloride (98-107) mmol/L Carbon Dioxide (22-30) mmol/L BUN (7-17) mg/dL Glucose (74-99) mg/dL POC Glucose (mg/dL) 180 H (75-99) mg/dL Calcium (8.4-10.2) mg/dL Total Protein (6.3-8.2) g/dL Albumin (3.5-5.0) g/dL Assessment and Plan Assessment: - Acute respiratory failure secondary to pneumonia and arts - Pneumonia - ARDS - History of sarcoidosis - History of diabetes - History of A. fib - History of hypertension - History of hypothyroidism - History of DVT and PE Plan - Patient is admitted to ICU - We'll continue supportive care with high flow oxygen - Continue antibiotics as per I's recommendations - Patient is on diuretics as well. - DVT and GI prophylaxis - We'll follow up on the patient Time with Patient: Greater than 30
[2018-06-09] MEDS: ACETAMINOPHEN TAB 325 MG TAB PO PRN (16:43)
[2018-06-09 17:25] LABS: Glucose,Whole Blood 179 mg/dL (75-99)
[2018-06-09] MEDS: EZETIMIBE 10 MG TAB PO SCH (20:03)
[2018-06-09] MEDS: traZODone HCL 50 MG TAB PO SCH (20:05)
[2018-06-09] MEDS: LISINOPRIL 10 MG TAB PO SCH (20:05)
[2018-06-09] MEDS: MELATONIN 5 MG TABLET PO SCH (20:05)
[2018-06-09 20:33] LABS: Glucose,Whole Blood 271 mg/dL (75-99)
[2018-06-09] MEDS: INSULIN DETEMIR (LEVEMIR) 100 UNIT/ML SYR SQ SCH (21:05)
[2018-06-09] MEDS: ZOLPIDEM 5 MG TAB PO PRN (21:05)
[2018-06-10] MEDS: LEVOTHYROXINE 100 MCG TAB PO SCH (05:31)
[2018-06-10] MEDS: MORPHINE SULFATE IR 15 MG TABLET PO PRN ×3 (05:31→16:58)
[2018-06-10] MEDS: methylPREDNISolone SOD SUCCI 125 MG/2 ML VIAL IV SCH ×4 (05:32→23:58)
[2018-06-10] MEDS: IPRATROPIUM-ALBUTEROL 3 ML NEB INHALATION SCH ×4 (07:09→19:17)
[2018-06-10 07:19] LABS: Glucose,Whole Blood 148 mg/dL (75-99)
[2018-06-10 07:42] LABS: Basophils % (A) 0 %; Eosinophils # (A) 0.1 k/uL (0-0.7); Eosinophils % (A) 1 %; HCT 43.4 % (34.0-46.0); HGB 13.3 gm/dL (11.4-16.0); Lymphocytes # (A) 0.6 k/uL (1.0-4.8); Lymphocytes % (A) 4 %; MCH 26.2 pg (25.0-35.0); MCHC 30.7 g/dL (31.0-37.0); MCV 85.4 fL (80.0-100.0); Monocytes # (A) 0.9 k/uL (0-1.0); Monocytes % (A) 6 %; Neutrophils # (A) 12.9 k/uL (1.3-7.7); Neutrophils % (A) 88 %; Platelet Count 515 k/uL (150-450); RBC 5.08 m/uL (3.80-5.40); RDW 14.5 % (11.5-15.5); WBC 14.6 k/uL (3.8-10.6)
[2018-06-10 07:46] LABS: Anion Gap 8 mmol/L; Blood Urea Nitrogen 25 mg/dL (7-17); Calcium 9.7 mg/dL (8.4-10.2); Carbon Dioxide 33 mmol/L (22-30); Chloride 92 mmol/L (98-107); Glucose 156 mg/dL (74-99); Magnesium 1.8 mg/dL (1.6-2.3); Potassium 5.1 mmol/L (3.5-5.1); Sodium 133 mmol/L (137-145)
[2018-06-10] MEDS: metFORMIN 500 MG TAB PO SCH ×2 (08:01→16:57)
[2018-06-10] MEDS: CITALOPRAM HYDROBROMIDE 20 MG TAB PO SCH ×2 (08:01→21:30)
[2018-06-10] MEDS: METOPROLOL TARTRATE 25 MG TAB PO SCH ×2 (08:01→21:29)
[2018-06-10] MEDS: MORPHINE SULFATE ER 60 MG TABLET PO SCH ×2 (08:02→21:28)
[2018-06-10] MEDS: CALCIUM CARBONATE 500 MG CHEWABLE PO SCH (08:02)
[2018-06-10] MEDS: DOCUSATE 100 MG CAP PO SCH ×3 (08:02→21:31)
[2018-06-10] MEDS: FENOFIBRATE 160 MG TAB PO SCH (08:03)
[2018-06-10] MEDS: busPIRone HCl 10 MG TAB PO SCH ×2 (08:03→21:32)
[2018-06-10] MEDS: SPIRONOLACTONE 25 MG TAB PO SCH (08:03)
[2018-06-10] MEDS: CHOLECALCIFEROL 1,000 UNIT TAB PO SCH (08:04)
[2018-06-10] MEDS: FLUCONAZOLE 100 MG TAB PO SCH (08:05)
[2018-06-10] MEDS: LEVOFLOXACIN 750 MG TAB PO SCH (08:05)
[2018-06-10] MEDS: ANASTROZOLE 1 MG TAB PO SCH (08:06)
[2018-06-10] MEDS: NON-FORMULARY DRUG (Biotin [Biotin] 5,000 MCG) PO SCH (08:06)
[2018-06-10] MEDS: ZYRTEC 10MG PO SCH (08:07)
[2018-06-10] MEDS: PANTOPRAZOLE 40 MG TABLET PO SCH (08:09)
[2018-06-10] MEDS: FLUTICASONE 50MCG/SPRAY NASAL 16GM EA NOSTRIL SCH (08:10)
[2018-06-10] MEDS: FUROSEMIDE 10 MG/ML 2 ML VIAL IV SCH (08:11)
[2018-06-10] MEDS: ENOXAPARIN 100 MG/ML SYRINGE SQ SCH ×2 (08:11→21:33)
[2018-06-10] MEDS: CEFEPIME 2 GM in SODIUM CHLORIDE 0.9% 100 ML IVPB SCH ×2 (08:12→21:30)
[2018-06-10] MEDS: INSULIN ASPART (NovoLOG) 100 UNIT/ML VIAL SQ SCH ×7 (08:13→21:27)
--- NOTE | 2018-06-10 08:46 | XR ---
EXAMINATION TYPE: XR chest 1V portable DATE OF EXAM: 06/10/2018 Comparison: 06/09/2018 Clinical History: 68-year-old female interstitial airspace disease Findings: Partial visualization of the bilateral shoulder opacities. ACDF hardware. Heart upper limits of edwin l in size. Diffuse bilateral interstitial infiltrates persist more confluent in the lung bases. Impression: Persistent diffuse bilateral interstitial infiltrates more confluent in the lung bases.
--- NOTE | 2018-06-10 10:16 | P.PN ---
Subjective Patient admitted for respiratory failure secondary to our to pneumonia 06/09 She is still on high flow oxygen. She said that she feels slightly better than before but still short of breath. She still coughing. No fever no chills, no chest pain racing heart 06/10 Patient still on high flow oxygen. Still short of breath No fevers no chills, no chest pain racing heart. Objective - Vital Signs Vital signs: Vital Signs Temp 97.8 F 06/10/18 08:00 Pulse 67 06/10/18 09:00 Resp 11 L 06/10/18 09:00 BP 106/78 06/10/18 09:00 Pulse Ox 93 L 06/10/18 09:00 Intake & Output 06/09/18 06/10/18 06/10/18 18:59 06:59 18:59 Intake Total 210 870 210 Output Total 3775 3650 150 Balance -6035 -8652 60 Weight 96.3 kg 96.3 kg Intake: IV 210 120 210 Cefepime 2 gm In Sodium 100 100 Chloride 0.9% 100 ml @ 200 mls/hr IVPB Q12HR [facility] Rx#:[id number] kvo 110 120 110 Intake, IV Titration 100 Amount Cefepime 2 gm In Sodium 100 Chloride 0.9% 100 ml @ 200 mls/hr IVPB Q12HR [facility] Rx#:[id number] Oral 650 Output: Urine 3775 3650 150 Other: Voiding Method Indwelling Catheter Indwelling Catheter - Exam On exam, alert and oriented x3. HEENT: Conjunctivae normal. eyes normal. NECK: No JVD. No thyroid enlargement. No LNs CARDIOVASCULAR: S1, S2 positive RESPIRATION: Crackles appreciated the basis ABDOMEN: Soft, nontender . No guarding. no masses palpable. No ascites, No hepatosplenomegaly.Bowel sounds heard. LEGS: No edema. no swelling NERVOUS SYSTEM: Cranial N 2-12 grossly normal. Moves all 4 limbs. No focal deficits. No sensory deficit. No signs of cerebellar dysfucntion. Skin: no ulcer no rash - Labs CBC & Chem 7: 06/10/18 07:15 06/10/18 07:15 Labs: Abnormal Lab Results - Last 24 Hours (Table) 06/09/18 06/09/18 06/09/18 Range/Units 11:48 17:13 20:21 WBC (3.8-10.6) k/uL MCHC (31.0-37.0) g/dL Plt Count (150-450) k/uL Neutrophils # (1.3-7.7) k/uL Lymphocytes # (1.0-4.8) k/uL Sodium (137-145) mmol/L Chloride (98-107) mmol/L Carbon Dioxide (22-30) mmol/L BUN (7-17) mg/dL Glucose (74-99) mg/dL POC Glucose (mg/dL) 180 H 179 H 271 H (75-99) mg/dL 06/10/18 06/10/18 06/10/18 Range/Units 07:07 07:15 07:15 WBC 14.6 H (3.8-10.6) k/uL MCHC 30.7 L (31.0-37.0) g/dL Plt Count 515 H (150-450) k/uL Neutrophils # 12.9 H (1.3-7.7) k/uL Lymphocytes # 0.6 L (1.0-4.8) k/uL Sodium 133 L (137-145) mmol/L Chloride 92 L (98-107) mmol/L Carbon Dioxide 33 H (22-30) mmol/L BUN 25 H (7-17) mg/dL Glucose 156 H (74-99) mg/dL POC Glucose (mg/dL) 148 H (75-99) mg/dL Assessment and Plan Assessment: - Acute respiratory failure secondary to pneumonia and arts - Pneumonia - ARDS - History of sarcoidosis - History of diabetes - History of A. fib - History of hypertension - History of hypothyroidism - History of DVT and PE Plan - Patient is admitted to ICU -Continue care with high flow oxygen - Continue antibiotics as per IDs recommendations -Continue diuretics - We'll follow up on the patient Time with Patient: Greater than 30
--- NOTE | 2018-06-10 10:36 | P.PN ---
Subjective Progress Note Date: 06/10/18 Principal diagnosis: Acute hypoxic respiratory failure secondary to pneumonia and ARDS. This is a 67-year-old white female patient who was received as a transfer from [facility] on 05/28/2018. Patient had presented with complaints of chest congestion, cough, wheezing, shortness of breath and occasional phlegm production. Influenza screen and CT angiogram were completed at the [facility], and they were negative for influenza A and pulmonary embolism. Patient did have multiple pulmonary nodules that could relate to her underlying sarcoidosis. In addition she has some groundglass opacities at the lower lobes possibly consistent with pneumonia. We did obtain a chest x-ray at this hospital yesterday, which showed cardiomegaly with multifocal bilateral alveolar and interstitial edema and/or infiltrates. Possible developing ARDS. She lab work showed a white blood cell count of 3.6, hemoglobin 13.3, d-dimer was slightly elevated at 1.05, but CT angios was negative for any evidence of PE, renal profile and electrolytes were within normal limits, proBNP was within normal limits at 467, troponin was negative, urinalysis was negative for any sign of infection. Patient's medical history significant for atrial fibrillation on anticoagulation in the form of Coumadin, history of DVT/PE, diabetes mellitus type 2, history of CVA and TIA and hypertension, hypothyroidism. The patient was given IV lasix, and she has significantly diuresed, she is in -3560 mL fluid balance in last 24 hours, in her breathing had worsened, along with her oxygenation, and patient had to be placed on BiPAP support. On today's exam patient is seen on BiPAP support with pressures of 12 and 5, 80%, and her pulse ox is 94%, she is quite tachypneic, lung sounds are positive for diffuse crackles, and rhonchi, patient appears to be in mild to moderate amount of distress, and for that reason patient will be removed down to the intensive care unit, today's chest x-ray has been reviewed, showed persistence of bladder pulmonary edema, and airspace disease bilaterally, likely related to underlying pneumonia. Afebrile, hemodynamically stable. Denies any chest pain, wasn't able to produce any sputum for culture. She states she still has the urge to cough, but not able to bring up anything. Antibiotic coverage in the form of Levaquin. 06/07/2018 I'm seeing this patient in follow-up post pneumonia/ARDS. X-ray still showing diffuse breath and pulmonary infiltrates. Infiltrates are essentially stable and unchanged over the past 48 hours. In fact I do not see any improvement or worsening the patient's condition over the past 48 hours. Chest x-ray findings are essentially the same. Oxidation something. She is able to get up and sit up on a bedside recliner. No significant cough or sputum production. She claims that she had a good night sleep yesterday. She remains on IV Solu-Medrol. Antibiotic coverage includes cefepime Levaquin and Diflucan. Fluid balance is -3.9 L over the past 24 hours and the patient is producing adequate amount of urine output. She is receiving Lasix 20 mg IV every 24 hours. White cell count is at 14.5 which is stable. No significant leukocytosis. No fever. She is tolerating diet and is using incentive sp irometer. Reevaluated today on 06/08/2018, patient remains on high flow oxygen, she is actually on airvo with 80% FiO2, 60 L/m, and her O2 saturation remains fairly marginal. However surprisingly the patient remains comfortable, in no distress, and her chest x-ray continues to show diffuse infiltrates bilaterally. Chest x- ray is basically about the same. Patient denies any significant cough, denies any fever or chills, denies any chest pain. Remains on antibiotics in the form of Levaquin and cefepime, she remains on bronchodilators and on Solu-Medrol. Her fluid balance is showing negative balance. Remains on Lasix 20 mg daily. Labs continued to show leukocytosis with WBC of 16.1 hemoglobin is 12.6. Basic metabolic profile is relatively normal. Reevaluated today on 06/09/2018, remains on high fio2, unchanged from yesterday. O2 saturation is marginal mostly in the low 90s. Patient is comfortable, in no distress, however she gets short of breath as soon as her O2 saturation dropped down to the mid 80s. Chest x-ray continues to show bilateral diffuse infiltrates. Slightly improved compared to the last few days. WBC count is 15.7 hemoglobin is 13 electrolytes are normal renal profile is normal. Reevaluated today in the ICU on 06/10/2018, patient is clinically about the same, maybe slightly improved, her oxygen is down to 70%, and her flow rate is at 15 L/m. Her O2 saturation remains in the low 90s. Patient is feeling a bit better, breathing a bit easier, but again her oxygenation remains marginal. Chest x-ray is definitely showing some improvement. Patient denies any chest pain, no fever, no chills, no hemoptysis, she does have intermittent nonproductive cough. All labs were reviewed. Chest x-ray was also reviewed. Objective - Vital Signs Vital signs: Vital Signs Temp 97.8 F 06/10/18 08:00 Pulse 67 06/10/18 09:00 Resp 11 L 06/10/18 09:00 BP 106/78 06/10/18 09:00 Pulse Ox 93 L 06/10/18 09:00 Intake & Output 06/09/18 06/10/18 06/10/18 18:59 06:59 18:59 Intake Total 210 870 210 Output Total 3775 3650 150 Balance -5127 -6100 60 Weight 96.3 kg 96.3 kg Intake: IV 210 120 210 Cefepime 2 gm In Sodium 100 100 Chloride 0.9% 100 ml @ 200 mls/hr IVPB Q12HR [facility] Rx#:[id number] kvo 110 120 110 Intake, IV Titration 100 Amount Cefepime 2 gm In Sodium 100 Chloride 0.9% 100 ml @ 200 mls/hr IVPB Q12HR [facility] Rx#:[id number] Oral 650 Output: Urine 3775 3650 150 Other: Voiding Method Indwelling Catheter Indwelling Catheter - Exam Physical Exam: Revealed a 67-year-old female on high flow oxygen, in no distress. Remains on 70% FiO2. Head: Atraumatic, normocephalic HEENT:[Neck is supple.] [No neck masses.] [No thyromegaly.] [No JVD.] PERRLA, EOMI, no icterus. Moist mucous membranes. Chest: [Minimal Crackles at the bases, no rhonchi no wheezes. Symmetrical chest expansion.] Cardiac Exam: [Normal S1 and S2, no S3 gallop, no murmur.] Abdomen: [Soft, nontender, no megaly, no rebound, no guarding, normal bowel sounds.] Extremities: [No clubbing, no edema, no cyanosis.] Neurological Exam: [No focal neurologic deficit.] Alert and oriented 3 Skin: No rashes. Psychiatric: Normal mood, affect and mental status examination. Lymphatics: No lymphadenopathy. - Labs CBC & Chem 7: 06/10/18 07:15 06/10/18 07:15 Labs: Abnormal Lab Results - Last 24 Hours (Table) 06/09/18 06/09/18 06/09/18 Range/Units 11:48 17:13 20:21 WBC (3.8-10.6) k/uL MCHC (31.0-37.0) g/dL Plt Count (150-450) k/uL Neutrophils # (1.3-7.7) k/uL Lymphocytes # (1.0-4.8) k/uL Sodium (137-145) mmol/L Chloride (98-107) mmol/L Carbon Dioxide (22-30) mmol/L BUN (7-17) mg/dL Glucose (74-99) mg/dL POC Glucose (mg/dL) 180 H 179 H 271 H (75-99) mg/dL 06/10/18 06/10/18 06/10/18 Range/Units 07:07 07:15 07:15 WBC 14.6 H (3.8-10.6) k/uL MCHC 30.7 L (31.0-37.0) g/dL Plt Count 515 H (150-450) k/uL Neutrophils # 12.9 H (1.3-7.7) k/uL Lymphocytes # 0.6 L (1.0-4.8) k/uL Sodium 133 L (137-145) mmol/L Chloride 92 L (98-107) mmol/L Carbon Dioxide 33 H (22-30) mmol/L BUN 25 H (7-17) mg/dL Glucose 156 H (74-99) mg/dL POC Glucose (mg/dL) 148 H (75-99) mg/dL Assessment and Plan Assessment: Impression: 1 acute hypoxic respiratory failure secondary to pneumonia and suspect ARDS. Improving but very slowly. Still requires high FiO2 presently at 70%. 2 history of sarcoidosis 3 type 2 diabetes 4 chronic atrial fibrillation presently in sinus rhythm. 5 hypertension 6 hypothyroidism 7 history of deep vein thromboses and pulmonary embolism 8 hyperlipidemia 9 degenerative joint disease and osteoarthritis of multiple joints. 10 GERD without esophagitis. Recommendation: Continue high flow oxygen, bronchodilators, steroids, diuretics, GI and DVT prophylaxis, nutritional support, patient is eating fine and she is on full regular diet. Continue physical therapy, patient is ambulating in her room, I had a feeling that we could potentially transfer the patient out of the ICU in the next 24 hours to a regular medical floor and will continue to titrate the FiO2 down as tolerated. Keep O2 saturation in the low 90s as much as possible. Prognosis remains guarded, we'll continue to follow. Time with Patient: Less than 30
[2018-06-10] MEDS: LACTULOSE 20 GM/30 ML CUP PO SCH (11:18)
[2018-06-10 12:14] LABS: Glucose,Whole Blood 131 mg/dL (75-99)
[2018-06-10] MEDS: MULTIVITAMINS, THERA 1 EACH TAB PO SCH (12:34)
[2018-06-10 17:14] LABS: Glucose,Whole Blood 208 mg/dL (75-99)
[2018-06-10] MEDS: ACETAMINOPHEN TAB 325 MG TAB PO PRN (19:08)
[2018-06-10 20:35] LABS: Glucose,Whole Blood 267 mg/dL (75-99)
[2018-06-10] MEDS: INSULIN DETEMIR (LEVEMIR) 100 UNIT/ML SYR SQ SCH (21:27)
[2018-06-10] MEDS: BENZOCAINE/MENTHOL LOZENG 1 EACH LOZENGE MUCOUS MEM PRN (21:29)
[2018-06-10] MEDS: LISINOPRIL 10 MG TAB PO SCH (21:31)
[2018-06-10] MEDS: ZOLPIDEM 5 MG TAB PO PRN (21:31)
[2018-06-10] MEDS: traZODone HCL 50 MG TAB PO SCH (21:32)
[2018-06-10] MEDS: MELATONIN 5 MG TABLET PO SCH (21:33)
[2018-06-10] MEDS: EZETIMIBE 10 MG TAB PO SCH (21:33)
[2018-06-10] MEDS: BACLOFEN 10 MG TAB PO PRN (21:39)
[2018-06-11 00:59] LABS: Glucose,Whole Blood 177 mg/dL (75-99)
[2018-06-11] MEDS: MORPHINE SULFATE IR 15 MG TABLET PO PRN ×2 (04:27→15:56)
[2018-06-11 05:40] LABS: Basophils % (A) 0 %; Eosinophils # (A) 0.1 k/uL (0-0.7); Eosinophils % (A) 0 %; HCT 42.8 % (34.0-46.0); HGB 13.4 gm/dL (11.4-16.0); Lymphocytes # (A) 0.6 k/uL (1.0-4.8); Lymphocytes % (A) 4 %; MCH 26.7 pg (25.0-35.0); MCHC 31.4 g/dL (31.0-37.0); MCV 85.3 fL (80.0-100.0); Monocytes % (A) 7 %; Neutrophils # (A) 12.8 k/uL (1.3-7.7); Neutrophils % (A) 87 %; Platelet Count 414 k/uL (150-450); RBC 5.02 m/uL (3.80-5.40); RDW 13.8 % (11.5-15.5); WBC 14.7 k/uL (3.8-10.6)
[2018-06-11 06:15] LABS: Anion Gap 8 mmol/L; Blood Urea Nitrogen 25 mg/dL (7-17); Calcium 9.5 mg/dL (8.4-10.2); Carbon Dioxide 31 mmol/L (22-30); Chloride 92 mmol/L (98-107); Glucose 203 mg/dL (74-99); Magnesium 1.8 mg/dL (1.6-2.3); Phosphorus 3.6 mg/dL (2.5-4.5); Potassium 5.2 mmol/L (3.5-5.1); Sodium 131 mmol/L (137-145)
[2018-06-11] MEDS: methylPREDNISolone SOD SUCCI 125 MG/2 ML VIAL IV SCH ×3 (06:25→23:52)
[2018-06-11] MEDS: LEVOTHYROXINE 100 MCG TAB PO SCH (06:25)
[2018-06-11] MEDS ORDERED: Magnesium Replacement Protocol 1 EACH MISC MISCELLANE PRN (06:31)
[2018-06-11] MEDS: PANTOPRAZOLE 40 MG TABLET PO SCH (06:32)
[2018-06-11] MEDS: metFORMIN 500 MG TAB PO SCH ×2 (07:09→17:29)
[2018-06-11] MEDS: INSULIN ASPART (NovoLOG) 100 UNIT/ML VIAL SQ SCH ×7 (07:10→21:21)
--- NOTE | 2018-06-11 07:10 | XR ---
EXAMINATION TYPE: XR chest 1V portable DATE OF EXAM: 06/11/2018 HISTORY: Shortness of breath. COMPARISON: 06/10/2018 TECHNIQUE: Single view of the chest is submitted. FINDINGS: Demonstrated are scattered senescent parenchymal change. Mixed interstitial and alveolar infiltrates persist without significant change. The heart is stable. Hilar and mediastinal structures are within normal limits. Degenerative changes are seen of the dorsal spine. IMPRESSION: 1. Mixed interstitial and alveolar infiltrates persist without significant change. Continued follow- up advised.
[2018-06-11] MEDS: MAGNESIUM SULFATE-D5W PMX 1 GM in DEXTROSE/WATER 1 100ML.BAG IVPB SCH ×2 (07:11→08:43)
[2018-06-11 07:14] LABS: Glucose,Whole Blood 170 mg/dL (75-99)
[2018-06-11] MEDS: IPRATROPIUM-ALBUTEROL 3 ML NEB INHALATION SCH ×4 (07:45→19:48)
[2018-06-11] MEDS: ANASTROZOLE 1 MG TAB PO SCH (08:52)
[2018-06-11] MEDS: CALCIUM CARBONATE 500 MG CHEWABLE PO SCH (08:53)
[2018-06-11] MEDS: busPIRone HCl 10 MG TAB PO SCH ×2 (08:53→20:39)
[2018-06-11] MEDS: NON-FORMULARY DRUG (Biotin [Biotin] 5,000 MCG) PO SCH (08:53)
[2018-06-11] MEDS: CHOLECALCIFEROL 1,000 UNIT TAB PO SCH (08:54)
[2018-06-11] MEDS: DOCUSATE 100 MG CAP PO SCH ×3 (08:54→21:22)
[2018-06-11] MEDS: CITALOPRAM HYDROBROMIDE 20 MG TAB PO SCH ×2 (08:54→20:39)
[2018-06-11] MEDS: FENOFIBRATE 160 MG TAB PO SCH (08:56)
[2018-06-11] MEDS: LEVOFLOXACIN 750 MG TAB PO SCH (08:56)
[2018-06-11] MEDS: FLUCONAZOLE 100 MG TAB PO SCH (08:56)
[2018-06-11] MEDS: LACTULOSE 20 GM/30 ML CUP PO SCH (08:56)
[2018-06-11] MEDS: MORPHINE SULFATE ER 60 MG TABLET PO SCH ×2 (08:57→20:41)
[2018-06-11] MEDS: METOPROLOL TARTRATE 25 MG TAB PO SCH ×2 (08:57→20:42)
[2018-06-11] MEDS: SPIRONOLACTONE 25 MG TAB PO SCH (08:57)
[2018-06-11] MEDS: BACLOFEN 10 MG TAB PO PRN ×2 (09:34→22:11)
[2018-06-11] MEDS: FLUTICASONE 50MCG/SPRAY NASAL 16GM EA NOSTRIL SCH (09:51)
[2018-06-11] MEDS: CEFEPIME 2 GM in SODIUM CHLORIDE 0.9% 100 ML IVPB SCH ×2 (09:51→20:39)
[2018-06-11] MEDS: FUROSEMIDE 10 MG/ML 2 ML VIAL IV SCH (09:51)
[2018-06-11] MEDS: ENOXAPARIN 100 MG/ML SYRINGE SQ SCH ×2 (10:08→21:21)
[2018-06-11] MEDS: ZYRTEC 10MG PO SCH (10:46)
--- NOTE | 2018-06-11 11:46 | P.PN ---
Subjective Progress Note Date: 06/11/18 Principal diagnosis: Acute hypoxic respiratory failure secondary to pneumonia and ARDS. This is a 67-year-old white female patient who was received as a transfer from [facility] on 05/28/2018. Patient had presented with complaints of chest congestion, cough, wheezing, shortness of breath and occasional phlegm production. Influenza screen and CT angiogram were completed at the [facility], and they were negative for influenza A and pulmonary embolism. Patient did have multiple pulmonary nodules that could relate to her underlying sarcoidosis. In addition she has some groundglass opacities at the lower lobes possibly consistent with pneumonia. We did obtain a chest x-ray at this hospital yesterday, which showed cardiomegaly with multifocal bilateral alveolar and interstitial edema and/or infiltrates. Possible developing ARDS. She lab work showed a white blood cell count of 3.6, hemoglobin 13.3, d-dimer was slightly elevated at 1.05, but CT angios was negative for any evidence of PE, renal profile and electrolytes were within normal limits, proBNP was within normal limits at 467, troponin was negative, urinalysis was negative for any sign of infection. Patient's medical history significant for atrial fibrillation on anticoagulation in the form of Coumadin, history of DVT/PE, diabetes mellitus type 2, history of CVA and TIA and hypertension, hypothyroidism. The patient was given IV lasix, and she has significantly diuresed, she is in -3560 mL fluid balance in last 24 hours, in her breathing had worsened, along with her oxygenation, and patient had to be placed on BiPAP support. On today's exam patient is seen on BiPAP support with pressures of 12 and 5, 80%, and her pulse ox is 94%, she is quite tachypneic, lung sounds are positive for diffuse crackles, and rhonchi, patient appears to be in mild to moderate amount of distress, and for that reason patient will be removed down to the intensive care unit, today's chest x-ray has been reviewed, showed persistence of bladder pulmonary edema, and airspace disease bilaterally, likely related to underlying pneumonia. Afebrile, hemodynamically stable. Denies any chest pain, wasn't able to produce any sputum for culture. She states she still has the urge to cough, but not able to bring up anything. Antibiotic coverage in the form of Levaquin. 06/07/2018 I'm seeing this patient in follow-up post pneumonia/ARDS. X-ray still showing diffuse breath and pulmonary infiltrates. Infiltrates are essentially stable and unchanged over the past 48 hours. In fact I do not see any improvement or worsening the patient's condition over the past 48 hours. Chest x-ray findings are essentially the same. Oxidation something. She is able to get up and sit up on a bedside recliner. No significant cough or sputum production. She claims that she had a good night sleep yesterday. She remains on IV Solu-Medrol. Antibiotic coverage includes cefepime Levaquin and Diflucan. Fluid balance is -3.9 L over the past 24 hours and the patient is producing adequate amount of urine output. She is receiving Lasix 20 mg IV every 24 hours. White cell count is at 14.5 which is stable. No significant leukocytosis. No fever. She is tolerating diet and is using incentive sp irometer. Reevaluated today on 06/08/2018, patient remains on high flow oxygen, she is actually on airvo with 80% FiO2, 60 L/m, and her O2 saturation remains fairly marginal. However surprisingly the patient remains comfortable, in no distress, and her chest x-ray continues to show diffuse infiltrates bilaterally. Chest x- ray is basically about the same. Patient denies any significant cough, denies any fever or chills, denies any chest pain. Remains on antibiotics in the form of Levaquin and cefepime, she remains on bronchodilators and on Solu-Medrol. Her fluid balance is showing negative balance. Remains on Lasix 20 mg daily. Labs continued to show leukocytosis with WBC of 16.1 hemoglobin is 12.6. Basic metabolic profile is relatively normal. Reevaluated today on 06/09/2018, remains on high fio2, unchanged from yesterday. O2 saturation is marginal mostly in the low 90s. Patient is comfortable, in no distress, however she gets short of breath as soon as her O2 saturation dropped down to the mid 80s. Chest x-ray continues to show bilateral diffuse infiltrates. Slightly improved compared to the last few days. WBC count is 15.7 hemoglobin is 13 electrolytes are normal renal profile is normal. Reevaluated today in the ICU on 06/10/2018, patient is clinically about the same, maybe slightly improved, her oxygen is down to 70%, and her flow rate is at 15 L/m. Her O2 saturation remains in the low 90s. Patient is feeling a bit better, breathing a bit easier, but again her oxygenation remains marginal. Chest x-ray is definitely showing some improvement. Patient denies any chest pain, no fever, no chills, no hemoptysis, she does have intermittent nonproductive cough. All labs were reviewed. Chest x-ray was also reviewed. Patient was reevaluated today in the ICU on 06/11/2018, getting better, but slowly. Her FiO2 is down to 45%, and her flow is at 45 L/m. O2 saturation remains marginal in the low 90s. Patient is feeling better compared to the last few days. Remains on airvo. Her chest x-ray is showing improvement. But minimal and slow. Labs today showed relatively normal CBC is relatively normal basic metabolic profile. Blood sugar is 170. Patient remains on bronchodilators, antibiotics, and steroids. She is also on Lovenox for history of pulmonary embolism. Today I reviewed all her meds, and cut down on her Aldactone to 25 mg daily, switch her IV Lasix to 20 mg by mouth Lasix, change her Solu-Medrol to 60 mg IV push every 8 hours incentive every 6. And I would make arrangements for the patient to be transferred out of the ICU to a regular medical floor, in the meantime she is not ready to be discharged home, she remains on relatively high FiO2. Objective - Vital Signs Vital signs: Vital Signs Temp 98.1 F 06/11/18 08:00 Pulse 63 06/11/18 11:33 Resp 18 06/11/18 10:00 BP 113/66 06/11/18 10:00 Pulse Ox 92 L 06/11/18 10:00 Intake & Output 06/10/18 06/11/18 06/11/18 18:59 06:59 18:59 Intake Total 310 1642 660 Output Total 3051 3090 878 Balance -2740 -2183 -215 Weight 93.4 kg Intake: IV 310 220 410 Cefepime 2 gm In Sodium 100 100 Chloride 0.9% 100 ml @ 200 mls/hr IVPB Q12HR [facility] Rx#:[id number] Cefepime 2 gm In Sodium 200 Chloride 0.9% 100 ml @ 200 mls/hr IVPB Q12HR [facility] Rx#:[id number] Magnesium Sulfate-D5w Pmx 200 1 gm In Dextrose/Water 1 100ml.bag @ 100 mls/hr IVPB Q1H [facility] Rx#: [id number] kvo 210 120 10 Oral 1422 250 Output: Urine 3050 3825 875 Other: Voiding Method Indwelling Catheter Indwelling Catheter Indwelling Catheter - Exam Physical Exam: Revealed a 67-year-old female on high flow oxygen, in no distress. On 45% FiO2 per Head: Atraumatic, normocephalic HEENT:[Neck is supple.] [No neck masses.] [No thyromegaly.] [No JVD.] PERRLA, EOMI, no icterus. Moist mucous membranes. Chest: [Minimal Crackles at the bases, no rhonchi no wheezes. Symmetrical chest expansion.] Cardiac Exam: [Normal S1 and S2, no S3 gallop, no murmur.] Abdomen: [Soft, nontender, no megaly, no rebound, no guarding, normal bowel sounds.] Extremities: [No clubbing, no edema, no cyanosis.] Neurological Exam: [No focal neurologic deficit.] Alert and oriented 3 Skin: No rashes. Psychiatric: Normal mood, affect and mental status examination. Lymphatics: No lymphadenopathy. - Labs CBC & Chem 7: 06/11/18 04:50 06/11/18 04:50 Labs: Abnormal Lab Results - Last 24 Hours (Table) 06/10/18 06/10/18 06/10/18 Range/Units 12:02 17:01 20:24 WBC (3.8-10.6) k/uL Neutrophils # (1.3-7.7) k/uL Lymphocytes # (1.0-4.8) k/uL Sodium (137-145) mmol/L Potassium (3.5-5.1) mmol/L Chloride (98-107) mmol/L Carbon Dioxide (22-30) mmol/L BUN (7-17) mg/dL Glucose (74-99) mg/dL POC Glucose (mg/dL) 131 H 208 H 267 H (75-99) mg/dL 06/11/18 06/11/18 06/11/18 Range/Units 00:48 04:50 04:50 WBC 14.7 H (3.8-10.6) k/uL Neutrophils # 12.8 H (1.3-7.7) k/uL Lymphocytes # 0.6 L (1.0-4.8) k/uL Sodium 131 L (137-145) mmol/L Potassium 5.2 H (3.5-5.1) mmol/L Chloride 92 L (98-107) mmol/L Carbon Dioxide 31 H (22-30) mmol/L BUN 25 H (7-17) mg/dL Glucose 203 H (74-99) mg/dL POC Glucose (mg/dL) 177 H (75-99) mg/dL 06/11/18 Range/Units 07:02 WBC (3.8-10.6) k/uL Neutrophils # (1.3-7.7) k/uL Lymphocytes # (1.0-4.8) k/uL Sodium (137-145) mmol/L Potassium (3.5-5.1) mmol/L Chloride (98-107) mmol/L Carbon Dioxide (22-30) mmol/L BUN (7-17) mg/dL Glucose (74-99) mg/dL POC Glucose (mg/dL) 170 H (75-99) mg/dL Assessment and Plan Assessment: Impression: 1 acute hypoxic respiratory failure secondary to pneumonia complicated by ARDS. 2 history of sarcoidosis, inactive. 3 type 2 diabetes 4 chronic atrial fibrillation presently in sinus rhythm. 5 hypertension 6 hypothyroidism 7 history of deep vein thromboses and pulmonary embolism 8 hyperlipidemia 9 degenerative joint disease and osteoarthritis of multiple joints. 10 GERD without esophagitis. Recommendation: We'll arrange for the patient to be transferred out of the ICU to a regular medical floor, will change IV Lasix to by mouth Lasix, cut down Aldactone to 25 mg daily instead of 75 mg daily, continue the rest of the medications as listed. Continue physical therapy, ambulate as much as possible, titrate FiO2 down as tolerated, continue antibiotics and steroids, continue bronchodilators, incentive spirometry, and will continue to follow. Time with Patient: Less than 30
[2018-06-11 12:01] LABS: Glucose,Whole Blood 122 mg/dL (75-99)
[2018-06-11] MEDS: MULTIVITAMINS, THERA 1 EACH TAB PO SCH (12:18)
[2018-06-11 17:03] LABS: Glucose,Whole Blood 169 mg/dL (75-99)
--- NOTE | 2018-06-11 18:17 | P.PN ---
Subjective Patient is a 67-year-old female with a known history of atrial fibrillation on anticoagulation, history of DVT/PE, diabetes type 2, history of CVA/TIA and hypertension, hypothyroidism . Presents with acute dyspneafound to have multifocal pneumonia and acute hypoxic respiratory failure, progressing to possible ARDS.currently she is saturating 92% on high flow cannula with FiO2 50%. She is lying in bed or a flight of chair, comfortable. Mildly tachypneic and her breathing is not labored. She can't talk in full sentences. Denies chest pain. No change in urine or bowel habits.no fever. Stress of Vitas looks stable. WBC is 14.7 K. Sodium 131, potassium 5.2. Creatinine normal at 0.5. The sugar controlled. Patient is been followed closely by pulmonary team in the ICU. Objective - Vital Signs Vital signs: Vital Signs Temp 97.4 F L 06/11/18 12:00 Pulse 77 06/11/18 18:00 Resp 11 L 06/11/18 18:00 BP 119/71 06/11/18 18:00 Pulse Ox 92 L 06/11/18 18:00 Intake & Output 06/10/18 06/11/18 06/11/18 18:59 06:59 18:59 Intake Total 310 1642 1210 Output Total 3050 3825 3210 Balance -6414 -797 Weight 93.4 kg Intake: IV 310 220 460 Cefepime 2 gm In Sodium 100 100 Chloride 0.9% 100 ml @ 200 mls/hr IVPB Q12HR [facility] Rx#:[id number] Cefepime 2 gm In Sodium 200 Chloride 0.9% 100 ml @ 200 mls/hr IVPB Q12HR [facility] Rx#:[id number] Magnesium Sulfate-D5w Pmx 200 1 gm In Dextrose/Water 1 100ml.bag @ 100 mls/hr IVPB Q1H [facility] Rx#: [id number] kvo 210 120 60 Oral 1422 750 Output: Urine 3050 3825 3210 Other: Voiding Method Indwelling Catheter Indwelling Catheter Indwelling Catheter - Exam GENERAL: The patient is alert and oriented x3, not in any acute distress. Well developed, well nourished. HEENT: Pupils are round and equally reacting to light. EOMI. No scleral icterus. No conjunctival pallor. Normocephalic, atraumatic. No pharyngeal erythema. No thyromegaly. CARDIOVASCULAR: S1 and S2 present. No murmurs, rubs, or gallops. -PULMONARY: Chest is clear to auscultation, bilateral scattered wheezing and crackles. ABDOMEN: Soft, nontender, nondistended, normoactive bowel sounds. No palpable organomegaly. MUSCULOSKELETAL: No joint swelling or deformity. EXTREMITIES: No cyanosis, clubbing, or pedal edema. NEUROLOGICAL: Gross neurological examination did not reveal any focal deficits. SKIN: No rashes. - Labs CBC & Chem 7: 06/11/18 04:50 06/11/18 04:50 Labs: Abnormal Lab Results - Last 24 Hours (Table) 06/10/18 06/11/18 06/11/18 Range/Units 20:24 00:48 04:50 WBC 14.7 H (3.8-10.6) k/uL Neutrophils # 12.8 H (1.3-7.7) k/uL Lymphocytes # 0.6 L (1.0-4.8) k/uL Sodium (137-145) mmol/L Potassium (3.5-5.1) mmol/L Chloride (98-107) mmol/L Carbon Dioxide (22-30) mmol/L BUN (7-17) mg/dL Glucose (74-99) mg/dL POC Glucose (mg/dL) 267 H 177 H (75-99) mg/dL 06/11/18 06/11/18 06/11/18 Range/Units 04:50 07:02 11:49 WBC (3.8-10.6) k/uL Neutrophils # (1.3-7.7) k/uL Lymphocytes # (1.0-4.8) k/uL Sodium 131 L (137-145) mmol/L Potassium 5.2 H (3.5-5.1) mmol/L Chloride 92 L (98-107) mmol/L Carbon Dioxide 31 H (22-30) mmol/L BUN 25 H (7-17) mg/dL Glucose 203 H (74-99) mg/dL POC Glucose (mg/dL) 170 H 122 H (75-99) mg/dL 06/11/18 Range/Units 16:51 WBC (3.8-10.6) k/uL Neutrophils # (1.3-7.7) k/uL Lymphocytes # (1.0-4.8) k/uL Sodium (137-145) mmol/L Potassium (3.5-5.1) mmol/L Chloride (98-107) mmol/L Carbon Dioxide (22-30) mmol/L BUN (7-17) mg/dL Glucose (74-99) mg/dL POC Glucose (mg/dL) 169 H (75-99) mg/dL Assessment and Plan Assessment: Acute hypoxic respiratory failure secondary to pneumonia with pulmonary interstitial edema/ARDS.improving Multifocal pneumonia with sepsis. Improving Chronic atrial fibrillation on anticoagulation with Coumadin Right lower extremity DVT. On anticoagulation Asthma History of breast cancer status post surgery and chemotherapy Migraine headaches Degenerative disc disease and chronic back pain and cervical pain Left leg sciatic pain Hypothyroidism History of CVA/TIA with no residual weakness GERD Hypertension Hyperlipidemia Osteoarthritis of multiple joints Plan: this is a pleasant 68 years old female presents with pneumonia and ARDS. Pulmonary team R following the case closely. Continue with antibiotic.continue with anticoagulation.continue with the steroid therapy. .Labs and medication were reviewed.. Continue same treatment. Continue with symptomatic treatment. Resume home medication. Monitor lytes and vitals. DVT and GI prophylaxis. Further recommendations of the clinical course of the patient DVT prophylaxis: Lovenox GI Prophylaxis: Protonix Prognosis is guarded
[2018-06-11 20:40] LABS: Glucose,Whole Blood 263 mg/dL (75-99)
[2018-06-11] MEDS: LISINOPRIL 10 MG TAB PO SCH (20:40)
[2018-06-11] MEDS: EZETIMIBE 10 MG TAB PO SCH (20:40)
[2018-06-11] MEDS: MELATONIN 5 MG TABLET PO SCH (20:41)
[2018-06-11] MEDS: traZODone HCL 50 MG TAB PO SCH (20:41)
[2018-06-11] MEDS: INSULIN DETEMIR (LEVEMIR) 100 UNIT/ML SYR SQ SCH (21:21)
[2018-06-11 21:29] LABS: Glucose,Whole Blood 251 mg/dL (75-99)
[2018-06-12 05:02] LABS: Basophils % (A) 0 %; Eosinophils # (A) 0.1 k/uL (0-0.7); Eosinophils % (A) 1 %; HGB 13.4 gm/dL (11.4-16.0); Lymphocytes # (A) 0.7 k/uL (1.0-4.8); Lymphocytes % (A) 5 %; MCH 27.2 pg (25.0-35.0); MCHC 32.7 g/dL (31.0-37.0); Mean Platelet Volume 6.7; Monocytes # (A) 0.9 k/uL (0-1.0); Monocytes % (A) 6 %; Neutrophils # (A) 12.3 k/uL (1.3-7.7); Neutrophils % (A) 87 %; Platelet Count 403 k/uL (150-450); RBC 4.94 m/uL (3.80-5.40); RDW 13.6 % (11.5-15.5); WBC 14.2 k/uL (3.8-10.6)
[2018-06-12 05:18] LABS: Anion Gap 8 mmol/L; Blood Urea Nitrogen 27 mg/dL (7-17); Calcium 9.6 mg/dL (8.4-10.2); Carbon Dioxide 30 mmol/L (22-30); Chloride 91 mmol/L (98-107); Glucose 215 mg/dL (74-99); Magnesium 1.9 mg/dL (1.6-2.3); Potassium 5.6 mmol/L (3.5-5.1); Sodium 129 mmol/L (137-145)
[2018-06-12] MEDS: LEVOTHYROXINE 100 MCG TAB PO SCH (07:09)
[2018-06-12] MEDS: metFORMIN 500 MG TAB PO SCH ×2 (07:09→17:21)
[2018-06-12] MEDS: INSULIN ASPART (NovoLOG) 100 UNIT/ML VIAL SQ SCH ×7 (07:09→21:04)
[2018-06-12] MEDS: PANTOPRAZOLE 40 MG TABLET PO SCH (07:09)
[2018-06-12] MEDS: IPRATROPIUM-ALBUTEROL 3 ML NEB INHALATION SCH ×4 (07:16→20:27)
[2018-06-12 07:17] LABS: Glucose,Whole Blood 183 mg/dL (75-99)
[2018-06-12] MEDS: methylPREDNISolone SOD SUCCI 125 MG/2 ML VIAL IV SCH ×3 (08:01→23:47)
[2018-06-12] MEDS: NON-FORMULARY DRUG (Biotin [Biotin] 5,000 MCG) PO SCH (08:03)
[2018-06-12] MEDS: busPIRone HCl 10 MG TAB PO SCH ×2 (08:03→20:10)
[2018-06-12] MEDS: CALCIUM CARBONATE 500 MG CHEWABLE PO SCH (08:04)
[2018-06-12] MEDS: CHOLECALCIFEROL 1,000 UNIT TAB PO SCH (08:04)
[2018-06-12] MEDS: ZYRTEC 10MG PO SCH (08:04)
[2018-06-12] MEDS: CITALOPRAM HYDROBROMIDE 20 MG TAB PO SCH ×2 (08:05→20:11)
[2018-06-12] MEDS: FENOFIBRATE 160 MG TAB PO SCH (08:06)
[2018-06-12] MEDS: FLUCONAZOLE 100 MG TAB PO SCH (08:06)
[2018-06-12] MEDS: DOCUSATE 100 MG CAP PO SCH ×3 (08:06→20:12)
[2018-06-12] MEDS: LACTULOSE 20 GM/30 ML CUP PO SCH (08:07)
[2018-06-12] MEDS: FLUTICASONE 50MCG/SPRAY NASAL 16GM EA NOSTRIL SCH (08:07)
[2018-06-12] MEDS: FUROSEMIDE 20 MG TAB PO SCH (08:07)
[2018-06-12] MEDS: METOPROLOL TARTRATE 25 MG TAB PO SCH ×2 (08:08→20:11)
[2018-06-12] MEDS: MORPHINE SULFATE ER 60 MG TABLET PO SCH ×2 (08:08→20:11)
--- NOTE | 2018-06-12 09:00 | XR ---
EXAMINATION TYPE: XR chest 1V portable DATE OF EXAM: 06/12/2018 COMPARISON: 06/11/2018 HISTORY: Shortness of breath TECHNIQUE: Single frontal view of the chest is obtained. FINDINGS: There is redemonstration of multifocal alveolar and interstitial opacities throughout. The re appears to be sutures along the right lower lung horizontally oriented. Cardiomediastinal silhouet te is again upper limits of normal. Postoperative changes of the glenohumeral joints are seen. IMPRESSION: Unchanged multifocal alveolar and interstitial airspace disease that may represent multi focal pneumonia or pulmonary edema.
[2018-06-12] MEDS: SPIRONOLACTONE 25 MG TAB PO SCH (09:48)
[2018-06-12] MEDS: CEFEPIME 2 GM in SODIUM CHLORIDE 0.9% 100 ML IVPB SCH ×2 (09:52→20:22)
[2018-06-12] MEDS: LEVOFLOXACIN 750 MG TAB PO SCH (09:53)
[2018-06-12] MEDS: ENOXAPARIN 100 MG/ML SYRINGE SQ SCH ×2 (09:53→20:23)
[2018-06-12] MEDS: BACLOFEN 10 MG TAB PO PRN ×2 (10:16→20:12)
--- NOTE | 2018-06-12 11:48 | P.PN ---
Subjective Progress Note Date: 06/12/18 Principal diagnosis: Acute hypoxic respiratory failure secondary to pneumonia and ARDS. This is a 67-year-old white female patient who was received as a transfer from [facility] on 05/28/2018. Patient had presented with complaints of chest congestion, cough, wheezing, shortness of breath and occasional phlegm production. Influenza screen and CT angiogram were completed at the [facility], and they were negative for influenza A and pulmonary embolism. Patient did have multiple pulmonary nodules that could relate to her underlying sarcoidosis. In addition she has some groundglass opacities at the lower lobes possibly consistent with pneumonia. We did obtain a chest x-ray at this hospital yesterday, which showed cardiomegaly with multifocal bilateral alveolar and interstitial edema and/or infiltrates. Possible developing ARDS. She lab work showed a white blood cell count of 3.6, hemoglobin 13.3, d-dimer was slightly elevated at 1.05, but CT angios was negative for any evidence of PE, renal profile and electrolytes were within normal limits, proBNP was within normal limits at 467, troponin was negative, urinalysis was negative for any sign of infection. Patient's medical history significant for atrial fibrillation on anticoagulation in the form of Coumadin, history of DVT/PE, diabetes mellitus type 2, history of CVA and TIA and hypertension, hypothyroidism. The patient was given IV lasix, and she has significantly diuresed, she is in -3560 mL fluid balance in last 24 hours, in her breathing had worsened, along with her oxygenation, and patient had to be placed on BiPAP support. On today's exam patient is seen on BiPAP support with pressures of 12 and 5, 80%, and her pulse ox is 94%, she is quite tachypneic, lung sounds are positive for diffuse crackles, and rhonchi, patient appears to be in mild to moderate amount of distress, and for that reason patient will be removed down to the intensive care unit, today's chest x-ray has been reviewed, showed persistence of bladder pulmonary edema, and airspace disease bilaterally, likely related to underlying pneumonia. Afebrile, hemodynamically stable. Denies any chest pain, wasn't able to produce any sputum for culture. She states she still has the urge to cough, but not able to bring up anything. Antibiotic coverage in the form of Levaquin. 06/07/2018 I'm seeing this patient in follow-up post pneumonia/ARDS. X-ray still showing diffuse breath and pulmonary infiltrates. Infiltrates are essentially stable and unchanged over the past 48 hours. In fact I do not see any improvement or worsening the patient's condition over the past 48 hours. Chest x-ray findings are essentially the same. Oxidation something. She is able to get up and sit up on a bedside recliner. No significant cough or sputum production. She claims that she had a good night sleep yesterday. She remains on IV Solu-Medrol. Antibiotic coverage includes cefepime Levaquin and Diflucan. Fluid balance is -3.9 L over the past 24 hours and the patient is producing adequate amount of urine output. She is receiving Lasix 20 mg IV every 24 hours. White cell count is at 14.5 which is stable. No significant leukocytosis. No fever. She is tolerating diet and is using incentive sp irometer. Reevaluated today on 06/08/2018, patient remains on high flow oxygen, she is actually on airvo with 80% FiO2, 60 L/m, and her O2 saturation remains fairly marginal. However surprisingly the patient remains comfortable, in no distress, and her chest x-ray continues to show diffuse infiltrates bilaterally. Chest x- ray is basically about the same. Patient denies any significant cough, denies any fever or chills, denies any chest pain. Remains on antibiotics in the form of Levaquin and cefepime, she remains on bronchodilators and on Solu-Medrol. Her fluid balance is showing negative balance. Remains on Lasix 20 mg daily. Labs continued to show leukocytosis with WBC of 16.1 hemoglobin is 12.6. Basic metabolic profile is relatively normal. Reevaluated today on 06/09/2018, remains on high fio2, unchanged from yesterday. O2 saturation is marginal mostly in the low 90s. Patient is comfortable, in no distress, however she gets short of breath as soon as her O2 saturation dropped down to the mid 80s. Chest x-ray continues to show bilateral diffuse infiltrates. Slightly improved compared to the last few days. WBC count is 15.7 hemoglobin is 13 electrolytes are normal renal profile is normal. Reevaluated today in the ICU on 06/10/2018, patient is clinically about the same, maybe slightly improved, her oxygen is down to 70%, and her flow rate is at 15 L/m. Her O2 saturation remains in the low 90s. Patient is feeling a bit better, breathing a bit easier, but again her oxygenation remains marginal. Chest x-ray is definitely showing some improvement. Patient denies any chest pain, no fever, no chills, no hemoptysis, she does have intermittent nonproductive cough. All labs were reviewed. Chest x-ray was also reviewed. Patient was reevaluated today in the ICU on 06/11/2018, getting better, but slowly. Her FiO2 is down to 45%, and her flow is at 45 L/m. O2 saturation remains marginal in the low 90s. Patient is feeling better compared to the last few days. Remains on airvo. Her chest x-ray is showing improvement. But minimal and slow. Labs today showed relatively normal CBC is relatively normal basic metabolic profile. Blood sugar is 170. Patient remains on bronchodilators, antibiotics, and steroids. She is also on Lovenox for history of pulmonary embolism. Today I reviewed all her meds, and cut down on her Aldactone to 25 mg daily, switch her IV Lasix to 20 mg by mouth Lasix, change her Solu-Medrol to 60 mg IV push every 8 hours incentive every 6. And I would make arrangements for the patient to be transferred out of the ICU to a regular medical floor, in the meantime she is not ready to be discharged home, she remains on relatively high FiO2. Reevaluated today on 06/12/2018, patient is basically about the same. Remains on a high flow oxygen remains on high FiO2, and we plan to titrate that down and possibly transition the patient to a high flow nasal cannula today. No cough no wheezing no shortness of breath, O2 saturation is marginal.labs were reviewed and her potassium was noted to be a bit high, hence I discontinued Aldactone.her WBC count is 14.2 hemoglobin is 13.4. No major issues overnight, hence I have recommended white we could transfer the patient to a regular medical floor today. Objective - Vital Signs Vital signs: Vital Signs Temp 98.0 F 06/12/18 04:00 Pulse 61 06/12/18 11:00 Resp 10 L 06/12/18 11:00 BP 116/83 06/12/18 11:00 Pulse Ox 93 L 06/12/18 11:00 Intake & Output 06/11/18 06/12/18 06/12/18 18:59 06:59 18:59 Intake Total 1410 180 790 Output Total 3335 2535 2175 Balance -3380 -0635 -7569 Intake: IV 460 80 290 Cefepime 2 gm In Sodium 200 200 Chloride 0.9% 100 ml @ 200 mls/hr IVPB Q12HR [facility] Rx#:[id number] Magnesium Sulfate-D5w Pmx 200 1 gm In Dextrose/Water 1 100ml.bag @ 100 mls/hr IVPB Q1H [facility] Rx#: [id number] kvo 60 80 90 Oral 950 100 500 Output: Urine 3335 2535 2175 Other: Voiding Method Indwelling Catheter Indwelling Catheter Indwelling Catheter - Exam Physical Exam: Revealed a 67-year-old female on high flow oxygen, asymptomatic. Head: Atraumatic, normocephalic HEENT:[Neck is supple.] [No neck masses.] [No thyromegaly.] [No JVD.] PERRLA, EOMI, no icterus. Moist mucous membranes. Chest: [good breath sound bilaterally no crackles or rhonchi or wheezes today.] Cardiac Exam: [Normal S1 and S2, no S3 gallop, no murmur.] Abdomen: [Soft, nontender, no megaly, no rebound, no guarding, normal bowel sounds.] Extremities: [No clubbing, no edema, no cyanosis.] Neurological Exam: [No focal neurologic deficit.] Alert and oriented 3 Skin: No rashes. Psychiatric: Normal mood, affect and mental status examination. Lymphatics: No lymphadenopathy. - Labs CBC & Chem 7: 06/12/18 04:18 06/12/18 04:18 Labs: Abnormal Lab Results - Last 24 Hours (Table) 06/11/18 06/11/18 06/11/18 Range/Units 11:49 16:51 20:29 WBC (3.8-10.6) k/uL Neutrophils # (1.3-7.7) k/uL Lymphocytes # (1.0-4.8) k/uL Sodium (137-145) mmol/L Potassium (3.5-5.1) mmol/L Chloride (98-107) mmol/L BUN (7-17) mg/dL Glucose (74-99) mg/dL POC Glucose (mg/dL) 122 H 169 H 263 H (75-99) mg/dL 06/11/18 06/12/18 06/12/18 Range/Units 21:17 04:18 04:18 WBC 14.2 H (3.8-10.6) k/uL Neutrophils # 12.3 H (1.3-7.7) k/uL Lymphocytes # 0.7 L (1.0-4.8) k/uL Sodium 129 L (137-145) mmol/L Potassium 5.6 H (3.5-5.1) mmol/L Chloride 91 L (98-107) mmol/L BUN 27 H (7-17) mg/dL Glucose 215 H (74-99) mg/dL POC Glucose (mg/dL) 251 H (75-99) mg/dL 06/12/18 Range/Units 07:06 WBC (3.8-10.6) k/uL Neutrophils # (1.3-7.7) k/uL Lymphocytes # (1.0-4.8) k/uL Sodium (137-145) mmol/L Potassium (3.5-5.1) mmol/L Chloride (98-107) mmol/L BUN (7-17) mg/dL Glucose (74-99) mg/dL POC Glucose (mg/dL) 183 H (75-99) mg/dL Assessment and Plan Assessment: Impression: 1 acute hypoxic respiratory failure secondary to pneumonia complicated by ARDS. 2 history of sarcoidosis, inactive. 3 type 2 diabetes 4 chronic atrial fibrillation presently in sinus rhythm. 5 hypertension 6 hypothyroidism 7 history of deep vein thromboses and pulmonary embolism 8 hyperlipidemia 9 degenerative joint disease and osteoarthritis of multiple joints. 10 GERD without esophagitis. Recommendation: continue present treatment plan including antibiotics, steroids, bronchodilators, discontinued Aldactone altogether because of hyperkalemia. Continue to titrate.down as tolerated and keep saturation above 89% may transition the patient today to a high flow nasal cannula. Continue incentive spirometry, ambulation, physical therapy, transfer out of the ICU to a regular medical floor.not quite ready for discharge planning. Still requiring significant amount of FiO2 Time with Patient: Less than 30
[2018-06-12 12:16] LABS: Glucose,Whole Blood 139 mg/dL (75-99)
[2018-06-12] MEDS: MULTIVITAMINS, THERA 1 EACH TAB PO SCH (12:24)
[2018-06-12] MEDS: MORPHINE SULFATE IR 15 MG TABLET PO PRN (14:45)
[2018-06-12 17:22] LABS: Glucose,Whole Blood 127 mg/dL (75-99)
--- NOTE | 2018-06-12 18:20 | P.PN ---
Subjective Patient is a 67-year-old female with a known history of atrial fibrillation on anticoagulation, history of DVT/PE, diabetes type 2, history of CVA/TIA and hypertension, hypothyroidism . Presents with acute dyspneafound to have multifocal pneumonia and acute hypoxic respiratory failure, progressing to possible ARDS.currently she is saturating 92% on high flow cannula with FiO2 50%. She is lying in bed or a flight of chair, comfortable. Mildly tachypneic and her breathing is not labored. She can't talk in full sentences. Denies chest pain. No change in urine or bowel habits.no fever. Stress of Vitas looks stable. WBC is 14.7 K. Sodium 131, potassium 5.2. Creatinine normal at 0.5. The sugar controlled. Patient is been followed closely by pulmonary team in the ICU. 06/12/2018 Patient remains in the ICU, her breathing is improving. She denies chest pain or abdominal pain. Patient tolerating that well. Vitas is stable, however her blood pressure on the high side like 154/1:15, she saturating 93% on high flow cannula at 8 L per min. WBC is 14 point okay, sodium 129, potassium 5.6, sugar is controlled. Blood cultures are negative. Chest x-ray multifocal alveolar and interstitial airspace disease that may represent pneumonia or pulmonary edema. Patient remains in the ICU and followed by critical care team. Objective - Vital Signs Vital signs: Vital Signs Temp 98.2 F 06/12/18 16:00 Pulse 73 06/12/18 17:00 Resp 24 06/12/18 17:00 BP 176/114 06/12/18 17:00 Pulse Ox 89 L 06/12/18 17:00 Intake & Output 06/11/18 06/12/18 06/12/18 18:59 06:59 18:59 Intake Total 7006 304 9902 Output Total 3335 2535 4525 Balance -3103 -2602 -0292 Intake: IV 460 80 390 Cefepime 2 gm In Sodium 200 200 Chloride 0.9% 100 ml @ 200 mls/hr IVPB Q12HR [facility] Rx#:[id number] Magnesium Sulfate-D5w Pmx 200 1 gm In Dextrose/Water 1 100ml.bag @ 100 mls/hr IVPB Q1H [facility] Rx#: [id number] kvo 60 80 190 Oral 411 150 4205 Output: Urine 3335 2535 4525 Other: Voiding Method Indwelling Catheter Indwelling Catheter Indwelling Catheter - Exam GENERAL: The patient is alert and oriented x3, not in any acute distress. Well developed, well nourished. HEENT: Pupils are round and equally reacting to light. EOMI. No scleral icterus. No conjunctival pallor. Normocephalic, atraumatic. No pharyngeal erythema. No thyromegaly. CARDIOVASCULAR: S1 and S2 present. No murmurs, rubs, or gallops. -PULMONARY: Chest is clear to auscultation, bilateral scattered wheezing and crackles. ABDOMEN: Soft, nontender, nondistended, normoactive bowel sounds. No palpable organomegaly. MUSCULOSKELETAL: No joint swelling or deformity. EXTREMITIES: No cyanosis, clubbing, or pedal edema. NEUROLOGICAL: Gross neurological examination did not reveal any focal deficits. SKIN: No rashes. - Labs CBC & Chem 7: 06/12/18 04:18 06/12/18 04:18 Labs: Abnormal Lab Results - Last 24 Hours (Table) 06/11/18 06/11/18 06/12/18 Range/Units 20:29 21:17 04:18 WBC (3.8-10.6) k/uL Neutrophils # (1.3-7.7) k/uL Lymphocytes # (1.0-4.8) k/uL Sodium 129 L (137-145) mmol/L Potassium 5.6 H (3.5-5.1) mmol/L Chloride 91 L (98-107) mmol/L BUN 27 H (7-17) mg/dL Glucose 215 H (74-99) mg/dL POC Glucose (mg/dL) 263 H 251 H (75-99) mg/dL 06/12/18 06/12/18 06/12/18 Range/Units 04:18 07:06 12:04 WBC 14.2 H (3.8-10.6) k/uL Neutrophils # 12.3 H (1.3-7.7) k/uL Lymphocytes # 0.7 L (1.0-4.8) k/uL Sodium (137-145) mmol/L Potassium (3.5-5.1) mmol/L Chloride (98-107) mmol/L BUN (7-17) mg/dL Glucose (74-99) mg/dL POC Glucose (mg/dL) 183 H 139 H (75-99) mg/dL 06/12/18 Range/Units 17:10 WBC (3.8-10.6) k/uL Neutrophils # (1.3-7.7) k/uL Lymphocytes # (1.0-4.8) k/uL Sodium (137-145) mmol/L Potassium (3.5-5.1) mmol/L Chloride (98-107) mmol/L BUN (7-17) mg/dL Glucose (74-99) mg/dL POC Glucose (mg/dL) 127 H (75-99) mg/dL Assessment and Plan Assessment: Acute hypoxic respiratory failure secondary to pneumonia with pulmonary interstitial edema/ARDS.improving Multifocal pneumonia with sepsis. Improving Chronic atrial fibrillation on anticoagulation with Coumadin Right lower extremity DVT. On anticoagulation Asthma History of breast cancer status post surgery and chemotherapy Migraine headaches Degenerative disc disease and chronic back pain and cervical pain Left leg sciatic pain Hypothyroidism History of CVA/TIA with no residual weakness GERD Hypertension Hyperlipidemia Osteoarthritis of multiple joints Plan: this is a pleasant 68 years old female presents with pneumonia and ARDS. Pulmonary team R following the case closely. Continue with antibiotic.continue with anticoagulation.continue with the steroid therapy. .Labs and medication were reviewed.. Continue same treatment. Continue with symptomatic treatment. Resume home medication. Monitor lytes and vitals. DVT and GI prophylaxis. Further recommendations of the clinical course of the patient DVT prophylaxis: Lovenox GI Prophylaxis: Protonix Prognosis is guarded
[2018-06-12] MEDS: EZETIMIBE 10 MG TAB PO SCH (20:11)
[2018-06-12] MEDS: MELATONIN 5 MG TABLET PO SCH (20:11)
[2018-06-12] MEDS: LISINOPRIL 10 MG TAB PO SCH (20:11)
[2018-06-12] MEDS: traZODone HCL 50 MG TAB PO SCH (20:12)
[2018-06-12] MEDS: ZOLPIDEM 5 MG TAB PO PRN (20:23)
[2018-06-12] MEDS: INSULIN DETEMIR (LEVEMIR) 100 UNIT/ML SYR SQ SCH (21:04)
[2018-06-12 21:13] LABS: Glucose,Whole Blood 224 mg/dL (75-99)
[2018-06-13] MEDS: MORPHINE SULFATE IR 15 MG TABLET PO PRN ×2 (05:11→14:50)
[2018-06-13 05:25] LABS: Basophils % (A) 0 %; Eosinophils # (A) 0.1 k/uL (0-0.7); Eosinophils % (A) 1 %; HCT 43.1 % (34.0-46.0); HGB 13.6 gm/dL (11.4-16.0); Hypochromasia Slight; Lymphocytes # (A) 0.5 k/uL (1.0-4.8); Lymphocytes % (A) 5 %; MCHC 31.6 g/dL (31.0-37.0); MCV 85.3 fL (80.0-100.0); Mean Platelet Volume 7.2; Monocytes # (A) 0.7 k/uL (0-1.0); Monocytes % (A) 6 %; Neutrophils # (A) 10.4 k/uL (1.3-7.7); Neutrophils % (A) 88 %; Platelet Count 422 k/uL (150-450); RBC 5.06 m/uL (3.80-5.40); RDW 14.2 % (11.5-15.5); WBC 11.9 k/uL (3.8-10.6)
[2018-06-13 05:37] LABS: Anion Gap 9 mmol/L; Blood Urea Nitrogen 28 mg/dL (7-17); Calcium 9.6 mg/dL (8.4-10.2); Carbon Dioxide 29 mmol/L (22-30); Chloride 91 mmol/L (98-107); Glucose 270 mg/dL (74-99); Potassium 5.1 mmol/L (3.5-5.1); Sodium 129 mmol/L (137-145)
--- NOTE | 2018-06-13 06:20 | XR ---
EXAMINATION TYPE: XR chest 1V portable DATE OF EXAM: 06/13/2018 HISTORY: High o2 demand. REFERENCE: Previous study dated 06/12/2018. FINDINGS: There is a right shoulder arthroplasty in place. Heart size upper limits of normal. There continues to be coarse interstitial airspace disease. I georgi ot exclude tiny, bilateral effusions. IMPRESSION: NO SIGNIFICANT INTERVAL CHANGE IN THE APPEARANCE OF THE CHEST.
[2018-06-13] MEDS: LEVOTHYROXINE 100 MCG TAB PO SCH (06:47)
[2018-06-13] MEDS: INSULIN ASPART (NovoLOG) 100 UNIT/ML VIAL SQ SCH ×7 (07:07→22:19)
[2018-06-13] MEDS: metFORMIN 500 MG TAB PO SCH ×2 (07:08→17:16)
[2018-06-13] MEDS: PANTOPRAZOLE 40 MG TABLET PO SCH (07:08)
[2018-06-13 07:12] LABS: Glucose,Whole Blood 229 mg/dL (75-99)
[2018-06-13] MEDS: IPRATROPIUM-ALBUTEROL 3 ML NEB INHALATION SCH ×4 (08:17→19:41)
[2018-06-13] MEDS: NON-FORMULARY DRUG (Biotin [Biotin] 5,000 MCG) PO SCH (08:18)
[2018-06-13] MEDS: methylPREDNISolone SOD SUCCI 125 MG/2 ML VIAL IV SCH ×3 (08:50→23:17)
[2018-06-13] MEDS: CEFEPIME 2 GM in SODIUM CHLORIDE 0.9% 100 ML IVPB SCH ×2 (08:51→22:19)
[2018-06-13] MEDS: CALCIUM CARBONATE 500 MG CHEWABLE PO SCH (08:51)
[2018-06-13] MEDS: CHOLECALCIFEROL 1,000 UNIT TAB PO SCH (08:51)
[2018-06-13] MEDS: FUROSEMIDE 20 MG TAB PO SCH (08:51)
[2018-06-13] MEDS: LEVOFLOXACIN 750 MG TAB PO SCH (08:51)
[2018-06-13] MEDS: METOPROLOL TARTRATE 25 MG TAB PO SCH ×2 (08:51→20:36)
[2018-06-13] MEDS: MORPHINE SULFATE ER 60 MG TABLET PO SCH ×2 (08:52→20:34)
[2018-06-13] MEDS: DOCUSATE 100 MG CAP PO SCH ×3 (08:52→22:20)
[2018-06-13] MEDS: CITALOPRAM HYDROBROMIDE 20 MG TAB PO SCH ×2 (08:52→20:34)
[2018-06-13] MEDS: ENOXAPARIN 100 MG/ML SYRINGE SQ SCH ×2 (08:52→20:36)
[2018-06-13] MEDS: SPIRONOLACTONE 25 MG TAB PO SCH (08:52)
[2018-06-13] MEDS: ZYRTEC 10MG PO SCH (08:53)
[2018-06-13] MEDS: busPIRone HCl 10 MG TAB PO SCH ×2 (08:53→20:35)
[2018-06-13] MEDS: FLUCONAZOLE 100 MG TAB PO SCH (08:54)
[2018-06-13] MEDS: FENOFIBRATE 160 MG TAB PO SCH (08:54)
[2018-06-13] MEDS: LACTULOSE 20 GM/30 ML CUP PO SCH (08:54)
[2018-06-13] MEDS: FLUTICASONE 50MCG/SPRAY NASAL 16GM EA NOSTRIL SCH (08:54)
[2018-06-13 11:19] LABS: Glucose,Whole Blood 213 mg/dL (75-99)
[2018-06-13] MEDS: MULTIVITAMINS, THERA 1 EACH TAB PO SCH (12:40)
[2018-06-13] MEDS: ALPRAZolam 0.25 MG TAB PO PRN ×2 (12:46→20:35)
--- NOTE | 2018-06-13 13:02 | P.PN ---
Subjective Patient is a 67-year-old female with a known history of atrial fibrillation on anticoagulation, history of DVT/PE, diabetes type 2, history of CVA/TIA and hypertension, hypothyroidism . Presents with acute dyspneafound to have multifocal pneumonia and acute hypoxic respiratory failure, progressing to possible ARDS.currently she is saturating 92% on high flow cannula with FiO2 50%. She is lying in bed or a flight of chair, comfortable. Mildly tachypneic and her breathing is not labored. She can't talk in full sentences. Denies chest pain. No change in urine or bowel habits.no fever. Stress of Vitas looks stable. WBC is 14.7 K. Sodium 131, potassium 5.2. Creatinine normal at 0.5. The sugar controlled. Patient is been followed closely by pulmonary team in the ICU. 06/12/2018 Patient remains in the ICU, her breathing is improving. She denies chest pain or abdominal pain. Patient tolerating that well. Vitas is stable, however her blood pressure on the high side like 154/1:15, she saturating 93% on high flow cannula at 8 L per min. WBC is 14 point okay, sodium 129, potassium 5.6, sugar is controlled. Blood cultures are negative. Chest x-ray multifocal alveolar and interstitial airspace disease that may represent pneumonia or pulmonary edema. Patient remains in the ICU and followed by critical care team. 06/13/2018 patient fell and better today and she moved out of the ICU to the general medical floor. She denies dyspnea or chest pain . she is a still on high flow oxygen via nasal cannula and she needs 10 L now. Tolerating diet well no abdominal pain. No coughing. Vital stable. WBC 11.9 K. Sodium 129. She is on Xanax, Lasix and Aldactone.continue with Solu-Medrol 60 mg. And morphine for pain medication as well as metformin. Objective - Vital Signs Vital signs: Vital Signs Temp 97.3 F L 06/13/18 07:00 Pulse 68 06/13/18 12:05 Resp 18 06/13/18 12:05 BP 120/77 06/13/18 07:00 Pulse Ox 90 L 06/13/18 08:17 Intake & Output 06/12/18 06/13/18 06/13/18 18:59 06:59 18:59 Intake Total 1805 840 Output Total 4525 2875 1400 Balance -2720 -2035 -1400 Intake: IV 410 340 Cefepime 2 gm In Sodium 200 100 Chloride 0.9% 100 ml @ 200 mls/hr IVPB Q12HR [facility] Rx#:[id number] kvo 210 240 Oral 1395 500 Output: Urine 4525 2875 1400 Other: Voiding Method Indwelling Catheter Indwelling Catheter Indwelling Catheter # Voids 1 - Exam GENERAL: The patient is alert and oriented x3, not in any acute distress. Well developed, well nourished. HEENT: Pupils are round and equally reacting to light. EOMI. No scleral icterus. No conjunctival pallor. Normocephalic, atraumatic. No pharyngeal erythema. No thyromegaly. CARDIOVASCULAR: S1 and S2 present. No murmurs, rubs, or gallops. -PULMONARY: Chest is clear to auscultation, bilateral scattered wheezing and crackles. ABDOMEN: Soft, nontender, nondistended, normoactive bowel sounds. No palpable organomegaly. MUSCULOSKELETAL: No joint swelling or deformity. EXTREMITIES: No cyanosis, clubbing, or pedal edema. NEUROLOGICAL: Gross neurological examination did not reveal any focal deficits. SKIN: No rashes. - Labs CBC & Chem 7: 06/13/18 04:50 06/13/18 04:50 Labs: Abnormal Lab Results - Last 24 Hours (Table) 06/12/18 06/12/18 06/13/18 Range/Units 17:10 21:01 04:50 WBC 11.9 H (3.8-10.6) k/uL Neutrophils # 10.4 H (1.3-7.7) k/uL Lymphocytes # 0.5 L (1.0-4.8) k/uL Sodium (137-145) mmol/L Chloride (98-107) mmol/L BUN (7-17) mg/dL Glucose (74-99) mg/dL POC Glucose (mg/dL) 127 H 224 H (75-99) mg/dL 06/13/18 06/13/18 06/13/18 Range/Units 04:50 07:00 11:18 WBC (3.8-10.6) k/uL Neutrophils # (1.3-7.7) k/uL Lymphocytes # (1.0-4.8) k/uL Sodium 129 L (137-145) mmol/L Chloride 91 L (98-107) mmol/L BUN 28 H (7-17) mg/dL Glucose 270 H (74-99) mg/dL POC Glucose (mg/dL) 229 H 213 H (75-99) mg/dL Assessment and Plan Assessment: Acute hypoxic respiratory failure secondary to pneumonia with pulmonary interstitial edema/ARDS.improving Multifocal pneumonia with sepsis. Improving Chronic atrial fibrillation on anticoagulation with Coumadin Right lower extremity DVT. On anticoagulation Asthma History of breast cancer status post surgery and chemotherapy Migraine headaches Degenerative disc disease and chronic back pain and cervical pain Left leg sciatic pain Hypothyroidism History of CVA/TIA with no residual weakness GERD Hypertension Hyperlipidemia Osteoarthritis of multiple joints Plan: this is a pleasant 68 years old female presents with pneumonia and ARDS. Pulmonary team R following the case closely. Continue with antibiotic.continue with anticoagulation.continue with the steroid therapy. .Labs and medication were reviewed.. Continue same treatment. Continue with symptomatic treatment. Resume home medication. Monitor lytes and vitals. DVT and GI prophylaxis. Further recommendations of the clinical course of the patient DVT prophylaxis: Lovenox GI Prophylaxis: Protonix Prognosis is guarded
--- NOTE | 2018-06-13 15:01 | P.PN ---
Subjective Progress Note Date: 06/13/18 Principal diagnosis: Acute hypoxic respiratory failure secondary to pneumonia and ARDS. This is a 67-year-old white female patient who was received as a transfer from [facility] on 05/28/2018. Patient had presented with complaints of chest congestion, cough, wheezing, shortness of breath and occasional phlegm production. Influenza screen and CT angiogram were completed at the [facility], and they were negative for influenza A and pulmonary embolism. Patient did have multiple pulmonary nodules that could relate to her underlying sarcoidosis. In addition she has some groundglass opacities at the lower lobes possibly consistent with pneumonia. We did obtain a chest x-ray at this hospital yesterday, which showed cardiomegaly with multifocal bilateral alveolar and interstitial edema and/or infiltrates. Possible developing ARDS. She lab work showed a white blood cell count of 3.6, hemoglobin 13.3, d-dimer was slightly elevated at 1.05, but CT angios was negative for any evidence of PE, renal profile and electrolytes were within normal limits, proBNP was within normal limits at 467, troponin was negative, urinalysis was negative for any sign of infection. Patient's medical history significant for atrial fibrillation on anticoagulation in the form of Coumadin, history of DVT/PE, diabetes mellitus type 2, history of CVA and TIA and hypertension, hypothyroidism. The patient was given IV lasix, and she has significantly diuresed, she is in -3560 mL fluid balance in last 24 hours, in her breathing had worsened, along with her oxygenation, and patient had to be placed on BiPAP support. On today's exam patient is seen on BiPAP support with pressures of 12 and 5, 80%, and her pulse ox is 94%, she is quite tachypneic, lung sounds are positive for diffuse crackles, and rhonchi, patient appears to be in mild to moderate amount of distress, and for that reason patient will be removed down to the intensive care unit, today's chest x-ray has been reviewed, showed persistence of bladder pulmonary edema, and airspace disease bilaterally, likely related to underlying pneumonia. Afebrile, hemodynamically stable. Denies any chest pain, wasn't able to produce any sputum for culture. She states she still has the urge to cough, but not able to bring up anything. Antibiotic coverage in the form of Levaquin. 06/07/2018 I'm seeing this patient in follow-up post pneumonia/ARDS. X-ray still showing diffuse breath and pulmonary infiltrates. Infiltrates are essentially stable and unchanged over the past 48 hours. In fact I do not see any improvement or worsening the patient's condition over the past 48 hours. Chest x-ray findings are essentially the same. Oxidation something. She is able to get up and sit up on a bedside recliner. No significant cough or sputum production. She claims that she had a good night sleep yesterday. She remains on IV Solu-Medrol. Antibiotic coverage includes cefepime Levaquin and Diflucan. Fluid balance is -3.9 L over the past 24 hours and the patient is producing adequate amount of urine output. She is receiving Lasix 20 mg IV every 24 hours. White cell count is at 14.5 which is stable. No significant leukocytosis. No fever. She is tolerating diet and is using incentive sp irometer. Reevaluated today on 06/08/2018, patient remains on high flow oxygen, she is actually on airvo with 80% FiO2, 60 L/m, and her O2 saturation remains fairly marginal. However surprisingly the patient remains comfortable, in no distress, and her chest x-ray continues to show diffuse infiltrates bilaterally. Chest x- ray is basically about the same. Patient denies any significant cough, denies any fever or chills, denies any chest pain. Remains on antibiotics in the form of Levaquin and cefepime, she remains on bronchodilators and on Solu-Medrol. Her fluid balance is showing negative balance. Remains on Lasix 20 mg daily. Labs continued to show leukocytosis with WBC of 16.1 hemoglobin is 12.6. Basic metabolic profile is relatively normal. Reevaluated today on 06/09/2018, remains on high fio2, unchanged from yesterday. O2 saturation is marginal mostly in the low 90s. Patient is comfortable, in no distress, however she gets short of breath as soon as her O2 saturation dropped down to the mid 80s. Chest x-ray continues to show bilateral diffuse infiltrates. Slightly improved compared to the last few days. WBC count is 15.7 hemoglobin is 13 electrolytes are normal renal profile is normal. Reevaluated today in the ICU on 06/10/2018, patient is clinically about the same, maybe slightly improved, her oxygen is down to 70%, and her flow rate is at 15 L/m. Her O2 saturation remains in the low 90s. Patient is feeling a bit better, breathing a bit easier, but again her oxygenation remains marginal. Chest x-ray is definitely showing some improvement. Patient denies any chest pain, no fever, no chills, no hemoptysis, she does have intermittent nonproductive cough. All labs were reviewed. Chest x-ray was also reviewed. Patient was reevaluated today in the ICU on 06/11/2018, getting better, but slowly. Her FiO2 is down to 45%, and her flow is at 45 L/m. O2 saturation remains marginal in the low 90s. Patient is feeling better compared to the last few days. Remains on airvo. Her chest x-ray is showing improvement. But minimal and slow. Labs today showed relatively normal CBC is relatively normal basic metabolic profile. Blood sugar is 170. Patient remains on bronchodilators, antibiotics, and steroids. She is also on Lovenox for history of pulmonary embolism. Today I reviewed all her meds, and cut down on her Aldactone to 25 mg daily, switch her IV Lasix to 20 mg by mouth Lasix, change her Solu-Medrol to 60 mg IV push every 8 hours incentive every 6. And I would make arrangements for the patient to be transferred out of the ICU to a regular medical floor, in the meantime she is not ready to be discharged home, she remains on relatively high FiO2. Reevaluated today on 06/12/2018, patient is basically about the same. Remains on a high flow oxygen remains on high FiO2, and we plan to titrate that down and possibly transition the patient to a high flow nasal cannula today. No cough no wheezing no shortness of breath, O2 saturation is marginal.labs were reviewed and her potassium was noted to be a bit high, hence I discontinued Aldactone.her WBC count is 14.2 hemoglobin is 13.4. No major issues overnight, hence I have recommended white we could transfer the patient to a regular medical floor today. Patient was reevaluated today on 06/13/2018, she has been in the ICU, and she has been doing better and better every day. Her FiO2 was titrated down and she is now on a high flow nasal cannula at 8 L/m, may even be titrated down further O2 saturations 92% on that setting. Patient denies any cough no wheezing no shortness of breath no chest pain. Patient will be transferred to a regular medical floor today. All labs were reviewed. Plan to repeat chest x-ray in the next 24 hours. Objective - Vital Signs Vital signs: Vital Signs Temp 97.3 F L 06/13/18 07:00 Pulse 68 06/13/18 12:05 Resp 18 06/13/18 12:05 BP 120/77 06/13/18 07:00 Pulse Ox 90 L 06/13/18 08:17 Intake & Output 06/12/18 06/13/18 06/13/18 18:59 06:59 18:59 Intake Total 1805 840 Output Total 4525 2875 4200 Balance -8970 -20344200 Intake: IV 410 340 Cefepime 2 gm In Sodium 200 100 Chloride 0.9% 100 ml @ 200 mls/hr IVPB Q12HR [facility] Rx#:[id number] kvo 210 240 Oral 1395 500 Output: Urine 4525 2875 4200 Other: Voiding Method Indwelling Catheter Indwelling Catheter Indwelling Catheter # Voids 1 - Exam Physical Exam: Revealed a 67-year-old female on 8 L high flow nasal cannula Head: Atraumatic, normocephalic HEENT:[Neck is supple.] [No neck masses.] [No thyromegaly.] [No JVD.] PERRLA, EOMI, no icterus. Moist mucous membranes. Chest: [good breath sound bilaterally no crackles or rhonchi or wheezes today.] Cardiac Exam: [Normal S1 and S2, no S3 gallop, no murmur.] Abdomen: [Soft, nontender, no megaly, no rebound, no guarding, normal bowel sounds.] Extremities: [No clubbing, no edema, no cyanosis.] Neurological Exam: [No focal neurologic deficit.] Alert and oriented 3 Skin: No rashes. Psychiatric: Normal mood, affect and mental status examination. Lymphatics: No lymphadenopathy. - Labs CBC & Chem 7: 06/13/18 04:50 06/13/18 04:50 Labs: Abnormal Lab Results - Last 24 Hours (Table) 06/12/18 06/12/18 06/13/18 Range/Units 17:10 21:01 04:50 WBC 11.9 H (3.8-10.6) k/uL Neutrophils # 10.4 H (1.3-7.7) k/uL Lymphocytes # 0.5 L (1.0-4.8) k/uL Sodium (137-145) mmol/L Chloride (98-107) mmol/L BUN (7-17) mg/dL Glucose (74-99) mg/dL POC Glucose (mg/dL) 127 H 224 H (75-99) mg/dL 06/13/18 06/13/18 06/13/18 Range/Units 04:50 07:00 11:18 WBC (3.8-10.6) k/uL Neutrophils # (1.3-7.7) k/uL Lymphocytes # (1.0-4.8) k/uL Sodium 129 L (137-145) mmol/L Chloride 91 L (98-107) mmol/L BUN 28 H (7-17) mg/dL Glucose 270 H (74-99) mg/dL POC Glucose (mg/dL) 229 H 213 H (75-99) mg/dL Assessment and Plan Assessment: Impression: 1 acute hypoxic respiratory failure secondary to pneumonia complicated by ARDS. 2 history of sarcoidosis, inactive. 3 type 2 diabetes 4 chronic atrial fibrillation presently in sinus rhythm. 5 hypertension 6 hypothyroidism 7 history of deep vein thromboses and pulmonary embolism 8 hyperlipidemia 9 degenerative joint disease and osteoarthritis of multiple joints. 10 GERD without esophagitis. Recommendation: continue present treatment plan including antibiotics, steroids, bronchodilators, continue to titrate FiO2 down, transfer patient out of the ICU to a regular medical floor, no need for telemetry. Discharge planning most likely early next week. Patient will definitely need to be on home O2 based on the clinical picture at this point. This will be dosed accordingly early next week Time with Patient: Less than 30
[2018-06-13 16:26] LABS: Glucose,Whole Blood 205 mg/dL (75-99)
[2018-06-13] MEDS: MELATONIN 5 MG TABLET PO SCH (20:35)
[2018-06-13] MEDS: LISINOPRIL 10 MG TAB PO SCH (20:35)
[2018-06-13] MEDS: EZETIMIBE 10 MG TAB PO SCH (20:36)
[2018-06-13 21:14] LABS: Glucose,Whole Blood 240 mg/dL (75-99)
[2018-06-13] MEDS: traZODone HCL 50 MG TAB PO SCH (22:20)
[2018-06-13] MEDS: ZOLPIDEM 5 MG TAB PO PRN (22:20)
[2018-06-13] MEDS: BACLOFEN 10 MG TAB PO PRN (22:20)
[2018-06-13] MEDS: INSULIN DETEMIR (LEVEMIR) 100 UNIT/ML SYR SQ SCH (22:27)
[2018-06-14] MEDS: MORPHINE SULFATE IR 15 MG TABLET PO PRN ×2 (04:58→15:39)
[2018-06-14] MEDS: LEVOTHYROXINE 100 MCG TAB PO SCH (05:43)
[2018-06-14 06:56] LABS: Glucose,Whole Blood 277 mg/dL (75-99)
[2018-06-14] MEDS: IPRATROPIUM-ALBUTEROL 3 ML NEB INHALATION SCH ×4 (07:15→21:01)
[2018-06-14 08:30] LABS: Magnesium 1.8 mg/dL (1.6-2.3); Phosphorus 3.8 mg/dL (2.5-4.5); Potassium 5.9 mmol/L (3.5-5.1)
[2018-06-14] MEDS: NON-FORMULARY DRUG (Biotin [Biotin] 5,000 MCG) PO SCH (08:53)
[2018-06-14] MEDS: INSULIN ASPART (NovoLOG) 100 UNIT/ML VIAL SQ SCH ×7 (09:03→21:33)
[2018-06-14] MEDS: ENOXAPARIN 100 MG/ML SYRINGE SQ SCH ×2 (09:04→21:31)
[2018-06-14] MEDS: methylPREDNISolone SOD SUCCI 125 MG/2 ML VIAL IV SCH (09:05)
[2018-06-14] MEDS: CITALOPRAM HYDROBROMIDE 20 MG TAB PO SCH ×2 (09:06→21:32)
[2018-06-14] MEDS: busPIRone HCl 10 MG TAB PO SCH ×2 (09:06→21:33)
[2018-06-14] MEDS: CALCIUM CARBONATE 500 MG CHEWABLE PO SCH (09:06)
[2018-06-14] MEDS: METOPROLOL TARTRATE 25 MG TAB PO SCH ×2 (09:07→21:32)
[2018-06-14] MEDS: ALPRAZolam 0.25 MG TAB PO PRN ×2 (09:07→22:40)
[2018-06-14] MEDS: CHOLECALCIFEROL 1,000 UNIT TAB PO SCH (09:07)
[2018-06-14] MEDS: FUROSEMIDE 20 MG TAB PO SCH (09:07)
[2018-06-14] MEDS: PANTOPRAZOLE 40 MG TABLET PO SCH (09:08)
[2018-06-14] MEDS: FENOFIBRATE 160 MG TAB PO SCH (09:08)
[2018-06-14] MEDS: FLUCONAZOLE 100 MG TAB PO SCH (09:08)
[2018-06-14] MEDS: LEVOFLOXACIN 750 MG TAB PO SCH (09:08)
[2018-06-14] MEDS: MORPHINE SULFATE ER 60 MG TABLET PO SCH ×2 (09:08→21:32)
[2018-06-14] MEDS: FLUTICASONE 50MCG/SPRAY NASAL 16GM EA NOSTRIL SCH (09:09)
[2018-06-14] MEDS: SPIRONOLACTONE 25 MG TAB PO SCH (09:09)
[2018-06-14] MEDS: DOCUSATE 100 MG CAP PO SCH ×3 (09:09→21:32)
[2018-06-14] MEDS: metFORMIN 500 MG TAB PO SCH ×2 (09:09→17:34)
[2018-06-14] MEDS: LACTULOSE 20 GM/30 ML CUP PO SCH (09:10)
[2018-06-14] MEDS: CEFEPIME 2 GM in SODIUM CHLORIDE 0.9% 100 ML IVPB SCH ×2 (09:11→21:32)
[2018-06-14] MEDS: ZYRTEC 10MG PO SCH (09:11)
[2018-06-14 09:24] LABS: INR 1.1 (<1.2); Prothrombin Time 11.3 sec (9.0-12.0)
[2018-06-14 11:15] LABS: Glucose,Whole Blood 201 mg/dL (75-99)
[2018-06-14] MEDS: MULTIVITAMINS, THERA 1 EACH TAB PO SCH (13:11)
[2018-06-14] MEDS: BACLOFEN 10 MG TAB PO PRN ×2 (13:11→22:40)
--- NOTE | 2018-06-14 13:42 | P.PN ---
Subjective Progress Note Date: 06/14/18 Principal diagnosis: Bibasilar pneumonia, hypoxemic respiratory failure The patient is seen today 06/14/2018 in follow-up on the regular medical floor. She is awake and alert in no acute distress. She is now on 10 L high flow nasal cannula to maintain O2 saturation in low 90s. She's been afebrile. Hemodynamically stable. Blood and urine cultures reveal no growth. She has remained on DuoNeb inhalations, hematocrit form of cefepime and Levaquin. Objective - Vital Signs Vital signs: Vital Signs Temp 97.9 F 06/14/18 08:35 Pulse 78 06/14/18 12:24 Resp 16 06/14/18 08:35 BP 110/64 06/14/18 08:35 Pulse Ox 92 L 06/14/18 08:35 Intake & Output 06/13/18 06/14/18 06/14/18 18:59 06:59 18:59 Output Total 4200 2975 Balance -4200 -2975 Output: Urine 4200 2975 Other: Voiding Method Indwelling Catheter Indwelling Catheter Indwelling Catheter # Voids 1 - Exam GENERAL EXAM: Alert, 68-year-old female, currently on 10 L high flow nasal cannula HEAD: Normocephalic/atraumatic. EYES: Normal reaction of pupils, equal size. Conjunctiva pink, sclera white. NOSE: Clear with pink turbinates. THROAT: No erythema or exudates. NECK: No masses, no JVD, no thyroid enlargement, no adenopathy. CHEST: No chest wall deformity. Symmetrical expansion. LUNGS: Equal air entry with diffuse crackles and rhonchi CVS: Regular rate and rhythm, normal S1 and S2, no gallops, no murmurs, no rubs ABDOMEN: Soft, nontender. No hepatosplenomegaly, normal bowel sounds, no guarding or rigidity. EXTREMITIES: No clubbing, no edema, no cyanosis, 2+ pulses and upper and lower extremities. MUSCULOSKELETAL: Muscle strength and tone normal. SPINE: No scoliosis or deformity SKIN: No rashes CENTRAL NERVOUS SYSTEM: No focal deficits, tone is normal in all 4 extremities. PSYCHIATRIC: Alert and oriented -3. Appropriate affect. Intact judgment and insight. - Labs CBC & Chem 7: 06/13/18 04:50 06/14/18 07:32 Labs: Abnormal Lab Results - Last 24 Hours (Table) 06/13/18 06/13/18 06/14/18 Range/Units 16:25 21:13 06:54 Potassium (3.5-5.1) mmol/L POC Glucose (mg/dL) 205 H 240 H 277 H (75-99) mg/dL 06/14/18 06/14/18 Range/Units 07:32 11:14 Potassium 5.9 H (3.5-5.1) mmol/L POC Glucose (mg/dL) 201 H (75-99) mg/dL Assessment and Plan Assessment: Assessment: #1. Acute hypoxemic respiratory failure secondary to bilateral pneumonia, and there may be a component of pulmonary edema/ARDS, proBNP was within normal limits. Influenza screen was negative, CT angios the chest was negative for any pulmonary embolism, showed groundglass opacities at bilateral bases, likely related to underlying pneumonia she is been slow to progress. Currently on 10 L high flow nasal cannula. #2. Pulmonary nodules, could relate to underlying sarcoidosis, or infectious etiology #3. Diabetes mellitus type 2 #4. Chronic atrial fibrillation, and history of DVT and pulmonary embolism, on chronic anticoagulation in the form of Coumadin. Supratherapeutic 6.6 on today's labs we'll hold Coumadin #5. GERD/reflux #6. Hypertention, hyperlipidemia #7. DJD #8. Hypothyroidism #9. Osteoarthritis of multiple joints Plan: The patient was seen and evaluated by Dr. Major. We'll continue with the current treatment plan. Currently on 10 L high flow nasal cannula. Will increase her activity as tolerated. We'll continue to follow. I, the cosigning physician, performed a history & physical examination of the patient. Lungs sounds with bilateral scattered rhonchi, crackles in the bases. Maintaining good O2 saturations in the 90s on 10 L high flow nasal cannula. I d iscussed the assessment and plan of care with my nurse practitioner, Chasity Duarte. I attest to the above note as dictated by her.
[2018-06-14 16:44] LABS: Glucose,Whole Blood 215 mg/dL (75-99)
[2018-06-14] MEDS: methylPREDNISolone SOD SUCCI 40 MG/ML 1 ML VIAL IV SCH (17:33)
[2018-06-14] MEDS: MAGNESIUM SULFATE-D5W PMX 1 GM in DEXTROSE/WATER 1 100ML.BAG IVPB SCH ×2 (17:35→18:39)
--- NOTE | 2018-06-14 18:04 | P.PN ---
Subjective Patient is a 67-year-old female with a known history of atrial fibrillation on anticoagulation, history of DVT/PE, diabetes type 2, history of CVA/TIA and hypertension, hypothyroidism . Presents with acute dyspneafound to have multifocal pneumonia and acute hypoxic respiratory failure, progressing to possible ARDS.currently she is saturating 92% on high flow cannula with FiO2 50%. She is lying in bed or a flight of chair, comfortable. Mildly tachypneic and her breathing is not labored. She can't talk in full sentences. Denies chest pain. No change in urine or bowel habits.no fever. Stress of Vitas looks stable. WBC is 14.7 K. Sodium 131, potassium 5.2. Creatinine normal at 0.5. The sugar controlled. Patient is been followed closely by pulmonary team in the ICU. 06/12/2018 Patient remains in the ICU, her breathing is improving. She denies chest pain or abdominal pain. Patient tolerating that well. Vitas is stable, however her blood pressure on the high side like 154/1:15, she saturating 93% on high flow cannula at 8 L per min. WBC is 14 point okay, sodium 129, potassium 5.6, sugar is controlled. Blood cultures are negative. Chest x-ray multifocal alveolar and interstitial airspace disease that may represent pneumonia or pulmonary edema. Patient remains in the ICU and followed by critical care team. 06/13/2018 patient fell and better today and she moved out of the ICU to the general medical floor. She denies dyspnea or chest pain . she is a still on high flow oxygen via nasal cannula and she needs 10 L now. Tolerating diet well no abdominal pain. No coughing. Vital stable. WBC 11.9 K. Sodium 129. She is on Xanax, Lasix and Aldactone.continue with Solu-Medrol 60 mg. And morphine for pain medication as well as metformin. 06/14/2018 Patient is seen in the select unit, no overt dyspnea or chest pain. She saturating 92% on 7 L oxygen high flow. Patient was not on home oxygen prior to that. Once cell count is improving to 11.9 K. Sodium 129, and repeat potassium was 5.9. Follow-up potassium level. Sugar is running between 127-229. Pulmonary team are following the case. Objective - Vital Signs Vital signs: Vital Signs Temp 97.3 F L 06/14/18 14:45 Pulse 84 03/31/19 17:34 Resp 16 06/14/18 08:35 BP 105/67 06/14/18 14:45 Pulse Ox 92 L 06/14/18 17:24 Intake & Output 06/13/18 06/14/18 06/14/18 18:59 06:59 18:59 Output Total 4200 2975 2500 Balance -4200 -2975 -2500 Output: Urine 4200 2975 2500 Other: Voiding Method Indwelling Catheter Indwelling Catheter Indwelling Catheter # Voids 1 - Exam GENERAL: The patient is alert and oriented x3, not in any acute distress. Well developed, well nourished. HEENT: Pupils are round and equally reacting to light. EOMI. No scleral icterus. No conjunctival pallor. Normocephalic, atraumatic. No pharyngeal erythema. No thyromegaly. CARDIOVASCULAR: S1 and S2 present. No murmurs, rubs, or gallops. -PULMONARY: Chest is clear to auscultation, bilateral scattered wheezing and crackles. ABDOMEN: Soft, nontender, nondistended, normoactive bowel sounds. No palpable organomegaly. MUSCULOSKELETAL: No joint swelling or deformity. EXTREMITIES: No cyanosis, clubbing, or pedal edema. NEUROLOGICAL: Gross neurological examination did not reveal any focal deficits. SKIN: No rashes. - Labs CBC & Chem 7: 06/13/18 04:50 06/14/18 07:32 Labs: Abnormal Lab Results - Last 24 Hours (Table) 06/13/18 06/14/18 06/14/18 Range/Units 21:13 06:54 07:32 Potassium 5.9 H (3.5-5.1) mmol/L POC Glucose (mg/dL) 240 H 277 H (75-99) mg/dL 06/14/18 06/14/18 Range/Units 11:14 16:43 Potassium (3.5-5.1) mmol/L POC Glucose (mg/dL) 201 H 215 H (75-99) mg/dL Assessment and Plan Assessment: Acute hypoxic respiratory failure secondary to pneumonia with pulmonary interstitial edema/ARDS.improving Multifocal pneumonia with sepsis. Improving Chronic atrial fibrillation on anticoagulation with Coumadin Right lower extremity DVT. On anticoagulation Asthma History of breast cancer status post surgery and chemotherapy Migraine headaches Degenerative disc disease and chronic back pain and cervical pain Left leg sciatic pain Hypothyroidism History of CVA/TIA with no residual weakness GERD Hypertension Hyperlipidemia Osteoarthritis of multiple joints Plan: this is a pleasant 68 years old female presents with pneumonia and ARDS. Pulmonary team R following the case closely. Continue with antibiotic.continue with anticoagulation.continue with the steroid therapy. .Labs and medication were reviewed.. Continue same treatment. Continue with symptomatic treatment. Resume home medication. Monitor lytes and vitals. DVT and GI prophylaxis. Further recommendations of the clinical course of the patient DVT prophylaxis: Lovenox GI Prophylaxis: Protonix Prognosis is guarded
[2018-06-14 18:44] LABS: Anion Gap 11 mmol/L; Blood Urea Nitrogen 28 mg/dL (7-17); Calcium 10.2 mg/dL (8.4-10.2); Carbon Dioxide 26 mmol/L (22-30); Chloride 92 mmol/L (98-107); Glucose 230 mg/dL (74-99); Potassium 5.3 mmol/L (3.5-5.1); Sodium 129 mmol/L (137-145)
[2018-06-14 19:49] LABS: Glucose,Whole Blood 225 mg/dL (75-99)
[2018-06-14] MEDS: EZETIMIBE 10 MG TAB PO SCH (21:33)
[2018-06-14] MEDS: MELATONIN 5 MG TABLET PO SCH (21:33)
[2018-06-14] MEDS: traZODone HCL 50 MG TAB PO SCH (21:33)
[2018-06-14] MEDS: LISINOPRIL 10 MG TAB PO SCH (21:34)
[2018-06-14] MEDS: INSULIN DETEMIR (LEVEMIR) 100 UNIT/ML SYR SQ SCH (21:34)
[2018-06-14] MEDS: ZOLPIDEM 5 MG TAB PO PRN (22:40)
[2018-06-15] MEDS: methylPREDNISolone SOD SUCCI 40 MG/ML 1 ML VIAL IV SCH ×2 (00:08→09:12)
[2018-06-15] MEDS: MORPHINE SULFATE IR 15 MG TABLET PO PRN ×2 (04:14→11:01)
[2018-06-15] MEDS: LEVOTHYROXINE 100 MCG TAB PO SCH (05:59)
[2018-06-15 07:08] LABS: Glucose,Whole Blood 229 mg/dL (75-99)
--- NOTE | 2018-06-15 07:53 | XR ---
EXAMINATION TYPE: XR chest 1V portable DATE OF EXAM: 06/15/2018 CLINICAL HISTORY: Difficulty breathing and ARDS progress study. TECHNIQUE: Single AP portable upright view of the chest is obtained. COMPARISON: Chest x-ray from 2 days earlier and older studies FINDINGS: Some reticular interstitial and alveolar opacities bilaterally remain present mid to lower lungs with mild interstitial edema or Ruth B lines in the periphery. No pleural effusion or pneumo thorax is seen bilaterally. Cardiac silhouette size is mildly enlarged. Metallic hardware from bilate ral shoulder surgery is partially imaged. Anterior fusion plate lower cervical spine is partially tiffanie ged. IMPRESSION: Low lung volumes redemonstrated with persistent alveolar and interstitial edema and/or in filtrates mid to lower lung not significantly changed from most recent study. Improvement from older studies noted.
[2018-06-15] MEDS: FLUTICASONE 50MCG/SPRAY NASAL 16GM EA NOSTRIL SCH (09:05)
[2018-06-15] MEDS: FENOFIBRATE 160 MG TAB PO SCH (09:06)
[2018-06-15] MEDS: SPIRONOLACTONE 25 MG TAB PO SCH (09:06)
[2018-06-15] MEDS: CHOLECALCIFEROL 1,000 UNIT TAB PO SCH (09:06)
[2018-06-15] MEDS: CITALOPRAM HYDROBROMIDE 20 MG TAB PO SCH ×2 (09:06→21:04)
[2018-06-15] MEDS: metFORMIN 500 MG TAB PO SCH ×2 (09:07→16:47)
[2018-06-15] MEDS: busPIRone HCl 10 MG TAB PO SCH ×2 (09:07→21:03)
[2018-06-15] MEDS: FLUCONAZOLE 100 MG TAB PO SCH (09:07)
[2018-06-15] MEDS: ALPRAZolam 0.25 MG TAB PO PRN ×2 (09:07→23:17)
[2018-06-15] MEDS: FUROSEMIDE 20 MG TAB PO SCH (09:08)
[2018-06-15] MEDS: MORPHINE SULFATE ER 60 MG TABLET PO SCH ×2 (09:08→21:05)
[2018-06-15] MEDS: METOPROLOL TARTRATE 25 MG TAB PO SCH ×2 (09:09→21:05)
[2018-06-15] MEDS: PANTOPRAZOLE 40 MG TABLET PO SCH (09:09)
[2018-06-15] MEDS: CALCIUM CARBONATE 500 MG CHEWABLE PO SCH (09:09)
[2018-06-15] MEDS: DOCUSATE 100 MG CAP PO SCH ×3 (09:10→23:17)
[2018-06-15] MEDS: MULTIVITAMINS, THERA 1 EACH TAB PO SCH (09:10)
[2018-06-15] MEDS: LEVOFLOXACIN 750 MG TAB PO SCH (09:11)
[2018-06-15] MEDS: ZYRTEC 10MG PO SCH (09:12)
[2018-06-15] MEDS: NON-FORMULARY DRUG (Biotin [Biotin] 5,000 MCG) PO SCH (09:13)
[2018-06-15] MEDS: LACTULOSE 20 GM/30 ML CUP PO SCH (09:14)
[2018-06-15] MEDS: INSULIN ASPART (NovoLOG) 100 UNIT/ML VIAL SQ SCH ×7 (09:14→23:16)
[2018-06-15] MEDS: ENOXAPARIN 100 MG/ML SYRINGE SQ SCH ×2 (09:18→21:04)
[2018-06-15] MEDS: IPRATROPIUM-ALBUTEROL 3 ML NEB INHALATION SCH ×5 (09:37→19:52)
[2018-06-15 09:47] LABS: Magnesium 1.6 mg/dL (1.6-2.3); Phosphorus 3.6 mg/dL (2.5-4.5)
[2018-06-15] MEDS: CEFEPIME 2 GM in SODIUM CHLORIDE 0.9% 100 ML IVPB SCH ×2 (10:09→21:03)
[2018-06-15] MEDS ORDERED: MAGNESIUM SULFATE-D5W PMX 1 GM in DEXTROSE/WATER 1 100ML.BAG IVPB ONE ×2 (11:10→14:00)
[2018-06-15 11:49] LABS: Glucose,Whole Blood 263 mg/dL (75-99)
[2018-06-15 13:59] LABS: Glucose,Whole Blood 186 mg/dL (75-99)
--- NOTE | 2018-06-15 16:21 | PN ---
PROGRESS NOTE This patient is a 68-year-old female who has been here for 18 days. She came in with bilateral pneumonia. She spent a number of days in the ICU, almost requiring intubation and mechanical ventilation. Doing much better. Her chest x-ray is improved. She has been weaned down to, I believe, 7 L high flow. The patient is feeling much better. Hopefully she will be able to be discharged relatively soon. She does admit to some cough and occasional phlegm production. No fever or chills. Not coughing up any blood. No nausea, vomiting or diarrhea. Overall, the patient is much improved. Current vital signs are reviewed. Temperature is 98.1, heart rate 76, respiratory rate 16, blood pressure 104/66, mean 78, 5-liter saturation 91% to 94%. Appears in no acute distress. HEENT examination is grossly unremarkable. Mucous membranes are moist. No oral lesions. Nasal oxygen in place. Neck is supple. Full range of motion. No adenopathy or thyromegaly. Neck veins are flat. Cardiovascular examination reveals regular rhythm and rate. Heart rate in mid 70s. S1, S2 normal. No S3, S4 or murmur. Lungs reveal coarse bilateral rhonchi. There are some bibasilar crackles. No wheezes. Breath sounds equal bilaterally but diminished throughout. Abdomen is soft. Bowel sounds are heard. Extremities are intact. No cyanosis, clubbing or edema. Skin without rash. Neurologic examination is brief but nonfocal. Microbiology is reviewed. Labs are reviewed. Nothing new to report from today. Chest x-ray from June 15 shows diminished lung volumes with persistent infiltrate, albeit improved. ASSESSMENT: 1. Acute hypoxemic respiratory failure secondary to bilateral pneumonia with a component of acute lung injury/ARDS. 2. Pulmonary nodule, which may relate to underlying sarcoidosis. 3. Diabetes mellitus. 4. Chronic atrial fibrillation with history of deep venous thrombosis and pulmonary embolism, on chronic anticoagulation. 5. History of gastroesophageal reflux disease. 6. Hypertension. 7. Hyperlipidemia. 8. Degenerative joint disease. 9. Hypothyroidism. 10.Osteoarthritis. PLAN: The patient is continuing to be weaned down from her oxygen. Yesterday she was on 10 liters. She has been weaned down to 5 liters. We will continue to follow. Medications are reviewed. The patient does not need daily chest x-rays at this point. No additional recommendations are made. Hopeful discharge in the near future. MMODL / IJN: [id number] /
[2018-06-15 17:01] LABS: Glucose,Whole Blood 151 mg/dL (75-99)
--- NOTE | 2018-06-15 19:02 | P.PN ---
Subjective Patient is a 67-year-old female with a known history of atrial fibrillation on anticoagulation, history of DVT/PE, diabetes type 2, history of CVA/TIA and hypertension, hypothyroidism . Presents with acute dyspneafound to have multifocal pneumonia and acute hypoxic respiratory failure, progressing to possible ARDS.currently she is saturating 92% on high flow cannula with FiO2 50%. She is lying in bed or a flight of chair, comfortable. Mildly tachypneic and her breathing is not labored. She can't talk in full sentences. Denies chest pain. No change in urine or bowel habits.no fever. Stress of Vitas looks stable. WBC is 14.7 K. Sodium 131, potassium 5.2. Creatinine normal at 0.5. The sugar controlled. Patient is been followed closely by pulmonary team in the ICU. 06/12/2018 Patient remains in the ICU, her breathing is improving. She denies chest pain or abdominal pain. Patient tolerating that well. Vitas is stable, however her blood pressure on the high side like 154/1:15, she saturating 93% on high flow cannula at 8 L per min. WBC is 14 point okay, sodium 129, potassium 5.6, sugar is controlled. Blood cultures are negative. Chest x-ray multifocal alveolar and interstitial airspace disease that may represent pneumonia or pulmonary edema. Patient remains in the ICU and followed by critical care team. 06/13/2018 patient fell and better today and she moved out of the ICU to the general medical floor. She denies dyspnea or chest pain . she is a still on high flow oxygen via nasal cannula and she needs 10 L now. Tolerating diet well no abdominal pain. No coughing. Vital stable. WBC 11.9 K. Sodium 129. She is on Xanax, Lasix and Aldactone.continue with Solu-Medrol 60 mg. And morphine for pain medication as well as metformin. 06/14/2018 Patient is seen in the select unit, no overt dyspnea or chest pain. She saturating 92% on 7 L oxygen high flow. Patient was not on home oxygen prior to that. Once cell count is improving to 11.9 K. Sodium 129, and repeat potassium was 5.9. Follow-up potassium level. Sugar is running between 127-229. Pulmonary team are following the case. 06/15/2018 Patient is lying in bed still have some dyspnea. Denies chest pain. She is hemodynamically stable. She is needing less oxygen only 7 L via high flow nasal cannula Objective - Vital Signs Vital signs: Vital Signs Temp 97.9 F 06/15/18 16:00 Pulse 80 06/15/18 17:04 Resp 16 06/15/18 16:00 BP 122/67 06/15/18 16:00 Pulse Ox 93 L 06/15/18 16:00 Intake & Output 06/15/18 06/15/18 06/16/18 06:59 18:59 06:59 Intake Total 1128 Output Total 600 Balance -600 1128 Intake: IV 160 kvo 160 Intake, IV Titration 200 Amount Cefepime 2 gm In Sodium 100 Chloride 0.9% 100 ml @ 200 mls/hr IVPB Q12HR [facility] Rx#:[id number] Magnesium Sulfate-D5w Pmx 100 1 gm In Dextrose/Water 1 100ml.bag @ 100 mls/hr IVPB ONCE ONE Rx#: [id number] Oral 768 Output: Urine 600 Other: Voiding Method Bedside Commode # Voids 1 2 - Exam GENERAL: The patient is alert and oriented x3, not in any acute distress. Well developed, well nourished. HEENT: Pupils are round and equally reacting to light. EOMI. No scleral icterus. No conjunctival pallor. Normocephalic, atraumatic. No pharyngeal erythema. No thyromegaly. CARDIOVASCULAR: S1 and S2 present. No murmurs, rubs, or gallops. -PULMONARY: Chest is clear to auscultation, bilateral scattered wheezing and crackles. ABDOMEN: Soft, nontender, nondistended, normoactive bowel sounds. No palpable organomegaly. MUSCULOSKELETAL: No joint swelling or deformity. EXTREMITIES: No cyanosis, clubbing, or pedal edema. NEUROLOGICAL: Gross neurological examination did not reveal any focal deficits. SKIN: No rashes. - Labs CBC & Chem 7: 06/13/18 04:50 06/15/18 08:27 Labs: Abnormal Lab Results - Last 24 Hours (Table) 06/14/18 06/15/18 06/15/18 Range/Units 19:47 06:57 11:39 POC Glucose (mg/dL) 225 H 229 H 263 H (75-99) mg/dL 06/15/18 06/15/18 Range/Units 13:45 16:49 POC Glucose (mg/dL) 186 H 151 H (75-99) mg/dL Assessment and Plan Assessment: Acute hypoxic respiratory failure secondary to pneumonia with pulmonary interstitial edema/ARDS.improving Multifocal pneumonia with sepsis. Improving Chronic atrial fibrillation on anticoagulation with Coumadin Right lower extremity DVT. On anticoagulation Asthma History of breast cancer status post surgery and chemotherapy Migraine headaches Degenerative disc disease and chronic back pain and cervical pain Left leg sciatic pain Hypothyroidism History of CVA/TIA with no residual weakness GERD Hypertension Hyperlipidemia Osteoarthritis of multiple joints Plan: this is a pleasant 68 years old female presents with pneumonia and ARDS. Pulmonary team R following the case closely. Continue with antibiotic.continue with anticoagulation.continue with the steroid therapy. .Labs and medication were reviewed.. Continue same treatment. Continue with symptomatic treatment. Resume home medication. Monitor lytes and vitals. DVT and GI prophylaxis. Further recommendations of the clinical course of the patient DVT prophylaxis: Lovenox GI Prophylaxis: Protonix Prognosis is guarded
[2018-06-15] MEDS: LISINOPRIL 10 MG TAB PO SCH (21:04)
[2018-06-15] MEDS: traZODone HCL 50 MG TAB PO SCH (21:05)
[2018-06-15] MEDS: MELATONIN 5 MG TABLET PO SCH (21:05)
[2018-06-15] MEDS: EZETIMIBE 10 MG TAB PO SCH (23:16)
[2018-06-15] MEDS: ZOLPIDEM 5 MG TAB PO PRN (23:17)
[2018-06-15] MEDS: INSULIN DETEMIR (LEVEMIR) 100 UNIT/ML SYR SQ SCH (23:17)
[2018-06-15] MEDS: BACLOFEN 10 MG TAB PO PRN (23:17)
[2018-06-15 23:18] LABS: Glucose,Whole Blood 164 mg/dL (75-99)
[2018-06-15 23:19] LABS: Glucose,Whole Blood 184 mg/dL (75-99)
[2018-06-16] MEDS: LEVOTHYROXINE 100 MCG TAB PO SCH (05:17)
[2018-06-16 07:19] LABS: Glucose,Whole Blood 101 mg/dL (75-99)
[2018-06-16] MEDS: IPRATROPIUM-ALBUTEROL 3 ML NEB INHALATION SCH ×4 (07:29→19:33)
[2018-06-16] MEDS: INSULIN ASPART (NovoLOG) 100 UNIT/ML VIAL SQ SCH ×9 (07:50→21:38)
[2018-06-16] MEDS: MORPHINE SULFATE ER 60 MG TABLET PO SCH ×2 (09:01→21:35)
[2018-06-16] MEDS: LACTULOSE 20 GM/30 ML CUP PO SCH (09:02)
[2018-06-16] MEDS: predniSONE 20 MG TAB PO SCH (09:03)
[2018-06-16] MEDS: DOCUSATE 100 MG CAP PO SCH ×3 (09:03→21:38)
[2018-06-16] MEDS: FENOFIBRATE 160 MG TAB PO SCH (09:03)
[2018-06-16] MEDS: CHOLECALCIFEROL 1,000 UNIT TAB PO SCH (09:03)
[2018-06-16] MEDS: metFORMIN 500 MG TAB PO SCH ×2 (09:03→17:33)
[2018-06-16] MEDS: CALCIUM CARBONATE 500 MG CHEWABLE PO SCH (09:04)
[2018-06-16] MEDS: busPIRone HCl 10 MG TAB PO SCH ×2 (09:04→21:37)
[2018-06-16] MEDS: FLUCONAZOLE 100 MG TAB PO SCH (09:04)
[2018-06-16] MEDS: FLUTICASONE 50MCG/SPRAY NASAL 16GM EA NOSTRIL SCH (09:04)
[2018-06-16] MEDS: FUROSEMIDE 20 MG TAB PO SCH (09:04)
[2018-06-16] MEDS: CITALOPRAM HYDROBROMIDE 20 MG TAB PO SCH ×2 (09:04→21:38)
[2018-06-16] MEDS: METOPROLOL TARTRATE 25 MG TAB PO SCH ×2 (09:04→22:27)
[2018-06-16] MEDS: ENOXAPARIN 100 MG/ML SYRINGE SQ SCH ×2 (09:05→22:28)
[2018-06-16] MEDS: LEVOFLOXACIN 750 MG TAB PO SCH (09:06)
[2018-06-16] MEDS: NON-FORMULARY DRUG (Biotin [Biotin] 5,000 MCG) PO SCH (09:07)
[2018-06-16] MEDS: ZYRTEC 10MG PO SCH (09:07)
[2018-06-16 09:08] LABS: Anion Gap 8 mmol/L; Blood Urea Nitrogen 26 mg/dL (7-17); Calcium 9.4 mg/dL (8.4-10.2); Carbon Dioxide 29 mmol/L (22-30); Chloride 93 mmol/L (98-107); Glucose 182 mg/dL (74-99); Magnesium 1.7 mg/dL (1.6-2.3); Phosphorus 3.1 mg/dL (2.5-4.5); Potassium 4.7 mmol/L (3.5-5.1); Sodium 130 mmol/L (137-145)
[2018-06-16] MEDS: ALPRAZolam 0.25 MG TAB PO PRN (09:11)
[2018-06-16] MEDS: PANTOPRAZOLE 40 MG TABLET PO SCH (09:11)
[2018-06-16] MEDS: SPIRONOLACTONE 25 MG TAB PO SCH (09:13)
--- NOTE | 2018-06-16 11:21 | P.PN ---
Subjective Progress Note Date: 06/16/18 Principal diagnosis: Bibasilar pneumonia, hypoxemic respiratory failure This is a 67-year-old white female patient who was received as a transfer from [facility] on 05/28/2018. Patient had presented with complaints of chest congestion, cough, wheezing, shortness of breath and occasional phlegm production. Influenza screen and CT angiogram were completed at the [facility], and they were negative for influenza A and pulmonary embolism. Patient did have multiple pulmonary nodules that could relate to her underlying sarcoidosis. In addition she has some groundglass opacities at the lower lobes possibly consistent with pneumonia. We did obtain a chest x-ray at this hospital yesterday, which showed cardiomegaly with multifocal bilateral alveolar and interstitial edema and/or infiltrates. Possible developing ARDS. She lab work showed a white blood cell count of 3.6, hemoglobin 13.3, d-dimer was slightly elevated at 1.05, but CT angios was negative for any evidence of PE, renal profile and electrolytes were within normal limits, proBNP was within normal limits at 467, troponin was negative, urinalysis was negative for any sign of infection. Patient's medical history significant for atrial fibrillation on anticoagulation in the form of Coumadin, history of DVT/PE, diabetes mellitus type 2, history of CVA and TIA and hypertension, hypo thyroidism. The patient was given IV lasix, and she has significantly diuresed, she is in -3560 mL fluid balance in last 24 hours, in her breathing had worsened, along with her oxygenation, and patient had to be placed on BiPAP support. On today's exam patient is seen on BiPAP support with pressures of 12 and 5, 80%, and her pulse ox is 94%, she is quite tachypneic, lung sounds are positive for diffuse crackles, and rhonchi, patient appears to be in mild to moderate amount of distress, and for that reason patient will be removed down to the intensive care unit, today's chest x-ray has been reviewed, showed persistence of bladder pulmonary edema, and airspace disease bilaterally, likely related to underlying pneumonia. Afebrile, hemodynamically stable. Denies any chest pain, wasn't able to produce any sputum for culture. She states she still has the urge to cough, but not able to bring up anything. Antibiotic coverage in the form of Levaquin. On 05/31/2018 patient seen in follow-up in the intensive care unit, she is awake and alert, she is anxious, she states she could not sleep last night, but overall her breathing is better, she remains on BiPAP support with pressures of 12 and 5 and FiO2 of 100%, her O2 sat is 98%, she sinus rhythm on the monitor at a rate of 81 BPM, no IV fluids, IVs have been hep-locked, today's chest x-ray has been reviewed with Dr. Sotomayor, and shows bilateral diffuse infiltrates, improved in appearance from previous exams. Today's INR is 1.5, and we'll start the patient on heparin drip per weight-based protocol for anticoagulation, hold off on Coumadin right now in case patient needs any invasive procedures. His labs have been reviewed, and his CBC was essentially unremarkable, sodium was 138, potassium 3.9, chloride was 97, CO2 is 30, BUN was 15 and creatinine 0.54, antibiotic coverage in the form of Zithromax and Rocephin, and vancomycin. So far the culture data remains negative, patient is still not able to produce any sputum for culture. No fever or chills. We'll try the patient on Airvo. Lung sounds reveal diminished breath sounds, with a few scattered rales. On 06/02/2018 patient seen in follow-up in the intensive care unit, she remains on interval, currently at 60 L and FiO2 of 91%, and her pulse ox is 91-93%, but patient is noted to be easily desaturating with any exertion, speaking or eating. She is awake and alert, in no acute distress, lung sounds reveal a few scattered rhonchi, she is in sinus rhythm with a rate of 80 BPM, today's chest x-ray shows slight improvement in the appearance of diffuse pulmonary infiltrates. Afebrile, blood and urine cultures showed no growth, we have not been able to collect a sputum specimen. Legionella urine antigen is pending, today's lab work showed a white blood cell count of 6.0, hemoglobin is 11.5, electrolytes were within normal limits, CO2 is 33, renal profile was within normal limits. No complaint of chest pain, no significant chest congestion or coughing. Yesterday we switched the antibiotic coverage to cefepime, Levaquin and vancomycin, we added IV Solu-Medrol, nebulized bronchodilators. On 06/16/2018 patient seen in follow-up on medical surgical floor. Resting comfortably in bed, currently on 4 l of oxygen with a pulse ox of 94%. No acute distress, no complaints of shortness of breath or chest pain or significant chest congestion. No fever or chills. Today's labs have been reviewed, sodium is 1:30, potassium is 4.7, chloride is 93, BUN is 26 creatinine 0.61. Blood and urine cultures are negative. Encourage deep breathing and coughing, incentive spirometry use. Patient is on a combination of Diflucan and Levaquin, patient has completed 12 days of Levaquin, and Diflucan. We can stop the antibiotics now Objective - Vital Signs Vital signs: Vital Signs Temp 97.7 F 06/16/18 07:25 Pulse 72 06/16/18 11:07 Resp 20 06/16/18 07:25 BP 110/72 06/16/18 07:25 Pulse Ox 94 L 06/16/18 07:25 Intake & Output 06/15/18 06/16/18 06/16/18 18:59 06:59 18:59 Intake Total 1128 100 Balance 1128 100 Intake: IV 160 100 Cefepime 2 gm In Sodium 100 Chloride 0.9% 100 ml @ 200 mls/hr IVPB Q12HR [facility] Rx#:[id number] kvo 160 Intake, IV Titration 200 Amount Cefepime 2 gm In Sodium 100 Chloride 0.9% 100 ml @ 200 mls/hr IVPB Q12HR [facility] Rx#:[id number] Magnesium Sulfate-D5w Pmx 100 1 gm In Dextrose/Water 1 100ml.bag @ 100 mls/hr IVPB ONCE ONE Rx#: [id number] Oral 768 Other: Voiding Method Bedside Commode # Voids 2 4 - Exam GENERAL EXAM: Alert, 68-year-old white female patient on 4 l of oxygen with a pulse ox of 94%, in no acute distress HEAD: Normocephalic/atraumatic. EYES: Normal reaction of pupils, equal size. Conjunctiva pink, sclera white. NOSE: Clear with pink turbinates. THROAT: No erythema or exudates. NECK: No masses, no JVD, no thyroid enlargement, no adenopathy. CHEST: No chest wall deformity. Symmetrical expansion. LUNGS: Equal air entry with diffuse crackles CVS: Regular rate and rhythm, normal S1 and S2, no gallops, no murmurs, no rubs ABDOMEN: Soft, nontender. No hepatosplenomegaly, normal bowel sounds, no guarding or rigidity. EXTREMITIES: No clubbing, no edema, no cyanosis, 2+ pulses and upper and lower extremities. MUSCULOSKELETAL: Muscle strength and tone normal. SPINE: No scoliosis or deformity SKIN: No rashes CENTRAL NERVOUS SYSTEM: Alert and oriented -3. No focal deficits, tone is normal in all 4 extremities. PSYCHIATRIC: Alert and oriented -3. Appropriate affect. Intact judgment and insight. - Labs CBC & Chem 7: 06/13/18 04:50 06/16/18 08:19 Labs: Abnormal Lab Results - Last 24 Hours (Table) 06/15/18 06/15/18 06/15/18 Range/Units 11:39 13:45 16:49 Sodium (137-145) mmol/L Chloride (98-107) mmol/L BUN (7-17) mg/dL Glucose (74-99) mg/dL POC Glucose (mg/dL) 263 H 186 H 151 H (75-99) mg/dL 06/15/18 06/15/18 06/16/18 Range/Units 21:00 22:42 07:07 Sodium (137-145) mmol/L Chloride (98-107) mmol/L BUN (7-17) mg/dL Glucose (74-99) mg/dL POC Glucose (mg/dL) 164 H 184 H 101 H (75-99) mg/dL 06/16/18 Range/Units 08:19 Sodium 130 L (137-145) mmol/L Chloride 93 L (98-107) mmol/L BUN 26 H (7-17) mg/dL Glucose 182 H (74-99) mg/dL POC Glucose (mg/dL) (75-99) mg/dL Assessment and Plan Plan: Assessment: #1. Acute hypoxemic respiratory failure secondary to bilateral pneumonia, and there may be a component of pulmonary edema/ARDS, proBNP was within normal limits. Influenza screen was negative, CT angios the chest was negative for any pulmonary embolism, showed groundglass opacities at bilateral bases, likely related to underlying pneumonia #2. Pulmonary nodules, could relate to underlying sarcoidosis, or infectious etiology #3. Diabetes mellitus type 2 #4. Chronic atrial fibrillation, and history of DVT and pulmonary embolism, on chronic anticoagulation in the form of Coumadin. Supratherapeutic on today's labs we'll hold Coumadin #5. GERD/reflux #6. Hypertention, hyperlipidemia #7. DJD #8. Hypothyroidism #9. Osteoarthritis of multiple joints Plan: She is doing well, continue weaning the FiO2, encourage deep breathing and coughing increase activity as tolerated, currently down to 4 l per nasal cannula, no worsening dyspnea or chest pain, no significant cough or chest congestion. We will stop the antibiotics, cultures remain negative thus far. Anticipate discharge home in the next 24-48 hours. I performed a history & physical examination of the patient and discussed their management with my nurse practitioner, Sharona Klein. I reviewed the nurse practitioner's note and agree with the documented findings and plan of care. Lung sounds are positive for diffuse rhonchi. The findings and the impression was discussed with the patient. I attest to the documentation by the nurse practitioner. Time with Patient: Less than 30
[2018-06-16 12:08] LABS: Glucose,Whole Blood 194 mg/dL (75-99)
--- NOTE | 2018-06-16 13:02 | XR ---
EXAMINATION TYPE: XR knee 4V LT DATE OF EXAM: 06/16/2018 COMPARISON: NONE HISTORY: Pain TECHNIQUE: Four views are submitted. FINDINGS: There is narrowing of the medial compartment of the knee joint and patellofemoral joint with hypertro phic spurring. Small amount of fluid in the suprapatellar bursa. Mild diffuse osteopenia.. Osseous s tructures are intact. No acute fracture seen. IMPRESSION: 1. No acute fracture or dislocation. 2. Small amount of fluid in the suprapatellar bursa. Correlate with MRI if there is concern for inter nal derangement. 3. Osteoarthritis.
[2018-06-16] MEDS: MULTIVITAMINS, THERA 1 EACH TAB PO SCH (14:21)
[2018-06-16] MEDS: MORPHINE SULFATE IR 15 MG TABLET PO PRN (14:21)
[2018-06-16] MEDS: MAGNESIUM SULFATE-D5W PMX 1 GM in DEXTROSE/WATER 1 100ML.BAG IVPB SCH ×2 (16:34→17:56)
[2018-06-16 17:21] LABS: Prothrombin Time 10.8 sec (9.0-12.0)
[2018-06-16 17:29] LABS: Glucose,Whole Blood 241 mg/dL (75-99)
[2018-06-16] MEDS ORDERED: WARFARIN 5 MG TAB PO SCH (18:00)
[2018-06-16 18:46] LABS: Glucose,Whole Blood 326 mg/dL (75-99)
[2018-06-16] MEDS ORDERED: METOPROLOL TARTRATE 50 MG TAB PO STA (18:47)
[2018-06-16 19:41] LABS: Basophils % (A) 0 %; Eosinophils # (A) 0.2 k/uL (0-0.7); Eosinophils % (A) 2 %; HCT 46.7 % (34.0-46.0); HGB 14.7 gm/dL (11.4-16.0); Lymphocytes # (A) 0.9 k/uL (1.0-4.8); Lymphocytes % (A) 10 %; MCH 26.9 pg (25.0-35.0); MCHC 31.5 g/dL (31.0-37.0); MCV 85.4 fL (80.0-100.0); Mean Platelet Volume 6.8; Monocytes # (A) 0.8 k/uL (0-1.0); Monocytes % (A) 9 %; Neutrophils # (A) 7.2 k/uL (1.3-7.7); Neutrophils % (A) 78 %; Platelet Count 366 k/uL (150-450); RBC 5.47 m/uL (3.80-5.40); RDW 14.1 % (11.5-15.5); WBC 9.2 k/uL (3.8-10.6)
[2018-06-16] MEDS ORDERED: DILTIAZEM DRIP BOLUS FROM BAG 1 MG SOLN IV ONE (19:58)
[2018-06-16 19:59] LABS: ALT 39 U/L (9-52); AST 25 U/L (14-36); Albumin 3.5 g/dL (3.5-5.0); Alkaline Phosphatase 66 U/L (38-126); Anion Gap 12 mmol/L; Blood Urea Nitrogen 24 mg/dL (7-17); Calcium 9.5 mg/dL (8.4-10.2); Carbon Dioxide 26 mmol/L (22-30); Chloride 91 mmol/L (98-107); Glucose 259 mg/dL (74-99); Magnesium 2.2 mg/dL (1.6-2.3); Phosphorus 3.5 mg/dL (2.5-4.5); Potassium 5.2 mmol/L (3.5-5.1); Sodium 129 mmol/L (137-145); Total Bilirubin 0.3 mg/dL (0.2-1.3); Total Protein 6.1 g/dL (6.3-8.2)
[2018-06-16] MEDS ORDERED: DILTIAZEM 125 MG in SODIUM CHLORIDE 0.9% 100 ML IV SCH (20:00)
[2018-06-16 20:02] LABS: Creatine Kinase 20 U/L (30-135)
[2018-06-16 20:15] LABS: Creatine Kinase MB 0.8 ng/mL (0.0-2.4); Troponin I <0.012 ng/mL (0.000-0.034)
[2018-06-16] MEDS: ACETAMINOPHEN TAB 325 MG TAB PO PRN (20:51)
[2018-06-16 21:08] LABS: Glucose,Whole Blood 181 mg/dL (75-99)
[2018-06-16] MEDS: MELATONIN 5 MG TABLET PO SCH (21:38)
[2018-06-16] MEDS: traZODone HCL 50 MG TAB PO SCH (21:38)
[2018-06-16] MEDS: LISINOPRIL 10 MG TAB PO SCH (22:24)
[2018-06-16] MEDS: EZETIMIBE 10 MG TAB PO SCH (22:28)
[2018-06-16] MEDS: INSULIN DETEMIR (LEVEMIR) 100 UNIT/ML SYR SQ SCH (22:42)
[2018-06-17] MEDS: ACETAMINOPHEN TAB 325 MG TAB PO PRN (03:38)
[2018-06-17] MEDS: MORPHINE SULFATE IR 15 MG TABLET PO PRN (04:14)
[2018-06-17 05:51] LABS: Glucose,Whole Blood 114 mg/dL (75-99)
[2018-06-17] MEDS: INSULIN ASPART (NovoLOG) 100 UNIT/ML VIAL SQ SCH ×7 (05:52→21:22)
[2018-06-17] MEDS: LEVOTHYROXINE 100 MCG TAB PO SCH (07:14)
[2018-06-17] MEDS: metFORMIN 500 MG TAB PO SCH ×2 (07:14→17:04)
[2018-06-17] MEDS: PANTOPRAZOLE 40 MG TABLET PO SCH (07:14)
[2018-06-17 07:22] LABS: Basophils # (A) 0.1 k/uL (0-0.2); Basophils % (A) 1 %; Eosinophils # (A) 0.4 k/uL (0-0.7); Eosinophils % (A) 4 %; HCT 43.1 % (34.0-46.0); HGB 13.9 gm/dL (11.4-16.0); Lymphocytes # (A) 2.4 k/uL (1.0-4.8); Lymphocytes % (A) 29 %; MCH 27.1 pg (25.0-35.0); MCHC 32.2 g/dL (31.0-37.0); Mean Platelet Volume 6.9; Monocytes # (A) 0.8 k/uL (0-1.0); Monocytes % (A) 9 %; Neutrophils # (A) 4.7 k/uL (1.3-7.7); Neutrophils % (A) 55 %; Platelet Count 350 k/uL (150-450); RBC 5.12 m/uL (3.80-5.40); RDW 14.1 % (11.5-15.5); WBC 8.5 k/uL (3.8-10.6)
[2018-06-17 07:36] LABS: Prothrombin Time 10.7 sec (9.0-12.0)
[2018-06-17] MEDS: IPRATROPIUM-ALBUTEROL 3 ML NEB INHALATION SCH ×4 (07:42→19:24)
[2018-06-17 07:45] LABS: Anion Gap 5 mmol/L; Blood Urea Nitrogen 25 mg/dL (7-17); Carbon Dioxide 35 mmol/L (22-30); Chloride 92 mmol/L (98-107); Glucose 118 mg/dL (74-99); Magnesium 1.8 mg/dL (1.6-2.3); Potassium 4.8 mmol/L (3.5-5.1); Sodium 132 mmol/L (137-145)
[2018-06-17] MEDS: NON-FORMULARY DRUG (Biotin [Biotin] 5,000 MCG) PO SCH (09:37)
[2018-06-17] MEDS: CITALOPRAM HYDROBROMIDE 20 MG TAB PO SCH ×2 (09:57→19:57)
[2018-06-17] MEDS: CHOLECALCIFEROL 1,000 UNIT TAB PO SCH (09:57)
[2018-06-17] MEDS: CALCIUM CARBONATE 500 MG CHEWABLE PO SCH (09:57)
[2018-06-17] MEDS: busPIRone HCl 10 MG TAB PO SCH ×2 (09:57→19:56)
[2018-06-17] MEDS: FUROSEMIDE 20 MG TAB PO SCH (09:59)
[2018-06-17] MEDS: FENOFIBRATE 160 MG TAB PO SCH (09:59)
[2018-06-17] MEDS: DOCUSATE 100 MG CAP PO SCH ×3 (09:59→19:55)
[2018-06-17] MEDS: METOPROLOL TARTRATE 50 MG TAB PO SCH ×2 (10:09→19:56)
[2018-06-17] MEDS: predniSONE 20 MG TAB PO SCH (10:09)
[2018-06-17] MEDS: APIXABAN 5 MG TAB PO SCH ×2 (10:10→19:57)
[2018-06-17] MEDS: MULTIVITAMINS, THERA 1 EACH TAB PO SCH (10:10)
[2018-06-17] MEDS: MORPHINE SULFATE ER 60 MG TABLET PO SCH ×2 (10:10→19:55)
[2018-06-17] MEDS: SPIRONOLACTONE 25 MG TAB PO SCH (10:10)
[2018-06-17] MEDS: LACTULOSE 20 GM/30 ML CUP PO SCH (10:12)
[2018-06-17 11:27] LABS: Glucose,Whole Blood 96 mg/dL (75-99)
[2018-06-17] MEDS: FLUTICASONE 50MCG/SPRAY NASAL 16GM EA NOSTRIL SCH (12:13)
[2018-06-17] MEDS: ZYRTEC 10MG PO SCH (12:13)
[2018-06-17] MEDS: BACLOFEN 10 MG TAB PO PRN (12:13)
--- NOTE | 2018-06-17 14:39 | P.PN ---
Subjective Progress Note Date: 06/17/18 This is a 67-year-old white female patient who was received as a transfer from [facility] on 05/28/2018. Patient had presented with complaints of chest congestion, cough, wheezing, shortness of breath and occasional phlegm production. Influenza screen and CT angiogram were completed at the [facility], and they were negative for influenza A and pulmonary embolism. Patient did have multiple pulmonary nodules that could relate to her underlying sarcoidosis. In addition she has some groundglass opacities at the lower lobes possibly consistent with pneumonia. We did obtain a chest x-ray at this hospital yesterday, which showed cardiomegaly with multifocal bilateral alveolar and interstitial edema and/or infiltrates. Possible developing ARDS. She lab work showed a white blood cell count of 3.6, hemoglobin 13.3, d-dimer was slightly elevated at 1.05, but CT angios was negative for any evidence of PE, renal profile and electrolytes were within normal limits, proBNP was within normal limits at 467, troponin was negative, urinalysis was negative for any sign of infection. Patient's medical history significant for atrial fibrillation on anticoagulation in the form of Coumadin, history of DVT/PE, diabetes mellitus type 2, history of CVA and TIA and hypertension, hypo thyroidism. This patient has been in the hospital for a total of 20 days, last evening she went into a rapid atrial flutter, we increased her beta mandy today, discontinue the Cardizem drip, and started the patient on Eliquis. At present she is in a normal sinus rhythm. Blood pressure 110/70 with a heart rate in the 60s. White blood cell count 8.5, hemoglobin 13.9, platelet count 350. Sodium 132, potassium 4.8, BUN 25 and creatinine 0.6. Magnesium 1.8. Objective - Vital Signs Vital signs: Vital Signs Temp 98.4 F 06/17/18 11:32 Pulse 82 06/17/18 11:38 Resp 16 06/17/18 11:32 BP 109/70 06/17/18 11:32 Pulse Ox 94 L 06/17/18 11:32 Intake & Output 06/16/18 06/17/18 06/17/18 18:59 06:59 18:59 Intake Total 826 278.167 480 Output Total 2200 2500 Balance 826 -1921.833 -2019 Weight 93.4 kg 98 kg Intake: IV 160 kvo 160 Intake, IV Titration 38.167 Amount Diltiazem 125 mg In 38.167 Sodium Chloride 0.9% 100 ml @ 10 MG/HR 10 mls/hr IV .[id number] [facility] Rx#: [id number] Oral 666 240 480 Output: Urine 2200 2500 Uretheral (Anaya) 1400 Other: Voiding Method Bedside Commode # Voids 4 - Exam HEAD: Normocephalic/atraumatic. EYES: Normal reaction of pupils, equal size. Conjunctiva pink, sclera white. NOSE: Clear with pink turbinates. THROAT: No erythema or exudates. NECK: No masses, no JVD, no thyroid enlargement, no adenopathy. CHEST: No chest wall deformity. Symmetrical expansion. LUNGS: Equal air entry with diffuse crackles CVS: Regular rate and rhythm, normal S1 and S2, no gallops, no murmurs, no rubs ABDOMEN: Soft, nontender. No hepatosplenomegaly, normal bowel sounds, no guarding or rigidity. EXTREMITIES: No clubbing, no edema, no cyanosis, 2+ pulses and upper and lower extremities. MUSCULOSKELETAL: Muscle strength and tone normal. SPINE: No scoliosis or deformity SKIN: No rashes CENTRAL NERVOUS SYSTEM: Alert and oriented -3. No focal deficits, tone is normal in all 4 extremities. PSYCHIATRIC: Alert and oriented -3. Appropriate affect. Intact judgment and insight. - Labs CBC & Chem 7: 06/17/18 06:56 06/17/18 06:56 Labs: Abnormal Lab Results - Last 24 Hours (Table) 06/16/18 06/16/18 06/16/18 Range/Units 17:15 18:34 19:20 RBC 5.47 H (3.80-5.40) m/uL Hct 46.7 H (34.0-46.0) % Lymphocytes # 0.9 L (1.0-4.8) k/uL Sodium (137-145) mmol/L Potassium (3.5-5.1) mmol/L Chloride (98-107) mmol/L Carbon Dioxide (22-30) mmol/L BUN (7-17) mg/dL Glucose (74-99) mg/dL POC Glucose (mg/dL) 241 H 326 H (75-99) mg/dL Total Creatine Kinase (30-135) U/L Total Protein (6.3-8.2) g/dL 06/16/18 06/16/18 06/16/18 Range/Units 19:20 19:20 20:53 RBC (3.80-5.40) m/uL Hct (34.0-46.0) % Lymphocytes # (1.0-4.8) k/uL Sodium 129 L (137-145) mmol/L Potassium 5.2 H (3.5-5.1) mmol/L Chloride 91 L (98-107) mmol/L Carbon Dioxide (22-30) mmol/L BUN 24 H (7-17) mg/dL Glucose 259 H (74-99) mg/dL POC Glucose (mg/dL) 181 H (75-99) mg/dL Total Creatine Kinase 20 L (30-135) U/L Total Protein 6.1 L (6.3-8.2) g/dL 06/17/18 06/17/18 Range/Units 05:49 06:56 RBC (3.80-5.40) m/uL Hct (34.0-46.0) % Lymphocytes # (1.0-4.8) k/uL Sodium 132 L (137-145) mmol/L Potassium (3.5-5.1) mmol/L Chloride 92 L (98-107) mmol/L Carbon Dioxide 35 H (22-30) mmol/L BUN 25 H (7-17) mg/dL Glucose 118 H (74-99) mg/dL POC Glucose (mg/dL) 114 H (75-99) mg/dL Total Creatine Kinase (30-135) U/L Total Protein (6.3-8.2) g/dL Assessment and Plan Plan: Assessment and plan: #1. Acute hypoxemic respiratory failure secondary to bilateral pneumonia, and there may be a component of pulmonary edema/ARDS, Influenza screen was negative, CT angios the chest was negative for any pulmonary embolism, showed groundglass opacities at bilateral bases, likely related to underlying pneumonia #2. Pulmonary nodules, could relate to underlying sarcoidosis, or infectious etiology #3. Diabetes mellitus type 2 #4. Chronic atrial fibrillation, and history of DVT and pulmonary embolism #5. GERD/reflux #6. Hypertention, hyperlipidemia #7. DJD #8. Hypothyroidism #9. Osteoarthritis of multiple joints #10 paroxysmal atrial flutter Plan Last evening patient went into a rapid atrial flutter, she is in normal sinus rhythm this morning. We will discontinue the Coumadin and start the patient on Eliquis today, increase dose of beta mandy and discontinue the Cardizem drip. Once the patient's infection has cleared, down the road she may be considered as a candidate for elective ablation. DNP note has been reviewed, I agree with a documented findings and plan of care. Patient was seen and examined.
--- NOTE | 2018-06-17 15:48 | P.PN ---
Subjective Patient is a 67-year-old female with a known history of atrial fibrillation on anticoagulation, history of DVT/PE, diabetes type 2, history of CVA/TIA and hypertension, hypothyroidism . Presents with acute dyspneafound to have multifocal pneumonia and acute hypoxic respiratory failure, progressing to possible ARDS.currently she is saturating 92% on high flow cannula with FiO2 50%. She is lying in bed or a flight of chair, comfortable. Mildly tachypneic and her breathing is not labored. She can't talk in full sentences. Denies chest pain. No change in urine or bowel habits.no fever. Stress of Vitas looks stable. WBC is 14.7 K. Sodium 131, potassium 5.2. Creatinine normal at 0.5. The sugar controlled. Patient is been followed closely by pulmonary team in the ICU. 06/12/2018 Patient remains in the ICU, her breathing is improving. She denies chest pain or abdominal pain. Patient tolerating that well. Vitas is stable, however her blood pressure on the high side like 154/1:15, she saturating 93% on high flow cannula at 8 L per min. WBC is 14 point okay, sodium 129, potassium 5.6, sugar is controlled. Blood cultures are negative. Chest x-ray multifocal alveolar and interstitial airspace disease that may represent pneumonia or pulmonary edema. Patient remains in the ICU and followed by critical care team. 06/13/2018 patient fell and better today and she moved out of the ICU to the general medical floor. She denies dyspnea or chest pain . she is a still on high flow oxygen via nasal cannula and she needs 10 L now. Tolerating diet well no abdominal pain. No coughing. Vital stable. WBC 11.9 K. Sodium 129. She is on Xanax, Lasix and Aldactone.continue with Solu-Medrol 60 mg. And morphine for pain medication as well as metformin. 06/14/2018 Patient is seen in the select unit, no overt dyspnea or chest pain. She saturating 92% on 7 L oxygen high flow. Patient was not on home oxygen prior to that. Once cell count is improving to 11.9 K. Sodium 129, and repeat potassium was 5.9. Follow-up potassium level. Sugar is running between 127-229. Pulmonary team are following the case. 06/15/2018 Patient is lying in bed still have some dyspnea. Denies chest pain. She is hemodynamically stable. She is needing less oxygen only 7 L via high flow nasal cannula 06/17/2018 Patient became tachycardic overnight, EKG showing atrial flutter. Patient has been evaluated by cardiology team and transferred to the select unit. She received metoprolol 50 mg per cardiology team. And currently patient risks and bit more comfortable. Her left knee Twisted while she was trying to walk yesterday. And she has supra patellar effusion, suspicious for any injury. Orthopedic team are going to evaluated the patient as well as. Her breathing is quiet and is improving, however she still dyspneic, patient currently on 4 L oxygen via NC. CONSTITUTIONAL: No fever, no malaise, no fatigue. HEENT: No recent visual problems or hearing problems. Denied any sore throat. CARDIOVASCULAR: No orthopnea, PND, no palpitations, no syncope. PULMONARY: No shortness of breath, no cough, no hemoptysis. GASTROINTESTINAL: No diarrhea, no nausea, no vomiting, no abdominal pain. Normoactive bowel sounds. NEUROLOGICAL: No headaches, no weakness, no numbness. HEMATOLOGICAL: Denies any bleeding or petechiae. GENITOURINARY: Denies any burning micturition, frequency, or urgency. MUSCULOSKELETAL/RHEUMATOLOGICAL: Denies any joint pain, swelling, or any muscle pain. ENDOCRINE: Denies any polyuria or polydipsia. Medication: Tylenol, albuterol, Xanax, Eliquis, baclofen, BuSpar, vitamin D, Celexa, Colace, Zetia, fenofibrate, Flonase, Lasix, insulin aspart, Levemir, lactulose, Synthroid, Zestril, melatonin, Glucophage, morphine, multivitamin, nitroglycerin, Zofran when necessary, Objective - Vital Signs Vital signs: Vital Signs Temp 97.6 F 06/17/18 15:33 Pulse 76 06/17/18 15:33 Resp 16 06/17/18 15:33 BP 117/70 06/17/18 15:33 Pulse Ox 93 L 06/17/18 15:33 Intake & Output 06/16/18 06/17/18 06/17/18 18:59 06:59 18:59 Intake Total 826 278.167 480 Output Total 2200 2500 Balance 826 -1921.833 Weight 93.4 kg 98 kg Intake: IV 160 kvo 160 Intake, IV Titration 38.167 Amount Diltiazem 125 mg In 38.167 Sodium Chloride 0.9% 100 ml @ 10 MG/HR 10 mls/hr IV .[id number] [facility] Rx#: [id number] Oral 666 240 480 Output: Urine 2200 2500 Uretheral (Anaya) 1400 Other: Voiding Method Bedside Commode # Voids 4 - Exam GENERAL: The patient is alert and oriented x3, not in any acute distress. Well developed, well nourished. HEENT: Pupils are round and equally reacting to light. EOMI. No scleral icterus. No conjunctival pallor. Normocephalic, atraumatic. No pharyngeal erythema. No thyromegaly. CARDIOVASCULAR: S1 and S2 present. No murmurs, rubs, or gallops. -PULMONARY: Chest is clear to auscultation, bilateral scattered wheezing and crackles. ABDOMEN: Soft, nontender, nondistended, normoactive bowel sounds. No palpable organomegaly. MUSCULOSKELETAL: No joint swelling or deformity. EXTREMITIES: No cyanosis, clubbing, or pedal edema. NEUROLOGICAL: Gross neurological examination did not reveal any focal deficits. SKIN: No rashes. - Labs CBC & Chem 7: 06/17/18 06:56 06/17/18 06:56 Labs: Abnormal Lab Results - Last 24 Hours (Table) 06/16/18 06/16/18 06/16/18 Range/Units 17:15 18:34 19:20 RBC 5.47 H (3.80-5.40) m/uL Hct 46.7 H (34.0-46.0) % Lymphocytes # 0.9 L (1.0-4.8) k/uL Sodium (137-145) mmol/L Potassium (3.5-5.1) mmol/L Chloride (98-107) mmol/L Carbon Dioxide (22-30) mmol/L BUN (7-17) mg/dL Glucose (74-99) mg/dL POC Glucose (mg/dL) 241 H 326 H (75-99) mg/dL Total Creatine Kinase (30-135) U/L Total Protein (6.3-8.2) g/dL 06/16/18 06/16/18 06/16/18 Range/Units 19:20 19:20 20:53 RBC (3.80-5.40) m/uL Hct (34.0-46.0) % Lymphocytes # (1.0-4.8) k/uL Sodium 129 L (137-145) mmol/L Potassium 5.2 H (3.5-5.1) mmol/L Chloride 91 L (98-107) mmol/L Carbon Dioxide (22-30) mmol/L BUN 24 H (7-17) mg/dL Glucose 259 H (74-99) mg/dL POC Glucose (mg/dL) 181 H (75-99) mg/dL Total Creatine Kinase 20 L (30-135) U/L Total Protein 6.1 L (6.3-8.2) g/dL 06/17/18 06/17/18 Range/Units 05:49 06:56 RBC (3.80-5.40) m/uL Hct (34.0-46.0) % Lymphocytes # (1.0-4.8) k/uL Sodium 132 L (137-145) mmol/L Potassium (3.5-5.1) mmol/L Chloride 92 L (98-107) mmol/L Carbon Dioxide 35 H (22-30) mmol/L BUN 25 H (7-17) mg/dL Glucose 118 H (74-99) mg/dL POC Glucose (mg/dL) 114 H (75-99) mg/dL Total Creatine Kinase (30-135) U/L Total Protein (6.3-8.2) g/dL Assessment and Plan Assessment: Acute hypoxic respiratory failure secondary to pneumonia with pulmonary interstitial edema/ARDS.improving Multifocal pneumonia with sepsis. Improving Chronic atrial fibrillation on anticoagulation with Coumadin Left knee sprain, versus injury Right lower extremity DVT. On anticoagulation Asthma History of breast cancer status post surgery and chemotherapy Migraine headaches Degenerative disc disease and chronic back pain and cervical pain Left leg sciatic pain Hypothyroidism History of CVA/TIA with no residual weakness GERD Hypertension Hyperlipidemia Osteoarthritis of multiple joints Plan: this is a pleasant 68 years old female presents with pneumonia and ARDS. Pulmonary team R following the case closely. Continue with antibiotic.continue with anticoagulation.continue with the steroid therapy. .Labs and medication were reviewed.. Continue with beta mandy. Call orthopedic surgery. Continue same treatment. Continue with symptomatic treatment. Resume home medication. Monitor lytes and vitals. DVT and GI prophylaxis. Further recommendations of the clinical course of the patient DVT prophylaxis: Lovenox GI Prophylaxis: Protonix Prognosis is guarded
--- NOTE | 2018-06-17 16:17 | PN ---
PROGRESS NOTE DATE OF SERVICE: 06/17/2018 This is a 68-year-old female who has been here in the hospital for 20 days. She came in initially with bilateral pneumonia and acute hypoxemic respiratory failure with acute lung injury and acute respiratory distress syndrome. She had a CT angiogram that was negative and her N-terminal proBNP was within normal limits. Influenza screen was negative as well. She was treated in the ICU for a number of days on BiPAP, antibiotics, bronchodilators and steroids and finally got better. She was moved out to the floor a couple of days ago and apparently yesterday developed wide-complex tachycardia. She was moved down to the cardiac floor. She does have a history of pulmonary nodules, which could relate to underlying sarcoidosis, diabetes mellitus, chronic atrial fibrillation, GERD, hypertension, hyperlipidemia, DJD, hypothyroidism and osteoarthritis. The patient was apparently on a Cardizem drip for a period of time, but she converted into a normal sinus rhythm and the Cardizem drip was discontinued. She has been seeing one of the cardiologists here. Other than that, she is doing reasonably well. She feels much improved. Vital signs are reviewed. Temperature 98.4, heart rate 64, respiratory rate 16, blood pressure 109/70, mean 83. Four-liter saturation is 94%. Appears in no acute distress. HEENT examination is grossly unremarkable. Mucous membranes are moist. No oral lesions. Neck is supple. Full range of motion. No adenopathy or thyromegaly. Neck veins are flat. Cardiovascular examination reveals regular rhythm and rate. Heart rate in the high 60s, low 70s. S1, S2 normal. There is no murmur. Lungs reveal a few scattered rhonchi. No wheezes or crackles. Breath sounds equal. Abdomen is soft. Bowel sounds are heard. There is no mass or tenderness. Extremities are intact. No cyanosis, clubbing or edema. Skin without rash. Neurologic examination is brief but nonfocal. Microbiologic studies have all been negative. Labs include CBC showing a white count of 8.5, hemoglobin 13.9, hematocrit 43.1, platelet count 350,000. PT and INR were 10.7 and 1. Sodium 132, potassium 4.8, chloride 92, CO2 35, anion gap 5, BUN 25, creatinine 0.6. Calcium and magnesium are normal. Albumin 3.5. Total protein 6.1. Medications are reviewed. Antibiotics were stopped yesterday. ASSESSMENT: 1. Acute hypoxemic respiratory failure secondary to bilateral pneumonia with acute lung injury and acute respiratory distress syndrome. The patient recovered nicely after prolonged hospitalization with bronchodilators, antibiotics and BiPAP therapy. Influenza screen was negative, N-terminal proBNP was normal, and CT angiogram was negative for PE. 2. History of pulmonary nodules, likely related to underlying sarcoidosis, which is inactive at this time. 3. Diabetes mellitus, type 2. 4. History of chronic atrial fibrillation. 5. History of deep venous thrombosis. 6. History of pulmonary embolism. 7. Gastroesophageal reflux disease. 8. Hypertension. 9. Hyperlipidemia. 10.Degenerative joint disease. 11.Hypothyroidism. PLAN: The patient is doing much better. Hopeful discharge in the next few days or so. Medications are reviewed. Labs are reviewed. The patient apparently has converted back into sinus rhythm. She was on IV Cardizem, but that has been turned off. Additional recommendations and suggestions are forthcoming. MMODL / IJN: [id number] /
[2018-06-17 16:20] LABS: Glucose,Whole Blood 231 mg/dL (75-99)
--- NOTE | 2018-06-17 17:08 | CONS ---
CONSULTATION DATE OF CONSULTATION: 06/17/2018 REASON FOR CONSULTATION: Left knee pain/pre-patellar bursitis. HISTORY: Cris is a 68-year-old female who is very well known to me. She has been a patient of mine for the last 10 years. She presented to the hospital and is being treated currently for pneumonia. She did develop some left knee pain. X-rays of the left knee reveal osteoarthritis of the knee, and there was a suggestion off of the x-ray read that she had some suprapatellar bursal fluid. We were consulted for evaluation of this. She is afebrile. Vital signs are stable. She is complaining some mild left knee pain. On examination of the left knee, there is no evidence of any pre-patellar bursitis at all. There is no palpable pre-patellar bursal fluid. She has no effusion in the knee. She has full extension and flexion of the knees to 110 degrees. Her LCL, MCL, PCL and ACL are all stable. She has some mild medial joint line tenderness but a negative Ayana's test. Distally her neurovascular exam is normal. X-RAYS: Views of the knee show moderate medial compartment and patellofemoral compartment osteoarthritis of the left knee. No osseous lesions. No loose bodies. No evidence of fracture. IMPRESSION: Osteoarthritic exacerbation of the left knee. RECOMMENDATIONS: Cris may resume activity to tolerance. No further workup is needed for her left knee pain at this time. She may follow up with me in the office as an outpatient for further treatment options for her osteoarthritis of her left knee. MMODL / IJN: [id number] /
[2018-06-17] MEDS ORDERED: WARFARIN 2.5 MG TAB PO SCH (18:00)
[2018-06-17] MEDS: MELATONIN 5 MG TABLET PO SCH (19:56)
[2018-06-17] MEDS: traZODone HCL 50 MG TAB PO SCH (19:56)
[2018-06-17] MEDS: ZOLPIDEM 5 MG TAB PO PRN (19:57)
[2018-06-17] MEDS: LISINOPRIL 10 MG TAB PO SCH (19:57)
[2018-06-17 21:03] LABS: Glucose,Whole Blood 157 mg/dL (75-99)
[2018-06-17] MEDS: INSULIN DETEMIR (LEVEMIR) 100 UNIT/ML SYR SQ SCH (21:23)
[2018-06-17] MEDS: EZETIMIBE 10 MG TAB PO SCH (21:23)
[2018-06-18 04:35] LABS: Glucose,Whole Blood 146 mg/dL (75-99)
[2018-06-18] MEDS: INSULIN ASPART (NovoLOG) 100 UNIT/ML VIAL SQ SCH ×7 (06:14→21:47)
[2018-06-18] MEDS: LEVOTHYROXINE 100 MCG TAB PO SCH (06:14)
[2018-06-18] MEDS: PANTOPRAZOLE 40 MG TABLET PO SCH (06:14)
[2018-06-18] MEDS: metFORMIN 500 MG TAB PO SCH ×2 (06:14→17:36)
[2018-06-18] MEDS: MORPHINE SULFATE IR 15 MG TABLET PO PRN ×2 (07:04→12:31)
[2018-06-18 07:11] LABS: Basophils % (A) 1 %; Eosinophils # (A) 0.3 k/uL (0-0.7); Eosinophils % (A) 4 %; HCT 41.7 % (34.0-46.0); HGB 13.3 gm/dL (11.4-16.0); Lymphocytes # (A) 2.5 k/uL (1.0-4.8); Lymphocytes % (A) 31 %; MCH 26.3 pg (25.0-35.0); MCV 82.3 fL (80.0-100.0); Mean Platelet Volume 7.9; Monocytes # (A) 0.7 k/uL (0-1.0); Monocytes % (A) 9 %; Neutrophils # (A) 4.2 k/uL (1.3-7.7); Neutrophils % (A) 53 %; Platelet Count 306 k/uL (150-450); RBC 5.07 m/uL (3.80-5.40); RDW 14.5 % (11.5-15.5)
[2018-06-18 07:21] LABS: Anion Gap 7 mmol/L; Blood Urea Nitrogen 25 mg/dL (7-17); Calcium 8.8 mg/dL (8.4-10.2); Carbon Dioxide 31 mmol/L (22-30); Chloride 94 mmol/L (98-107); Glucose 82 mg/dL (74-99); Potassium 4.8 mmol/L (3.5-5.1); Sodium 132 mmol/L (137-145)
[2018-06-18 07:25] LABS: Prothrombin Time 10.4 sec (9.0-12.0)
[2018-06-18] MEDS: IPRATROPIUM-ALBUTEROL 3 ML NEB INHALATION SCH ×4 (08:20→20:01)
[2018-06-18] MEDS: CITALOPRAM HYDROBROMIDE 20 MG TAB PO SCH ×2 (08:39→21:33)
[2018-06-18] MEDS: FENOFIBRATE 160 MG TAB PO SCH (08:39)
[2018-06-18] MEDS: APIXABAN 5 MG TAB PO SCH (08:39)
[2018-06-18] MEDS: METOPROLOL TARTRATE 50 MG TAB PO SCH ×2 (08:39→21:33)
[2018-06-18] MEDS: LACTULOSE 20 GM/30 ML CUP PO SCH (08:40)
[2018-06-18] MEDS: DOCUSATE 100 MG CAP PO SCH ×3 (08:40→21:33)
[2018-06-18] MEDS: CALCIUM CARBONATE 500 MG CHEWABLE PO SCH (08:40)
[2018-06-18] MEDS: CHOLECALCIFEROL 1,000 UNIT TAB PO SCH (08:40)
[2018-06-18] MEDS: SPIRONOLACTONE 25 MG TAB PO SCH (08:40)
[2018-06-18] MEDS: MORPHINE SULFATE ER 60 MG TABLET PO SCH ×2 (08:40→21:31)
[2018-06-18] MEDS: busPIRone HCl 10 MG TAB PO SCH ×2 (08:40→21:33)
[2018-06-18] MEDS: MULTIVITAMINS, THERA 1 EACH TAB PO SCH (08:40)
[2018-06-18] MEDS: FUROSEMIDE 20 MG TAB PO SCH (08:40)
[2018-06-18] MEDS: ZYRTEC 10MG PO SCH (08:41)
[2018-06-18] MEDS: FLUTICASONE 50MCG/SPRAY NASAL 16GM EA NOSTRIL SCH (08:42)
[2018-06-18] MEDS: NON-FORMULARY DRUG (Biotin [Biotin] 5,000 MCG) PO SCH (10:56)
[2018-06-18 11:40] LABS: Glucose,Whole Blood 103 mg/dL (75-99)
--- NOTE | 2018-06-18 15:11 | P.PN ---
Subjective Progress Note Date: 06/18/18 This is a 67-year-old white female patient who was received as a transfer from [facility] on 05/28/2018. Patient had presented with complaints of chest congestion, cough, wheezing, shortness of breath and occasional phlegm production. Influenza screen and CT angiogram were completed at the [facility], and they were negative for influenza A and pulmonary embolism. Patient did have multiple pulmonary nodules that could relate to her underlying sarcoidosis. In addition she has some groundglass opacities at the lower lobes possibly consistent with pneumonia. We did obtain a chest x-ray at this hospital yesterday, which showed cardiomegaly with multifocal bilateral alveolar and interstitial edema and/or infiltrates. Possible developing ARDS. She lab work showed a white blood cell count of 3.6, hemoglobin 13.3, d-dimer was slightly elevated at 1.05, but CT angios was negative for any evidence of PE, renal profile and electrolytes were within normal limits, proBNP was within normal limits at 467, troponin was negative, urinalysis was negative for any sign of infection. Patient's medical history significant for atrial fibrillation on anticoagulation in the form of Coumadin, history of DVT/PE, diabetes mellitus type 2, history of CVA and TIA and hypertension, hypo thyroidism. This patient has been in the hospital for a total of 20 days, last evening she went into a rapid atrial flutter, we increased her beta mandy today, discontinue the Cardizem drip, and started the patient on Eliquis. At present she is in a normal sinus rhythm. Blood pressure 110/70 with a heart rate in the 60s. White blood cell count 8.5, hemoglobin 13.9, platelet count 350. Sodium 132, potassium 4.8, BUN 25 and creatinine 0.6. Magnesium 1.8. 06/18/2018 Patient was seen and examined this morning, we had started her on Eliquis, according to the patient, she states that her Coumadin levels have been maintained at a steady state for several years, she actually monitors them at home. I did have a long discussion with her be about Eliquis and the risk for bleeding as compared with Coumadin, she wishes to stay on Coumadin at this time. We will give her an additional dose of Eliquis this evening and start her on Coumadin 5 mg daily. Overall she is doing better, blood pressure today 90/70 with a heart rate in the 60s. White blood cell count 8.0, hemoglobin 13.3, plat elet count 306. Sodium 132, potassium 4.8, BUN 25 and creatinine 0.5 Objective - Vital Signs Vital signs: Vital Signs Temp 97.8 F 06/18/18 12:00 Pulse 68 06/18/18 12:00 Resp 18 06/18/18 12:00 BP 91/72 06/18/18 12:00 Pulse Ox 94 L 06/18/18 12:00 Intake & Output 06/17/18 06/18/18 06/18/18 18:59 06:59 18:59 Intake Total 702 587 870 Output Total 2500 1425 1300 Balance -1798 -838 -430 Weight 98.5 kg Intake: Oral 702 587 870 Output: Urine 2500 1425 1300 Other: Voiding Method Indwelling Catheter Indwelling Catheter Indwelling Catheter # Voids 1 - Exam HEAD: Normocephalic/atraumatic. EYES: Normal reaction of pupils, equal size. Conjunctiva pink, sclera white. NOSE: Clear with pink turbinates. THROAT: No erythema or exudates. NECK: No masses, no JVD, no thyroid enlargement, no adenopathy. CHEST: No chest wall deformity. Symmetrical expansion. LUNGS: Equal air entry with diffuse crackles CVS: Regular rate and rhythm, normal S1 and S2, no gallops, no murmurs, no rubs ABDOMEN: Soft, nontender. No hepatosplenomegaly, normal bowel sounds, no guarding or rigidity. EXTREMITIES: No clubbing, no edema, no cyanosis, 2+ pulses and upper and lower extremities. MUSCULOSKELETAL: Muscle strength and tone normal. SPINE: No scoliosis or deformity SKIN: No rashes CENTRAL NERVOUS SYSTEM: Alert and oriented -3. No focal deficits, tone is normal in all 4 extremities. PSYCHIATRIC: Alert and oriented -3. Appropriate affect. Intact judgment and insight. - Labs CBC & Chem 7: 06/18/18 06:25 06/18/18 06:25 Labs: Abnormal Lab Results - Last 24 Hours (Table) 06/17/18 06/17/18 06/18/18 Range/Units 16:07 21:02 04:15 Sodium (137-145) mmol/L Chloride (98-107) mmol/L Carbon Dioxide (22-30) mmol/L BUN (7-17) mg/dL POC Glucose (mg/dL) 231 H 157 H 146 H (75-99) mg/dL 06/18/18 06/18/18 Range/Units 06:25 11:39 Sodium 132 L (137-145) mmol/L Chloride 94 L (98-107) mmol/L Carbon Dioxide 31 H (22-30) mmol/L BUN 25 H (7-17) mg/dL POC Glucose (mg/dL) 103 H (75-99) mg/dL Assessment and Plan Plan: Assessment and plan: #1. Acute hypoxemic respiratory failure secondary to bilateral pneumonia, and there may be a component of pulmonary edema/ARDS, Influenza screen was negative, CT angios the chest was negative for any pulmonary embolism, showed groundglass opacities at bilateral bases, likely related to underlying pneumonia #2. Pulmonary nodules, could relate to underlying sarcoidosis, or infectious etiology #3. Diabetes mellitus type 2 #4. Chronic atrial fibrillation, and history of DVT and pulmonary embolism #5. GERD/reflux #6. Hypertention, hyperlipidemia #7. DJD #8. Hypothyroidism #9. Osteoarthritis of multiple joints #10 paroxysmal atrial flutter Plan After a lengthy discussion with the patient, we will discontinue the Eliquis after her last dose tonight and start the patient back on Coumadin 5 mg daily. Continue the rest of her medications. DNP note has been reviewed, I agree with a documented findings and plan of care. Patient was seen and examined.
--- NOTE | 2018-06-18 15:44 | P.PN ---
Subjective Progress Note Date: 06/18/18 Principal diagnosis: Bibasilar pneumonia, hypoxemic respiratory failure This is a 67-year-old white female patient who was received as a transfer from [facility] on 05/28/2018. Patient had presented with complaints of chest congestion, cough, wheezing, shortness of breath and occasional phlegm production. Influenza screen and CT angiogram were completed at the [facility], and they were negative for influenza A and pulmonary embolism. Patient did have multiple pulmonary nodules that could relate to her underlying sarcoidosis. In addition she has some groundglass opacities at the lower lobes possibly consistent with pneumonia. We did obtain a chest x-ray at this hospital yesterday, which showed cardiomegaly with multifocal bilateral alveolar and interstitial edema and/or infiltrates. Possible developing ARDS. She lab work showed a white blood cell count of 3.6, hemoglobin 13.3, d-dimer was slightly elevated at 1.05, but CT angios was negative for any evidence of PE, renal profile and electrolytes were within normal limits, proBNP was within normal limits at 467, troponin was negative, urinalysis was negative for any sign of infection. Patient's medical history significant for atrial fibrillation on anticoagulation in the form of Coumadin, history of DVT/PE, diabetes mellitus type 2, history of CVA and TIA and hypertension, hypo thyroidism. The patient was given IV lasix, and she has significantly diuresed, she is in -3560 mL fluid balance in last 24 hours, in her breathing had worsened, along with her oxygenation, and patient had to be placed on BiPAP support. On today's exam patient is seen on BiPAP support with pressures of 12 and 5, 80%, and her pulse ox is 94%, she is quite tachypneic, lung sounds are positive for diffuse crackles, and rhonchi, patient appears to be in mild to moderate amount of distress, and for that reason patient will be removed down to the intensive care unit, today's chest x-ray has been reviewed, showed persistence of bladder pulmonary edema, and airspace disease bilaterally, likely related to underlying pneumonia. Afebrile, hemodynamically stable. Denies any chest pain, wasn't able to produce any sputum for culture. She states she still has the urge to cough, but not able to bring up anything. Antibiotic coverage in the form of Levaquin. On 05/31/2018 patient seen in follow-up in the intensive care unit, she is awake and alert, she is anxious, she states she could not sleep last night, but overall her breathing is better, she remains on BiPAP support with pressures of 12 and 5 and FiO2 of 100%, her O2 sat is 98%, she sinus rhythm on the monitor at a rate of 81 BPM, no IV fluids, IVs have been hep-locked, today's chest x-ray has been reviewed with Dr. Sotomayor, and shows bilateral diffuse infiltrates, improved in appearance from previous exams. Today's INR is 1.5, and we'll start the patient on heparin drip per weight-based protocol for anticoagulation, hold off on Coumadin right now in case patient needs any invasive procedures. His labs have been reviewed, and his CBC was essentially unremarkable, sodium was 138, potassium 3.9, chloride was 97, CO2 is 30, BUN was 15 and creatinine 0.54, antibiotic coverage in the form of Zithromax and Rocephin, and vancomycin. So far the culture data remains negative, patient is still not able to produce any sputum for culture. No fever or chills. We'll try the patient on Airvo. Lung sounds reveal diminished breath sounds, with a few scattered rales. On 06/02/2018 patient seen in follow-up in the intensive care unit, she remains on interval, currently at 60 L and FiO2 of 91%, and her pulse ox is 91-93%, but patient is noted to be easily desaturating with any exertion, speaking or eating. She is awake and alert, in no acute distress, lung sounds reveal a few scattered rhonchi, she is in sinus rhythm with a rate of 80 BPM, today's chest x-ray shows slight improvement in the appearance of diffuse pulmonary infiltrates. Afebrile, blood and urine cultures showed no growth, we have not been able to collect a sputum specimen. Legionella urine antigen is pending, today's lab work showed a white blood cell count of 6.0, hemoglobin is 11.5, electrolytes were within normal limits, CO2 is 33, renal profile was within normal limits. No complaint of chest pain, no significant chest congestion or coughing. Yesterday we switched the antibiotic coverage to cefepime, Levaquin and vancomycin, we added IV Solu-Medrol, nebulized bronchodilators. On 06/16/2018 patient seen in follow-up on medical surgical floor. Resting comfortably in bed, currently on 4 l of oxygen with a pulse ox of 94%. No acute distress, no complaints of shortness of breath or chest pain or significant chest congestion. No fever or chills. Today's labs have been reviewed, sodium is 1:30, potassium is 4.7, chloride is 93, BUN is 26 creatinine 0.61. Blood and urine cultures are negative. Encourage deep breathing and coughing, incentive spirometry use. Patient is on a combination of Diflucan and Levaquin, patient has completed 12 days of Levaquin, and Diflucan. We can stop the antibiotics now On 06/18/2018 patient seen in follow-up. Patient is awake and alert, in no acute distress, she is resting in bed, currently on liters of oxygen with a pulse ox of 94%, no fever or chills, hemodynamically patient is stable. Her only complaint is back pain over left posterior lower chest. No fever or chills, today's labs have been reviewed, white blood cell count is 8.0, hemoglobin is 13.3, sodium is 132, potassium is 4.8, chloride is 94, CO2 31, BUN is 25 and creatinine 0.52. Urine and blood culture showed no growth. Patient has completed a course of Diflucan and Levaquin, antibiotics discontinued 2 days ago. Objective - Vital Signs Vital signs: Vital Signs Temp 97.8 F 06/18/18 12:00 Pulse 68 06/18/18 12:00 Resp 18 06/18/18 12:00 BP 91/72 06/18/18 12:00 Pulse Ox 94 L 06/18/18 12:00 Intake & Output 06/17/18 06/18/18 06/18/18 18:59 06:59 18:59 Intake Total 702 587 870 Output Total 2500 1425 1300 Balance -1798 -838 -430 Weight 98.5 kg Intake: Oral 702 587 870 Output: Urine 2500 1425 1300 Other: Voiding Method Indwelling Catheter Indwelling Catheter Indwelling Catheter # Voids 1 - Exam GENERAL EXAM: Alert, 68-year-old white female patient on 4 l of oxygen with a pulse ox of 94%, in no acute distress HEAD: Normocephalic/atraumatic. EYES: Normal reaction of pupils, equal size. Conjunctiva pink, sclera white. NOSE: Clear with pink turbinates. THROAT: No erythema or exudates. NECK: No masses, no JVD, no thyroid enlargement, no adenopathy. CHEST: No chest wall deformity. Symmetrical expansion. LUNGS: Equal air entry with fine bibasilar crackles CVS: Regular rate and rhythm, normal S1 and S2, no gallops, no murmurs, no rubs ABDOMEN: Soft, nontender. No hepatosplenomegaly, normal bowel sounds, no guarding or rigidity. EXTREMITIES: No clubbing, no edema, no cyanosis, 2+ pulses and upper and lower extremities. MUSCULOSKELETAL: Muscle strength and tone normal. SPINE: No scoliosis or deformity SKIN: No rashes CENTRAL NERVOUS SYSTEM: Alert and oriented -3. No focal deficits, tone is normal in all 4 extremities. PSYCHIATRIC: Alert and oriented -3. Appropriate affect. Intact judgment and insight. - Labs CBC & Chem 7: 06/18/18 06:25 06/18/18 06:25 Labs: Abnormal Lab Results - Last 24 Hours (Table) 06/17/18 06/17/18 06/18/18 Range/Units 16:07 21:02 04:15 Sodium (137-145) mmol/L Chloride (98-107) mmol/L Carbon Dioxide (22-30) mmol/L BUN (7-17) mg/dL POC Glucose (mg/dL) 231 H 157 H 146 H (75-99) mg/dL 06/18/18 06/18/18 Range/Units 06:25 11:39 Sodium 132 L (137-145) mmol/L Chloride 94 L (98-107) mmol/L Carbon Dioxide 31 H (22-30) mmol/L BUN 25 H (7-17) mg/dL POC Glucose (mg/dL) 103 H (75-99) mg/dL Assessment and Plan Plan: Assessment: #1. Acute hypoxemic respiratory failure secondary to bilateral pneumonia, and there may be a component of pulmonary edema/ARDS, proBNP was within normal limits. Influenza screen was negative, CT angios the chest was negative for any pulmonary embolism, showed groundglass opacities at bilateral bases, likely related to underlying pneumonia #2. Pulmonary nodules, could relate to underlying sarcoidosis, or infectious etiology #3. Diabetes mellitus type 2 #4. Chronic atrial fibrillation, and history of DVT and pulmonary embolism, on chronic anticoagulation in the form of Coumadin. Supratherapeutic on today's labs we'll hold Coumadin #5. GERD/reflux #6. Hypertention, hyperlipidemia #7. DJD #8. Hypothyroidism #9. Osteoarthritis of multiple joints Plan: We'll continue current medical treatment, nebulized bronchodilators, we'll obtain repeat chest x-ray today. Encourage deep breathing and coughing, encourage patient to sit up in the chair, ambulate. Antibiotics have been discontinued. No fever or chills, no worsening dyspnea. Will continue to follow I performed a history & physical examination of the patient and discussed their management with my nurse practitioner, Sharona Klein. I reviewed the nurse practitioner's note and agree with the documented findings and plan of care. Lung sounds are positive for fine rales. The findings and the impression was discussed with the patient. I attest to the documentation by the nurse pra ctitioner. Time with Patient: Less than 30
[2018-06-18] MEDS ORDERED: MORPHINE SULFATE 4 MG/ML SYRINGE IVP ONE (16:37)
[2018-06-18] MEDS ORDERED: BUTALB/APAP/CAFF 50-325-40MG TAB PO STA (16:38)
--- NOTE | 2018-06-18 16:38 | P.PN ---
Subjective Patient is a 67-year-old female with a known history of atrial fibrillation on anticoagulation, history of DVT/PE, diabetes type 2, history of CVA/TIA and hypertension, hypothyroidism . Presents with acute dyspneafound to have multifocal pneumonia and acute hypoxic respiratory failure, progressing to possible ARDS.currently she is saturating 92% on high flow cannula with FiO2 50%. She is lying in bed or a flight of chair, comfortable. Mildly tachypneic and her breathing is not labored. She can't talk in full sentences. Denies chest pain. No change in urine or bowel habits.no fever. Stress of Vitas looks stable. WBC is 14.7 K. Sodium 131, potassium 5.2. Creatinine normal at 0.5. The sugar controlled. Patient is been followed closely by pulmonary team in the ICU. 06/12/2018 Patient remains in the ICU, her breathing is improving. She denies chest pain or abdominal pain. Patient tolerating that well. Vitas is stable, however her blood pressure on the high side like 154/1:15, she saturating 93% on high flow cannula at 8 L per min. WBC is 14 point okay, sodium 129, potassium 5.6, sugar is controlled. Blood cultures are negative. Chest x-ray multifocal alveolar and interstitial airspace disease that may represent pneumonia or pulmonary edema. Patient remains in the ICU and followed by critical care team. 06/13/2018 patient fell and better today and she moved out of the ICU to the general medical floor. She denies dyspnea or chest pain . she is a still on high flow oxygen via nasal cannula and she needs 10 L now. Tolerating diet well no abdominal pain. No coughing. Vital stable. WBC 11.9 K. Sodium 129. She is on Xanax, Lasix and Aldactone.continue with Solu-Medrol 60 mg. And morphine for pain medication as well as metformin. 06/14/2018 Patient is seen in the select unit, no overt dyspnea or chest pain. She saturating 92% on 7 L oxygen high flow. Patient was not on home oxygen prior to that. Once cell count is improving to 11.9 K. Sodium 129, and repeat potassium was 5.9. Follow-up potassium level. Sugar is running between 127-229. Pulmonary team are following the case. 06/15/2018 Patient is lying in bed still have some dyspnea. Denies chest pain. She is hemodynamically stable. She is needing less oxygen only 7 L via high flow nasal cannula 06/17/2018 Patient became tachycardic overnight, EKG showing atrial flutter. Patient has been evaluated by cardiology team and transferred to the select unit. She received metoprolol 50 mg per cardiology team. And currently patient risks and bit more comfortable. Her left knee Twisted while she was trying to walk yesterday. And she has supra patellar effusion, suspicious for any injury. Orthopedic team are going to evaluated the patient as well as. Her breathing is quiet and is improving, however she still dyspneic, patient currently on 4 L oxygen via NC. 06/28/2018 Patient light and that with no eventful night. Her breathing is nonlabored and no dyspnea. She still needed for liters of oxygen via nasal cannula. No chest pain and heart rate is controlled after adequate in the metoprolol. She was complaining of from pain around her both eyes with no blurred vision. I examination showed no nystagmus, pupils are equal and reactive to light. No blurry vision. No double vision. She has some tenderness in the bones around both eyes bilaterally. Also she has some tenderness in the middle of her back to the left side. No specific weakness or numbness. Continue with supportive measurements. Most likely patient up musculoskeletal. If she got worse then we will add further workup. Pulmonary team are following the case as well and the recommended chest x-ray to be repeated CONSTITUTIONAL: No fever, no malaise, no fatigue. HEENT: No recent visual problems or hearing problems. Denied any sore throat. CARDIOVASCULAR: No orthopnea, PND, no palpitations, no syncope. PULMONARY: No shortness of breath, no cough, no hemoptysis. GASTROINTESTINAL: No diarrhea, no nausea, no vomiting, no abdominal pain. Normoactive bowel sounds. NEUROLOGICAL: No headaches, no weakness, no numbness. HEMATOLOGICAL: Denies any bleeding or petechiae. GENITOURINARY: Denies any burning micturition, frequency, or urgency. MUSCULOSKELETAL/RHEUMATOLOGICAL: Denies any joint pain, swelling, or any muscle pain. ENDOCRINE: Denies any polyuria or polydipsia. Medication: Tylenol, albuterol, Xanax, Eliquis, baclofen, BuSpar, vitamin D, Celexa, Colace, Zetia, fenofibrate, Flonase, Lasix, insulin aspart, Levemir, lactulose, Synthroid, Zestril, melatonin, Glucophage, morphine, multivitamin, n itroglycerin, Zofran when necessary, Objective - Vital Signs Vital signs: Vital Signs Temp 97.8 F 06/18/18 12:00 Pulse 76 06/18/18 16:29 Resp 18 06/18/18 12:00 BP 91/72 06/18/18 12:00 Pulse Ox 95 06/18/18 16:19 Intake & Output 06/17/18 06/18/18 06/18/18 18:59 06:59 18:59 Intake Total 702 587 870 Output Total 2500 1425 1300 Balance -1798 -838 -430 Weight 98.5 kg Intake: Oral 702 587 870 Output: Urine 2500 1425 1300 Other: Voiding Method Indwelling Catheter Indwelling Catheter Indwelling Catheter # Voids 1 - Exam GENERAL: The patient is alert and oriented x3, not in any acute distress. Well developed, well nourished. HEENT: Pupils are round and equally reacting to light. EOMI. No scleral icterus. No conjunctival pallor. Normocephalic, atraumatic. No pharyngeal erythema. No thyromegaly. CARDIOVASCULAR: S1 and S2 present. No murmurs, rubs, or gallops. -PULMONARY: Chest is clear to auscultation, bilateral scattered wheezing and crackles. ABDOMEN: Soft, nontender, nondistended, normoactive bowel sounds. No palpable organomegaly. MUSCULOSKELETAL: No joint swelling or deformity. EXTREMITIES: No cyanosis, clubbing, or pedal edema. NEUROLOGICAL: Gross neurological examination did not reveal any focal deficits. SKIN: No rashes. - Labs CBC & Chem 7: 06/18/18 06:25 06/18/18 06:25 Labs: Abnormal Lab Results - Last 24 Hours (Table) 06/17/18 06/18/18 06/18/18 Range/Units 21:02 04:15 06:25 Sodium 132 L (137-145) mmol/L Chloride 94 L (98-107) mmol/L Carbon Dioxide 31 H (22-30) mmol/L BUN 25 H (7-17) mg/dL POC Glucose (mg/dL) 157 H 146 H (75-99) mg/dL 06/18/18 Range/Units 11:39 Sodium (137-145) mmol/L Chloride (98-107) mmol/L Carbon Dioxide (22-30) mmol/L BUN (7-17) mg/dL POC Glucose (mg/dL) 103 H (75-99) mg/dL Assessment and Plan Assessment: Acute hypoxic respiratory failure secondary to pneumonia with pulmonary interstitial edema/ARDS.improving Multifocal pneumonia with sepsis. Improving Chronic atrial fibrillation on anticoagulation with Coumadin Left knee sprain, versus injury Right lower extremity DVT. On anticoagulation Asthma History of breast cancer status post surgery and chemotherapy Migraine headaches Degenerative disc disease and chronic back pain and cervical pain Left leg sciatic pain Hypothyroidism History of CVA/TIA with no residual weakness GERD Hypertension Hyperlipidemia Osteoarthritis of multiple joints Plan: this is a pleasant 68 years old female presents with pneumonia and ARDS. Pulmonary team R following the case closely. Continue with antibiotic.continue with anticoagulation.continue with the steroid therapy. .Labs and medication were reviewed.. Continue with beta mandy. Call orthopedic surgery. Continue same treatment. Continue with symptomatic treatment. Resume home medication. Monitor lytes and vitals. DVT and GI prophylaxis. Further recommendations of the clinical course of the patient DVT prophylaxis: Lovenox GI Prophylaxis: Protonix Prognosis is guarded
[2018-06-18 16:41] LABS: Glucose,Whole Blood 166 mg/dL (75-99)
--- NOTE | 2018-06-18 19:22 | XR ---
EXAMINATION: XR chest 2V DATE AND TIME: 06/18/2018 6:57 PM CLINICAL INDICATION: PHH; pneumonia TECHNIQUE: AP and lateral radiographs COMPARISON: 06/15/2018 FINDINGS: Note: The current and comparison frontal radiographs appear to be flipped 180 degrees with respect to each other, as the bony glenoid prostheses are opposite those of the comparison radiograph. There is mild interval improvement in the overall bilateral lung inflation pattern. However, the previously seen multifocal bilateral silhouetting of the pulmonary vasculature is largel y still present. There are no new pulmonary or pleural findings. IMPRESSION: MILD INTERVAL IMPROVEMENT IN THE OVERALL LUNG INFLATION PATTERN.
[2018-06-18 20:24] LABS: Glucose,Whole Blood 113 mg/dL (75-99)
[2018-06-18] MEDS ORDERED: APIXABAN 5 MG TAB PO SCH (21:00)
[2018-06-18] MEDS: EZETIMIBE 10 MG TAB PO SCH (21:32)
[2018-06-18] MEDS: traZODone HCL 50 MG TAB PO SCH (21:32)
[2018-06-18] MEDS: LISINOPRIL 10 MG TAB PO SCH (21:33)
[2018-06-18] MEDS: MELATONIN 5 MG TABLET PO SCH (21:34)
[2018-06-18] MEDS: WARFARIN 5 MG TAB PO SCH (21:34)
[2018-06-18] MEDS: ZOLPIDEM 5 MG TAB PO PRN (21:35)
[2018-06-18] MEDS: INSULIN DETEMIR (LEVEMIR) 100 UNIT/ML SYR SQ SCH (21:37)
[2018-06-18] MEDS: ACETAMINOPHEN TAB 325 MG TAB PO PRN (22:32)
[2018-06-18] MEDS: BACLOFEN 10 MG TAB PO PRN (22:33)
[2018-06-19] MEDS: MORPHINE SULFATE IR 15 MG TABLET PO PRN ×2 (03:41→17:19)
[2018-06-19] MEDS: LEVOTHYROXINE 100 MCG TAB PO SCH (05:52)
[2018-06-19 06:50] LABS: Glucose,Whole Blood 181 mg/dL (75-99)
[2018-06-19] MEDS: ACETAMINOPHEN TAB 325 MG TAB PO PRN (07:18)
[2018-06-19] MEDS: PANTOPRAZOLE 40 MG TABLET PO SCH (07:19)
[2018-06-19] MEDS: metFORMIN 500 MG TAB PO SCH ×2 (07:20→17:20)
[2018-06-19] MEDS: INSULIN ASPART (NovoLOG) 100 UNIT/ML VIAL SQ SCH ×7 (07:21→21:58)
[2018-06-19 07:29] LABS: Basophils % (A) 1 %; Eosinophils # (A) 0.4 k/uL (0-0.7); Eosinophils % (A) 6 %; HCT 37.8 % (34.0-46.0); HGB 12.3 gm/dL (11.4-16.0); Lymphocytes # (A) 1.8 k/uL (1.0-4.8); Lymphocytes % (A) 27 %; MCH 26.9 pg (25.0-35.0); MCHC 32.6 g/dL (31.0-37.0); MCV 82.7 fL (80.0-100.0); Mean Platelet Volume 8.3; Monocytes # (A) 0.5 k/uL (0-1.0); Monocytes % (A) 8 %; Neutrophils # (A) 3.6 k/uL (1.3-7.7); Neutrophils % (A) 55 %; Platelet Count 272 k/uL (150-450); Prothrombin Time 10.7 sec (9.0-12.0); RBC 4.57 m/uL (3.80-5.40); RDW 14.9 % (11.5-15.5); WBC 6.5 k/uL (3.8-10.6)
[2018-06-19 07:53] LABS: Anion Gap 1 mmol/L; Blood Urea Nitrogen 19 mg/dL (7-17); Calcium 8.9 mg/dL (8.4-10.2); Carbon Dioxide 35 mmol/L (22-30); Chloride 95 mmol/L (98-107); Glucose 135 mg/dL (74-99); Potassium 4.7 mmol/L (3.5-5.1); Sodium 131 mmol/L (137-145)
[2018-06-19] MEDS: IPRATROPIUM-ALBUTEROL 3 ML NEB INHALATION SCH ×4 (08:04→19:58)
[2018-06-19] MEDS: busPIRone HCl 10 MG TAB PO SCH ×2 (08:57→21:58)
[2018-06-19] MEDS: METOPROLOL TARTRATE 50 MG TAB PO SCH ×2 (08:57→21:58)
[2018-06-19] MEDS: CALCIUM CARBONATE 500 MG CHEWABLE PO SCH (08:57)
[2018-06-19] MEDS: CITALOPRAM HYDROBROMIDE 20 MG TAB PO SCH ×2 (08:58→21:58)
[2018-06-19] MEDS: FUROSEMIDE 20 MG TAB PO SCH (08:58)
[2018-06-19] MEDS: CHOLECALCIFEROL 1,000 UNIT TAB PO SCH (08:58)
[2018-06-19] MEDS: FENOFIBRATE 160 MG TAB PO SCH (08:58)
[2018-06-19] MEDS: SPIRONOLACTONE 25 MG TAB PO SCH (08:58)
[2018-06-19] MEDS: MORPHINE SULFATE ER 60 MG TABLET PO SCH ×2 (08:58→21:56)
[2018-06-19] MEDS: NON-FORMULARY DRUG (Biotin [Biotin] 5,000 MCG) PO SCH (08:59)
[2018-06-19] MEDS: LACTULOSE 20 GM/30 ML CUP PO SCH (08:59)
[2018-06-19] MEDS: DOCUSATE 100 MG CAP PO SCH ×3 (09:00→21:58)
[2018-06-19] MEDS: FLUTICASONE 50MCG/SPRAY NASAL 16GM EA NOSTRIL SCH (09:45)
[2018-06-19] MEDS: ALPRAZolam 0.25 MG TAB PO PRN (09:45)
--- NOTE | 2018-06-19 11:14 | P.PN ---
Subjective Progress Note Date: 06/19/18 This is a 68-year-old female who has been in this hospital for many days for treatment of multilobular pneumonia. Patient is being seen for evaluation of cardiac arrhythmias. Patient has history of atrial fibrillation. Patient was on eliquis which was changed to Coumadin as for the request of the patient. Patient got 5 mg of Coumadin yesterday. Her INR is only 1.1. She is going to get daily 5 mg and have regular PT and INRs. Patient is otherwise doing well. Doesn't appear to be in acute distress. Tolerating activity Objective - Vital Signs Vital signs: Vital Signs Temp 97.7 F 06/19/18 07:47 Pulse 88 06/19/18 08:18 Resp 14 06/19/18 07:47 BP 119/50 06/19/18 07:47 Pulse Ox 92 L 06/19/18 07:47 Intake & Output 06/18/18 06/19/18 06/19/18 18:59 06:59 18:59 Intake Total 1110 Output Total 2700 2250 Balance -1590 -2250 Weight 99 kg Intake: Oral 1110 Output: Urine 2700 2250 Other: Voiding Method Indwelling Catheter Indwelling Catheter Indwelling Catheter - Exam GENERAL EXAM: Patient is alert and oriented and doesn't appear to be in any acute distress HEENT: Normocephalic. Normal reaction of pupils, equal size, normal range of extraocular motion. No erythema or exudates in the throat. NECK: No masses, no nuchal rigidity. CHEST: No chest wall deformity. LUNGS: Equal air entry with no crackles or wheeze. HEART: S1 and S2 normal with no audible mumurs or gallops. Regular rhythm, femorals equal on both sides.. ABDOMEN: No hepatosplenomegaly, normal bowel sounds, no guarding or rigidity. SKIN: No rashes CENTRAL NERVOUS SYSTEM: No focal deficits. EXTREMITIES: No cyanosis, clubbing or edema. - Labs CBC & Chem 7: 06/19/18 07:03 06/19/18 07:02 Labs: Abnormal Lab Results - Last 24 Hours (Table) 06/18/18 06/18/18 06/18/18 Range/Units 11:39 16:38 20:22 Sodium (137-145) mmol/L Chloride (98-107) mmol/L Carbon Dioxide (22-30) mmol/L BUN (7-17) mg/dL Glucose (74-99) mg/dL POC Glucose (mg/dL) 103 H 166 H 113 H (75-99) mg/dL 06/19/18 06/19/18 Range/Units 06:48 07:02 Sodium 131 L (137-145) mmol/L Chloride 95 L (98-107) mmol/L Carbon Dioxide 35 H (22-30) mmol/L BUN 19 H (7-17) mg/dL Glucose 135 H (74-99) mg/dL POC Glucose (mg/dL) 181 H (75-99) mg/dL Assessment and Plan (1) Chronic a-fib Current Visit: Yes Status: Acute Code(s): I48.2 - CHRONIC ATRIAL FIBRILLATION SNOMED Code(s): 573338266 (2) Community acquired pneumonia Current Visit: No Status: Acute Code(s): J18.9 - PNEUMONIA, UNSPECIFIED ORGANISM SNOMED Code(s): 159332485 (3) History of breast cancer Current Visit: No Status: Acute Code(s): Z85.3 - PERSONAL HISTORY OF MALIGNANT NEOPLASM OF BREAST SNOMED Code(s): 152479322 (4) Hyperlipidemia Current Visit: No Status: Acute Code(s): E78.5 - HYPERLIPIDEMIA, UNSPECIFIED SNOMED Code(s): 72361840 Plan: Continue with current Coumadin therapy. Follow INRs and maintain INR of about 2-2.5. We'll be seeing her on when necessary basis
[2018-06-19 11:26] LABS: Glucose,Whole Blood 94 mg/dL (75-99)
[2018-06-19] MEDS: MULTIVITAMINS, THERA 1 EACH TAB PO SCH (12:29)
--- NOTE | 2018-06-19 15:31 | P.PN ---
Subjective Progress Note Date: 06/19/18 Principal diagnosis: Bibasilar pneumonia, hypoxemic respiratory failure This is a 67-year-old white female patient who was received as a transfer from [facility] on 05/28/2018. Patient had presented with complaints of chest congestion, cough, wheezing, shortness of breath and occasional phlegm production. Influenza screen and CT angiogram were completed at the [facility], and they were negative for influenza A and pulmonary embolism. Patient did have multiple pulmonary nodules that could relate to her underlying sarcoidosis. In addition she has some groundglass opacities at the lower lobes possibly consistent with pneumonia. We did obtain a chest x-ray at this hospital yesterday, which showed cardiomegaly with multifocal bilateral alveolar and interstitial edema and/or infiltrates. Possible developing ARDS. She lab work showed a white blood cell count of 3.6, hemoglobin 13.3, d-dimer was slightly elevated at 1.05, but CT angios was negative for any evidence of PE, renal profile and electrolytes were within normal limits, proBNP was within normal limits at 467, troponin was negative, urinalysis was negative for any sign of infection. Patient's medical history significant for atrial fibrillation on anticoagulation in the form of Coumadin, history of DVT/PE, diabetes mellitus type 2, history of CVA and TIA and hypertension, hypo thyroidism. The patient was given IV lasix, and she has significantly diuresed, she is in -3560 mL fluid balance in last 24 hours, in her breathing had worsened, along with her oxygenation, and patient had to be placed on BiPAP support. On today's exam patient is seen on BiPAP support with pressures of 12 and 5, 80%, and her pulse ox is 94%, she is quite tachypneic, lung sounds are positive for diffuse crackles, and rhonchi, patient appears to be in mild to moderate amount of distress, and for that reason patient will be removed down to the intensive care unit, today's chest x-ray has been reviewed, showed persistence of bladder pulmonary edema, and airspace disease bilaterally, likely related to underlying pneumonia. Afebrile, hemodynamically stable. Denies any chest pain, wasn't able to produce any sputum for culture. She states she still has the urge to cough, but not able to bring up anything. Antibiotic coverage in the form of Levaquin. On 05/31/2018 patient seen in follow-up in the intensive care unit, she is awake and alert, she is anxious, she states she could not sleep last night, but overall her breathing is better, she remains on BiPAP support with pressures of 12 and 5 and FiO2 of 100%, her O2 sat is 98%, she sinus rhythm on the monitor at a rate of 81 BPM, no IV fluids, IVs have been hep-locked, today's chest x-ray has been reviewed with Dr. Sotomayor, and shows bilateral diffuse infiltrates, improved in appearance from previous exams. Today's INR is 1.5, and we'll start the patient on heparin drip per weight-based protocol for anticoagulation, hold off on Coumadin right now in case patient needs any invasive procedures. His labs have been reviewed, and his CBC was essentially unremarkable, sodium was 138, potassium 3.9, chloride was 97, CO2 is 30, BUN was 15 and creatinine 0.54, antibiotic coverage in the form of Zithromax and Rocephin, and vancomycin. So far the culture data remains negative, patient is still not able to produce any sputum for culture. No fever or chills. We'll try the patient on Airvo. Lung sounds reveal diminished breath sounds, with a few scattered rales. On 06/02/2018 patient seen in follow-up in the intensive care unit, she remains on interval, currently at 60 L and FiO2 of 91%, and her pulse ox is 91-93%, but patient is noted to be easily desaturating with any exertion, speaking or eating. She is awake and alert, in no acute distress, lung sounds reveal a few scattered rhonchi, she is in sinus rhythm with a rate of 80 BPM, today's chest x-ray shows slight improvement in the appearance of diffuse pulmonary infiltrates. Afebrile, blood and urine cultures showed no growth, we have not been able to collect a sputum specimen. Legionella urine antigen is pending, today's lab work showed a white blood cell count of 6.0, hemoglobin is 11.5, electrolytes were within normal limits, CO2 is 33, renal profile was within normal limits. No complaint of chest pain, no significant chest congestion or coughing. Yesterday we switched the antibiotic coverage to cefepime, Levaquin and vancomycin, we added IV Solu-Medrol, nebulized bronchodilators. On 06/16/2018 patient seen in follow-up on medical surgical floor. Resting comfortably in bed, currently on 4 l of oxygen with a pulse ox of 94%. No acute distress, no complaints of shortness of breath or chest pain or significant chest congestion. No fever or chills. Today's labs have been reviewed, sodium is 1:30, potassium is 4.7, chloride is 93, BUN is 26 creatinine 0.61. Blood and urine cultures are negative. Encourage deep breathing and coughing, incentive spirometry use. Patient is on a combination of Diflucan and Levaquin, patient has completed 12 days of Levaquin, and Diflucan. We can stop the antibiotics now On 06/18/2018 patient seen in follow-up. Patient is awake and alert, in no acute distress, she is resting in bed, currently on liters of oxygen with a pulse ox of 94%, no fever or chills, hemodynamically patient is stable. Her only complaint is back pain over left posterior lower chest. No fever or chills, today's labs have been reviewed, white blood cell count is 8.0, hemoglobin is 13.3, sodium is 132, potassium is 4.8, chloride is 94, CO2 31, BUN is 25 and creatinine 0.52. Urine and blood culture showed no growth. Patient has completed a course of Diflucan and Levaquin, antibiotics discontinued 2 days ago. On 06/19/2018 patient seen in follow-up on medical surgical floor. She currently down to 4 L of oxygen, no worsening dyspnea, her pulse ox is 95%, yesterday we repeated her chest x-ray, which showed interval improvements in overall lung inflation pattern. There is a persistence of the multifocal bilat eral silhouetting of the pulmonary vasculature. No worsening shortness of breath, does have left-sided posterior chest wall discomfort, the cause of which is unknown. Today's labs have been reviewed, blood blood cell count is 6.5, hemoglobin is 12.3, INR is 1.0, sodium is 131, potassium is 4.7, chloride is 95, CO2 35, BUN is 19 creatinine 0.56. Blood and urine cultures remain negative. No fever or chills, vital signs are stable, increase activity as tolerated, from pulmonary perspective she remains stable, she could be considered for discharge home today. Cardiology is following the patient in regards to atrial fibrillation, and has signed off. Patient is on oral anticoagulation. Her rate is controlled. No acute events overnight. Objective - Vital Signs Vital signs: Vital Signs Temp 98 F 06/19/18 14:42 Pulse 88 06/19/18 08:18 Resp 16 06/19/18 14:42 BP 98/62 06/19/18 14:42 Pulse Ox 95 06/19/18 14:42 Intake & Output 06/18/18 06/19/18 06/19/18 18:59 06:59 18:59 Intake Total 1110 Output Total 2700 2250 2500 Balance -1590 -2250 -2500 Weight 99 kg Intake: Oral 1110 Output: Urine 2700 2250 2500 Other: Voiding Method Indwelling Catheter Indwelling Catheter Indwelling Catheter - Exam GENERAL EXAM: Alert, 68-year-old white female patient on 4 l of oxygen with a pulse ox of 94%, in no acute distress HEAD: Normocephalic/atraumatic. EYES: Normal reaction of pupils, equal size. Conjunctiva pink, sclera white. NOSE: Clear with pink turbinates. THROAT: No erythema or exudates. NECK: No masses, no JVD, no thyroid enlargement, no adenopathy. CHEST: No chest wall deformity. Symmetrical expansion. LUNGS: Equal air entry with fine bibasilar crackles CVS: Regular rate and rhythm, normal S1 and S2, no gallops, no murmurs, no rubs ABDOMEN: Soft, nontender. No hepatosplenomegaly, normal bowel sounds, no gua rding or rigidity. EXTREMITIES: No clubbing, no edema, no cyanosis, 2+ pulses and upper and lower extremities. MUSCULOSKELETAL: Muscle strength and tone normal. SPINE: No scoliosis or deformity SKIN: No rashes CENTRAL NERVOUS SYSTEM: Alert and oriented -3. No focal deficits, tone is normal in all 4 extremities. PSYCHIATRIC: Alert and oriented -3. Appropriate affect. Intact judgment and insight. - Labs CBC & Chem 7: 06/19/18 07:03 06/19/18 07:02 Labs: Abnormal Lab Results - Last 24 Hours (Table) 06/18/18 06/18/18 06/19/18 Range/Units 16:38 20:22 06:48 Sodium (137-145) mmol/L Chloride (98-107) mmol/L Carbon Dioxide (22-30) mmol/L BUN (7-17) mg/dL Glucose (74-99) mg/dL POC Glucose (mg/dL) 166 H 113 H 181 H (75-99) mg/dL 06/19/18 Range/Units 07:02 Sodium 131 L (137-145) mmol/L Chloride 95 L (98-107) mmol/L Carbon Dioxide 35 H (22-30) mmol/L BUN 19 H (7-17) mg/dL Glucose 135 H (74-99) mg/dL POC Glucose (mg/dL) (75-99) mg/dL Assessment and Plan Plan: Assessment: #1. Acute hypoxemic respiratory failure secondary to bilateral pneumonia, and there may be a component of pulmonary edema/ARDS, proBNP was within normal limits. Influenza screen was negative, CT angios the chest was negative for any pulmonary embolism, showed groundglass opacities at bilateral bases, likely rel ated to underlying pneumonia #2. Pulmonary nodules, could relate to underlying sarcoidosis, or infectious etiology #3. Diabetes mellitus type 2 #4. Chronic atrial fibrillation, and history of DVT and pulmonary embolism, on chronic anticoagulation in the form of Coumadin. Supratherapeutic on today's labs we'll hold Coumadin #5. GERD/reflux #6. Hypertention, hyperlipidemia #7. DJD #8. Hypothyroidism #9. Osteoarthritis of multiple joints Plan: Yesterday's chest x-ray has been reviewed, shows improvement in aeration. No worsening infiltrates. No worsening dyspnea, vital signs are stable, continue weaning FiO2. Encourage activity, deep breathing and coughing, sitting up in the chair and ambulation. From pulmonary perspective patient is stable for discharge home today, complete home oxygen assessment, he has completed a course of antibiotics for the community-acquired pneumonia. No acute events overnight. She will need follow-up appointment in the office Dr. Garzon in 7-10 days. I performed a history & physical examination of the patient and discussed their management with my nurse practitioner, Sharona Klein. I reviewed the nurse practitioner's note and agree with the documented findings and plan of care. Lung sounds are positive for fine rales. The findings and the impression was discussed with the patient. I attest to the documentation by the nurse charley leblanc. Time with Patient: Less than 30
[2018-06-19] MEDS: ZYRTEC 10MG PO SCH (16:33)
[2018-06-19 16:45] LABS: Glucose,Whole Blood 131 mg/dL (75-99)
[2018-06-19 21:15] LABS: Glucose,Whole Blood 103 mg/dL (75-99)
[2018-06-19] MEDS: traZODone HCL 50 MG TAB PO SCH (21:57)
[2018-06-19] MEDS: WARFARIN 5 MG TAB PO SCH (21:57)
[2018-06-19] MEDS: INSULIN DETEMIR (LEVEMIR) 100 UNIT/ML SYR SQ SCH (21:58)
[2018-06-19] MEDS: MELATONIN 5 MG TABLET PO SCH (21:58)
[2018-06-19] MEDS: EZETIMIBE 10 MG TAB PO SCH (21:58)
[2018-06-19] MEDS: LISINOPRIL 10 MG TAB PO SCH (21:58)
[2018-06-19] MEDS: ZOLPIDEM 5 MG TAB PO PRN (22:04)
[2018-06-19] MEDS: BACLOFEN 10 MG TAB PO PRN (22:04)
[2018-06-20 07:04] LABS: Glucose,Whole Blood 140 mg/dL (75-99)
[2018-06-20] MEDS: IPRATROPIUM-ALBUTEROL 3 ML NEB INHALATION SCH ×4 (08:33→19:54)
[2018-06-20 08:57] LABS: Basophils # (A) 0.1 k/uL (0-0.2); Basophils % (A) 1 %; Eosinophils # (A) 0.4 k/uL (0-0.7); Eosinophils % (A) 6 %; HCT 38.3 % (34.0-46.0); HGB 12.6 gm/dL (11.4-16.0); Lymphocytes # (A) 1.3 k/uL (1.0-4.8); Lymphocytes % (A) 17 %; MCH 27.2 pg (25.0-35.0); MCHC 32.9 g/dL (31.0-37.0); MCV 82.5 fL (80.0-100.0); Mean Platelet Volume 8.9; Monocytes # (A) 0.5 k/uL (0-1.0); Monocytes % (A) 6 %; Neutrophils # (A) 5.2 k/uL (1.3-7.7); Neutrophils % (A) 68 %; Platelet Count 274 k/uL (150-450); RBC 4.64 m/uL (3.80-5.40); RDW 15.8 % (11.5-15.5); WBC 7.6 k/uL (3.8-10.6)
[2018-06-20] MEDS: LEVOTHYROXINE 100 MCG TAB PO SCH (08:58)
[2018-06-20] MEDS: INSULIN ASPART (NovoLOG) 100 UNIT/ML VIAL SQ SCH ×7 (08:59→20:17)
[2018-06-20] MEDS: metFORMIN 500 MG TAB PO SCH ×2 (09:00→18:15)
[2018-06-20] MEDS: CALCIUM CARBONATE 500 MG CHEWABLE PO SCH (09:01)
[2018-06-20] MEDS: busPIRone HCl 10 MG TAB PO SCH ×2 (09:01→20:53)
[2018-06-20] MEDS: CHOLECALCIFEROL 1,000 UNIT TAB PO SCH (09:01)
[2018-06-20] MEDS: NON-FORMULARY DRUG (Biotin [Biotin] 5,000 MCG) PO SCH (09:02)
[2018-06-20] MEDS: FLUTICASONE 50MCG/SPRAY NASAL 16GM EA NOSTRIL SCH (09:02)
[2018-06-20] MEDS: FENOFIBRATE 160 MG TAB PO SCH (09:02)
[2018-06-20] MEDS: DOCUSATE 100 MG CAP PO SCH ×3 (09:02→20:52)
[2018-06-20] MEDS: CITALOPRAM HYDROBROMIDE 20 MG TAB PO SCH ×2 (09:02→20:54)
[2018-06-20] MEDS: FUROSEMIDE 20 MG TAB PO SCH (09:03)
[2018-06-20 09:06] LABS: Anion Gap 8 mmol/L; Blood Urea Nitrogen 20 mg/dL (7-17); Calcium 8.9 mg/dL (8.4-10.2); Carbon Dioxide 31 mmol/L (22-30); Chloride 92 mmol/L (98-107); Glucose 185 mg/dL (74-99); Potassium 4.4 mmol/L (3.5-5.1); Prothrombin Time 10.5 sec (9.0-12.0); Sodium 131 mmol/L (137-145)
[2018-06-20] MEDS: PANTOPRAZOLE 40 MG TABLET PO SCH (09:17)
[2018-06-20] MEDS: MORPHINE SULFATE ER 60 MG TABLET PO SCH ×2 (09:17→20:53)
[2018-06-20] MEDS: SPIRONOLACTONE 25 MG TAB PO SCH (09:17)
[2018-06-20] MEDS: METOPROLOL TARTRATE 50 MG TAB PO SCH ×2 (09:17→20:54)
[2018-06-20] MEDS: BACLOFEN 10 MG TAB PO PRN ×2 (09:17→22:53)
[2018-06-20] MEDS: LACTULOSE 20 GM/30 ML CUP PO SCH (09:18)
[2018-06-20] MEDS: ZYRTEC 10MG PO SCH (11:26)
--- NOTE | 2018-06-20 11:36 | P.PN ---
Subjective Progress Note Date: 06/19/18 Principal diagnosis: Acute hypoxic respiratory failure Multifocal pneumonia 67-year-old female with a known history of atrial fibrillation on anticoagulation, history of DVT/PE, diabetes type 2, history of CVA/TIA and hypertension, hypothyroidism and other multiple medical problems initially presents to walk-in clinic [facility] on Friday with complaints of shortness of breath cough and fever 102.4. Patient was sent home with Z-Samuel and Tessalon pearls as well as Mucinex. Patient has been taking her medications and symptoms did not resolve which made her to go back to hospital on Friday. Patient was hypoxic and tachycardic at the time. Patient had CT angiogram of the chest; no pulmonary embolism was noted. Patient was found to have pulmonary nodules and repeat CT was recommended after resolution of pneumonia. Due to extensive pneumonia and pulmonary nodules and sepsis patient was transferred to [facility] for further evaluation and possible pulmonary consult. Influenza was negative. Patient was to the hospital with pneumonia and ARDS like chest x-ray findings. Patient remained on the high flow oxygen. Currently in the ICU. Otherwise, and comfortable and sitting in the chair. Chest x-ray showed essentially stable findings and bilateral pulmonary infiltrates unchanged compared to yesterday. Continue on antibiotics in the form of cefepime and Levaquin along with breathing treatments and IV Solu-Medrol. No fever no chills. No nausea vomiting or abdominal pain or diarrhea. Cultures including Legionella urine antigen is negative. 06/05/2018 Patient is seen and evaluated for a follow-up. The patient states that she is less short of breath; oxygenation has remained essentially unchanged compared to yesterday. She remains on high flow oxygen with an FiO2 of 80%. Pulse ox is around 90-91% and there is not much room for her weaning off FiO2. Her chest x-ray also showing diffuse breath and pulmonary infiltrates which remain unchanged compared to yesterday's chest x-ray. remains on a combination of antibiotics including cefepime, Levaquin and Diflucan. The patient is also on IV Solu-Medrol. She is tolerating her diet; No other significant events over the past 24 hours. Family is at the bedside. 06/06/2018, there has been no major improvement the patient's condition. The patient remains in acute hypoxic respiratory failure related to the bilateral pneumonia/ARDS. FiO2 is still at 80%. The patient is on high flow oxygen. Hemodynamically stable. Chest x-ray findings is still showing diffuse bilateral pulmonary infiltrates unchanged compared to yesterday. Remains on cefepime, Levaquin and Diflucan. Remains on IV Solu-Medrol. Despite all this, the patient has a single organ dysfunction which is essentially pulmonary dysfunction related to the pneumonia/ARDS. Renal function stable. Hemodynamically stable. No altered mentation. No nausea or vomiting pH is able to sit up on a chair and she is quite strong in interactive. She is also in a positive spirits as the patient was to get better recovered from her pneumonia. 06/07/2018 Remains in ICU for post pneumonia/ARDS. X-ray still showing diffuse breath and pulmonary infiltrates. Infiltrates are essentially stable and unchanged over the past 48 hours. In fact I do not see any improvement or worsening the patient's condition over the past 48 hours. Chest x-ray findings are essentially the same. Oxidation something. She is able to get up and sit up on a bedside recliner. No significant cough or sputum production. She claims that she had a good night sleep yesterday. She remains on IV Solu-Medrol. Antibiotic coverage includes cefepime Levaquin and Diflucan. Fluid balance is - 3.9 L over the past 24 hours and the patient is producing adequate amount of urine output. She is receiving Lasix 20 mg IV every 24 hours. White cell count is at 14.5 which is stable. No significant leukocytosis. No fever. She is tolerating diet and is using incentive spirometer. 06/08/2018, patient remains on high flow oxygen, she is actually on airvo with 80% FiO2, 60 L/m, and her O2 saturation remains fairly marginal. However surprisingly the patient remains comfortable, in no distress, and her chest x-ray continues to show diffuse infiltrates bilaterally. Chest x-ray is basically about the same. Patient denies any significant cough, denies any fever or chills, denies any chest pain. Remains on antibiotics in the form of Levaquin and cefepime, she remains on bronchodilators and on Solu-Medrol. Her fluid balance is showing negative balance. Remains on Lasix 20 mg daily. Labs continued to show leukocytosis with WBC of 16.1 hemoglobin is 12.6. Basic metabolic profile is relatively normal. 06/19/2018 patient seen in follow-up on medical surgical floor. She currently down to 4 L of oxygen, no worsening dyspnea, her pulse ox is 95%, yesterday we repeated her chest x-ray, which showed interval improvements in overall lung inflation pattern. There is a persistence of the multifocal bilateral silhouetting of the pulmonary vasculature. No worsening shortness of breath, does have left-sided posterior chest wall discomfort, the cause of which is unknown. Today's labs have been reviewed, blood blood cell count is 6.5, hemoglobin is 12.3, INR is 1 .0, sodium is 131, potassium is 4.7, chloride is 95, CO2 35, BUN is 19 creatinine 0.56. Blood and urine cultures remain negative. No fever or chills, vital signs are stable, increase activity as tolerated, from pulmonary perspective she remains stable, she could be considered for discharge home to day. Cardiology is following the patient in regards to atrial fibrillation, and has signed off. Patient is on oral anticoagulation. Her rate is controlled. No acute events overnight. Objective - Vital Signs Vital signs: Vital Signs Temp 97.7 F 06/19/18 07:47 Pulse 88 06/19/18 08:18 Resp 14 06/19/18 07:47 BP 119/50 06/19/18 07:47 Pulse Ox 92 L 06/19/18 07:47 Intake & Output 06/18/18 06/19/18 06/19/18 18:59 06:59 18:59 Intake Total 1110 Output Total 2700 2250 Balance -1590 -2250 Weight 99 kg Intake: Oral 1110 Output: Urine 2700 2250 Other: Voiding Method Indwelling Catheter Indwelling Catheter - Exam Patient is lying in the bed comfortably, no acute distress, awake alert and oriented. Currently on O2 4L. HEENT: Normocephalic. Neck is supple. Pupils reactive. Nostrils clear. Oral cavity is moist. Ears reveal no drainage. Neck reveals no JVD, carotid bruits, or thyromegaly. CHEST EXAMINATION: Trachea is central. Symmetrical expansion. Bilateral air entry improved. Scattered rhonchi and bibasilar diminished sounds... CARDIAC: Normal S1, S2 with no gallops. No murmurs ABDOMEN: Soft. Bowel sounds normal. No organomegaly. No abdominal bruits. Extremities: reveal no edema. No clubbing or cyanosis Neurologically awake, alert, oriented x3 with well-coordinated movements. No focal deficits noted - Labs CBC & Chem 7: 06/20/18 08:38 06/20/18 08:38 Labs: Abnormal Lab Results - Last 24 Hours (Table) 06/18/18 06/18/18 06/18/18 Range/Units 11:39 16:38 20:22 Sodium (137-145) mmol/L Chloride (98-107) mmol/L Carbon Dioxide (22-30) mmol/L BUN (7-17) mg/dL Glucose (74-99) mg/dL POC Glucose (mg/dL) 103 H 166 H 113 H (75-99) mg/dL 06/19/18 06/19/18 Range/Units 06:48 07:02 Sodium 131 L (137-145) mmol/L Chloride 95 L (98-107) mmol/L Carbon Dioxide 35 H (22-30) mmol/L BUN 19 H (7-17) mg/dL Glucose 135 H (74-99) mg/dL POC Glucose (mg/dL) 181 H (75-99) mg/dL Assessment and Plan Assessment: 1. Acute hypoxemic respiratory failure secondary to bilateral pneumonia; comp onent of pulmonary edema/ARDS. -Oxygenation remains stable and the patient remains on high flow oxygen at 80% FiO2. Chest x-ray findings are also stable. Clinically stable. She remains on a combination of bronchodilators and steroids. She is mainly receiving supportive care in the ICU. 2. Pulmonary nodules; underlying sarcoidosis, 3. Diabetes mellitus type 2; remains on Levemir 20 units daily; we will continue with Accu-Cheks every before meals and at bedtime with insulin sliding scale 4. Chronic atrial fibrillation; in normal sinus rhythm. 5. GERD/reflux 6. Hypertention, 7. Hypothyroidism 8. Hyperlipidemia 9. History of DVT and pulmonary embolism, - Patient is on chronic anticoagulation in the form of Coumadin; currently on IV heparin. CODE STATUS; full code Time with Patient: Greater than 30
[2018-06-20 11:49] LABS: Glucose,Whole Blood 107 mg/dL (75-99)
[2018-06-20] MEDS: ALPRAZolam 0.25 MG TAB PO PRN (14:24)
[2018-06-20] MEDS: MULTIVITAMINS, THERA 1 EACH TAB PO SCH (14:25)
--- NOTE | 2018-06-20 14:29 | P.PN ---
Subjective Progress Note Date: 06/20/18 Principal diagnosis: Bibasilar pneumonia, hypoxemic respiratory failure She is seen again today 06/20/2018 in follow-up on the regular medical floor. She is awake and alert in no acute distress. Nearly breathing back to her baseline. She is down to 4 L of oxygen. Her antibiotics have completed. She is awaiting placement in a ECF based on her extended length of stay and profound weakness. She denies any worsening shortness of breath, cough or congestion. White count 7.6. Hemoglobin 12.6. Creatinine 0.55. INR 1.0. She is anticoagulated with warfarin. Objective - Vital Signs Vital signs: Vital Signs Temp 98.1 F 06/20/18 07:41 Pulse 74 06/20/18 12:37 Resp 16 06/20/18 01:05 BP 94/56 06/20/18 07:41 Pulse Ox 94 L 06/20/18 07:41 Intake & Output 06/19/18 06/20/18 06/20/18 18:59 06:59 18:59 Intake Total 600 Output Total 3700 3550 500 Balance -3700 -3550 100 Weight 98.5 kg Intake: IV 120 kvo 120 Oral 480 Output: Urine 3700 3550 500 Uretheral (Anaya) 2500 Other: Voiding Method Indwelling Catheter Indwelling Catheter Indwelling Catheter # Voids 1 1 - Exam GENERAL EXAM: Alert, 68-year-old female, currently on 4L nasal cannula HEAD: Normocephalic/atraumatic. EYES: Normal reaction of pupils, equal size. Conjunctiva pink, sclera white. NOSE: Clear with pink turbinates. THROAT: No erythema or exudates. NECK: No masses, no JVD, no thyroid enlargement, no adenopathy. CHEST: No chest wall deformity. Symmetrical expansion. LUNGS: Equal air entry with few scattered crackles and rhonchi CVS: Regular rate and rhythm, normal S1 and S2, no gallops, no murmurs, no rubs ABDOMEN: Soft, nontender. No hepatosplenomegaly, normal bowel sounds, no guarding or rigidity. EXTREMITIES: No clubbing, no edema, no cyanosis, 2+ pulses and upper and lower extremities. MUSCULOSKELETAL: Muscle strength and tone normal. SPINE: No scoliosis or deformity SKIN: No rashes CENTRAL NERVOUS SYSTEM: No focal deficits, tone is normal in all 4 extremities. PSYCHIATRIC: Alert and oriented -3. Appropriate affect. Intact judgment and insight. - Labs CBC & Chem 7: 06/20/18 08:38 06/20/18 08:38 Labs: Abnormal Lab Results - Last 24 Hours (Table) 06/19/18 06/19/18 06/20/18 Range/Units 16:44 21:04 07:03 RDW (11.5-15.5) % Sodium (137-145) mmol/L Chloride (98-107) mmol/L Carbon Dioxide (22-30) mmol/L BUN (7-17) mg/dL Glucose (74-99) mg/dL POC Glucose (mg/dL) 131 H 103 H 140 H (75-99) mg/dL 06/20/18 06/20/18 06/20/18 Range/Units 08:38 08:38 11:48 RDW 15.8 H (11.5-15.5) % Sodium 131 L (137-145) mmol/L Chloride 92 L (98-107) mmol/L Carbon Dioxide 31 H (22-30) mmol/L BUN 20 H (7-17) mg/dL Glucose 185 H (74-99) mg/dL POC Glucose (mg/dL) 107 H (75-99) mg/dL Assessment and Plan Assessment: Assessment: #1. Acute hypoxemic respiratory failure secondary to bilateral pneumonia, and there may be a component of pulmonary edema/ARDS, proBNP was within normal limits. Influenza screen was negative, CT angios the chest was negative for any pulmonary embolism, showed groundglass opacities at bilateral bases, likely related to underlying pneumonia she is been slow to progress. Currently on 4 L high flow nasal cannula. #2. Pulmonary nodules, could relate to underlying sarcoidosis, or infectious etiology #3. Diabetes mellitus type 2 #4. Chronic atrial fibrillation, and history of DVT and pulmonary embolism, on chronic anticoagulation in the form of Coumadin. Supratherapeutic 6.6 on today's labs we'll hold Coumadin #5. GERD/reflux #6. Hypertention, hyperlipidemia #7. DJD #8. Hypothyroidism #9. Osteoarthritis of multiple joints Plan: The patient was seen and evaluated by Dr. Garzon. She is down to 4 L/m per nasal cannula. Nearly back to her baseline. Awaiting ECF placement. We'll follow him on as-needed basis. I, the cosigning physician, performed a history & physical examination of the patient. Lungs sounds with bilateral few scattered rhonchi, crackles in the bases. Maintaining good O2 saturations in the 90s on 4L nasal cannula. I discussed the assessment and plan of care with my nurse practitioner, Chasity Duarte. I attest to the above note as dictated by her.
[2018-06-20 17:02] LABS: Glucose,Whole Blood 103 mg/dL (75-99)
[2018-06-20] MEDS: WARFARIN 5 MG TAB PO SCH (18:15)
[2018-06-20] MEDS: MORPHINE SULFATE IR 15 MG TABLET PO PRN (18:15)
[2018-06-20 19:53] LABS: Glucose,Whole Blood 162 mg/dL (75-99)
[2018-06-20] MEDS: INSULIN DETEMIR (LEVEMIR) 100 UNIT/ML SYR SQ SCH (20:18)
[2018-06-20] MEDS: EZETIMIBE 10 MG TAB PO SCH (20:52)
[2018-06-20] MEDS: traZODone HCL 50 MG TAB PO SCH (20:54)
[2018-06-20] MEDS: MELATONIN 5 MG TABLET PO SCH (20:54)
[2018-06-20] MEDS: ONDANSETRON 4 MG/2 ML VIAL IVP PRN (21:43)
[2018-06-20] MEDS: ZOLPIDEM 5 MG TAB PO PRN (22:53)
[2018-06-20] MEDS: LISINOPRIL 10 MG TAB PO SCH (22:54)
[2018-06-20] MEDS ORDERED: BUTALB/APAP/CAFF 50-325-40MG TAB PO PRN (23:49)
[2018-06-21] MEDS: MORPHINE SULFATE IR 15 MG TABLET PO PRN ×2 (03:57→16:36)
[2018-06-21] MEDS: ONDANSETRON 4 MG/2 ML VIAL IVP PRN ×3 (04:04→16:35)
[2018-06-21] MEDS: ZYRTEC 10MG PO SCH (04:08)
[2018-06-21 06:54] LABS: Glucose,Whole Blood 178 mg/dL (75-99)
[2018-06-21 07:50] LABS: Basophils % (A) 1 %; Eosinophils # (A) 0.3 k/uL (0-0.7); Eosinophils % (A) 4 %; HCT 37.6 % (34.0-46.0); HGB 12.2 gm/dL (11.4-16.0); Lymphocytes # (A) 0.7 k/uL (1.0-4.8); Lymphocytes % (A) 9 %; MCH 26.3 pg (25.0-35.0); MCHC 32.5 g/dL (31.0-37.0); MCV 80.9 fL (80.0-100.0); Mean Platelet Volume 9.3; Monocytes # (A) 0.4 k/uL (0-1.0); Monocytes % (A) 6 %; Neutrophils # (A) 5.5 k/uL (1.3-7.7); Neutrophils % (A) 79 %; Platelet Count 231 k/uL (150-450); RBC 4.65 m/uL (3.80-5.40)
[2018-06-21] MEDS: LEVOTHYROXINE 100 MCG TAB PO SCH (07:55)
[2018-06-21] MEDS: PANTOPRAZOLE 40 MG TABLET PO SCH (07:56)
[2018-06-21] MEDS: INSULIN ASPART (NovoLOG) 100 UNIT/ML VIAL SQ SCH ×7 (07:58→21:16)
[2018-06-21] MEDS: NON-FORMULARY DRUG (Biotin [Biotin] 5,000 MCG) PO SCH (07:59)
[2018-06-21 08:01] LABS: INR 1.1 (<1.2)
[2018-06-21 08:24] LABS: Anion Gap 6 mmol/L; Blood Urea Nitrogen 14 mg/dL (7-17); Carbon Dioxide 33 mmol/L (22-30); Chloride 95 mmol/L (98-107); Glucose 175 mg/dL (74-99); Potassium 4.6 mmol/L (3.5-5.1); Sodium 134 mmol/L (137-145)
[2018-06-21] MEDS: MORPHINE SULFATE ER 60 MG TABLET PO SCH ×2 (09:20→21:07)
[2018-06-21] MEDS: METOCLOPRAMIDE 5 MG/ML 2 ML VIAL IVP PRN ×3 (09:24→20:59)
[2018-06-21] MEDS: IPRATROPIUM-ALBUTEROL 3 ML NEB INHALATION SCH ×4 (09:29→20:59)
[2018-06-21] MEDS: busPIRone HCl 10 MG TAB PO SCH ×2 (10:53→21:07)
[2018-06-21] MEDS: metFORMIN 500 MG TAB PO SCH ×2 (10:53→17:21)
[2018-06-21] MEDS: CALCIUM CARBONATE 500 MG CHEWABLE PO SCH (10:54)
[2018-06-21] MEDS: CHOLECALCIFEROL 1,000 UNIT TAB PO SCH (10:55)
[2018-06-21] MEDS: FUROSEMIDE 20 MG TAB PO SCH (10:56)
[2018-06-21] MEDS: DOCUSATE 100 MG CAP PO SCH ×3 (10:56→21:16)
[2018-06-21] MEDS: FENOFIBRATE 160 MG TAB PO SCH (10:56)
[2018-06-21] MEDS: CITALOPRAM HYDROBROMIDE 20 MG TAB PO SCH ×2 (10:56→21:08)
[2018-06-21] MEDS: METOPROLOL TARTRATE 50 MG TAB PO SCH ×2 (10:59→21:07)
[2018-06-21] MEDS: LACTULOSE 20 GM/30 ML CUP PO SCH (11:04)
[2018-06-21] MEDS: SPIRONOLACTONE 25 MG TAB PO SCH (11:04)
--- NOTE | 2018-06-21 12:01 | P.PN ---
Subjective Progress Note Date: 06/21/18 Principal diagnosis: Bibasilar pneumonia, hypoxemic respiratory failure This is a 67-year-old white female patient who was received as a transfer from [facility] on 05/28/2018. Patient had presented with complaints of chest congestion, cough, wheezing, shortness of breath and occasional phlegm production. Influenza screen and CT angiogram were completed at the [facility], and they were negative for influenza A and pulmonary embolism. Patient did have multiple pulmonary nodules that could relate to her underlying sarcoidosis. In addition she has some groundglass opacities at the lower lobes possibly consistent with pneumonia. We did obtain a chest x-ray at this hospital yesterday, which showed cardiomegaly with multifocal bilateral alveolar and interstitial edema and/or infiltrates. Possible developing ARDS. She lab work showed a white blood cell count of 3.6, hemoglobin 13.3, d-dimer was slightly elevated at 1.05, but CT angios was negative for any evidence of PE, renal profile and electrolytes were within normal limits, proBNP was within normal limits at 467, troponin was negative, urinalysis was negative for any sign of infection. Patient's medical history significant for atrial fibrillation on anticoagulation in the form of Coumadin, history of DVT/PE, diabetes mellitus type 2, history of CVA and TIA and hypertension, hypo thyroidism. The patient was given IV lasix, and she has significantly diuresed, she is in -3560 mL fluid balance in last 24 hours, in her breathing had worsened, along with her oxygenation, and patient had to be placed on BiPAP support. On today's exam patient is seen on BiPAP support with pressures of 12 and 5, 80%, and her pulse ox is 94%, she is quite tachypneic, lung sounds are positive for diffuse crackles, and rhonchi, patient appears to be in mild to moderate amount of distress, and for that reason patient will be removed down to the intensive care unit, today's chest x-ray has been reviewed, showed persistence of bladder pulmonary edema, and airspace disease bilaterally, likely related to underlying pneumonia. Afebrile, hemodynamically stable. Denies any chest pain, wasn't able to produce any sputum for culture. She states she still has the urge to cough, but not able to bring up anything. Antibiotic coverage in the form of Levaquin. On 05/31/2018 patient seen in follow-up in the intensive care unit, she is awake and alert, she is anxious, she states she could not sleep last night, but overall her breathing is better, she remains on BiPAP support with pressures of 12 and 5 and FiO2 of 100%, her O2 sat is 98%, she sinus rhythm on the monitor at a rate of 81 BPM, no IV fluids, IVs have been hep-locked, today's chest x-ray has been reviewed with Dr. Sotomayor, and shows bilateral diffuse infiltrates, improved in appearance from previous exams. Today's INR is 1.5, and we'll start the patient on heparin drip per weight-based protocol for anticoagulation, hold off on Coumadin right now in case patient needs any invasive procedures. His labs have been reviewed, and his CBC was essentially unremarkable, sodium was 138, potassium 3.9, chloride was 97, CO2 is 30, BUN was 15 and creatinine 0.54, antibiotic coverage in the form of Zithromax and Rocephin, and vancomycin. So far the culture data remains negative, patient is still not able to produce any sputum for culture. No fever or chills. We'll try the patient on Airvo. Lung sounds reveal diminished breath sounds, with a few scattered rales. On 06/02/2018 patient seen in follow-up in the intensive care unit, she remains on interval, currently at 60 L and FiO2 of 91%, and her pulse ox is 91-93%, but patient is noted to be easily desaturating with any exertion, speaking or eating. She is awake and alert, in no acute distress, lung sounds reveal a few scattered rhonchi, she is in sinus rhythm with a rate of 80 BPM, today's chest x-ray shows slight improvement in the appearance of diffuse pulmonary infiltrates. Afebrile, blood and urine cultures showed no growth, we have not been able to collect a sputum specimen. Legionella urine antigen is pending, today's lab work showed a white blood cell count of 6.0, hemoglobin is 11.5, electrolytes were within normal limits, CO2 is 33, renal profile was within normal limits. No complaint of chest pain, no significant chest congestion or coughing. Yesterday we switched the antibiotic coverage to cefepime, Levaquin and vancomycin, we added IV Solu-Medrol, nebulized bronchodilators. On 06/16/2018 patient seen in follow-up on medical surgical floor. Resting comfortably in bed, currently on 4 l of oxygen with a pulse ox of 94%. No acute distress, no complaints of shortness of breath or chest pain or significant chest congestion. No fever or chills. Today's labs have been reviewed, sodium is 1:30, potassium is 4.7, chloride is 93, BUN is 26 creatinine 0.61. Blood and urine cultures are negative. Encourage deep breathing and coughing, incentive spirometry use. Patient is on a combination of Diflucan and Levaquin, patient has completed 12 days of Levaquin, and Diflucan. We can stop the antibiotics now On 06/18/2018 patient seen in follow-up. Patient is awake and alert, in no acute distress, she is resting in bed, currently on liters of oxygen with a pulse ox of 94%, no fever or chills, hemodynamically patient is stable. Her only complaint is back pain over left posterior lower chest. No fever or chills, today's labs have been reviewed, white blood cell count is 8.0, hemoglobin is 13.3, sodium is 132, potassium is 4.8, chloride is 94, CO2 31, BUN is 25 and creatinine 0.52. Urine and blood culture showed no growth. Patient has completed a course of Diflucan and Levaquin, antibiotics discontinued 2 days ago. On 06/19/2018 patient seen in follow-up on medical surgical floor. She currently down to 4 L of oxygen, no worsening dyspnea, her pulse ox is 95%, yesterday we repeated her chest x-ray, which showed interval improvements in overall lung inflation pattern. There is a persistence of the multifocal bilat eral silhouetting of the pulmonary vasculature. No worsening shortness of breath, does have left-sided posterior chest wall discomfort, the cause of which is unknown. Today's labs have been reviewed, blood blood cell count is 6.5, hemoglobin is 12.3, INR is 1.0, sodium is 131, potassium is 4.7, chloride is 95, CO2 35, BUN is 19 creatinine 0.56. Blood and urine cultures remain negative. No fever or chills, vital signs are stable, increase activity as tolerated, from pulmonary perspective she remains stable, she could be considered for discharge home today. Cardiology is following the patient in regards to atrial fibrillation, and has signed off. Patient is on oral anticoagulation. Her rate is controlled. No acute events overnight. On 06/21/2018 patient seen in follow-up. She is awake and alert, no difficulty breathing, no chest pain, lung sounds are essentially clear to today's exam, she remains on 4 L of oxygen with a pulse ox of 96%, she remains on bedrest, she states she has been out of bed and ambulating, but we have not seen her out of bed much. Encourage ambulation, no specific complaints other than some nausea. She is passing bowel movements, no abdominal pain, no vomiting. No fever or chills. Today's labs have been reviewed, CBC shows white blood cell count of 7.0, hemoglobin is 12.2, sodium is 134, potassium is 4.6, chloride is 95, CO2 was 33, creatinine was 0.48 and BUN was 14. Anaya catheter remains in place, but can probably discontinue it now. Antibiotics have been discontinued, patient is awaiting placement in the subacute rehab facility, possibly tomorrow. From pulmonary standpoint she remains stable Objective - Vital Signs Vital signs: Vital Signs Temp 98.5 F 06/21/18 07:27 Pulse 89 06/21/18 07:27 Resp 18 06/21/18 07:27 BP 128/79 06/21/18 07:27 Pulse Ox 96 06/21/18 07:05 Intake & Output 06/20/18 06/21/18 06/21/18 18:59 06:59 18:59 Intake Total 600 Output Total 1600 4150 1250 Balance -1000 -4150 -1250 Weight 98.5 kg Intake: IV 120 kvo 120 Oral 480 Output: Urine 1600 4150 1250 Uretheral (Anaya) 600 Other: Voiding Method Indwelling Catheter Indwelling Catheter # Voids 1 1 - Exam GENERAL EXAM: Alert, 68-year-old white female patient on 4 l of oxygen with a pulse ox of 96%, in no acute distress HEAD: Normocephalic/atraumatic. EYES: Normal reaction of pupils, equal size. Conjunctiva pink, sclera white. NOSE: Clear with pink turbinates. THROAT: No erythema or exudates. NECK: No masses, no JVD, no thyroid enlargement, no adenopathy. CHEST: No chest wall deformity. Symmetrical expansion. LUNGS: Equal air entry, no crackles, no rhonchi, no wheezes CVS: Regular rate and rhythm, normal S1 and S2, no gallops, no murmurs, no rubs ABDOMEN: Soft, nontender. No hepatosplenomegaly, normal bowel sounds, no guarding or rigidity. EXTREMITIES: No clubbing, no edema, no cyanosis, 2+ pulses and upper and lower extremities. MUSCULOSKELETAL: Muscle strength and tone normal. SPINE: No scoliosis or deformity SKIN: No rashes CENTRAL NERVOUS SYSTEM: Alert and oriented -3. No focal deficits, tone is normal in all 4 extremities. PSYCHIATRIC: Alert and oriented -3. Appropriate affect. Intact judgment and insight. - Labs CBC & Chem 7: 06/21/18 06:58 06/21/18 06:58 Labs: Abnormal Lab Results - Last 24 Hours (Table) 06/20/18 06/20/18 06/21/18 Range/Units 16:50 19:42 06:52 RDW (11.5-15.5) % Lymphocytes # (1.0-4.8) k/uL Sodium (137-145) mmol/L Chloride (98-107) mmol/L Carbon Dioxide (22-30) mmol/L Creatinine (0.52-1.04) mg/dL Glucose (74-99) mg/dL POC Glucose (mg/dL) 103 H 162 H 178 H (75-99) mg/dL 06/21/18 06/21/18 Range/Units 06:58 06:58 RDW 16.0 H (11.5-15.5) % Lymphocytes # 0.7 L (1.0-4.8) k/uL Sodium 134 L (137-145) mmol/L Chloride 95 L (98-107) mmol/L Carbon Dioxide 33 H (22-30) mmol/L Creatinine 0.48 L (0.52-1.04) mg/dL Glucose 175 H (74-99) mg/dL POC Glucose (mg/dL) (75-99) mg/dL Assessment and Plan Plan: Assessment: #1. Acute hypoxemic respiratory failure secondary to bilateral pneumonia, and there may be a component of pulmonary edema/ARDS, proBNP was within normal l imits. Influenza screen was negative, CT angios the chest was negative for any pulmonary embolism, showed groundglass opacities at bilateral bases, likely related to underlying pneumonia On 06/21/2018 patient is awake and alert, oriented 3, no complaints of shortness of breath, she remains on 4 L of oxygen, no shortness of breath, no fever or chills, urine and blood cultures show no growth. Patient has been adequately treated with antibiotics, likely improved, chest x-rays have shown improvement in appearance of airspace disease bilaterally, discontinued antibiotics. Patient is doing very well. Awaiting placement in the subacute rehab tomorrow. #2. Pulmonary nodules, could relate to underlying sarcoidosis, or infectious etiology #3. Diabetes mellitus type 2 #4. Chronic atrial fibrillation, and history of DVT and pulmonary embolism, on chronic anticoagulation in the form of Coumadin. Supratherapeutic on today's labs we'll hold Coumadin #5. GERD/reflux #6. Hypertention, hyperlipidemia #7. DJD #8. Hypothyroidism #9. Osteoarthritis of multiple joints Plan: Weaning FiO2, encouraged patient to sit up in the chair, ambulate. Discontinue Anaya, patient remains stable from pulmonary perspective, encourage deep breathing and coughing, awaiting placement in subacute rehab, she will need follow-up with Dr. Meier in the office after discharge in 1-2 weeks. We will see on as-needed basis. I performed a history & physical examination of the patient and discussed their management with my nurse practitioner, Sharona Klein. I reviewed the nurse practitioner's note and agree with the documented findings and plan of care. Lung sounds are positive clear breath sounds. The findings and the impression was discussed with the patient. I attest to the documentation by the nurse practitioner. Time with Patient: Less than 30
[2018-06-21 12:02] LABS: Glucose,Whole Blood 163 mg/dL (75-99)
--- NOTE | 2018-06-21 12:04 | P.CRDCN ---
History of Present Illness History of present illness: Patient is a 68-year-old female with past medical history of paroxysmal atrial fibrillation and atrial flutter with RVR, who is currently admitted for multilobular pneumonia. Cardiology has been following for arrhythmia management. Blood pressures have been well controlled. She is currently maintaining sinus rhythm with heart rates in the 70s. She is anticoagulated with warfarin and INR today is 1.1. Patient interviewed and examined this morning. She states she has been very nauseous and is in mild distress. She has not had any vomiting. Abdomen is soft and nontender to palpation. She states she is not eating since yesterday. She denies any chest discomfort, chest pressure, dyspnea, dizziness, or vertigo. PHYSICAL EXAMINATION: HEENT: Head is atraumatic, normocephalic. Pupils are equal, round. Sclerae anicteric. Conjunctivae are clear. Mucous membranes of the mouth are moist. Neck is supple. There is no jugular venous distention. No carotid bruit is heard. CHEST EXAMINATION: Lungs are clear to auscultation. No chest wall tenderness is noted on palpation or with deep breathing. HEART EXAMINATION: Heart regular rate and rhythm. S1, S2 heard. No murmurs, gallops or rub. ABDOMEN: Soft, nontender. Bowel sounds are heard. No organomegaly noted. EXTREMITIES: 2+ peripheral pulses with no evidence of peripheral edema and no calf tenderness noted. NEUROLOGIC EXAMINATION: Patient is awake, alert and oriented x3. LABORATORY DATA: WBC 7.0, hemoglobin 12.2, sodium 134, potassium 4.6, BUN 14, creatinine 0.48. FINAL ASSESSMENT AND PLAN: Acute hypoxic respiratory failure, multilobular pneumonia Paroxysmal atrial fibrillation, on warfarin Paroxysmal atrial flutter with RVR, currently maintaining sinus rhythm Type 2 diabetes PLAN: We will continue current medication regimen, including warfarin. Patient's dosage will need to be titrated to maintain therapeutic INR between 2- 3. Stress test will be performed outpatient at a later date. Please contact for any further recommendations Past Medical History Past Medical History: Atrial Fibrillation, Asthma, Cancer, CVA/TIA, Diabetes M ellitus, Deep Vein Thrombosis (DVT), Eye Disorder, GERD/Reflux, Hyperlipidemia, Hypertension, Osteoarthritis (OA), Pneumonia, Pulmonary Embolus (PE), Skin Disorder, Thyroid Disorder Additional Past Medical History / Comment(s): NIDDM type II, neuropathy bilateral feet, bronchitis, sarcoidosis of the lung, seasonal allergies, sinus problems, TIA, DVT R leg x 3, pulmonary emboli x 1, L breast cancer with surgery/chemo, migraines, DDD, chronic back and cervical pain, L leg sciatica, possibly one seizure following cervical surgery, hypothyroid, pt had some kind of liver problem as a child and was hospitalized, cellulitis at IV site, recently states she had dark "spot" cover her R eye and then it lifted but still having vision changes in that eye. History of Any Multi-Drug Resistant Organisms: None Reported Past Surgical History: Appendectomy, Breast Surgery, Section, Hysterectomy, Joint Replacement, Orthopedic Surgery, Tonsillectomy Additional Past Surgical History / Comment(s): DVT 16 inches long removed from R leg, R thorascopy-diagnosed with sarcoidosis, D&C, salpingoophorectomy d/t ectopic , L breast biopsy, L breast lumpectomy, bilateral total shoulder replacements, cervical fusions x2 has titanium plate/screws, EGD, colonoscopy with benign polypectomy, epidural injections, D&C Past Anesthesia/Blood Transfusion Reactions: Motion Sickness Additional Past Anesthesia/Blood Transfusion Reaction / Comment(s): diff IV starts Smoking Status: Never smoker - Past Family History Daughter(s) Family Medical History: Cancer Father Family Medical History: Deep Vein Thrombosis (DVT) Mother Family Medical History: Deep Vein Thrombosis (DVT) Additional Family Medical History / Comment(s): Maternal grandmother had DVT and 3 of pt's maternal aunts had DVTs. Medications and Allergies Home Medications Medication Instructions Recorded Confirmed Type Citalopram Hydrobromide [CeleXA] 40 mg PO HS 07/19/13 03/27/17 History Ezetimibe [Zetia] 10 mg PO HS 07/19/13 05/28/18 History Levothyroxine Sodium [Synthroid] 200 mcg PO DAILY 07/19/13 05/28/18 History Lisinopril [Zestril] 10 mg PO HS 07/19/13 03/27/17 History Morphine Sulfate ER [Ms Contin] 60 mg PO Q12HR 07/19/13 05/28/18 History Docusate [Colace] 100 mg PO TID 07/28/13 03/27/17 History Calcium Citrate 500 mg PO DAILY 08/30/14 05/28/18 History Cholecalciferol [Vitamin D3] 2,000 unit PO DAILY 08/30/14 05/28/18 History Citalopram Hydrobromide [CeleXA] 20 mg PO QAM 08/30/14 05/28/18 History Ipratropium/Albuterol Sulfate 1 puff INHALATION DAILY PRN 08/30/14 03/27/17 History [Combivent Respimat Inhaler] Multivitamins, Thera [Multivitamin 1 tab PO DAILY 08/30/14 05/28/18 History (formulary)] Rolaids 1 - 2 tab PO DAILY PRN 08/30/14 03/31/17 History Triamcinolone 0.1% Cream [Kenalog 1 applic TOPICAL BID 08/30/14 03/27/17 History 0.1% Cream] Warfarin [Coumadin] 5 mg PO MOTUTHFRSA 08/30/14 06/04/18 History Biotin 5,000 mcg PO DAILY 03/27/17 05/28/18 History Fenofibrate Nanocrystallized 145 mg PO DAILY 03/27/17 03/27/17 History [Tricor] Morphine Sulfate Ir [Msir] 15 mg PO TID PRN 03/27/17 05/28/18 History clonazePAM [KlonoPIN] 0.5 mg PO HS 03/27/17 03/27/17 History metFORMIN HCL 1,000 mg PO BID 03/27/17 05/28/18 History tiZANidine [Zanaflex] 4 mg PO TID PRN 03/27/17 03/27/17 History Cetirizine HCl [Zyrtec] 10 mg PO DAILY 05/28/18 05/28/18 History Fenofibrate [Lofibra] 160 mg PO DAILY 05/28/18 05/28/18 History Fluticasone Nasal [place] [Flonase 1 spray EA NOSTRIL DAILY 05/28/18 05/28/18 History Nasal [place]] Spironolactone 75 mg PO DAILY 05/28/18 05/28/18 History Warfarin [Coumadin] 2.5 mg PO 05/28/18 History busPIRone HCl [Buspar] 10 mg PO BID 05/28/18 05/28/18 History Allergies Allergy/AdvReac Type Severity Reaction Status Date / Time guaifenesin Allergy Rapid Verified 05/28/18 12:53 Heart Rate loratadine Allergy Rapid Verified 05/28/18 12:53 [From Claritin-D 12 Hour] Heart Rate monosodium glutamate Allergy swelling, Verified 05/28/18 12:53 headache Penicillins Allergy Anaphylaxis Verified 05/28/18 12:53 pseudoephedrine HCl Allergy Dyspnea/rapid Verified 05/28/18 12:53 [From Sudafed] heart rate pseudoephedrine sulfate Allergy Rapid Verified 05/28/18 12:53 [From Claritin-D 12 Hour] Heart Rate Sulfa (Sulfonamide Allergy Itching Verified 05/28/18 12:53 Antibiotics) molds Allergy Anaphylaxis Uncoded 03/31/17 09:48 Physical Exam Vitals: Vital Signs Temp Pulse Pulse Pulse Resp BP Pulse Ox 06/21/18 07:27 98.5 F 89 18 128/79 06/21/18 07:05 97.6 F 67 14 169/81 96 06/21/18 03:08 18 06/21/18 00:51 98.5 F 83 16 104/69 94 L 06/21/18 00:27 18 06/20/18 22:54 83 102/65 06/20/18 20:19 98.5 F 82 18 107/66 95 06/20/18 20:11 76 06/20/18 19:56 75 06/20/18 16:53 76 06/20/18 16:39 74 06/20/18 14:24 98.1 F 73 14 103/58 93 L 06/20/18 12:37 74 06/20/18 12:25 72 Intake and Output 06/20/18 06/21/18 06/21/18 22:59 06:59 14:59 Output Total 3900 1350 1250 Balance -3900 -1350 -1250 Output: Urine 3900 1350 1250 Uretheral (Anaya) 600 Other: Voiding Method Indwelling Catheter # Voids 1 Weight 98.5 kg Results 06/21/18 06:58 06/21/18 06:58 Coagulation 06/21/18 Range/Units 06:58 PT 12.0 (9.0-12.0) sec CBC 06/21/18 Range/Units 06:58 WBC 7.0 (3.8-10.6) k/uL RBC 4.65 (3.80-5.40) m/uL Hgb 12.2 (11.4-16.0) gm/dL Hct 37.6 (34.0-46.0) % Plt Count 231 (150-450) k/uL Comprehensive Metabolic Panel 06/21/18 Range/Units 06:58 Sodium 134 L (137-145) mmol/L Potassium 4.6 (3.5-5.1) mmol/L Chloride 95 L (98-107) mmol/L Carbon Dioxide 33 H (22-30) mmol/L BUN 14 (7-17) mg/dL Creatinine 0.48 L (0.52-1.04) mg/dL Glucose 175 H (74-99) mg/dL Calcium 9.0 (8.4-10.2) mg/dL Current Medications Generic Name Dose Route Start Last Admin Trade Name Freq PRN Reason Stop Dose Admin Acetaminophen 650 mg 06/09/18 13:40 06/19/18 07:18 Tylenol Tab PO 650 mg Q6HR PRN Administration Fever and/ or MILD Pain Acetaminophen/Butalbital/Caffeine 1 each 06/20/18 23:49 06/21/18 00:26 Fioricet 50-325-40 PO 1 each Q4HR PRN Administration Headache Albuterol/Ipratropium 3 ml 05/28/18 16:00 06/21/18 09:29 Duoneb 0.5 Mg-3 Mg/3 Ml Soln INHALATION Not Given RT-QID [facility] Albuterol/Ipratropium 3 ml 05/28/18 13:59 Duoneb 0.5 Mg-3 Mg/3 Ml Soln INHALATION RT-QID PRN Shortness Of Breath Or Wheezing Alprazolam 0.25 mg 06/13/18 12:37 06/20/18 14:24 Xanax PO 0.25 mg TID PRN Administration Anxiety Baclofen 10 mg 05/29/18 14:52 06/20/18 22:53 Lioresal PO 10 mg TID PRN Administration Muscle Spasm Benzocaine/Menthol 1 each 06/05/18 19:57 06/10/18 21:29 Cepacol Lozenge MUCOUS MEM 1 each Q4HR PRN Administration Sore Throat Buspirone HCl 10 mg 05/28/18 21:00 06/21/18 10:53 Buspar PO 10 mg BID [facility] Administration Calcium Carbonate/Glycine 500 mg 05/29/18 09:00 06/21/18 10:54 Tums PO 500 mg DAILY [facility] Administration Cholecalciferol 2,000 unit 05/29/18 09:00 06/21/18 10:55 Vitamin D3 PO Not Given DAILY [facility] Citalopram Hydrobromide 20 mg 05/29/18 09:00 06/21/18 10:56 Celexa PO 20 mg QAM [facility] Administration Citalopram Hydrobromide 40 mg 05/31/18 21:00 06/20/18 20:54 Celexa PO 40 mg HS [facility] Administration Docusate Sodium 100 mg 05/28/18 22:00 06/21/18 10:56 Colace PO Not Given TID [facility] Ezetimibe 10 mg 05/28/18 21:00 06/20/18 20:52 Zetia PO 10 mg HS [facility] Administration Fenofibrate 160 mg 05/29/18 09:00 06/21/18 10:56 Lofibra PO 160 mg DAILY [facility] Administration Fluticasone Propionate 1 spray 05/29/18 09:00 06/20/18 09:02 Flonase Nasal [place] EA NOSTRIL 1 spray DAILY [facility] Administration Furosemide 20 mg 06/12/18 09:00 06/21/18 10:56 Lasix PO 20 mg DAILY [facility] Administration Insulin Aspart 0 unit 06/01/18 12:32 06/21/18 07:58 Novolog SQ Not Given ACHS [facility] Protocol Insulin Aspart 5 unit 06/17/18 17:30 06/21/18 07:58 Novolog SQ Not Given AC-TID [facility] Insulin Detemir 21 unit 06/03/18 21:00 06/20/18 20:18 Levemir SQ 21 unit HS [facility] Administration Lactulose 30 gm 06/10/18 09:00 06/21/18 11:04 Cephulac PO Not Given DAILY [facility] Levothyroxine Sodium 200 mcg 05/29/18 06:30 06/21/18 07:55 Synthroid PO Not Given 0630 [facility] Lisinopril 10 mg 05/28/18 21:00 06/20/18 22:54 Zestril PO Not Given HS [facility] Melatonin 5 mg 06/06/18 21:00 06/20/18 20:54 Melatonin PO 5 mg HS [facility] Administration Metformin HCl 1,000 mg 06/10/18 17:30 06/21/18 10:53 Glucophage PO 1,000 mg BID-W/MEALS [facility] Administration Metoclopramide HCl 5 mg 06/21/18 07:19 06/21/18 09:24 Reglan IVP 5 mg Q6HR PRN Administration Nausea And Vomiting Metoprolol Tartrate 50 mg 06/17/18 09:00 06/21/18 10:59 Lopressor PO 50 mg BID [facility] Administration Miscellaneous Information 1 each 05/31/18 05:34 Phosphorus Per Protocol MISCELLANE DAILY PRN Per Protocol Protocol Miscellaneous Information 1 each 06/01/18 05:55 Potassium Per Protocol MISCELLANE DAILY PRN Per Protocol Protocol Miscellaneous Information 1 each 06/11/18 06:31 Magnesium Per Protocol MISCELLANE DAILY PRN Per Protocol Protocol Morphine Sulfate 60 mg 06/01/18 10:45 06/21/18 09:20 Ms Contin PO 60 mg Q12HR [facility] Administration Morphine Sulfate 15 mg 06/11/18 15:49 06/21/18 03:57 Msir PO 15 mg TID PRN Administration Pain Multivitamins 1 each 05/29/18 12:00 06/20/18 14:25 Theragran PO 1 each 1200 [facility] Administration Nitroglycerin 0.4 mg 05/30/18 02:34 Nitrostat SUBLINGUAL Q10M PRN Chest Pain Non-Formulary Medication 5,000 mcg 05/29/18 09:00 06/21/18 07:59 Biotin [Biotin] PO Not Given DAILY [facility] Zyrtec 10mg 10 mg 05/29/18 09:00 06/21/18 04:08 PO 10 mg DAILY [facility] Administration Ondansetron HCl 4 mg 05/28/18 22:33 06/21/18 11:05 Zofran IVP 4 mg Q6HR PRN Administration Nausea And Vomiting Pantoprazole Sodium 40 mg 05/28/18 16:00 06/21/18 07:56 Protonix PO Not Given AC-BRKFST [facility] Spironolactone 25 mg 06/12/18 09:00 06/21/18 11:04 Aldactone PO 25 mg DAILY [facility] Administration Trazodone HCl 50 mg 05/29/18 21:00 06/20/18 20:54 Desyrel PO 50 mg HS [facility] Administration Warfarin Sodium 5 mg 06/18/18 20:00 06/20/18 18:15 Coumadin PO 5 mg DAILY@1800 [facility] Administration Zolpidem Tartrate 5 mg 06/06/18 16:54 06/20/18 22:53 Ambien PO 5 mg HS PRN Administration Insomnia Intake and Output 06/20/18 06/21/18 06/21/18 22:59 06:59 14:59 Output Total 3900 1350 1250 Balance -3900 -1350 -1250 Output: Urine 3900 1350 1250 Uretheral (Anaya) 600 Other: Voiding Method Indwelling Catheter # Voids 1 Weight 98.5 kg 06/21/18 06:58 06/21/18 06:58
[2018-06-21] MEDS: MULTIVITAMINS, THERA 1 EACH TAB PO SCH (12:05)
[2018-06-21] MEDS: FLUTICASONE 50MCG/SPRAY NASAL 16GM EA NOSTRIL SCH (12:05)
--- NOTE | 2018-06-21 15:06 | P.PN ---
Subjective Progress Note Date: 06/20/18 Principal diagnosis: Acute hypoxic respiratory failure Multifocal pneumonia 67-year-old female with a known history of atrial fibrillation on anticoagulation, history of DVT/PE, diabetes type 2, history of CVA/TIA and hypertension, hypothyroidism and other multiple medical problems initially presents to walk-in clinic [facility] on Friday with complaints of shortness of breath cough and fever 102.4. Patient was sent home with Z-Samuel and Tessalon pearls as well as Mucinex. Patient has been taking her medications and symptoms did not resolve which made her to go back to hospital on Friday. Patient was hypoxic and tachycardic at the time. Patient had CT angiogram of the chest; no pulmonary embolism was noted. Patient was found to have pulmonary nodules and repeat CT was recommended after resolution of pneumonia. Due to extensive pneumonia and pulmonary nodules and sepsis patient was transferred to [facility] for further evaluation and possible pulmonary consult. Influenza was negative. Patient was to the hospital with pneumonia and ARDS like chest x-ray findings. Patient remained on the high flow oxygen. Currently in the ICU. Otherwise, and comfortable and sitting in the chair. Chest x-ray showed essentially stable findings and bilateral pulmonary infiltrates unchanged compared to yesterday. Continue on antibiotics in the form of cefepime and Levaquin along with breathing treatments and IV Solu-Medrol. No fever no chills. No nausea vomiting or abdominal pain or diarrhea. Cultures including Legionella urine antigen is negative. 06/05/2018 Patient is seen and evaluated for a follow-up. The patient states that she is less short of breath; oxygenation has remained essentially unchanged compared to yesterday. She remains on high flow oxygen with an FiO2 of 80%. Pulse ox is around 90-91% and there is not much room for her weaning off FiO2. Her chest x-ray also showing diffuse breath and pulmonary infiltrates which remain unchanged compared to yesterday's chest x-ray. remains on a combination of antibiotics including cefepime, Levaquin and Diflucan. The patient is also on IV Solu-Medrol. She is tolerating her diet; No other significant events over the past 24 hours. Family is at the bedside. 06/06/2018, there has been no major improvement the patient's condition. The patient remains in acute hypoxic respiratory failure related to the bilateral pneumonia/ARDS. FiO2 is still at 80%. The patient is on high flow oxygen. Hemodynamically stable. Chest x-ray findings is still showing diffuse bilateral pulmonary infiltrates unchanged compared to yesterday. Remains on cefepime, Levaquin and Diflucan. Remains on IV Solu-Medrol. Despite all this, the patient has a single organ dysfunction which is essentially pulmonary dysfunction related to the pneumonia/ARDS. Renal function stable. Hemodynamically stable. No altered mentation. No nausea or vomiting pH is able to sit up on a chair and she is quite strong in interactive. She is also in a positive spirits as the patient was to get better recovered from her pneumonia. 06/07/2018 Remains in ICU for post pneumonia/ARDS. X-ray still showing diffuse breath and pulmonary infiltrates. Infiltrates are essentially stable and unchanged over the past 48 hours. In fact I do not see any improvement or worsening the patient's condition over the past 48 hours. Chest x-ray findings are essentially the same. Oxidation something. She is able to get up and sit up on a bedside recliner. No significant cough or sputum production. She claims that she had a good night sleep yesterday. She remains on IV Solu-Medrol. Antibiotic coverage includes cefepime Levaquin and Diflucan. Fluid balance is - 3.9 L over the past 24 hours and the patient is producing adequate amount of urine output. She is receiving Lasix 20 mg IV every 24 hours. White cell count is at 14.5 which is stable. No significant leukocytosis. No fever. She is tolerating diet and is using incentive spirometer. 06/08/2018, patient remains on high flow oxygen, she is actually on airvo with 80% FiO2, 60 L/m, and her O2 saturation remains fairly marginal. However surprisingly the patient remains comfortable, in no distress, and her chest x-ray continues to show diffuse infiltrates bilaterally. Chest x-ray is basically about the same. Patient denies any significant cough, denies any fever or chills, denies any chest pain. Remains on antibiotics in the form of Levaquin and cefepime, she remains on bronchodilators and on Solu-Medrol. Her fluid balance is showing negative balance. Remains on Lasix 20 mg daily. Labs continued to show leukocytosis with WBC of 16.1 hemoglobin is 12.6. Basic metabolic profile is relatively normal. 06/19/2018 patient seen in follow-up on medical surgical floor. She currently down to 4 L of oxygen, no worsening dyspnea, her pulse ox is 95%, yesterday we repeated her chest x-ray, which showed interval improvements in overall lung inflation pattern. There is a persistence of the multifocal bilateral silhouetting of the pulmonary vasculature. No worsening shortness of breath, does have left-sided posterior chest wall discomfort, the cause of which is unknown. Today's labs have been reviewed, blood blood cell count is 6.5, hemoglobin is 12.3, INR is 1 .0, sodium is 131, potassium is 4.7, chloride is 95, CO2 35, BUN is 19 creatinine 0.56. Blood and urine cultures remain negative. No fever or chills, vital signs are stable, increase activity as tolerated, from pulmonary perspective she remains stable, she could be considered for discharge home to day. Cardiology is following the patient in regards to atrial fibrillation, and has signed off. Patient is on oral anticoagulation. Her rate is controlled. No acute events overnight. Objective - Vital Signs Vital signs: Vital Signs Temp 98.1 F 06/20/18 07:41 Pulse 72 06/20/18 08:46 Resp 16 06/20/18 01:05 BP 94/56 06/20/18 07:41 Pulse Ox 94 L 06/20/18 07:41 Intake & Output 06/19/18 06/20/18 06/20/18 18:59 06:59 18:59 Output Total 3700 3550 Balance -3700 -3550 Weight 98.5 kg Output: Urine 3700 3550 Uretheral (Anaya) 2500 Other: Voiding Method Indwelling Catheter Indwelling Catheter # Voids 1 - Exam Patient is lying in the bed comfortably, no acute distress, awake alert and oriented. Currently on O2 4L. HEENT: Normocephalic. Neck is supple. Pupils reactive. Nostrils clear. Oral cavity is moist. Ears reveal no drainage. Neck reveals no JVD, carotid bruits, or thyromegaly. CHEST EXAMINATION: Trachea is central. Symmetrical expansion. Bilateral air entry improved. Scattered rhonchi and bibasilar diminished sounds... CARDIAC: Normal S1, S2 with no gallops. No murmurs ABDOMEN: Soft. Bowel sounds normal. No organomegaly. No abdominal bruits. Extremities: reveal no edema. No clubbing or cyanosis Neurologically awake, alert, oriented x3 with well-coordinated movements. No focal deficits noted - Labs CBC & Chem 7: 06/20/18 08:38 06/20/18 08:38 Labs: Abnormal Lab Results - Last 24 Hours (Table) 06/19/18 06/19/18 06/20/18 Range/Units 16:44 21:04 07:03 RDW (11.5-15.5) % Sodium (137-145) mmol/L Chloride (98-107) mmol/L Carbon Dioxide (22-30) mmol/L BUN (7-17) mg/dL Glucose (74-99) mg/dL POC Glucose (mg/dL) 131 H 103 H 140 H (75-99) mg/dL 06/20/18 06/20/18 Range/Units 08:38 08:38 RDW 15.8 H (11.5-15.5) % Sodium 131 L (137-145) mmol/L Chloride 92 L (98-107) mmol/L Carbon Dioxide 31 H (22-30) mmol/L BUN 20 H (7-17) mg/dL Glucose 185 H (74-99) mg/dL POC Glucose (mg/dL) (75-99) mg/dL Assessment and Plan Assessment: 1. Acute hypoxemic respiratory failure secondary to bilateral pneumonia; component of pulmonary edema/ARDS. -Oxygenation remains stable and the patient remains on high flow oxygen at 80% FiO2. Chest x-ray findings are also stable. Clinically stable. She remains on a combination of bronchodilators and steroids. She is mainly receiving supportive care in the ICU. 2. Pulmonary nodules; underlying sarcoidosis, 3. Diabetes mellitus type 2; remains on Levemir 20 units daily; we will continue with Accu-Cheks every before meals and at bedtime with insulin sliding scale 4. Chronic atrial fibrillation; in normal sinus rhythm. 5. GERD/reflux 6. Hypertention, 7. Hypothyroidism 8. Hyperlipidemia 9. History of DVT and pulmonary embolism, - Patient is on chronic anticoagulation in the form of Coumadin; currently on IV heparin. CODE STATUS; full code Time with Patient: Greater than 30
[2018-06-21 16:57] LABS: Glucose,Whole Blood 155 mg/dL (75-99)
[2018-06-21] MEDS: ACETAMINOPHEN TAB 325 MG TAB PO PRN (18:02)
[2018-06-21] MEDS: ALPRAZolam 0.25 MG TAB PO PRN (18:03)
[2018-06-21] MEDS: WARFARIN 5 MG TAB PO SCH (18:06)
[2018-06-21] MEDS ORDERED: METOPROLOL TARTRATE 25 MG TAB PO STA (18:16)
[2018-06-21 19:31] LABS: Glucose,Whole Blood 150 mg/dL (75-99)
[2018-06-21] MEDS: MELATONIN 5 MG TABLET PO SCH (21:07)
[2018-06-21] MEDS: traZODone HCL 50 MG TAB PO SCH (21:08)
[2018-06-21] MEDS: EZETIMIBE 10 MG TAB PO SCH (21:08)
[2018-06-21] MEDS: INSULIN DETEMIR (LEVEMIR) 100 UNIT/ML SYR SQ SCH (21:13)
[2018-06-21] MEDS: LISINOPRIL 10 MG TAB PO SCH (21:20)
[2018-06-22] MEDS: ONDANSETRON 4 MG/2 ML VIAL IVP PRN ×2 (00:06→10:43)
[2018-06-22] MEDS: ZOLPIDEM 5 MG TAB PO PRN ×2 (00:07→21:13)
[2018-06-22] MEDS: METOCLOPRAMIDE 5 MG/ML 2 ML VIAL IVP PRN ×2 (05:07→15:40)
[2018-06-22] MEDS: LEVOTHYROXINE 100 MCG TAB PO SCH (05:07)
[2018-06-22] MEDS: MORPHINE SULFATE IR 15 MG TABLET PO PRN (05:18)
[2018-06-22 07:03] LABS: Glucose,Whole Blood 106 mg/dL (75-99)
[2018-06-22] MEDS: IPRATROPIUM-ALBUTEROL 3 ML NEB INHALATION SCH ×4 (07:38→20:57)
[2018-06-22 07:54] LABS: Basophils # (A) 0.1 k/uL (0-0.2); Basophils % (A) 1 %; Eosinophils # (A) 0.2 k/uL (0-0.7); Eosinophils % (A) 4 %; HCT 37.7 % (34.0-46.0); Lymphocytes # (A) 1.1 k/uL (1.0-4.8); Lymphocytes % (A) 17 %; MCH 26.8 pg (25.0-35.0); MCHC 31.8 g/dL (31.0-37.0); MCV 84.3 fL (80.0-100.0); Mean Platelet Volume 6.6; Monocytes # (A) 0.5 k/uL (0-1.0); Monocytes % (A) 8 %; Neutrophils # (A) 4.2 k/uL (1.3-7.7); Neutrophils % (A) 67 %; Platelet Count 206 k/uL (150-450); RBC 4.47 m/uL (3.80-5.40); RDW 14.2 % (11.5-15.5); WBC 6.2 k/uL (3.8-10.6)
[2018-06-22 08:10] LABS: Anion Gap 5 mmol/L; Blood Urea Nitrogen 14 mg/dL (7-17); Calcium 8.7 mg/dL (8.4-10.2); Carbon Dioxide 29 mmol/L (22-30); Chloride 101 mmol/L (98-107); Glucose 99 mg/dL (74-99); Potassium 4.2 mmol/L (3.5-5.1); Sodium 135 mmol/L (137-145)
[2018-06-22] MEDS: INSULIN ASPART (NovoLOG) 100 UNIT/ML VIAL SQ SCH ×7 (09:34→20:54)
[2018-06-22] MEDS: FENOFIBRATE 160 MG TAB PO SCH (10:30)
[2018-06-22] MEDS: CALCIUM CARBONATE 500 MG CHEWABLE PO SCH (10:30)
[2018-06-22] MEDS: LACTULOSE 20 GM/30 ML CUP PO SCH (10:31)
[2018-06-22] MEDS: FLUTICASONE 50MCG/SPRAY NASAL 16GM EA NOSTRIL SCH (10:31)
[2018-06-22] MEDS: FUROSEMIDE 20 MG TAB PO SCH (10:31)
[2018-06-22] MEDS: MORPHINE SULFATE ER 60 MG TABLET PO SCH (10:32)
[2018-06-22] MEDS: METOPROLOL TARTRATE 50 MG TAB PO SCH ×3 (10:32→21:14)
[2018-06-22] MEDS: SPIRONOLACTONE 25 MG TAB PO SCH (10:33)
[2018-06-22] MEDS: CITALOPRAM HYDROBROMIDE 20 MG TAB PO SCH ×2 (10:33→21:13)
[2018-06-22] MEDS: busPIRone HCl 10 MG TAB PO SCH ×2 (10:33→21:13)
[2018-06-22] MEDS: DOCUSATE 100 MG CAP PO SCH ×3 (10:33→21:14)
[2018-06-22] MEDS: PANTOPRAZOLE 40 MG TABLET PO SCH (10:33)
[2018-06-22] MEDS: ZYRTEC 10MG PO SCH (10:34)
[2018-06-22] MEDS: CHOLECALCIFEROL 1,000 UNIT TAB PO SCH (10:34)
[2018-06-22] MEDS: NON-FORMULARY DRUG (Biotin [Biotin] 5,000 MCG) PO SCH (10:40)
[2018-06-22] MEDS: metFORMIN 500 MG TAB PO SCH ×2 (10:42→18:00)
[2018-06-22 11:48] LABS: Glucose,Whole Blood 99 mg/dL (75-99)
[2018-06-22] MEDS: ALPRAZolam 0.25 MG TAB PO PRN (12:15)
[2018-06-22] MEDS: MULTIVITAMINS, THERA 1 EACH TAB PO SCH (12:20)
[2018-06-22] MEDS: ACETAMINOPHEN TAB 325 MG TAB PO PRN (14:35)
--- NOTE | 2018-06-22 14:53 | XR ---
EXAMINATION TYPE: XR chest 1V portable DATE OF EXAM: 06/22/2018 COMPARISON: Prior chest x-ray 06/18/[address] 05/26/2018 HISTORY: Pneumonia TECHNIQUE: Single frontal view of the chest is obtained. FINDINGS: There is prominence in the suprahilar location on the right. No pneumothorax present. Patch y basilar increased density is present, lung volumes are low. The cardiac silhouette size is possibly enlarged, rotation may accentuate the appearance. Bilateral shoulder prostheses are present, there are overlying cardiac leads and oxygen tubing. IMPRESSION: Suspect there may be underlying airspace disease bilaterally. Follow-up is recommended.
[2018-06-22 16:33] LABS: Glucose,Whole Blood 128 mg/dL (75-99)
--- NOTE | 2018-06-22 17:19 | PN ---
PROGRESS NOTE DATE OF SERVICE: 06/22/2018 This 68-year-old woman who was admitted with bilateral pneumonia with acute hypoxic respiratory failure, also had ARDS. There was no evidence of any influenza. CT angio was negative for pulmonary embolism. Patient was treated conservatively. Patient is being closely monitored. The PT/OT evaluated the patient closely. F rehab at this time. Patient complained of nausea and abdominal discomfort at this time. PAST MEDICAL HISTORY: Reviewed. REVIEW OF SYSTEMS: CARDIOVASCULAR: No angina or palpitations. RESPIRATION: As mentioned earlier. GI as mentioned earlier. : No dysuria. CENTRAL NERVOUS SYSTEM: No numbness or weakness. MEDICATIONS ARE: 1. Tylenol p.r.n. 2. Fioricet p.r.n. 3. DuoNeb q.i.d. and p.r.n. 4. Xanax 0.5 t.i.d. 5. Lioresal 10 mg t.i.d. p.r.n. 6. Cepacol. 7. BuSpar. 8. TUMS. 9. Celexa 20 mg q.a.m. 10.Colace 100 mg p.o. t.i.d. 11.Zetia 10 mg q.h.s. 12.Lofibra 160 mg q.h.s. 13.Flonase 1 spray daily. 14.Lasix 20 mg daily. 15.NovoLog scale. 16.Levemir units subcu q.h.s. 17.Cephulac 30 g daily. 18.Synthroid 200 mcg p.o. daily. 19.Zestril 10 mg p.o. q.h.s. 20.Melatonin 5 mg q.h.s. 21.Glucophage 1000 mg p.o. b.i.d. 22.Reglan. 23.Lopressor 50 mg p.o. b.i.d. 24.Replacement protocol. 25.MS Contin 60 mg p.o. b.i.d. 26.MS-IR 50 mg t.i.d. 27.Nitrostat. 28.Biotin. 29.Zofran. 30.Protonix. 31.Aldactone. 32.Desyrel. 33.Coumadin. 34.Ambien dose noted. PHYSICAL EXAM: Patient is alert and oriented x3. Pulse 72, blood pressure 91/52, respiratory 20, temperature 98 degrees, pulse ox 94% on 3 L. HEENT is conjunctivae normal. Oral mucosa moist. Neck is no jugular venous distention. No carotid bruit. No lymph node enlargement. CARDIOVASCULAR SYSTEM: S1, S2 muffled. RESPIRATORY SYSTEM: Breath sounds diminished at the bases. Bilateral scattered rhonchi and crackles. ABDOMEN: Soft, nontender. No mass palpable. Legs no edema. No swelling. NERVOUS SYSTEM: Higher functions as mentioned earlier. Moves all four extremities. No focal deficits. Lymphatics: No lymph nodes palpable in the neck, axillae or groin. SKIN: No ulcer, rash or bleeding. JOINTS: No active deforming arthropathy. LABS: CBC within normal limits. Sodium 130, potassium 4.8. ASSESSMENT: 1. Acute bilateral pneumonia possibly gram-negative with acute hypoxic respiratory failure with ARDS. 2. Influenza negative. 3. Pulmonary nodules. 4. Hyponatremia. 5. Possible acute gastritis. 6. History of atrial fibrillation. 7. History of cerebrovascular accident, transient ischemic attack. 8. Diabetes type 2. 9. History of deep vein thrombosis. 10.Gastroesophageal reflux disease. 11.Hypertension. 12.Hyperlipidemia. 13.Degenerative joint disease. 14.History of pulmonary embolus. 15.Hypothyroidism. 16.History of appendectomy. 17.History of breast surgery. 18.History of anxiety, depression. RECOMMENDATION: In this 68-year-old woman who presented with multiple complex medical issues, we will monitor the patient closely. Continue the current management and treatment. Otherwise, I recommend DVT prophylaxis. I would recommend PT/OT evaluation. The patient is on Coumadin. We will monitor the PT/INR closely. The prognosis guarded because of multiple complex medical issues. Further recommendations to follow. Eventually [facility] rehab. Guarded prognosis. See orders for details. We will initiate therapy dose of Lovenox. 1. Bilateral leg ischemia. 2. Hyponatremia. 3. Pulmonary nodules. 4. History of asthma. 5. History of cerebrovascular accident, transient ischemic attack. 6. Diabetes mellitus type 2. 7. History of deep vein thrombosis. 8. Gastroesophageal reflux disease. 9. Hypertension. 10.History of degenerative joint disease. 11.History of pulmonary embolus. 12.History of diabetes. 13.History of sarcoidosis of the lungs. 14.Seasonal allergies. 15.History of breast cancer. 16.History of appendectomy. 17.History of anxiety, depression. 18.FULL CODE. RECOMMENDATIONS AND DISCUSSION: In this 68-year-old woman who presented with multiple complex medical issues, at this time I recommend. MMODL / IJN: [id number] / [email or web address]
[2018-06-22 18:00] LABS: Hemoglobin A1C 9.2 % (4.0-6.0)
[2018-06-22] MEDS: MORPHINE ORAL SOLN 10 MG/5 ML CUP PO PRN (18:09)
[2018-06-22] MEDS: WARFARIN 5 MG TAB PO SCH (18:09)
[2018-06-22] MEDS: ENOXAPARIN 100 MG/ML SYRINGE SQ SCH (18:35)
[2018-06-22 19:20] LABS: Magnesium 1.5 mg/dL (1.6-2.3); Phosphorus 3.2 mg/dL (2.5-4.5)
[2018-06-22 20:25] LABS: Glucose,Whole Blood 144 mg/dL (75-99)
[2018-06-22] MEDS: traZODone HCL 50 MG TAB PO SCH (21:13)
[2018-06-22] MEDS: LISINOPRIL 10 MG TAB PO SCH (21:14)
[2018-06-22] MEDS: MELATONIN 5 MG TABLET PO SCH (21:14)
[2018-06-22] MEDS: MORPHINE SULFATE ER 30 MG TABLET PO SCH (21:14)
[2018-06-22] MEDS: INSULIN DETEMIR (LEVEMIR) 100 UNIT/ML SYR SQ SCH (21:15)
[2018-06-22] MEDS: EZETIMIBE 10 MG TAB PO SCH (21:18)
[2018-06-22] MEDS: PANTOPRAZOLE 40 MG/10 ML VIAL IVP SCH (21:19)
[2018-06-23] MEDS: MORPHINE ORAL SOLN 10 MG/5 ML CUP PO PRN ×2 (02:14→11:23)
[2018-06-23] MEDS: BACLOFEN 10 MG TAB PO PRN ×3 (02:21→21:23)
[2018-06-23] MEDS: ONDANSETRON 4 MG/2 ML VIAL IVP PRN ×2 (02:22→08:50)
[2018-06-23] MEDS ORDERED: MAGNESIUM SULFATE-D5W PMX 1 GM in DEXTROSE/WATER 2 100ML.BAG IVPB ONE (02:28)
[2018-06-23] MEDS ORDERED: MAGNESIUM SULFATE D5W PMX IVPB ONE (02:37)
[2018-06-23] MEDS ORDERED: DEXTROSE IVPB ONE (02:37)
[2018-06-23] MEDS ORDERED: WATER IVPB ONE (02:37)
[2018-06-23] MEDS ORDERED: MAGNESIUM SULFATE-D5W PMX 1 GM in DEXTROSE/WATER 1 100ML.BAG IVPB ONE (04:30)
[2018-06-23] MEDS: ALPRAZolam 0.25 MG TAB PO PRN ×2 (04:39→16:05)
[2018-06-23] MEDS: LEVOTHYROXINE 100 MCG TAB PO SCH (04:39)
[2018-06-23 06:52] LABS: Glucose,Whole Blood 140 mg/dL (75-99)
[2018-06-23] MEDS: IPRATROPIUM-ALBUTEROL 3 ML NEB INHALATION SCH ×4 (07:17→20:32)
[2018-06-23] MEDS: ACETAMINOPHEN TAB 325 MG TAB PO PRN ×2 (07:17→16:04)
[2018-06-23] MEDS: FLUTICASONE 50MCG/SPRAY NASAL 16GM EA NOSTRIL SCH (08:38)
[2018-06-23] MEDS: metFORMIN 500 MG TAB PO SCH ×2 (08:38→18:09)
[2018-06-23] MEDS: LACTULOSE 20 GM/30 ML CUP PO SCH (08:38)
[2018-06-23] MEDS: ZYRTEC 10MG PO SCH (08:38)
[2018-06-23] MEDS: CHOLECALCIFEROL 1,000 UNIT TAB PO SCH (08:39)
[2018-06-23] MEDS: METOPROLOL TARTRATE 50 MG TAB PO SCH ×2 (08:39→21:23)
[2018-06-23] MEDS: DOCUSATE 100 MG CAP PO SCH ×3 (08:39→21:25)
[2018-06-23] MEDS: MORPHINE SULFATE ER 30 MG TABLET PO SCH (08:40)
[2018-06-23] MEDS: CITALOPRAM HYDROBROMIDE 20 MG TAB PO SCH ×2 (08:40→21:21)
[2018-06-23] MEDS: FENOFIBRATE 160 MG TAB PO SCH (08:40)
[2018-06-23] MEDS: busPIRone HCl 10 MG TAB PO SCH ×2 (08:40→21:21)
[2018-06-23] MEDS: FUROSEMIDE 20 MG TAB PO SCH (08:40)
[2018-06-23] MEDS: ENOXAPARIN 100 MG/ML SYRINGE SQ SCH (08:41)
[2018-06-23] MEDS: CALCIUM CARBONATE 500 MG CHEWABLE PO SCH (08:42)
[2018-06-23] MEDS: NON-FORMULARY DRUG (Biotin [Biotin] 5,000 MCG) PO SCH (08:42)
[2018-06-23] MEDS: INSULIN ASPART (NovoLOG) 100 UNIT/ML VIAL SQ SCH ×7 (08:49→21:22)
[2018-06-23] MEDS: PANTOPRAZOLE 40 MG/10 ML VIAL IVP SCH (08:50)
[2018-06-23] MEDS: SPIRONOLACTONE 25 MG TAB PO SCH (08:50)
[2018-06-23 09:47] LABS: INR 1.2 (<1.2); Prothrombin Time 12.1 sec (9.0-12.0)
[2018-06-23 09:54] LABS: ALT 44 U/L (9-52); AST 26 U/L (14-36); Albumin 3.2 g/dL (3.5-5.0); Alkaline Phosphatase 52 U/L (38-126); Anion Gap 7 mmol/L; Blood Urea Nitrogen 14 mg/dL (7-17); Calcium 8.2 mg/dL (8.4-10.2); Carbon Dioxide 26 mmol/L (22-30); Chloride 102 mmol/L (98-107); Glucose 128 mg/dL (74-99); Magnesium 2.4 mg/dL (1.6-2.3); Phosphorus 3.1 mg/dL (2.5-4.5); Potassium 4.2 mmol/L (3.5-5.1); Sodium 135 mmol/L (137-145); Total Bilirubin 0.3 mg/dL (0.2-1.3); Total Protein 5.7 g/dL (6.3-8.2)
[2018-06-23 10:31] VITALS: BMI 30.2
[2018-06-23 10:58] LABS: Basophils % (A) 1 %; Eosinophils # (A) 0.4 k/uL (0-0.7); Eosinophils % (A) 8 %; HCT 38.7 % (34.0-46.0); HGB 12.2 gm/dL (11.4-16.0); Lymphocytes # (A) 1.1 k/uL (1.0-4.8); Lymphocytes % (A) 22 %; MCH 26.8 pg (25.0-35.0); MCHC 31.4 g/dL (31.0-37.0); MCV 85.1 fL (80.0-100.0); Mean Platelet Volume 6.8; Monocytes # (A) 0.5 k/uL (0-1.0); Monocytes % (A) 9 %; Neutrophils # (A) 2.7 k/uL (1.3-7.7); Neutrophils % (A) 56 %; Platelet Count 199 k/uL (150-450); RBC 4.55 m/uL (3.80-5.40); RDW 14.2 % (11.5-15.5); WBC 4.9 k/uL (3.8-10.6)
[2018-06-23 11:30] LABS: Glucose,Whole Blood 86 mg/dL (75-99)
[2018-06-23] MEDS: MULTIVITAMINS, THERA 1 EACH TAB PO SCH (13:42)
[2018-06-23] MEDS: MORPHINE SULFATE IR 15 MG TABLET PO PRN (13:44)
--- NOTE | 2018-06-23 14:16 | P.DS ---
Providers Date of admission: 05/28/18 11:02 Attending physician: Tad Gee MD Consults: 05/28/18 12:26 Consult Physician Urgent Consulting Provider: Matt Garzon Consult Reason/Comments: resp distress Do you want consulting provider notified?: Already Contacted Placement Type Exists?: Yes 05/30/18 00:50 Consult Physician Routine Consulting Provider: Felipe Pinedo Consult Reason/Comments: Pt c/o chest pain Do you want consulting provider notified?: Yes, Notify in am 06/16/18 15:11 Consult Physician Routine Consulting Provider: Kailash Saldana Consult Reason/Comments: fluid collection in bursa Do you want consulting provider notified?: Yes 06/17/18 06:55 Consult Physician Routine Consulting Provider: Anthony Guardado Consult Reason/Comments: Heart rate in 150's Do you want consulting provider notified?: Already Contacted Primary care physician: Stated None Hospital Course: Final diagnosis Acute bilateral pneumonia possibly gram-negative with acute hypoxic respiratory failure with ARDS with the sepsis present on admission. Influenza negative Pulmonary nodules Hyponatremia Bilateral atelectasis COPD acute exacerbation Possible acute gastritis History of atrial fibrillation History of CVA TIA Diabetes mellitus type 2 History of DVT GERD Hypertension hyperlipidemia DJD History of pulmonary embolus Hypothyroidism History appendectomy History of breath surgery History of anxiety depression Discharge disposition . patient be discharged in a stable condition with guarded prognosis to [facility] for further rehabilitation. Total time taken 35 minutes. Patient be followed by Dr. Hyde in the [facility]. History of present illness X This 62-year-old woman with a past medical history multiple medical problems being followed by Dr. Nieto in the outpatient setting was admitted with acute bilateral pneumonia with possible sepsis ARDS and multiple other medical issues the patient was treated in conjunction with a pulmonary and infection disease in the ICU. After prolonged hospital stay the patient improved significantly patient also had multiple complex medical issues as listed above seen by multiple consultants. Coumadin has been restarted and the PT/INR being monitored closely currently patient is supposed to continue with bronchodilators incentive spirometry and also medications see orders for details. Lovenox to be continued until the INR more than 2 On exam vitals are stable cardio S1-S2 normal respirator diffuse rhonchi. abdomen soft nontender nervous system no focal deficit The patient is being discharged in a stable condition with guarded because of multiple complex medical issues as mentioned earlier. Plan - Discharge Summary Discharge Rx Participant: No New Discharge Prescriptions: New Spironolactone [Aldactone] 25 mg PO DAILY tab Benzocaine/Menthol Lozeng [Cepacol lozenge] 1 each MUCOUS MEM Q4HR PRN lozenge PRN Reason: Sore Throat Lactulose [Cephulac] 30 gm PO DAILY ml Warfarin [Coumadin] 5 mg PO DAILY@1800 tab traZODone HCL [Desyrel] 50 mg PO HS #5 tab Ipratropium-Albuterol Nebulize [Duoneb 0.5 mg-3 mg/3 ml Soln] 3 ml INHALATION RT-QID ampul.neb Ipratropium-Albuterol Nebulize [Duoneb 0.5 mg-3 mg/3 ml Soln] 3 ml INHALATION RT-QID PRN ampul.neb PRN Reason: Shortness Of Breath Or Wheezing Furosemide [Lasix] 20 mg PO DAILY tab Insulin Detemir (Levemir) [Levemir] 21 unit SQ HS syr Baclofen [Lioresal] 10 mg PO TID PRN #10 tab PRN Reason: Muscle Spasm Metoprolol Tartrate [Lopressor] 50 mg PO BID tab Enoxaparin [Lovenox] 100 mg SQ DAILY syringe INSULIN ASPART (NovoLOG) [NovoLOG (formulary)] 5 unit SQ AC-TID vial INSULIN ASPART (NovoLOG) [NovoLOG (formulary)] 0 unit SQ ACHS vial Pantoprazole [Protonix] 40 mg PO AC-BID tablet.dr Acetaminophen Tab [Tylenol] 650 mg PO Q6HR PRN tab PRN Reason: Fever and/ or MILD Pain Continue Ezetimibe [Zetia] 10 mg PO HS Levothyroxine Sodium [Synthroid] 200 mcg PO DAILY Lisinopril [Zestril] 10 mg PO HS Citalopram Hydrobromide [CeleXA] 40 mg PO HS Docusate [Colace] 100 mg PO TID Triamcinolone 0.1% Cream [Kenalog 0.1% Cream] 1 applic TOPICAL BID Ipratropium/Albuterol Sulfate [Combivent Respimat Inhaler] 1 puff INHALATION DAILY PRN PRN Reason: Shortness Of Breath Or Wheezing Citalopram Hydrobromide [CeleXA] 20 mg PO QAM Rolaids 1 - 2 tab PO DAILY PRN PRN Reason: Indigestion Multivitamins, Thera [Multivitamin (formulary)] 1 tab PO DAILY Cholecalciferol [Vitamin D3] 2,000 unit PO DAILY Calcium Citrate 500 mg PO DAILY metFORMIN HCL 1,000 mg PO BID tiZANidine [Zanaflex] 4 mg PO TID PRN PRN Reason: Pain Biotin 5,000 mcg PO DAILY Fenofibrate [Lofibra] 160 mg PO DAILY Cetirizine HCl [Zyrtec] 10 mg PO DAILY Fluticasone Nasal [place] [Flonase Nasal [place]] 1 spray EA NOSTRIL DAILY busPIRone HCl [Buspar] 10 mg PO BID #10 tab Morphine Sulfate ER [Ms Contin] 60 mg PO Q12HR #4 tablet Morphine Sulfate Ir [MSIR] 15 mg PO TID PRN #6 tablet PRN Reason: Breakthrough Pain Discontinued Warfarin [Coumadin] 5 mg PO MOTUTHFRSA clonazePAM [KlonoPIN] 0.5 mg PO HS Fenofibrate Nanocrystallized [Tricor] 145 mg PO DAILY Spironolactone 75 mg PO DAILY Warfarin [Coumadin] 2.5 mg PO Discharge Medication List Citalopram Hydrobromide [CeleXA] 40 mg PO HS 07/19/13 [History] Ezetimibe [Zetia] 10 mg PO HS 07/19/13 [History] Levothyroxine Sodium [Synthroid] 200 mcg PO DAILY 07/19/13 [History] Lisinopril [Zestril] 10 mg PO HS 07/19/13 [History] Docusate [Colace] 100 mg PO TID 07/28/13 [History] Calcium Citrate 500 mg PO DAILY 08/30/14 [History] Cholecalciferol [Vitamin D3] 2,000 unit PO DAILY 08/30/14 [History] Citalopram Hydrobromide [CeleXA] 20 mg PO QAM 08/30/14 [History] Ipratropium/Albuterol Sulfate [Combivent Respimat Inhaler] 1 puff INHALATION DAILY PRN 08/30/14 [History] Multivitamins, Thera [Multivitamin (formulary)] 1 tab PO DAILY 08/30/14 [History] Rolaids 1 - 2 tab PO DAILY PRN 08/30/14 [History] Triamcinolone 0.1% Cream [Kenalog 0.1% Cream] 1 applic TOPICAL BID 08/30/14 [History] Biotin 5,000 mcg PO DAILY 03/27/17 [History] metFORMIN HCL 1,000 mg PO BID 03/27/17 [History] tiZANidine [Zanaflex] 4 mg PO TID PRN 03/27/17 [History] Cetirizine HCl [Zyrtec] 10 mg PO DAILY 05/28/18 [History] Fenofibrate [Lofibra] 160 mg PO DAILY 05/28/18 [History] Fluticasone Nasal [place] [Flonase Nasal [place]] 1 spray EA NOSTRIL DAILY 05/28/18 [History] Acetaminophen Tab [Tylenol] 650 mg PO Q6HR PRN tab 06/23/18 [Rx] Baclofen [Lioresal] 10 mg PO TID PRN #10 tab 06/23/18 [Rx] Benzocaine/Menthol Lozeng [Cepacol lozenge] 1 each MUCOUS MEM Q4HR PRN lozenge 06/23/18 [Rx] Enoxaparin [Lovenox] 100 mg SQ DAILY syringe 06/23/18 [Rx] Furosemide [Lasix] 20 mg PO DAILY tab 06/23/18 [Rx] INSULIN ASPART (NovoLOG) [NovoLOG (formulary)] 0 unit SQ ACHS vial 06/23/18 [Rx] INSULIN ASPART (NovoLOG) [NovoLOG (formulary)] 5 unit SQ AC-TID vial 06/23/18 [Rx] Insulin Detemir (Levemir) [Levemir] 21 unit SQ HS syr 06/23/18 [Rx] Ipratropium-Albuterol Nebulize [Duoneb 0.5 mg-3 mg/3 ml Soln] 3 ml INHALATION RT-QID ampul.neb 06/23/18 [Rx] Ipratropium-Albuterol Nebulize [Duoneb 0.5 mg-3 mg/3 ml Soln] 3 ml INHALATION RT-QID PRN ampul.neb 06/23/18 [Rx] Lactulose [Cephulac] 30 gm PO DAILY ml 06/23/18 [Rx] Metoprolol Tartrate [Lopressor] 50 mg PO BID tab 06/23/18 [Rx] Morphine Sulfate ER [Ms Contin] 60 mg PO Q12HR #4 tablet 06/23/18 [Rx] Morphine Sulfate Ir [MSIR] 15 mg PO TID PRN #6 tablet 06/23/18 [Rx] Pantoprazole [Protonix] 40 mg PO AC-BID tablet. 06/23/18 [Rx] Spironolactone [Aldactone] 25 mg PO DAILY tab 06/23/18 [Rx] Warfarin [Coumadin] 5 mg PO DAILY@1800 tab 06/23/18 [Rx] busPIRone HCl [Buspar] 10 mg PO BID #10 tab 06/23/18 [Rx] traZODone HCL [Desyrel] 50 mg PO HS #5 tab 06/23/18 [Rx] Follow up Appointment(s)/Referral(s): Hans Major MD [STAFF PHYSICIAN] - 1 Week (senior system operator ) Olman Byers MD [STAFF PHYSICIAN] - 2 Weeks Errol Galindo MD [STAFF PHYSICIAN] - 06/26/18 10:00 am (osteoarthritis of left knee, orthopedic- patient has previously been seen by Dr. Galindo for her knee.) Zan Hyde MD [STAFF PHYSICIAN] - 1-2 Days Renea Nieto MD [STAFF PHYSICIAN] - 2 Weeks (Friday) Patient Instructions/Handouts: Osteoarthritis (DC), Pneumonia (DC), Chronic Lung Disease and Infection Prevention (DC) Activity/Diet/Wound Care/Special Instructions: Eliquis - prior authorization required - prior authorization initiated, follow up with your electric plater. Free 30 day coupon given for discharge. If you have any problems affording the drug in the future may call to see if you qualify for assistance form the drug company [facility] will contact you with in 24-48hrs of discharge. They can be contacted at [phone]. Please visit [email or web address] to find PCP.
[2018-06-23 14:45] VITALS: RESP 16
[2018-06-23 16:43] LABS: Glucose,Whole Blood 134 mg/dL (75-99)
[2018-06-23] MEDS: PANTOPRAZOLE 40 MG TABLET PO SCH (18:09)
[2018-06-23] MEDS: WARFARIN 5 MG TAB PO SCH (18:09)
[2018-06-23 20:24] LABS: Glucose,Whole Blood 183 mg/dL (75-99)
[2018-06-23] MEDS: INSULIN DETEMIR (LEVEMIR) 100 UNIT/ML SYR SQ SCH (21:22)
[2018-06-23] MEDS: MELATONIN 5 MG TABLET PO SCH (21:22)
[2018-06-23] MEDS: LISINOPRIL 10 MG TAB PO SCH (21:22)
[2018-06-23] MEDS: MORPHINE SULFATE ER 60 MG TABLET PO SCH (21:23)
[2018-06-23] MEDS: ZOLPIDEM 5 MG TAB PO PRN (21:23)
[2018-06-23] MEDS: traZODone HCL 50 MG TAB PO SCH (21:23)
[2018-06-23] MEDS: EZETIMIBE 10 MG TAB PO SCH (21:25)
[2018-06-24] MEDS: MORPHINE SULFATE IR 15 MG TABLET PO PRN ×2 (03:50→13:10)
[2018-06-24] MEDS: LEVOTHYROXINE 100 MCG TAB PO SCH (05:25)
[2018-06-24] MEDS: ACETAMINOPHEN TAB 325 MG TAB PO PRN (05:25)
[2018-06-24 06:55] LABS: Glucose,Whole Blood 141 mg/dL (75-99)
[2018-06-24 07:57] LABS: ALT 36 U/L (9-52); AST 16 U/L (14-36); Albumin 2.8 g/dL (3.5-5.0); Alkaline Phosphatase 47 U/L (38-126); Anion Gap 3 mmol/L; Blood Urea Nitrogen 10 mg/dL (7-17); Calcium 7.8 mg/dL (8.4-10.2); Carbon Dioxide 28 mmol/L (22-30); Chloride 105 mmol/L (98-107); Glucose 134 mg/dL (74-99); Magnesium 1.8 mg/dL (1.6-2.3); Phosphorus 2.9 mg/dL (2.5-4.5); Potassium 4.9 mmol/L (3.5-5.1); Sodium 136 mmol/L (137-145); Total Bilirubin 0.2 mg/dL (0.2-1.3)
[2018-06-24] MEDS: metFORMIN 500 MG TAB PO SCH (08:00)
[2018-06-24] MEDS: INSULIN ASPART (NovoLOG) 100 UNIT/ML VIAL SQ SCH ×4 (08:00→15:47)
[2018-06-24 08:04] LABS: INR 1.2 (<1.2); Prothrombin Time 12.1 sec (9.0-12.0)
[2018-06-24] MEDS: NON-FORMULARY DRUG (Biotin [Biotin] 5,000 MCG) PO SCH (08:07)
[2018-06-24] MEDS: CALCIUM CARBONATE 500 MG CHEWABLE PO SCH (08:07)
[2018-06-24] MEDS: busPIRone HCl 10 MG TAB PO SCH (08:07)
[2018-06-24] MEDS: ZYRTEC 10MG PO SCH (08:07)
[2018-06-24] MEDS: PANTOPRAZOLE 40 MG TABLET PO SCH (08:07)
[2018-06-24] MEDS: CITALOPRAM HYDROBROMIDE 20 MG TAB PO SCH (08:08)
[2018-06-24] MEDS: CHOLECALCIFEROL 1,000 UNIT TAB PO SCH (08:08)
[2018-06-24] MEDS: DOCUSATE 100 MG CAP PO SCH (08:08)
[2018-06-24] MEDS: ENOXAPARIN 100 MG/ML SYRINGE SQ SCH (08:08)
[2018-06-24] MEDS: FLUTICASONE 50MCG/SPRAY NASAL 16GM EA NOSTRIL SCH (08:09)
[2018-06-24] MEDS: FUROSEMIDE 20 MG TAB PO SCH (08:09)
[2018-06-24] MEDS: FENOFIBRATE 160 MG TAB PO SCH (08:09)
[2018-06-24] MEDS: BACLOFEN 10 MG TAB PO PRN (08:15)
[2018-06-24] MEDS: METOPROLOL TARTRATE 50 MG TAB PO SCH (08:15)
[2018-06-24] MEDS: SPIRONOLACTONE 25 MG TAB PO SCH (08:15)
[2018-06-24] MEDS: LACTULOSE 20 GM/30 ML CUP PO SCH (08:15)
[2018-06-24] MEDS: MORPHINE SULFATE ER 60 MG TABLET PO SCH (08:21)
[2018-06-24 08:26] LABS: Basophils % (A) 1 %; Eosinophils # (A) 0.3 k/uL (0-0.7); Eosinophils % (A) 12 %; HCT 33.7 % (34.0-46.0); HGB 10.9 gm/dL (11.4-16.0); Lymphocytes # (A) 0.7 k/uL (1.0-4.8); Lymphocytes % (A) 25 %; MCH 27.5 pg (25.0-35.0); MCHC 32.3 g/dL (31.0-37.0); Mean Platelet Volume 6.6; Monocytes # (A) 0.3 k/uL (0-1.0); Monocytes % (A) 9 %; Neutrophils # (A) 1.4 k/uL (1.3-7.7); Neutrophils % (A) 49 %; Platelet Count 193 k/uL (150-450); RBC 3.97 m/uL (3.80-5.40); RDW 14.5 % (11.5-15.5); WBC 2.9 k/uL (3.8-10.6)
[2018-06-24] MEDS: IPRATROPIUM-ALBUTEROL 3 ML NEB INHALATION SCH ×3 (08:33→17:04)
[2018-06-24 09:03] VITALS: TEMP 98
[2018-06-24 11:58] LABS: Glucose,Whole Blood 96 mg/dL (75-99)
[2018-06-24] MEDS: ALPRAZolam 0.25 MG TAB PO PRN (13:10)
[2018-06-24 15:35] VITALS: BP 90/52; PULSE 67
[2018-06-24] MEDS: MULTIVITAMINS, THERA 1 EACH TAB PO SCH (15:47)
--- NOTE | 2018-06-24 21:00 | PN ---
PROGRESS NOTE DATE OF SERVICE: 06/23/2018 This 68-year-old woman who was admitted after acute bilateral pneumonia also had sepsis, ARDS, and after prolonged hospitalization, patient improved significantly. PT/OT is evaluating the patient for possible ECF rehab. No chest pain. No palpitations. No fever. On exam, alert and oriented x3. The pulse is 70, blood pressure 110/66, respirations 16, temperature 98.4, pulse ox 94% on 3 L. HEENT: Conjunctivae normal. NECK: No jugular venous distention. CARDIOVASCULAR SYSTEM: S1, S2 muffled. RESPIRATORY SYSTEM: Breath sounds diminished at the bases. Bilateral scattered rhonchi and crackles. ABDOMEN: Soft, non-tender. NERVOUS SYSTEM: No focal deficit. LABS: WBC 2.9, hemoglobin 10.9, sodium 136. ASSESSMENT: 1. Acute bilateral pneumonia, possibly gram-negative with acute hypoxic respiratory failure with acute respiratory distress syndrome with sepsis, present on admission. 2. Influenza negative. 3. Pulmonary nodule. 4. Hyponatremia. 5. Bilateral atelectasis. 6. Chronic obstructive pulmonary disease, acute exacerbation. 7. Possible acute gastritis. 8. History of atrial fibrillation. 9. History of cerebrovascular accident, transient ischemic attack. 10.Diabetes mellitus, type 2. 11.History of deep venous thrombosis. 12.History of gastroesophageal reflux disease. 13.Hypertension. 14.Hyperlipidemia. 15.History of degenerative joint disease. RECOMMENDATIONS AND DISCUSSION: I recommend to continue current medications, continue with the monitoring, symptomatic treatment. Otherwise at this time we will monitor the patient closely, continue with current medications, PT/OT evaluation, possible ECF rehab. Guarded prognosis. Further recommendations to follow. MMODL / IJN: [id number] /
--- NOTE | 2018-06-24 23:05 | DS ---
DISCHARGE SUMMARY DATE OF SERVICE: 06/24/2018 HISTORY OF PRESENT ILLNESS: This 68-year-old woman was admitted with multiple medical problems including bilateral pneumonia with acute hypoxic respiratory failure, multiple other medical problems. Treated intensively in the ICU and floors. The patient improved significantly. Patient was seen by multiple consultants during the hospitalization and patient was discharged in stable condition with guarded prognosis. On exam, vital signs are stable. Cardio system: S1. S2. Abdomen was soft. Nervous system: No focal deficits. Please refer to my previous dictation for discharge diagnoses and list of medications. MMODL / IJN: [id number] /
--- NOTE | 2018-06-26 11:31 | CDI ---
Documentation Clarification Form Date: 06/26/18 From: Lacie Steve Yareli Mak, Automotive Glass Mechanic Hours-8:30 am & 5 pm MMadie Admit Date: 05/28/2018 11:02:00 AM Patient Name: Cris Uribe Visit Number: [id number] Discharge Date: 06/24/2018 4:35:00 PM ATTENTION: The Clinical Documentation Specialists (CDI) and [facility] Coding Staff appreciate your assistance in clarifying documentation. Please respond to the clarification below the line at the bottom and electronically sign. The CDI & [facility] Coding staff will review the response and follow-up if needed. Please note: Queries are made part of the Legal Health Record. If you have any questions, please contact the author of this message via ITS. Dr. Chidi Meza Atrial Flutter is documented in the 05/30 & 06/21 consult and PNs 06/17, 06/18. Per 06/17 PN-she went into rapid atrial flutter, increased beta mandy, discontinue Cardizem drip and start on Eliquis. History/Risk factors: sepsis, paroxysmal atrial fib, pneumonia, acute hypoxic respiratory failure EKG/telemetry: 06/16-jeff atrial flutter In your professional opinion, in order to capture the severity of condition; can you please clarify the type of Atrial Flutter if known? Typical/Type I Atypical/Type II Other, please specify Unable to determine MTDD
== END 2018-06-24 16:35 | DRG 871 ==
LOC: 3SCARD 11:02 → 2SICU 05-29 12:56 → 4SSUR 06-13 09:28 → 3SCARD 06-16 19:39 → 4SSUR 06-18 23:07
PROVIDERS: ADMIT Internal Medicine; ATTEND Internal Medicine
PROC: 5A09557 Assistance with Respiratory Ventilation, Greater than 96 Consecutive Hours, Continuous Positive Airway Pressure (ICD-10-PCS; 2018-05-28)
PROC: 05HB33Z Insertion of Infusion Device into Right Basilic Vein, Percutaneous Approach (ICD-10-PCS; principal; 2018-06-11 09:45)
DX: A41.9 Sepsis, unspecified organism (principal); J96.01 Acute respiratory failure with hypoxia; J18.9 Pneumonia, unspecified organism; J44.0 Chronic obstructive pulmonary disease with (acute) lower respiratory infection; J44.1 Chronic obstructive pulmonary disease with (acute) exacerbation; B37.0 Candidal stomatitis; E87.1 Hypo-osmolality and hyponatremia; J98.11 Atelectasis; I48.92 Unspecified atrial flutter; E11.40 Type 2 diabetes mellitus with diabetic neuropathy, unspecified; I48.0 Paroxysmal atrial fibrillation; E87.5 Hyperkalemia; F03.90 Unspecified dementia, unspecified severity, without behavioral disturbance, psychotic disturbance, mood disturbance, and anxiety; D86.0 Sarcoidosis of lung; M70.42 Prepatellar bursitis, left knee; M17.12 Unilateral primary osteoarthritis, left knee; E78.5 Hyperlipidemia, unspecified; I10 Essential (primary) hypertension; E03.9 Hypothyroidism, unspecified; K21.9 Gastro-esophageal reflux disease without esophagitis; F41.8 Other specified anxiety disorders; G43.909 Migraine, unspecified, not intractable, without status migrainosus; M54.32 Sciatica, left side; R79.1 Abnormal coagulation profile; T45.515A Adverse effect of anticoagulants, initial encounter; G89.29 Other chronic pain; J30.2 Other seasonal allergic rhinitis; M54.2 Cervicalgia; M54.9 Dorsalgia, unspecified; L98.9 Disorder of the skin and subcutaneous tissue, unspecified; Z79.890 Hormone replacement therapy; Z79.01 Long term (current) use of anticoagulants; Z79.84 Long term (current) use of oral hypoglycemic drugs; Z79.891 Long term (current) use of opiate analgesic; Z79.899 Other long term (current) drug therapy; Z86.73 Personal history of transient ischemic attack (TIA), and cerebral infarction without residual deficits; Z86.718 Personal history of other venous thrombosis and embolism; Z86.711 Personal history of pulmonary embolism; Z87.01 Personal history of pneumonia (recurrent); Z90.710 Acquired absence of both cervix and uterus; Z98.891 History of uterine scar from previous surgery; Z90.49 Acquired absence of other specified parts of digestive tract; Z96.612 Presence of left artificial shoulder joint; Z96.611 Presence of right artificial shoulder joint; Z98.1 Arthrodesis status; Z87.19 Personal history of other diseases of the digestive system; Z85.3 Personal history of malignant neoplasm of breast; Z92.21 Personal history of antineoplastic chemotherapy; Z88.0 Allergy status to penicillin; Z88.2 Allergy status to sulfonamides; Z88.8 Allergy status to other drugs, medicaments and biological substances; Z91.048 Other nonmedicinal substance allergy status; Z82.49 Family history of ischemic heart disease and other diseases of the circulatory system; X50.1XXA Overexertion from prolonged static or awkward postures, initial encounter
CPT/HCPCS: 36410; 36600; 71045; 71046; 76937; 80048; 80053; 81003; 82272; 82533; 82550; 82553; 83036; 83605; 83735; 83880; 84100; 84132; 84484; 85025; 85027; 85379; 85610; 85730; 87040; 87086; 87449; 87502; 93005; 93306; 94640; 94660; 94760

== ENCOUNTER → 2018-07-31 | Outpatient (CLI) | payer MEDICARE ==
--- NOTE | 2018-07-31 13:17 | CT ---
EXAMINATION TYPE: CT chest wo con DATE OF EXAM: 07/31/2018 COMPARISON: CT chest to 6:15 HISTORY: Pulmonary fibrosis. CT DLP: 892.2 mGycm. Automated Exposure Control for Dose Reduction was Utilized. TECHNIQUE: CT scan of the thorax is performed without IV contrast. FINDINGS: LUNGS: There is interlobular septal thickening with the most marked findings involving the mid and lo wer lung bilaterally. There are perihilar subsegmental areas of peribronchial thickening. Ther e is a 5 mm pulmonary nodule within the left lower lobe retrospectively similar to the prior CT scan. Subpleural 3 mm nodule right lower lobe stable. No consolidative pneumonia or pneumothorax. Small bi lateral pleural effusions. Calcified pleural nodule right lower lobe compatible with granuloma. MEDIASTINUM: Lack of IV contrast is noted to limit evaluation for mediastinal and especially hilar ad enopathy. There are no definitive greater than 1 cm hilar or mediastinal lymph nodes. Heart is mildly prominent. Calcification the tracheobronchial tree. No significant coronary artery calcification. Sh otty lymph nodes in the mediastinum.. OTHER: Streak artifact from postsurgical shoulder replacement surgery is noted bilaterally which limi ts assessment of the lung apices and soft tissues of the supraclavicular region. IMPRESSION: 1. Stable lower lobe pulmonary nodules unchanged from 2015 and therefore likely benign. 2. Diffuse interlobular septal thickening involving the mid and lower lung zones compatible with inte rstitial lung disease and likely pulmonary fibrosis. Peribronchial central thickening also noted whic h can also be associated with chronic interstitial lung disease or interstitial pneumonitis. Correlat e clinically. 3. Small bilateral pleural effusions.
== END | disposition home or self-care (01) ==
LOC: RADCTMAIN 12:27
PROVIDERS: ATTEND Internal Medicine Critical Care Medicine
DX: R91.8 Other nonspecific abnormal finding of lung field (principal); J90 Pleural effusion, not elsewhere classified
CPT/HCPCS: 71250

== ENCOUNTER → 2019-04-13 | Outpatient (CLI) | payer MEDICARE ==
--- NOTE | 2019-04-13 13:42 | MM ---
Reason for exam: additional evaluation requested from prior study. Last mammogram was performed 2 years ago. History: Patient is postmenopausal, has history of high-risk lesion on a previous biopsy at age 57, and has history of breast cancer at age 52. Family history of breast cancer in paternal aunt and premenopausal breast cancer in daughter at age 32. Excisional biopsy of the left breast, January 01, 2008. High risk left mammotome panel of the left breast, October 07, 2007. Took estrogen for 20 years beginning at age 27. Taking other hormone for 6 months beginning at age 57. Physical Findings: Nurse did not find any significant physical abnormalities on exam. MG 3D Diag Mammo W/Cad JERMAINE Bilateral CC and MLO view(s) were taken. Spot compression CC, spot compression MLO, and LM view(s) were taken of the right breast. Prior study comparison: April 09, 2017, bilateral MG screening mammo w CAD. January 25, 2014, bilateral MG diagnostic mammo w CAD JERMAINE. There are scattered fibroglandular densities. Benign appearing bilateral calcifications. Right upper outer quadrant middle depth focal asymmetry, improves on additional views. Precautionary ultrasound will be performed. These results were verbally communicated with the patient and result sheet given to the patient on 04/13/19. ASSESSMENT: Incomplete: need additional imaging evaluation, BI-RAD 0 RECOMMENDATION: Ultrasound of the right breast. (upper outer quadrant)
--- NOTE | 2019-04-13 13:43 | USB ---
Reason for exam: additional evaluation requested from abnormal screening. History: Patient is postmenopausal, has history of high-risk lesion on a previous biopsy at age 57, and has history of breast cancer at age 52. Family history of breast cancer in paternal aunt and premenopausal breast cancer in daughter at age 32. Excisional biopsy of the left breast, January 01, 2008. High risk left mammotome panel of the left breast, October 07, 2007. Took estrogen for 20 years beginning at age 27. Taking other hormone for 6 months beginning at age 57. US Breast Limited RT Right limited breast ultrasound including focal area of concern, retroareolar and axilla demonstrates no cystic or solid lesion seen. Focal dense fibroglandular tissue at 12 o'clock likely corresponds to mammographic finding. These results were verbally communicated with the patient and result sheet given to the patient on 04/13/19. ASSESSMENT: Probably benign, BI-RAD 3 RECOMMENDATION: Follow-up diagnostic mammogram of the right breast in 6 months.
== END | disposition home or self-care (01) ==
LOC: RADMAMWWP 11:52
PROVIDERS: ATTEND Family Medicine
DX: R92.8 Other abnormal and inconclusive findings on diagnostic imaging of breast (principal); N64.4 Mastodynia
CPT/HCPCS: 77066; 76642; G0279; 77062

== ENCOUNTER → 2019-10-04 | Outpatient (CLI) | payer MEDICARE ==
--- NOTE | 2019-10-04 10:57 | MM ---
Reason for exam: additional evaluation requested from prior study. Last mammogram was performed 6 months ago. History: Patient is postmenopausal, has history of high-risk lesion on a previous biopsy at age 57, and has history of breast cancer at age 52. Family history of breast cancer in paternal aunt and premenopausal breast cancer in daughter at age 32. Excisional biopsy of the left breast, January 01, 2008. High risk left mammotome panel of the left breast, October 07, 2007. Took estrogen for 20 years beginning at age 27. Taking other hormone for 6 months beginning at age 57. Physical Findings: Nurse Summary: 1cm nodule in the right breast at 1 o'clock (nurse dw). MG Diagnostic Mammo w CAD JERMAINE Bilateral CC and MLO view(s) were taken. Prior study comparison: April 13, 2019, bilateral MG 3d diag mammo w/cad JERMAINE. April 09, 2017, bilateral MG screening mammo w CAD. There are scattered fibroglandular densities. No significant new findings when compared with previous films. These results were verbally communicated with the patient and result sheet given to the patient on 10/04/19. ASSESSMENT: Benign, BI-RAD 2 RECOMMENDATION: Follow-up diagnostic mammogram of both breasts in 1 year. Manage patient on a clinical basis.
== END | disposition home or self-care (01) ==
LOC: RADMAMWWP 09:33
PROVIDERS: ATTEND Family Medicine
DX: D05.00 Lobular carcinoma in situ of unspecified breast (principal)
CPT/HCPCS: 77066

== ENCOUNTER → 2019-10-13 | Outpatient (CLI) | payer MEDICARE | END | disposition home or self-care (01) | LOC: LABWHC1 09:01 | PROVIDERS: ATTEND Family Medicine | DX: Z03.89 Encounter for observation for other suspected diseases and conditions ruled out (principal) | CPT/HCPCS: U0003; C9803 ==

== ENCOUNTER 2020-07-17 22:38 | Inpatient (IN) | payer MEDICARE ==
[2020-07-17] MEDS ORDERED: HYDROmorphone 0.5 MG/0.5 ML SYRINGE IVP STA (23:52)
[2020-07-17] MEDS ORDERED: HEPARIN SODIUM 1,000 UN/ML (10ML VL) IV PRN (23:55)
--- NOTE | 2020-07-18 00:05 | ED ---
General Adult HPI - General Chief complaint: Recheck/Abnormal Lab/Rx Stated complaint: DVT Time Seen by Provider: 07/17/20 23:34 Source: EMS Mode of arrival: EMS Limitations: no limitations - History of Present Illness Initial comments: This patient is a 70-year-old woman with history of previous DVTs who presents here as a transfer from [facility]. The patient had gone there after having 1-2 weeks of right leg pains. She described as aching, worse with standing or walking, no relieving factors. She does take Coumadin and although her INR has been therapeutic, when she went to the other hospital she was found to have acute DVT. The patient is started on heparin and transferred here to be seen by hematology. When I see the patient, she denies any fever or chills. No chest symptoms including no pain, shortness of breath, hemoptysis or cough. Labs from the other hospital reveal mainly a glucose of 299, normal chemistries otherwise, normal CBC. INR is 3.3. Onset/Timin -: week(s) Location: right, lower extremity Radiation: non-radiation Quality: aching Consistency: constant Improves with: none Worsens with: movement Associated Symptoms: denies other symptoms - Related Data Home Medications Medication Instructions Recorded Confirmed Levothyroxine Sodium [Synthroid] 200 mcg PO DAILY 07/19/13 07/18/20 Calcium Citrate 500 mg PO DAILY 08/30/14 07/18/20 Cholecalciferol [Vitamin D3 (25 2,000 unit PO DAILY 08/30/14 07/18/20 Mcg = 1000 Iu)] Multivitamins, Thera [Multivitamin 1 tab PO DAILY 08/30/14 07/18/20 (formulary)] Rolaids 1 - 2 tab PO DAILY PRN 08/30/14 07/18/20 Biotin 5,000 mcg PO DAILY 03/27/17 07/18/20 metFORMIN HCL 1,000 mg PO BID 03/27/17 07/18/20 Cetirizine HCl [Zyrtec] 10 mg PO DAILY 05/28/18 07/18/20 Fluticasone Nasal [place] [Flonase 1 spray EA NOSTRIL DAILY 05/28/18 07/18/20 Nasal [place]] Baclofen [Lioresal] 10 mg PO TID 07/18/20 07/18/20 Dulaglutide [Trulicity] 1.5 mg SQ TH 07/18/20 07/18/20 Ezetimibe/Simvastatin [Vytorin 1 tab PO DAILY 07/18/20 07/18/20 10-20 mg] Insulin Detemir [Levemir Flextouch] 53 units SQ HS 07/18/20 07/18/20 Insulin Lispro [humaLOG Kwikpen] See Protocol SQ ACHS 07/18/20 07/18/20 Lidocaine 5% Patch [Lidoderm 5% 1 patch TOPICAL DAILY 07/18/20 07/18/20 Patch] Methadone [Dolophine] 10 mg PO TID 07/18/20 07/18/20 Spironolactone [Aldactone] 75 mg PO DAILY 07/18/20 07/18/20 Venlafaxine HCl ER [Effexor XR] 150 mg PO DAILY 07/18/20 07/18/20 traZODone HCL 200 mg PO HS 07/18/20 07/18/20 Previous Rx's Medication Instructions Recorded Acetaminophen Tab [Tylenol] 650 mg PO Q6HR PRN tab 06/23/18 Benzocaine/Menthol Lozeng [Cepacol 1 each MUCOUS MEM Q4HR PRN lozenge 06/23/18 lozenge] Furosemide [Lasix] 20 mg PO DAILY tab 06/23/18 Ipratropium-Albuterol Nebulize 3 ml INHALATION RT-QID PRN 06/23/18 [Duoneb 0.5 mg-3 mg/3 ml Soln] ampul.neb Metoprolol Tartrate [Lopressor] 50 mg PO BID tab 06/23/18 Pantoprazole [Protonix] 40 mg PO AC-BID tablet. 06/23/18 busPIRone HCl [Buspar] 10 mg PO BID #10 tab 06/23/18 Apixaban [Eliquis Starter Pack 0 mg PO DIRECTED 30 Days #1 pack 07/18/20 (for VTE)] Atorvastatin [Lipitor] 10 mg PO DAILY 30 Days #30 tab 07/19/20 Docusate [Colace] 100 mg PO TID cap 07/19/20 Ketorolac [Toradol] 10 mg PO Q6HR #10 tab 07/19/20 Allergies Allergy/AdvReac Type Severity Reaction Status Date / Time guaifenesin Allergy Rapid Verified 07/18/20 07:06 Heart Rate loratadine Allergy Rapid Verified 07/18/20 07:06 [From Claritin-D 12 Hour] Heart Rate mold Allergy Anaphylaxis Verified 07/18/20 07:06 monosodium glutamate Allergy swelling, Verified 07/18/20 07:06 headache Penicillins Allergy Anaphylaxis Verified 07/18/20 07:06 pseudoephedrine HCl Allergy Dyspnea/rapid Verified 07/18/20 07:06 [From Sudafed] heart rate pseudoephedrine sulfate Allergy Rapid Verified 07/18/20 07:06 [From Claritin-D 12 Hour] Heart Rate Sulfa (Sulfonamide Allergy Itching Verified 07/18/20 07:06 Antibiotics) Review of Systems ROS Statement: Those systems with pertinent positive or pertinent negative responses have been documented in the HPI. ROS Other: All systems not noted in ROS Statement are negative. Constitutional: Denies: fever, chills Respiratory: Denies: cough, dyspnea Cardiovascular: Reports: edema (Right leg pain and swelling). Denies: chest pain, palpitations Gastrointestinal: Denies: abdominal pain, vomiting, diarrhea, melena, hematochezia Genitourinary: Denies: dysuria, hematuria Musculoskeletal: Reports: myalgia (Right leg). Denies: back pain Skin: Denies: rash Neurological: Denies: headache, weakness, numbness, paresthesias Past Medical History Past Medical History: Atrial Fibrillation, Asthma, Cancer, CVA/TIA, Diabetes Mellitus, Deep Vein Thrombosis (DVT), Eye Disorder, GERD/Reflux, Hyperlipidemia, Hypertension, Osteoarthritis (OA), Pneumonia, Pulmonary Embolus (PE), Skin Disorder, Thyroid Disorder Additional Past Medical History / Comment(s): NIDDM type II, neuropathy bilateral feet, bronchitis, sarcoidosis of the lung, seasonal allergies, sinus problems, TIA, DVT R leg x 3, pulmonary emboli x 1, L breast cancer with surgery/chemo, migraines, DDD, chronic back and cervical pain, L leg sciatica, possibly one seizure following cervical surgery, hypothyroid, pt had some kind of liver problem as a child and was hospitalized, cellulitis at IV site, recently states she had dark "spot" cover her R eye and then it lifted but still having vision changes in that eye. History of Any Multi-Drug Resistant Organisms: None Reported Past Surgical History: Appendectomy, Breast Surgery, Section, Hysterectomy, Joint Replacement, Orthopedic Surgery, Tonsillectomy Additional Past Surgical History / Comment(s): DVT 16 inches long removed from R leg, R thorascopy-diagnosed with sarcoidosis, D&C, salpingoophorectomy d/t ectopic , L breast biopsy, L breast lumpectomy, bilateral total shoulder replacements, cervical fusions x2 has titanium plate/screws, EGD, colonoscopy with benign polypectomy, epidural injections, D&C Past Anesthesia/Blood Transfusion Reactions: Motion Sickness Additional Past Anesthesia/Blood Transfusion Reaction / Comment(s): diff IV starts Past Psychological History: Anxiety, Depression Smoking Status: Never smoker Past Alcohol Use History: None Reported Past Drug Use History: None Reported - Past Family History Daughter(s) Family Medical History: Cancer Father Family Medical History: Deep Vein Thrombosis (DVT) Mother Family Medical History: Deep Vein Thrombosis (DVT) Additional Family Medical History / Comment(s): Maternal grandmother had DVT and 3 of pt's maternal aunts had DVTs. General Exam Limitations: no limitations General appearance: alert, in no apparent distress Head exam: Present: atraumatic, normocephalic Eye exam: Present: normal appearance Neck exam: Present: normal inspection Respiratory exam: Present: normal lung sounds bilaterally. Absent: respiratory distress, wheezes, rales, rhonchi, stridor Cardiovascular Exam: Present: regular rate, normal rhythm, normal heart sounds, other (Dorsalis pedis pulses are symmetric and normal in strength. Normal capillary refill throughout the lower extremities). Absent: systolic murmur, diastolic murmur, rubs, gallop GI/Abdominal exam: Present: soft. Absent: distended, tenderness, guarding, rebound, rigid, mass Extremities exam: Present: tenderness (Right-sided), normal capillary refill, pedal edema (Right greater than left), calf tenderness (Right) Neurological exam: Present: alert. Absent: motor sensory deficit Skin exam: Present: warm, dry, intact, normal color. Absent: rash Course Vital Signs 07/17/20 07/18/20 07/18/20 22:52 00:31 02:37 Temperature 98.6 F 98.6 F Pulse Rate 80 73 73 Respiratory 18 18 18 Rate Blood Pressure 126/68 119/69 119/69 O2 Sat by Pulse 98 97 97 Oximetry Medical Decision Making - Lab Data Result diagrams: 07/18/20 06:58 07/18/20 00:36 Lab Results 07/18/20 07/18/20 07/18/20 Range/Units 00:36 00:36 00:36 WBC 7.1 (3.8-10.6) k/uL RBC 4.48 (3.80-5.40) m/uL Hgb 11.8 (11.4-16.0) gm/dL Hct 35.6 (34.0-46.0) % MCV 79.4 L (80.0-100.0) fL MCH 26.4 (25.0-35.0) pg MCHC 33.2 (31.0-37.0) g/dL RDW 15.0 (11.5-15.5) % Plt Count 261 (150-450) k/uL MPV 6.6 Neutrophils % 63 % Lymphocytes % 21 % Monocytes % 7 % Eosinophils % 7 % Basophils % 1 % Neutrophils # 4.4 (1.3-7.7) k/uL Lymphocytes # 1.5 (1.0-4.8) k/uL Monocytes # 0.5 (0-1.0) k/uL Eosinophils # 0.5 (0-0.7) k/uL Basophils # 0.1 (0-0.2) k/uL PT 27.0 H (9.0-12.0) sec INR 2.8 H (<1.2) APTT 93.1 H (22.0-30.0) sec Sodium 135 L (137-145) mmol/L Potassium 4.1 (3.5-5.1) mmol/L Chloride 91 L (98-107) mmol/L Carbon Dioxide 39 H (22-30) mmol/L Anion Gap 5 mmol/L BUN 15 (7-17) mg/dL Creatinine 0.61 (0.52-1.04) mg/dL Est GFR (CKD-EPI)AfAm >90 (>60 ml/min/1.73 sqM) Est GFR (CKD-EPI)NonAf >90 (>60 ml/min/1.73 sqM) Glucose 203 H (74-99) mg/dL Calcium 9.1 (8.4-10.2) mg/dL Disposition Clinical Impression: Deep vein blood clot of right lower extremity Disposition: ADMITTED IP TO THIS HOSP Condition: Stable
[2020-07-18] MEDS: HEPARIN SOD,PORK IN 0.45% NACL 25,000 UNIT in 0.45% NACL 1 250ML.BAG IV SCH ×2 (00:20→17:15)
[2020-07-18 00:47] LABS: Basophils # (A) 0.1 k/uL (0-0.2); Basophils % (A) 1 %; Eosinophils # (A) 0.5 k/uL (0-0.7); Eosinophils % (A) 7 %; HCT 35.6 % (34.0-46.0); HGB 11.8 gm/dL (11.4-16.0); Lymphocytes # (A) 1.5 k/uL (1.0-4.8); Lymphocytes % (A) 21 %; MCH 26.4 pg (25.0-35.0); MCHC 33.2 g/dL (31.0-37.0); MCV 79.4 fL (80.0-100.0); Mean Platelet Volume 6.6; Monocytes # (A) 0.5 k/uL (0-1.0); Monocytes % (A) 7 %; Neutrophils # (A) 4.4 k/uL (1.3-7.7); Neutrophils % (A) 63 %; Platelet Count 261 k/uL (150-450); RBC 4.48 m/uL (3.80-5.40); WBC 7.1 k/uL (3.8-10.6)
[2020-07-18 00:59] LABS: African American GFR (CKD) >90 (>60 ml/min/1.73 sqM); Blood Urea Nitrogen 15 mg/dL (7-17); Calcium 9.1 mg/dL (8.4-10.2); Chloride 91 mmol/L (98-107); Glucose 203 mg/dL (74-99); Non-African American GFR(CKD) >90 (>60 ml/min/1.73 sqM); Potassium 4.1 mmol/L (3.5-5.1); Sodium 135 mmol/L (137-145)
[2020-07-18 01:05] LABS: Anion Gap 5 mmol/L; Carbon Dioxide 39 mmol/L (22-30)
[2020-07-18 01:08] LABS: INR 2.8 (<1.2)
[2020-07-18] MEDS ORDERED: ONDANSETRON 4 MG/2 ML VIAL IVP PRN (01:08)
[2020-07-18] MEDS ORDERED: NALOXONE 0.4 MG/ML 1 ML VIAL IV PRN (01:08)
[2020-07-18] MEDS ORDERED: ACETAMINOPHEN TAB 325 MG TAB PO PRN ×2 (01:08→01:09)
[2020-07-18] MEDS ORDERED: tiZANidine 4 MG TAB PO PRN (01:09)
[2020-07-18] MEDS ORDERED: MORPHINE SULFATE IR 15 MG TABLET PO PRN (01:09)
[2020-07-18] MEDS ORDERED: IPRATROPIUM-ALBUTEROL 3 ML NEB INHALATION PRN (01:09)
[2020-07-18 01:18] LABS: Partial Thromboplastin Time 93.1 sec (22.0-30.0)
[2020-07-18] MEDS: SODIUM CHLORIDE 0.9% 1,000 ML IV SCH (01:58)
[2020-07-18] MEDS: MORPHINE SULFATE 4 MG/ML SYRINGE IV PRN ×5 (04:48→22:00)
[2020-07-18] MEDS: LEVOTHYROXINE 100 MCG TAB PO SCH (06:05)
[2020-07-18] MEDS ORDERED: INSULIN ASPART (NovoLOG) 100 UNIT/ML VIAL SQ SCH (07:30)
[2020-07-18 07:41] LABS: Basophils # (A) 0.1 k/uL (0-0.2); Basophils % (A) 1 %; Eosinophils # (A) 0.4 k/uL (0-0.7); Eosinophils % (A) 6 %; HCT 34.5 % (34.0-46.0); HGB 11.6 gm/dL (11.4-16.0); Hypochromasia Slight; Lymphocytes # (A) 1.6 k/uL (1.0-4.8); Lymphocytes % (A) 24 %; MCHC 33.5 g/dL (31.0-37.0); MCV 80.6 fL (80.0-100.0); Mean Platelet Volume 6.8; Monocytes # (A) 0.5 k/uL (0-1.0); Monocytes % (A) 7 %; Neutrophils % (A) 59 %; Platelet Count 249 k/uL (150-450); RBC 4.28 m/uL (3.80-5.40); RDW 15.1 % (11.5-15.5); WBC 6.7 k/uL (3.8-10.6)
[2020-07-18 08:24] LABS: Glucose,Whole Blood 268 mg/dL (75-99)
[2020-07-18] MEDS: FAMOTIDINE 20 MG TAB PO SCH ×2 (08:31→20:45)
[2020-07-18] MEDS: PANTOPRAZOLE 40 MG TABLET PO SCH ×2 (08:38→16:45)
[2020-07-18] MEDS: DOCUSATE 100 MG CAP PO SCH ×3 (08:38→20:45)
[2020-07-18] MEDS: FUROSEMIDE 20 MG TAB PO SCH (08:39)
[2020-07-18] MEDS: METOPROLOL TARTRATE 50 MG TAB PO SCH ×2 (08:49→20:45)
[2020-07-18] MEDS ORDERED: FENOFIBRATE 160 MG TAB PO SCH (09:00)
[2020-07-18] MEDS ORDERED: LACTULOSE 20 GM/30 ML CUP PO SCH (09:00)
[2020-07-18] MEDS ORDERED: SPIRONOLACTONE 25 MG TAB PO SCH (09:00)
[2020-07-18] MEDS ORDERED: metFORMIN 500 MG TAB PO SCH (09:00)
[2020-07-18] MEDS: IPRATROPIUM-ALBUTEROL 3 ML NEB INHALATION SCH ×4 (09:11→21:01)
[2020-07-18] MEDS ORDERED: CALCIUM CARBONATE 500 MG CHEWABLE PO PRN (09:40)
[2020-07-18] MEDS ORDERED: BENZOCAINE/MENTHOL LOZENG 1 EACH LOZENGE MUCOUS MEM PRN (09:40)
[2020-07-18] MEDS ORDERED: NON FORMULARY DRUG (Biotin [Biotin] 5,000 MCG Tab.Rapdis) PO SCH (09:45)
[2020-07-18] MEDS: NON FORMULARY DRUG (Cetirizine Hcl [Zyrtec] 10 MG Tablet) PO SCH (10:59)
[2020-07-18] MEDS: LIDOCAINE 5% PATCH TOPICAL SCH (11:02)
[2020-07-18] MEDS: MULTIVITAMINS, THERA 1 EACH TAB PO SCH (11:03)
[2020-07-18] MEDS: BACLOFEN 10 MG TAB PO SCH ×3 (11:03→21:59)
[2020-07-18] MEDS: EZETIMIBE 10 MG TAB PO SCH (11:03)
[2020-07-18] MEDS: ATORVASTATIN 10 MG TAB PO SCH (11:03)
[2020-07-18] MEDS: FLUTICASONE 50MCG/SPRAY NASAL 16GM EA NOSTRIL SCH (11:03)
[2020-07-18] MEDS: CALCIUM CARBONATE 500 MG CHEWABLE PO SCH (11:03)
[2020-07-18] MEDS: busPIRone HCl 10 MG TAB PO SCH ×2 (11:03→20:46)
[2020-07-18] MEDS: VENLAFAXINE HCL ER 150 MG CAP PO SCH (11:03)
[2020-07-18] MEDS: CHOLECALCIFEROL 25 MCG (1000 IU) TABLET PO SCH (11:04)
[2020-07-18] MEDS: METHADONE 10 MG TAB PO SCH ×3 (11:04→21:59)
[2020-07-18] MEDS: SPIRONOLACTONE 25 MG TAB PO SCH (11:04)
[2020-07-18 11:33] LABS: Glucose,Whole Blood 240 mg/dL (75-99)
[2020-07-18] MEDS ORDERED: PHYTONADIONE 10 MG in SODIUM CHLORIDE 0.9% 50 ML IVPB STA (13:39)
[2020-07-18] MEDS: INSULIN ASPART (NovoLOG) 100 UNIT/ML VIAL SQ SCH ×3 (13:41→20:47)
[2020-07-18 16:59] LABS: INR 1.6 (<1.2); Prothrombin Time 16.1 sec (9.0-12.0)
[2020-07-18 17:12] LABS: Glucose,Whole Blood 178 mg/dL (75-99)
--- NOTE | 2020-07-18 17:28 | P.CONS ---
History of Present Illness - Reason for Consult Consult date: 07/18/20 acute on chronic right lower extremity DVT, therapeutic INR Requesting physician: José Sherman - Chief Complaint RLE pain - History of Present Illness Mrs. Uribe is a very pleasant female patient of Dr. Mcneal, not been seen since 2010, did not show for any follow-up appointments. She was seen in consult at [facility] 06/2013 for DVT, right lower extremity, treated by Dr. Cooney with Trellis procedure, and a popliteal stent. Patient's his tory of breast cancer was in 2009, lumpectomy, 1-1/2 years of Femara, complain of hair loss therefore changed and completed 5 years of Arimidex are around 2017 or 2018. She has a history of a previous right upper extremity DVT at the site of a line, this was prior to her breast cancer, she was treated with Coumadin for a period of time. Currently on Coumadin for a right inguinal blood clot per the patient, diagnosed about 5 years ago. She states that the pain in her right leg started about 2-3 weeks ago, she was seen at [facility], found to have acute on chronic DVT in the right leg. She reports an INR of 2.3 2 weeks ago, it was 3.3 yesterday. patient does have a history of hypercoagulable workup done that was negative. She states that she had mammogram last year with suspicious findings on the right lateral breast, this was followed up with ultrasound, followed up again in 6 months, she was told that she does not need to be seen for 1 year. Patient has complaints also of neck pain, feels it's related distress, she denies any lymph node swellings, no new or unusual musculoskeletal complaints, fevers, unintentional weight loss, acute changes in appetite, difficulty swallowing, chest pains, palpitations, difficulty breathing, GI complaints, acute changes in bowel or bladder habits, vaginal discharge. She does have very intense pain in the oliveros of her right lower extremity. She had an unrealistic reaction to me touching her oliveros. Patient denies any injury, unusual decrease in activity, other recent illness Review of Systems 14 point review of systems is negative except as stated in HPI Past Medical History Past Medical History: Atrial Fibrillation, Asthma, Cancer, CVA/TIA, Diabetes Roseann litus, Deep Vein Thrombosis (DVT), Eye Disorder, GERD/Reflux, Hyperlipidemia, Hypertension, Osteoarthritis (OA), Pneumonia, Pulmonary Embolus (PE), Skin Disorder, Thyroid Disorder Additional Past Medical History / Comment(s): NIDDM type II, neuropathy bilateral feet, bronchitis, sarcoidosis of the lung, seasonal allergies, sinus problems, TIA, DVT R leg x 3, pulmonary emboli x 1, L breast cancer with surgery 1997, migraines, DDD, chronic back and cervical pain, L leg sciatica, possibly one seizure following cervical surgery, hypothyroid, pt had some kind of liver problem as a child and was hospitalized, cellulitis at IV site, recently states she had dark "spot" cover her R eye and then it lifted but still having vision changes in that eye. History of Any Multi-Drug Resistant Organisms: None Reported Past Surgical History: Appendectomy, Breast Surgery, Section, Hysterectomy, Joint Replacement, Orthopedic Surgery, Tonsillectomy Additional Past Surgical History / Comment(s): DVT 16 inches long removed from R leg, R thorascopy-diagnosed with sarcoidosis, D&C, salpingoophorectomy d/t ectopic , L breast biopsy, L breast lumpectomy, bilateral total shoulder replacements, cervical fusions x2 has titanium plate/screws, EGD, colonoscopy with benign polypectomy, epidural injections, D&C Past Anesthesia/Blood Transfusion Reactions: Motion Sickness Additional Past Anesthesia/Blood Transfusion Reaction / Comm: diff IV starts Past Psychological History: Anxiety, Depression Additional Psychological History / Comment(s): Pt resides with her spouse. She uses no assistive device. She does not drive, spouse drives. Smoking Status: Never smoker Past Alcohol Use History: None Reported Past Drug Use History: None Reported - Past Family History Daughter(s) Family Medical History: Cancer Father Family Medical History: Deep Vein Thrombosis (DVT) Mother Family Medical History: Deep Vein Thrombosis (DVT) Additional Family Medical History / Comment(s): Maternal grandmother had DVT and 3 of pt's maternal aunts had DVTs. Medications and Allergies Home Medications Medication Instructions Recorded Confirmed Type RX: Levothyroxine Sodium 200 mcg PO DAILY 07/19/13 07/18/20 History [Synthroid] RX: Calcium Citrate 500 mg PO DAILY 08/30/14 07/18/20 History RX: Cholecalciferol [Vitamin D3 2,000 unit PO DAILY 08/30/14 07/18/20 History (25 Mcg = 1000 Iu)] RX: Multivitamins, Thera 1 tab PO DAILY 08/30/14 07/18/20 History [Multivitamin (formulary)] Rolaids 1 - 2 tab PO DAILY PRN 08/30/14 07/18/20 History RX: Biotin 5,000 mcg PO DAILY 03/27/17 07/18/20 History RX: metFORMIN HCL 1,000 mg PO BID 03/27/17 07/18/20 History RX: Cetirizine HCl [Zyrtec] 10 mg PO DAILY 05/28/18 07/18/20 History RX: Fluticasone Nasal [place] 1 spray EA NOSTRIL DAILY 05/28/18 07/18/20 History [Flonase Nasal [place]] RX: Acetaminophen Tab [Tylenol] 650 mg PO Q6HR PRN tab 06/23/18 07/18/20 Rx RX: Benzocaine/Menthol Lozeng 1 each MUCOUS MEM Q4HR PRN lozenge 06/23/18 07/18/20 Rx [Cepacol lozenge] RX: Furosemide [Lasix] 20 mg PO DAILY tab 06/23/18 07/18/20 Rx RX: Ipratropium-Albuterol Nebulize 3 ml INHALATION RT-QID PRN 06/23/18 07/18/20 Rx [Duoneb 0.5 mg-3 mg/3 ml Soln] ampul.neb RX: Metoprolol Tartrate [Lopressor] 50 mg PO BID tab 06/23/18 07/18/20 Rx RX: Pantoprazole [Protonix] 40 mg PO AC-BID tablet. 06/23/18 07/18/20 Rx RX: busPIRone HCl [Buspar] 10 mg PO BID #10 tab 06/23/18 07/18/20 Rx Apixaban [Eliquis Starter Pack 0 mg PO DIRECTED 30 Days #1 pack 07/18/20 Rx (for VTE)] Dulaglutide [Trulicity] 1.5 mg SQ TH 07/18/20 07/18/20 History Ezetimibe/Simvastatin [Vytorin 1 tab PO DAILY 07/18/20 07/18/20 History 10-20 mg] Insulin Detemir [Levemir Flextouch] 53 units SQ HS 07/18/20 07/18/20 History Insulin Lispro [humaLOG Kwikpen] See Protocol SQ ACHS 07/18/20 07/18/20 History Lidocaine 5% Patch [Lidoderm] 1 patch TOPICAL DAILY 07/18/20 07/18/20 History RX: Baclofen [Lioresal] 10 mg PO TID 07/18/20 07/18/20 History RX: Methadone [Dolophine] 10 mg PO TID 07/18/20 07/18/20 History RX: Venlafaxine HCl ER [Effexor XR] 150 mg PO DAILY 07/18/20 07/18/20 History RX: Warfarin [Coumadin] [facility] 07/18/20 07/18/20 History RX: traZODone HCL 200 mg PO HS 07/18/20 07/18/20 History Spironolactone [Aldactone] 75 mg PO DAILY 07/18/20 07/18/20 History Warfarin [Coumadin] 2.5 mg PO WE 07/18/20 07/18/20 History Allergies Allergy/AdvReac Type Severity Reaction Status Date / Time guaifenesin Allergy Rapid Verified 07/18/20 07:06 Heart Rate loratadine Allergy Rapid Verified 07/18/20 07:06 [From Claritin-D 12 Hour] Heart Rate mold Allergy Anaphylaxis Verified 07/18/20 07:06 monosodium glutamate Allergy swelling, Verified 07/18/20 07:06 headache Penicillins Allergy Anaphylaxis Verified 07/18/20 07:06 pseudoephedrine HCl Allergy Dyspnea/rapid Verified 07/18/20 07:06 [From Sudafed] heart rate pseudoephedrine sulfate Allergy Rapid Verified 07/18/20 07:06 [From Claritin-D 12 Hour] Heart Rate Sulfa (Sulfonamide Allergy Itching Verified 07/18/20 07:06 Antibiotics) Physical Exam Vitals: Vital Signs Temp Pulse Pulse Resp BP BP Pulse Ox 07/18/20 12:16 80 07/18/20 12:10 88 07/18/20 11:27 97.8 F 69 18 125/79 96 07/18/20 09:20 88 07/18/20 09:14 84 07/18/20 03:31 98.3 F 85 18 115/69 95 07/18/20 02:37 98.6 F 73 18 119/69 97 07/18/20 00:31 73 18 119/69 97 07/17/20 22:52 98.6 F 80 18 126/68 98 Intake and Output 07/18/20 07/18/20 07/18/20 06:59 14:59 22:59 Intake Total 80.293 209.707 Balance 80.293 209.707 Intake: Intake, IV Titration 80.293 209.707 Amount Heparin Sod,Pork in 0.45% 40.293 209.707 NaCl 25,000 unit In 0.45 % NaCl 1 250ml.bag @ 18 UNITS/KG/HR 19.187 mls/hr IV .Q13H2M SHELBY Rx#: [id number] Sodium Chloride 0.9% 1, 40 000 ml @ 20 mls/hr IV . Q24H SHELBY Rx#:[id number] Other: Voiding Method Bedside Commode Bedpan # Voids 1 1 Weight 116.5 kg - Constitutional General appearance: cooperative, mild distress, morbidly obese - EENT Eyes: anicteric sclerae, EOMI ENT: hearing grossly normal, normal oropharynx - Neck neck is very thick, she is diaphoretic around the head and neck area, no axil john adenopathy Neck: no lymphadenopathy - Respiratory Respiratory: bilateral: CTA - Cardiovascular Rhythm: regular Heart sounds: normal: S1, S2 Abnormal Heart Sounds: no systolic murmur, no diastolic murmur, no rub, no S3 Gallop, no S4 Gallop, no click, no other leg Peripheral Edema: right: Trace, left: None - Gastrointestinal General gastrointestinal: no absent bowel sounds, no decreased bowel sounds, no distended, no hepatomegaly, no hyperactive bowel sounds, normal bowel sounds, no organomegaly, no rigid, no scaphoid, soft, no splenomegaly, no tenderness, no umbilical hernia, no ventral hernia - Integumentary Integumentary: pale - Neurologic Neurologic: CNII-XII intact - Musculoskeletal Patient had an unrealistic reaction to touching the right oliveros. There is no redness, it is not warm to the touch. Patient was able to bend at the knee, dorsiflex and plantar flex the foot without any complaints, I was also able to touch her calf discomfort but pain response was nothing like touching the oliveros Musculoskeletal: strength equal bilaterally - Psychiatric Psychiatric: A&O x's 3, appropriate affect, intact judgment & insight Results CBC & Chem 7: 07/18/20 06:58 07/18/20 00:36 Labs: Abnormal Lab Results - Last 24 Hours (Table) 07/18/20 07/18/20 07/18/20 Range/Units 00:36 00:36 00:36 MCV 79.4 L (80.0-100.0) fL PT 27.0 H (9.0-12.0) sec INR 2.8 H (<1.2) APTT 93.1 H (22.0-30.0) sec Sodium 135 L (137-145) mmol/L Chloride 91 L (98-107) mmol/L Carbon Dioxide 39 H (22-30) mmol/L Glucose 203 H (74-99) mg/dL POC Glucose (mg/dL) (75-99) mg/dL 07/18/20 07/18/20 07/18/20 Range/Units 06:58 08:22 11:31 MCV (80.0-100.0) fL PT (9.0-12.0) sec INR (<1.2) APTT 63.3 H (22.0-30.0) sec Sodium (137-145) mmol/L Chloride (98-107) mmol/L Carbon Dioxide (22-30) mmol/L Glucose (74-99) mg/dL POC Glucose (mg/dL) 268 H 240 H (75-99) mg/dL 07/18/20 07/18/20 Range/Units 16:29 17:09 MCV (80.0-100.0) fL PT 16.1 H (9.0-12.0) sec INR 1.6 H (<1.2) APTT (22.0-30.0) sec Sodium (137-145) mmol/L Chloride (98-107) mmol/L Carbon Dioxide (22-30) mmol/L Glucose (74-99) mg/dL POC Glucose (mg/dL) 178 H (75-99) mg/dL Assessment and Plan (1) Deep vein blood clot of right lower extremity Narrative/Plan: Reported to me by Attending that pt has an acute on chronic DVT in the right lower extremity. Patient reports therapeutic INR 2 weeks ago and yesterday. Unfortunately, Coumadin/INR is highly variable. So, can never be known for certain if the patient was therapeutic when these acute clots formed. Cause of this it has to be assumed that this is a failure of Coumadin. No other provoking factors noted. DOAC recommended. Patient required extensive counseling because of the newer anticoagulants not being able to be monitored and "knowing my level". Patient was educated on the risk for bleeding, it is the same no matter what anticoagulant patient is on. How to monitor for bleeding reviewed in the presence of RN Patient has followed with Vascular in the past. Maybe she needs to resume follow-up. Reversed INR with vit K. RN returned a INR of 1.6 hour after completing vit K. Use Heparin drip until co-pay verification for oral anticoagulation. $45 for eliquis, confirmed copay okay with the patient. orders to RN-Okay to start loading dose eliquis 10 mg by mouth twice a day 7 days. Patient will continue on 5 mg by mouth twice a day. Patient asked me duration of anticoagulation. Based on her history-provoked DVT of the upper extremity, unprovoked DVT of the right lower extremity, and now unprovoked acute on chronic DVT of the right lower extremity-she is going to be on lifelong anticoagulation. Current Visit: Yes Status: Acute Priority: High Code(s): I82.401 - ACUTE EMBOLISM AND THOMBOS UNSP DEEP VEINS OF R LOW EXTREM SNOMED Code(s): 896142156 (2) History of breast cancer Narrative/Plan: Tumor markers ordered. Patient was encouraged to follow-up with Dr. Mcneal. Based on patient's presentation-acute on chronic DVT, complaints of neck discomfort-would be reasonable to do some imaging on her to ensure that there is no metastatic disease. This can be followed up in the outpatient setting, imaging and studies to be ordered per Primary Oncologist examination of pt. She reports to me 2 mammograms and 2 ultrasounds performed last year, with no referral for biopsies, no recommendations for follow-up sooner after her last evaluation. She verbalized understanding recommendations. Current Visit: No Status: Chronic Priority: Low Code(s): Z85.3 - PERSONAL HISTORY OF MALIGNANT NEOPLASM OF BREAST SNOMED Code(s): 889921469 Plan: Case was discussed at length with Attending. Based on the patient's very unusual response to light touch of the right lower extremity did order an MRI to rule out any insidious etiology. Time with Patient: Greater than 30
--- NOTE | 2020-07-18 17:34 | P.HPIM ---
History of Present Illness Patient is a pleasant 70-year-old female came in with complaints of pain in the right leg extending up to the ankle area. Patient had history of DVTs in the past and patient is on Coumadin and patient's INR yesterday was therapeutic at 3.3. Patient had not is under the right leg at outside hospital which showed chronic DVTs and also a day there is a acute DVT in the right popliteal vein. Because of the this new DVT finding patient was transferred to [facility] to be evaluated by hematology.. Hematology was consulted patient's INR is being reversed at this time after which patient will be started on Eliquis. Patient had continued pain most A Stanley appears to be post-thrombotic pain for which patient will need compression socks. Patient is also complaining of pain in the neck and back which appears to be cervical and thoracolumbar degenerative disc disease and patient is also complaining of headache which appears to be cervical cephalalgia. Patient had multiple interventions for back and neck pain. Patient is on methadone for that. Review of Systems REVIEW OF SYSTEMS: CONSTITUTIONAL: No fever, no malaise, no fatigue. HEENT: No recent visual problems or hearing problems. Denied any sore throat. CARDIOVASCULAR: No chest pain, orthopnea, PND, no palpitations, no syncope. PULMONARY: No shortness of breath, no cough, no hemoptysis. GASTROINTESTINAL: No diarrhea, no nausea, no vomiting, no abdominal pain. NEUROLOGICAL: No headaches, no weakness, no numbness. HEMATOLOGICAL: Denies any bleeding or petechiae. GENITOURINARY: Denies any burning micturition, frequency, or urgency. MUSCULOSKELETAL/RHEUMATOLOGICAL: As mentioned in HPI ENDOCRINE: Denies any polyuria or polydipsia. The rest of the 14-point review of systems is negative. Past Medical History Past Medical History: Atrial Fibrillation, Asthma, Cancer, CVA/TIA, Diabetes Mellitus, Deep Vein Thrombosis (DVT), Eye Disorder, GERD/Reflux, Hyperlipidemia, Hypertension, Osteoarthritis (OA), Pneumonia, Pulmonary Embolus (PE), Skin Disorder, Thyroid Disorder Additional Past Medical History / Comment(s): NIDDM type II, neuropathy bilater al feet, bronchitis, sarcoidosis of the lung, seasonal allergies, sinus problems, TIA, DVT R leg x 3, pulmonary emboli x 1, L breast cancer with surgery 1997, migraines, DDD, chronic back and cervical pain, L leg sciatica, possibly one seizure following cervical surgery, hypothyroid, pt had some kind of liver problem as a child and was hospitalized, cellulitis at IV site, recently states she had dark "spot" cover her R eye and then it lifted but still having vision changes in that eye. History of Any Multi-Drug Resistant Organisms: None Reported Past Surgical History: Appendectomy, Breast Surgery, Section, Hysterectomy, Joint Replacement, Orthopedic Surgery, Tonsillectomy Additional Past Surgical History / Comment(s): DVT 16 inches long removed from R leg, R thorascopy-diagnosed with sarcoidosis, D&C, salpingoophorectomy d/t ectopic , L breast biopsy, L breast lumpectomy, bilateral total should er replacements, cervical fusions x2 has titanium plate/screws, EGD, colonoscopy with benign polypectomy, epidural injections, D&C Past Anesthesia/Blood Transfusion Reactions: Motion Sickness Additional Past Anesthesia/Blood Transfusion Reaction / Comment(s): diff IV starts Past Psychological History: Anxiety, Depression Additional Psychological History / Comment(s): Pt resides with her spouse. She uses no assistive device. She does not drive, spouse drives. Smoking Status: Never smoker Past Alcohol Use History: None Reported Past Drug Use History: None Reported - Past Family History Daughter(s) Family Medical History: Cancer Father Family Medical History: Deep Vein Thrombosis (DVT) Mother Family Medical History: Deep Vein Thrombosis (DVT) Additional Family Medical History / Comment(s): Maternal grandmother had DVT and 3 of pt's maternal aunts had DVTs. Medications and Allergies Home Medications Medication Instructions Recorded Confirmed Type Levothyroxine Sodium [Synthroid] 200 mcg PO DAILY 07/19/13 07/18/20 History Calcium Citrate 500 mg PO DAILY 08/30/14 07/18/20 History Cholecalciferol [Vitamin D3 (25 2,000 unit PO DAILY 08/30/14 07/18/20 History Mcg = 1000 Iu)] Multivitamins, Thera [Multivitamin 1 tab PO DAILY 08/30/14 07/18/20 History (formulary)] Rolaids 1 - 2 tab PO DAILY PRN 08/30/14 07/18/20 History Biotin 5,000 mcg PO DAILY 03/27/17 07/18/20 History metFORMIN HCL 1,000 mg PO BID 03/27/17 07/18/20 History Cetirizine HCl [Zyrtec] 10 mg PO DAILY 05/28/18 07/18/20 History Fluticasone Nasal [place] [Flonase 1 spray EA NOSTRIL DAILY 05/28/18 07/18/20 History Nasal [place]] Acetaminophen Tab [Tylenol] 650 mg PO Q6HR PRN tab 06/23/18 07/18/20 Rx Benzocaine/Menthol Lozeng [Cepacol 1 each MUCOUS MEM Q4HR PRN lozenge 06/23/18 07/18/20 Rx lozenge] Furosemide [Lasix] 20 mg PO DAILY tab 06/23/18 07/18/20 Rx Ipratropium-Albuterol Nebulize 3 ml INHALATION RT-QID PRN 06/23/18 07/18/20 Rx [Duoneb 0.5 mg-3 mg/3 ml Soln] ampul.neb Metoprolol Tartrate [Lopressor] 50 mg PO BID tab 06/23/18 07/18/20 Rx Pantoprazole [Protonix] 40 mg PO AC-BID tablet. 06/23/18 07/18/20 Rx busPIRone HCl [Buspar] 10 mg PO BID #10 tab 06/23/18 07/18/20 Rx Apixaban [Eliquis Starter Pack 0 mg PO DIRECTED 30 Days #1 pack 07/18/20 Rx (for VTE)] Baclofen [Lioresal] 10 mg PO TID 07/18/20 07/18/20 History Dulaglutide [Trulicity] 1.5 mg SQ TH 07/18/20 07/18/20 History Ezetimibe/Simvastatin [Vytorin 1 tab PO DAILY 07/18/20 07/18/20 History 10-20 mg] Insulin Detemir [Levemir Flextouch] 53 units SQ HS 07/18/20 07/18/20 History Insulin Lispro [humaLOG Kwikpen] See Protocol SQ ACHS 07/18/20 07/18/20 History Lidocaine 5% Patch [Lidoderm] 1 patch TOPICAL DAILY 07/18/20 07/18/20 History Methadone [Dolophine] 10 mg PO TID 07/18/20 07/18/20 History Spironolactone [Aldactone] 75 mg PO DAILY 07/18/20 07/18/20 History Venlafaxine HCl ER [Effexor XR] 150 mg PO DAILY 07/18/20 07/18/20 History Warfarin [Coumadin] 2.5 mg PO WE 07/18/20 07/18/20 History Warfarin [Coumadin] 5 mg PO SUMOTUTHFRSA 07/18/20 07/18/20 History traZODone HCL 200 mg PO HS 07/18/20 07/18/20 History Allergies Allergy/AdvReac Type Severity Reaction Status Date / Time guaifenesin Allergy Rapid Verified 07/18/20 07:06 Heart Rate loratadine Allergy Rapid Verified 07/18/20 07:06 [From Claritin-D 12 Hour] Heart Rate mold Allergy Anaphylaxis Verified 07/18/20 07:06 monosodium glutamate Allergy swelling, Verified 07/18/20 07:06 headache Penicillins Allergy Anaphylaxis Verified 07/18/20 07:06 pseudoephedrine HCl Allergy Dyspnea/rapid Verified 07/18/20 07:06 [From Sudafed] heart rate pseudoephedrine sulfate Allergy Rapid Verified 07/18/20 07:06 [From Claritin-D 12 Hour] Heart Rate Sulfa (Sulfonamide Allergy Itching Verified 07/18/20 07:06 Antibiotics) Physical Exam Vitals: Vital Signs Temp Pulse Pulse Resp BP BP Pulse Ox 07/18/20 12:16 80 07/18/20 12:10 88 07/18/20 11:27 97.8 F 69 18 125/79 96 07/18/20 09:20 88 07/18/20 09:14 84 07/18/20 03:31 98.3 F 85 18 115/69 95 07/18/20 02:37 98.6 F 73 18 119/69 97 07/18/20 00:31 73 18 119/69 97 07/17/20 22:52 98.6 F 80 18 126/68 98 Intake and Output 07/18/20 07/18/20 07/18/20 06:59 14:59 22:59 Intake Total 80.293 209.707 Balance 80.293 209.707 Intake: Intake, IV Titration 80.293 209.707 Amount Heparin Sod,Pork in 0.45% 40.293 209.707 NaCl 25,000 unit In 0.45 % NaCl 1 250ml.bag @ 18 UNITS/KG/HR 19.187 mls/hr IV .Q13H2M [facility] Rx#: [id number] Sodium Chloride 0.9% 1, 40 000 ml @ 20 mls/hr IV . Q24H [facility] Rx#:[id number] Other: Voiding Method Bedside Commode Bedpan # Voids 1 1 Weight 116.5 kg PHYSICAL EXAMINATION: GENERAL: The patient is alert and oriented x3, not in any acute distress. Well developed, well nourished. Obese HEENT: Pupils are round and equally reacting to light. EOMI. No scleral icterus. No conjunctival pallor. Normocephalic, atraumatic. No pharyngeal erythema. No thyromegaly. CARDIOVASCULAR: S1 and S2 present. No murmurs, rubs, or gallops. PULMONARY: Chest is clear to auscultation, no wheezing or crackles. ABDOMEN: Soft, nontender, nondistended, normoactive bowel sounds. No palpable organomegaly. MUSCULOSKELETAL: No joint swelling or deformity. EXTREMITIES: No cyanosis, clubbing, or pedal edema. NEUROLOGICAL: Gross neurological examination did not reveal any focal deficits. SKIN: Patient appears to have bilateral multiple skin rashes which appears to be in DKA Results CBC & Chem 7: 07/18/20 06:58 07/18/20 00:36 Labs: Abnormal Lab Results - Last 24 Hours (Table) 07/18/20 07/18/20 07/18/20 Range/Units 00:36 00:36 00:36 MCV 79.4 L (80.0-100.0) fL PT 27.0 H (9.0-12.0) sec INR 2.8 H (<1.2) APTT 93.1 H (22.0-30.0) sec Sodium 135 L (137-145) mmol/L Chloride 91 L (98-107) mmol/L Carbon Dioxide 39 H (22-30) mmol/L Glucose 203 H (74-99) mg/dL POC Glucose (mg/dL) (75-99) mg/dL 07/18/20 07/18/20 07/18/20 Range/Units 06:58 08:22 11:31 MCV (80.0-100.0) fL PT (9.0-12.0) sec INR (<1.2) APTT 63.3 H (22.0-30.0) sec Sodium (137-145) mmol/L Chloride (98-107) mmol/L Carbon Dioxide (22-30) mmol/L Glucose (74-99) mg/dL POC Glucose (mg/dL) 268 H 240 H (75-99) mg/dL 07/18/20 07/18/20 Range/Units 16:29 17:09 MCV (80.0-100.0) fL PT 16.1 H (9.0-12.0) sec INR 1.6 H (<1.2) APTT (22.0-30.0) sec Sodium (137-145) mmol/L Chloride (98-107) mmol/L Carbon Dioxide (22-30) mmol/L Glucose (74-99) mg/dL POC Glucose (mg/dL) 178 H (75-99) mg/dL Thrombosis Risk Factor Assmnt - Choose All That Apply Any of the Below Risk Factors Present?: Yes Each Factor Represents 1 point: Obesity (BMI >25), Swollen legs (current) Other Risk Factors: Yes Each Risk Factor Represents 2 Points: Age 61-74 years Each Risk Factor Represents 3 Points: Family history of DVT/PE, History of DVT/PE Other congenital or acquired thrombophilia - If yes, enter type in comment: No Thrombosis Risk Factor Assessment Total Risk Factor Score: 10 Thrombosis Risk Factor Assessment Level: High Risk Assessment and Plan Plan: Acute DVT of the left leg: Failed therapy with Coumadin patient will be switched to Eliquis vitamin K was given to reverse the INR. -Post thrombotic pain of the right leg for which patient will currently wear compression socks -Cervical degenerative disc disease -History of atrial fibrillation presently sinus rhythm probably paroxysmal A. fib patient doesn't have any valvular A. fib. -Chronic low back pain -History of sarcoidosis -History of DVT and PE in the past -Type 2 diabetes mellitus insulin-dependent with the diabetic peripheral neuropa thy -Hypothyroidism -Hypertension -Hyperlipidemia. Above-mentioned chronic medical problems patient will be resumed on appropriate home medications hematology will evaluate the patient. Awaiting hematology recommendations.
[2020-07-18] MEDS: APIXABAN 5 MG TAB PO SCH ×2 (17:58→20:58)
[2020-07-18] MEDS ORDERED: WARFARIN 5 MG TAB PO SCH (18:00)
[2020-07-18 20:30] LABS: Glucose,Whole Blood 199 mg/dL (75-99)
[2020-07-18] MEDS ORDERED: EZETIMIBE 10 MG TAB PO SCH (21:00)
[2020-07-18] MEDS ORDERED: lisinopriL 10 MG TAB PO SCH (21:00)
[2020-07-18] MEDS ORDERED: INSULIN DETEMIR (LEVEMIR) 100 UNIT/ML SYR SQ SCH ×2 (21:00)
[2020-07-18] MEDS ORDERED: CITALOPRAM HYDROBROMIDE 20 MG TAB PO SCH (21:00)
[2020-07-18] MEDS ORDERED: traZODone HCL 50 MG TAB PO SCH (21:00)
[2020-07-18] MEDS ORDERED: traZODone HCL 100 MG TAB PO SCH (21:00)
[2020-07-19] MEDS: MORPHINE SULFATE 4 MG/ML SYRINGE IV PRN ×3 (02:27→11:33)
[2020-07-19] MEDS: SODIUM CHLORIDE 0.9% 1,000 ML IV SCH (03:35)
[2020-07-19 06:11] LABS: INR 1.2 (<1.2); Partial Thromboplastin Time 23.4 sec (22.0-30.0); Prothrombin Time 12.3 sec (9.0-12.0)
[2020-07-19] MEDS: LEVOTHYROXINE 100 MCG TAB PO SCH (06:19)
[2020-07-19 07:19] LABS: Glucose,Whole Blood 188 mg/dL (75-99)
[2020-07-19] MEDS: IPRATROPIUM-ALBUTEROL 3 ML NEB INHALATION SCH ×2 (07:23→11:15)
[2020-07-19] MEDS: INSULIN ASPART (NovoLOG) 100 UNIT/ML VIAL SQ SCH ×2 (08:08→12:20)
[2020-07-19] MEDS: BACLOFEN 10 MG TAB PO SCH (08:09)
[2020-07-19] MEDS: ATORVASTATIN 10 MG TAB PO SCH (08:09)
[2020-07-19] MEDS: PANTOPRAZOLE 40 MG TABLET PO SCH (08:09)
[2020-07-19] MEDS: APIXABAN 5 MG TAB PO SCH (08:09)
[2020-07-19] MEDS: CALCIUM CARBONATE 500 MG CHEWABLE PO SCH (08:10)
[2020-07-19] MEDS: busPIRone HCl 10 MG TAB PO SCH (08:10)
[2020-07-19] MEDS: FAMOTIDINE 20 MG TAB PO SCH (08:11)
[2020-07-19] MEDS: CHOLECALCIFEROL 25 MCG (1000 IU) TABLET PO SCH (08:11)
[2020-07-19] MEDS: EZETIMIBE 10 MG TAB PO SCH (08:11)
[2020-07-19] MEDS: DOCUSATE 100 MG CAP PO SCH (08:11)
[2020-07-19] MEDS: FLUTICASONE 50MCG/SPRAY NASAL 16GM EA NOSTRIL SCH (08:12)
[2020-07-19] MEDS: FUROSEMIDE 20 MG TAB PO SCH (08:12)
[2020-07-19] MEDS: METOPROLOL TARTRATE 50 MG TAB PO SCH (08:14)
[2020-07-19] MEDS: MULTIVITAMINS, THERA 1 EACH TAB PO SCH (08:14)
[2020-07-19] MEDS: METHADONE 10 MG TAB PO SCH (08:15)
[2020-07-19] MEDS: VENLAFAXINE HCL ER 150 MG CAP PO SCH (08:15)
[2020-07-19] MEDS: SPIRONOLACTONE 25 MG TAB PO SCH (08:15)
[2020-07-19] MEDS: LIDOCAINE 5% PATCH TOPICAL SCH (08:16)
--- NOTE | 2020-07-19 11:16 | CDI ---
Documentation Clarification Form Date: 07/19/2020 10:26:00 AM From: Isabel Ashby RN CCDS Admit Date: 07/18/2020 01:09:00 AM Patient Name: Cris Urieb Visit Number: [id number] Discharge Date: ATTENTION: The Clinical Documentation Specialists (CDI) and [facility] Coding Staff appreciate your assistance in clarifying documentation. Please respond to the clarification below the line at the bottom and electronically sign. The CDI & [facility] Coding staff will review the response and follow-up if needed. Please note: Queries are made part of the Legal Health Record. If you have any questions, please contact the author of this message via ITS. Dr. José Sherman Conflicting documentation has been found in the medical record. As attending physician, please provide clarification. Acute DVT in the right popliteal vein, Documented In H&P under History of Present Illness 07/18. Acute DVT of the left leg, Documented in H&P under Assessment and Plan 07/18. History/Risk Factors: 70-year-old female presents to the ED from outside hospital with complaints of right leg pain extending up to the ankle area. Medical History: Atrial Fibrillation, HLD, DM, DVT right leg x3 and Pulmonary emboli x1. Clinical Indicators: Per H&P 07/18: Acute DVT in the right Popliteal vein. From outside hospital Labs: 07/18 PT 27.0; INR 2.8; APTT 93.1 07/19 PT 12.3; INR 1.2; APTT 23.4 Treatment: 07/17 Phytonadione 10mg in Sodium Chloride IVPB X1; 07/17 Heparin 25,000 unit in Sodium Chloride 250mls @ 19.187 mls /hr IV d/c 07/18. 07/18 Eliquis 10mg PO BID to current. 07/18 Compression socks Please clarify which diagnosis is most appropriate: [ ] Acute DVT of the left leg [ ] Acute DVT of the right leg [ ] Acute DVT of the right and left leg [ ] Other (please specify) [ ] Unable to determine (Template Last Revised: May 2020) Acute DVT of the right leg MTDD
[2020-07-19] MEDS: NON FORMULARY DRUG (Cetirizine Hcl [Zyrtec] 10 MG Tablet) PO SCH (11:48)
[2020-07-19] MEDS ORDERED: KETOROLAC 15 MG/ML 1 ML VIAL IVP STA (11:58)
[2020-07-19 12:06] LABS: Glucose,Whole Blood 209 mg/dL (75-99)
[2020-07-19 12:50] VITALS: BP 132/78; PULSE 69; RESP 17; TEMP 98.2
--- NOTE | 2020-07-19 15:39 | P.PN ---
Subjective Progress Note Date: 07/19/20 Objective - Vital Signs Vital signs: Vital Signs Temp 98.2 F 07/19/20 12:50 Pulse 69 07/19/20 12:50 Resp 17 07/19/20 12:50 BP 132/78 07/19/20 12:50 Pulse Ox 95 07/19/20 12:50 Intake & Output 07/18/20 07/19/20 07/19/20 18:59 06:59 18:59 Intake Total 499.707 360 Balance 499.707 360 Intake: Intake, IV Titration 499.707 Amount Heparin Sod,Pork in 0.45% 209.707 NaCl 25,000 unit In 0.45 % NaCl 1 250ml.bag @ 18 UNITS/KG/HR 19.187 mls/hr IV .Q13H2M [facility] Rx#: [id number] Phytonadione 10 mg In 50 Sodium Chloride 0.9% 50 ml @ 100 mls/hr IVPB ONCE STA Rx#:[id number] Sodium Chloride 0.9% 1, 240 000 ml @ 20 mls/hr IV . Q24H [facility] Rx#:[id number] Oral 360 Other: Voiding Method Bedside Commode Bedside Commode # Voids 7 2 - Labs CBC & Chem 7: 07/18/20 06:58 07/18/20 00:36 Labs: Abnormal Lab Results - Last 24 Hours (Table) 07/18/20 07/18/20 07/18/20 Range/Units 16:29 17:09 20:28 PT 16.1 H (9.0-12.0) sec INR 1.6 H (<1.2) POC Glucose (mg/dL) 178 H 199 H (75-99) mg/dL 07/19/20 07/19/20 07/19/20 Range/Units 05:24 07:17 12:05 PT 12.3 H (9.0-12.0) sec INR 1.2 H (<1.2) POC Glucose (mg/dL) 188 H 209 H (75-99) mg/dL Assessment and Plan (1) Deep vein blood clot of right lower extremity Narrative/Plan: On eliquis, no bleeding reported. Rx copay confirmed, acceptable to pt. Current Visit: Yes Status: Acute Priority: High Code(s): I82.401 - ACUTE EMBOLISM AND THOMBOS UNSP DEEP VEINS OF R LOW EXTREM SNOMED Code(s): 542979798 (2) History of breast cancer Narrative/Plan: Ca 15.3, 27.29 WNDL. F/U with Dr. Mcneal in the next 3-4 weeks-he will determine imaging f/u. Current Visit: No Status: Chronic Priority: Low Code(s): Z85.3 - PERSONAL HISTORY OF MALIGNANT NEOPLASM OF BREAST SNOMED Code(s): 907856339 Plan: Recommended resuming care with Vascular. Asked secretary receptionist to refer pt to Vascular Pending MRI leg results Attests: I have performed H&P, seen and examined pt, developed impression and plan of care. Discussed with dictator. Agree with dictation, documented as a scribe
--- NOTE | 2020-07-19 16:18 | P.DS ---
Providers Date of admission: 07/18/20 01:09 Expected date of discharge: 07/19/20 Attending physician: Anabella Colon Consults: 07/18/20 12:39 Consult Physician Routine Consulting Provider: Jaleel Curry Consult Reason/Comments: evaluation of DVT Do you want consulting provider notified?: Already Contacted Primary care physician: Renea Nieto [facility] Course: Final Diagnosis -Acute DVT of the right leg: Failed therapy with Coumadin patient will be switched to Eliquis -Post thrombotic pain of the right leg -Cervical degenerative disc disease -History of atrial fibrillation presently sinus rhythm probably paroxysmal A. fib patient doesn't have any valvular A. fib. -Chronic low back pain -History of sarcoidosis -History of DVT and PE in the past -Type 2 diabetes mellitus insulin-dependent with the diabetic peripheral neuropathy -Hypothyroidism -Hypertension -Hyperlipidemia. Discharge disposition Patient is being discharged in a stable condition with guarded prognosis to home. Patient will follow-up with Dr. Nieto upon discharge. Patient will also follow-up with vascular surgery Dr. Lester and Dr. Mcneal in the outpatient setting. Patient will continue on Eliquis. Total time taken is 35 minutes. Hospital course Patient is a pleasant 70-year-old female came in with complaints of pain in the right leg extending up to the ankle area. Patient had history of DVTs in the past and patient is on Coumadin and patient's INR yesterday was therapeutic at 3.3. Patient had not is under the right leg at outside hospital which showed chronic DVTs and also a day there is a acute DVT in the right popliteal vein. Because of the this new DVT finding patient was transferred to [facility] to be evaluated by hematology.. Hematology was consulted patient's INR is being reversed at this time after which patient will be started on Eliquis. Patient had continued pain most A Stanley appears to be post-thrombotic pain for which patient will need compression socks. Patient is also complaining of pain in the neck and back which appears to be cervical and thoracolumbar degenerative disc disease and patient is also complaining of headache which appears to be cervical cephalalgia. Patient had multiple interventions for back and neck pain. Patient is on methadone for that. 07/19/2020 Patient is seen in follow-up continues to have right leg discomfort and using compression stockings although would not allow nursing staff to put the stocking on the right leg due to extreme pain. Pain in the oliveros area that travels down to the ankle. Patient was seen and evaluated by physical therapy recommended to continue using a walker and patient will be returning home. Instructed the patient to follow-up with oncology and vascular surgery and must comply with follow-up appointments. Patient will need further outpatient testing done with oncology. Patient was started on Eliquis and will be discharged on this. Currently no reports of chest pain, shortness of breath, or palpitations. Patient is afebrile. No reports of nausea or vomiting and patient is tolerating diet. Patient was given a dose of Toradol and will continue with Toradol on discharge for post thrombotic pain of the right leg. On exam vital signs are stable. Cardio S1, S2 are muffled. Respiratory shows diminished breath sounds at the bases with no wheezing or rhonchi noted. Abdomen is soft and nontender. Nervous system shows no focal deficits. Please refer to medication reconciliation sheet for a list of medications. Patient Condition at Discharge: Stable Plan - Discharge Summary Discharge Rx Participant: Yes New Discharge Prescriptions: New Docusate [Colace] 100 mg PO TID cap Atorvastatin [Lipitor] 10 mg PO DAILY 30 Days #30 tab Apixaban [Eliquis Starter Pack (for VTE)] 0 mg PO DIRECTED 30 Days #1 pack Ketorolac [Toradol] 10 mg PO Q6HR #10 tab Continue Levothyroxine Sodium [Synthroid] 200 mcg PO DAILY Rolaids 1 - 2 tab PO DAILY PRN PRN Reason: Indigestion Multivitamins, Thera [Multivitamin (formulary)] 1 tab PO DAILY Cholecalciferol [Vitamin D3 (25 Mcg = 1000 Iu)] 2,000 unit PO DAILY Calcium Citrate 500 mg PO DAILY metFORMIN HCL 1,000 mg PO BID Biotin 5,000 mcg PO DAILY Cetirizine HCl [Zyrtec] 10 mg PO DAILY Fluticasone Nasal [place] [Flonase Nasal [place]] 1 spray EA NOSTRIL DAILY Benzocaine/Menthol Lozeng [Cepacol lozenge] 1 each MUCOUS MEM Q4HR PRN lozenge PRN Reason: Sore Throat Ipratropium-Albuterol Nebulize [Duoneb 0.5 mg-3 mg/3 ml Soln] 3 ml INHALATION RT-QID PRN ampul.neb PRN Reason: Shortness Of Breath Or Wheezing Furosemide [Lasix] 20 mg PO DAILY tab Metoprolol Tartrate [Lopressor] 50 mg PO BID tab Pantoprazole [Protonix] 40 mg PO AC-BID tablet. Acetaminophen Tab [Tylenol] 650 mg PO Q6HR PRN tab PRN Reason: Fever and/ or MILD Pain busPIRone HCl [Buspar] 10 mg PO BID #10 tab traZODone HCL 200 mg PO HS Baclofen [Lioresal] 10 mg PO TID Venlafaxine HCl ER [Effexor XR] 150 mg PO DAILY Lidocaine 5% Patch [Lidoderm 5% Patch] 1 patch TOPICAL DAILY Insulin Lispro [humaLOG Kwikpen] See Protocol SQ ACHS Ezetimibe/Simvastatin [Vytorin 10-20 mg] 1 tab PO DAILY Dulaglutide [Trulicity] 1.5 mg SQ TH Methadone [Dolophine] 10 mg PO TID Insulin Detemir [Levemir Flextouch] 53 units SQ HS Spironolactone [Aldactone] 75 mg PO DAILY Discontinued Warfarin [Coumadin] 2.5 mg PO WE Warfarin [Coumadin] 5 mg PO SUMOTUTHFRSA Discharge Medication List Levothyroxine Sodium [Synthroid] 200 mcg PO DAILY 07/19/13 [History] Calcium Citrate 500 mg PO DAILY 08/30/14 [History] Cholecalciferol [Vitamin D3 (25 Mcg = 1000 Iu)] 2,000 unit PO DAILY 08/30/14 [History] Multivitamins, Thera [Multivitamin (formulary)] 1 tab PO DAILY 08/30/14 [History] Rolaids 1 - 2 tab PO DAILY PRN 08/30/14 [History] Biotin 5,000 mcg PO DAILY 03/27/17 [History] metFORMIN HCL 1,000 mg PO BID 03/27/17 [History] Cetirizine HCl [Zyrtec] 10 mg PO DAILY 05/28/18 [History] Fluticasone Nasal [place] [Flonase Nasal [place]] 1 spray EA NOSTRIL DAILY 05/28/18 [History] Acetaminophen Tab [Tylenol] 650 mg PO Q6HR PRN tab 06/23/18 [Rx] Benzocaine/Menthol Lozeng [Cepacol lozenge] 1 each MUCOUS MEM Q4HR PRN lozenge 06/23/18 [Rx] Furosemide [Lasix] 20 mg PO DAILY tab 06/23/18 [Rx] Ipratropium-Albuterol Nebulize [Duoneb 0.5 mg-3 mg/3 ml Soln] 3 ml INHALATION RT-QID PRN ampul.neb 06/23/18 [Rx] Metoprolol Tartrate [Lopressor] 50 mg PO BID tab 06/23/18 [Rx] Pantoprazole [Protonix] 40 mg PO AC-BID tablet. 06/23/18 [Rx] busPIRone HCl [Buspar] 10 mg PO BID #10 tab 06/23/18 [Rx] Apixaban [Eliquis Starter Pack (for VTE)] 0 mg PO DIRECTED 30 Days #1 pack 07/18/20 [Rx] Baclofen [Lioresal] 10 mg PO TID 07/18/20 [History] Dulaglutide [Trulicity] 1.5 mg SQ TH 07/18/20 [History] Ezetimibe/Simvastatin [Vytorin 10-20 mg] 1 tab PO DAILY 07/18/20 [History] Insulin Detemir [Levemir Flextouch] 53 units SQ HS 07/18/20 [History] Insulin Lispro [humaLOG Kwikpen] See Protocol SQ ACHS 07/18/20 [History] Lidocaine 5% Patch [Lidoderm 5% Patch] 1 patch TOPICAL DAILY 07/18/20 [History] Methadone [Dolophine] 10 mg PO TID 07/18/20 [History] Spironolactone [Aldactone] 75 mg PO DAILY 07/18/20 [History] Venlafaxine HCl ER [Effexor XR] 150 mg PO DAILY 07/18/20 [History] traZODone HCL 200 mg PO HS 07/18/20 [History] Atorvastatin [Lipitor] 10 mg PO DAILY 30 Days #30 tab 07/19/20 [Rx] Docusate [Colace] 100 mg PO TID cap 07/19/20 [Rx] Ketorolac [Toradol] 10 mg PO Q6HR #10 tab 07/19/20 [Rx] Follow up Appointment(s)/Referral(s): Renea Nieto MD [Primary Care Provider] - 07/24/20 9:00 am Orlando Lester DO [STAFF PHYSICIAN] - 08/01/20 2:15 pm Juan Mcneal MD [STAFF PHYSICIAN] - 08/04/20 1:00 pm () Patient Instructions/Handouts: Ketorolac (By mouth), Atorvastatin (By mouth), Apixaban (By mouth), Deep Vein Thrombosis (DC) Activity/Diet/Wound Care/Special Instructions: Activity Limited until follow-up Continue with compression hosing or Miguel Angel wraps to bilateral lower extremities from toes up to thighs elevate lower extremities while at rest Continue with new anticoagulant 10 mg twice daily for 1 week and then transition to 5 mg twice daily You must follow-up with outpatient appointments Follow-up primary care provider upon discharge Follow-up oncology outpatient to discuss further testing Continue with Toradol for post-thrombotic leg pain Continue current diet Discharge Disposition: HOME SELF-CARE
[2020-07-19] MEDS ORDERED: WARFARIN 2.5 MG TAB PO SCH (18:00)
[2020-07-20] MEDS ORDERED: PATIENT'S OWN (Dulaglutide [Trulicity] 1.5 MG/0.5 ML Pen.Injctr) SQ SCH (12:00)
== END 2020-07-19 15:56 | disposition home or self-care (01) | DRG 301 ==
LOC: EC 22:38 → 5NMEDONC 07-18 01:09
PROVIDERS: ADMIT Hospitalist; ATTEND Hospitalist
DX: I82.431 Acute embolism and thrombosis of right popliteal vein (principal); E11.42 Type 2 diabetes mellitus with diabetic polyneuropathy; D86.0 Sarcoidosis of lung; I48.0 Paroxysmal atrial fibrillation; Z79.4 Long term (current) use of insulin; E66.01 Morbid (severe) obesity due to excess calories; G43.909 Migraine, unspecified, not intractable, without status migrainosus; E03.9 Hypothyroidism, unspecified; Z20.822 Contact with and (suspected) exposure to COVID-19; Z68.35 Body mass index [BMI] 35.0-35.9, adult; K21.9 Gastro-esophageal reflux disease without esophagitis; E78.5 Hyperlipidemia, unspecified; I10 Essential (primary) hypertension; M19.90 Unspecified osteoarthritis, unspecified site; M50.30 Other cervical disc degeneration, unspecified cervical region; J45.909 Unspecified asthma, uncomplicated; G89.29 Other chronic pain; F41.9 Anxiety disorder, unspecified; F32.9 Major depressive disorder, single episode, unspecified; M51.34 Other intervertebral disc degeneration, thoracic region; M54.42 Lumbago with sciatica, left side; Z79.890 Hormone replacement therapy; Z79.01 Long term (current) use of anticoagulants; Z79.899 Other long term (current) drug therapy; Z86.718 Personal history of other venous thrombosis and embolism; Z86.73 Personal history of transient ischemic attack (TIA), and cerebral infarction without residual deficits; Z86.711 Personal history of pulmonary embolism; Z85.3 Personal history of malignant neoplasm of breast; Z92.21 Personal history of antineoplastic chemotherapy; Z87.19 Personal history of other diseases of the digestive system; Z90.49 Acquired absence of other specified parts of digestive tract; Z90.12 Acquired absence of left breast and nipple; Z98.891 History of uterine scar from previous surgery; Z90.710 Acquired absence of both cervix and uterus; Z87.42 Personal history of other diseases of the female genital tract; Z90.89 Acquired absence of other organs; Z96.612 Presence of left artificial shoulder joint; Z96.611 Presence of right artificial shoulder joint; Z90.79 Acquired absence of other genital organ(s); Z90.721 Acquired absence of ovaries, unilateral; Z98.1 Arthrodesis status; Z87.01 Personal history of pneumonia (recurrent); Z98.890 Other specified postprocedural states; Z91.02 Food additives allergy status; Z88.0 Allergy status to penicillin; Z88.2 Allergy status to sulfonamides; Z88.8 Allergy status to other drugs, medicaments and biological substances; Z91.048 Other nonmedicinal substance allergy status; Z83.2 Family history of diseases of the blood and blood-forming organs and certain disorders involving the immune mechanism; Z80.9 Family history of malignant neoplasm, unspecified
CPT/HCPCS: 36415; 80048; 85025; 85610; 85730; 86300; 87636; 94640; 94760; 96374; 99285

== ENCOUNTER → 2020-10-05 | Outpatient (CLI) | payer MEDICARE ==
[2020-10-05 12:28] LABS: African American GFR (CKD) >90 (>60 ml/min/1.73 sqM); Blood Urea Nitrogen 14 mg/dL (7-17); Non-African American GFR(CKD) >90 (>60 ml/min/1.73 sqM)
--- NOTE | 2020-10-05 13:17 | CT ---
EXAMINATION TYPE: CT ChestAbdPelvis w con DATE OF EXAM: 10/05/2020 COMPARISON: 07/31/2018 HISTORY: Breast cancer, pain all over CT DLP: 2305.7 mGycm CONTRAST: CT scan of the chest, abdomen and pelvis is performed with Oral Contrast and with IV Contrast, patien t injected with 100 mL of Isovue 300. CT Chest: LUNGS: Underlying moderate emphysematous changes with strandy parenchymal scarring and atelectasis. T he lungs are clear and free of infiltrate. No pulmonary nodule or mass is detected. No pleural effus ion or CT evidence of interstitial lung disease. MEDIASTINUM: Thoracic aorta is of normal caliber. The heart is not enlarged. No evidence for media stinal mass or adenopathy. HILAR STRUCTURES: No evidence for mass. No hilar adenopathy is appreciated. OTHER: Small sliding-type hiatal hernia. CONTRAST CT ABDOMEN AND PELVIS FINDINGS: LIVER/GB: Hepatic steatosis redemonstrated. No calcified gallstones. No space occupying hepatic les ion. Biliary tree is of normal caliber. PANCREAS: No inflammation. No distinct mass. SPLEEN: No splenic enlargement. No lesion seen. ADRENALS: No nodule. No thickening. KIDNEYS/BLADDER: No hydronephrosis. No nephrolithiasis. No disctinct renal mass. BOWEL: Normal appendix. Normal bowel caliber. No inflammation. GENITAL ORGANS: No gross abnormality. LYMPH NODES: No greater than 1cm abdominal or pelvic lymph nodes are appreciated. AORTA: No significant abnormality. OSSEOUS STRUCTURES: Moderate multilevel degenerative disc disease and spondylosis. OTHER: No significant additional abnormality is seen. IMPRESSION: 1. No evidence for metastatic disease. 2. Fatty liver.
== END | disposition home or self-care (01) ==
LOC: RADCTMAIN 10:56
PROVIDERS: ATTEND Internal Medicine Hematology & Oncology
DX: C50.919 Malignant neoplasm of unspecified site of unspecified female breast (principal); K76.0 Fatty (change of) liver, not elsewhere classified
CPT/HCPCS: 82565; 84520; 71260; 74177; 36415; Q9967

== ENCOUNTER 2021-01-06 13:47 | Emergency (ER) | payer MEDICARE ==
[2021-01-06 14:36] VITALS: PULSE 87; RESP 20; TEMP 98
--- NOTE | 2021-01-06 16:43 | US ---
EXAMINATION TYPE: US venous doppler duplex LE RT DATE OF EXAM: 01/06/2021 4:28 PM COMPARISON: NONE CLINICAL HISTORY: pain. History of DVT. Patient on Eloquist. SIDE PERFORMED: Right TECHNIQUE: The lower extremity deep venous system is examined utilizing real time linear array sonog mar with graded compression, doppler sonography and color-flow sonography. VESSELS IMAGED: Common Femoral Vein Deep Femoral Vein Greater Saphenous Vein * Femoral Vein Popliteal Vein Small Saphenous Vein * Proximal Calf Veins (* superficial vessels) Right Leg: Positive for chronic appearing DVT. There are small caliber vessels. There are collateral s noted FV distally with non compressible [place] vessel. No acute process identified. IMPRESSION: Chronic appearing deep venous thrombosis of the femoral vein with collateral vessels distally.
--- NOTE | 2021-01-06 17:17 | ED ---
Extremity Problem HPI - General Chief complaint: Extremity Problem,Nontraumatic Stated complaint: R leg pain and swelling Time Seen by Provider: 01/06/21 15:54 Source: patient, RN notes reviewed Mode of arrival: ambulatory Limitations: no limitations - History of Present Illness Initial comments: Patient is a 70-year-old female that presents to emergency department complaining of right lower leg pain and swelling. She notes she does have a history of blood clots. She notes she is currently taking blood thinners. She denies any injury or trauma. She notes that she just been on her feet more recently than usual. She denied any injury or trauma. She was otherwise well- appearing. She denied chest pain first breath headache nausea vomiting diarrhea constipation fever fatigue chills. - Related Data Home Medications Medication Instructions Recorded Confirmed Levothyroxine Sodium [Synthroid] 200 mcg PO DAILY 07/19/13 07/18/20 Calcium Citrate 500 mg PO DAILY 08/30/14 07/18/20 Cholecalciferol [Vitamin D3 (25 2,000 unit PO DAILY 08/30/14 07/18/20 Mcg = 1000 Iu)] Multivitamins, Thera [Multivitamin 1 tab PO DAILY 08/30/14 07/18/20 (formulary)] Rolaids 1 - 2 tab PO DAILY PRN 08/30/14 07/18/20 Biotin [Biotin Disolve] 5,000 mcg PO DAILY 03/27/17 07/18/20 metFORMIN HCL [Glucophage] 1,000 mg PO BID 03/27/17 07/18/20 Cetirizine HCl [Zyrtec] 10 mg PO DAILY 05/28/18 07/18/20 Fluticasone Nasal [place] [Flonase 1 spray EA NOSTRIL DAILY 05/28/18 07/18/20 Nasal [place]] Baclofen [Lioresal] 10 mg PO TID 07/18/20 07/18/20 Dulaglutide [Trulicity] 1.5 mg SQ TH 07/18/20 07/18/20 Ezetimibe/Simvastatin [Vytorin 1 tab PO DAILY 07/18/20 07/18/20 10-20 mg] Insulin Detemir [Levemir Flextouch 53 units SQ HS 07/18/20 07/18/20 Pen] Insulin Lispro [humaLOG Kwikpen] See Protocol SQ ACHS 07/18/20 07/18/20 Lidocaine 5% Patch [Lidoderm 5% 1 patch TOPICAL DAILY 07/18/20 07/18/20 Patch] Methadone [Dolophine] 10 mg PO TID 07/18/20 07/18/20 Spironolactone [Aldactone] 75 mg PO DAILY 07/18/20 07/18/20 Venlafaxine HCl ER [Effexor XR] 150 mg PO DAILY 07/18/20 07/18/20 traZODone HCL 200 mg PO HS 07/18/20 07/18/20 Previous Rx's Medication Instructions Recorded Acetaminophen Tab [Tylenol] 650 mg PO Q6HR PRN tab 06/23/18 Benzocaine/Menthol Lozeng [Cepacol 1 each MUCOUS MEM Q4HR PRN lozenge 06/23/18 lozenge] Furosemide [Lasix] 20 mg PO DAILY tab 06/23/18 Ipratropium-Albuterol Nebulize 3 ml INHALATION RT-QID PRN 06/23/18 [Duoneb 0.5 mg-3 mg/3 ml Soln] ampul.neb Metoprolol Tartrate [Lopressor] 50 mg PO BID tab 06/23/18 Pantoprazole [Protonix] 40 mg PO AC-BID tablet. 06/23/18 busPIRone HCl [Buspar] 10 mg PO BID #10 tab 06/23/18 Apixaban [Eliquis Starter Pack 0 mg PO DIRECTED 30 Days #1 pack 07/18/20 (for VTE)] Atorvastatin [Lipitor] 10 mg PO DAILY 30 Days #30 tab 07/19/20 Docusate [Colace] 100 mg PO TID cap 07/19/20 Ketorolac [Toradol] 10 mg PO Q6HR #10 tab 07/19/20 Allergies Allergy/AdvReac Type Severity Reaction Status Date / Time guaifenesin Allergy Rapid Verified 01/06/21 14:36 Heart Rate loratadine Allergy Rapid Verified 01/06/21 14:36 [From Claritin-D 12 Hour] Heart Rate mold Allergy Anaphylaxis Verified 01/06/21 14:36 monosodium glutamate Allergy swelling, Verified 01/06/21 14:36 headache Penicillins Allergy Anaphylaxis Verified 01/06/21 14:36 pseudoephedrine HCl Allergy Dyspnea/rapid Verified 01/06/21 14:36 [From Sudafed] heart rate pseudoephedrine sulfate Allergy Rapid Verified 01/06/21 14:36 [From Claritin-D 12 Hour] Heart Rate Sulfa (Sulfonamide Allergy Itching Verified 01/06/21 14:36 Antibiotics) Review of Systems ROS Statement: Those systems with pertinent positive or pertinent negative responses have been documented in the HPI. ROS Other: All systems not noted in ROS Statement are negative. Past Medical History Past Medical History: Atrial Fibrillation, Asthma, Cancer, CVA/TIA, Diabetes Mellitus, Deep Vein Thrombosis (DVT), Eye Disorder, GERD/Reflux, Hyperlipidemia, Hypertension, Osteoarthritis (OA), Pneumonia, Pulmonary Embolus (PE), Skin Disorder, Thyroid Disorder Additional Past Medical History / Comment(s): NIDDM type II, neuropathy bilateral feet, bronchitis, sarcoidosis of the lung, seasonal allergies, sinus problems, TIA, DVT R leg x 3, pulmonary emboli x 1, L breast cancer with surgery/chemo, migraines, DDD, chronic back and cervical pain, L leg sciatica, possibly one seizure following cervical surgery, hypothyroid, pt had some kind of liver problem as a child and was hospitalized, cellulitis at IV site, recently states she had dark "spot" cover her R eye and then it lifted but still having vision changes in that eye. History of Any Multi-Drug Resistant Organisms: None Reported Past Surgical History: Appendectomy, Breast Surgery, Section, Hysterect samantha, Joint Replacement, Orthopedic Surgery, Tonsillectomy Additional Past Surgical History / Comment(s): DVT 16 inches long removed from R leg, R thorascopy-diagnosed with sarcoidosis, D&C, salpingoophorectomy d/t ectopic , L breast biopsy, L breast lumpectomy, bilateral total shoulder replacements, cervical fusions x2 has titanium plate/screws, EGD, colonoscopy with benign polypectomy, epidural injections, D&C Past Anesthesia/Blood Transfusion Reactions: Motion Sickness Additional Past Anesthesia/Blood Transfusion Reaction / Comment(s): diff IV starts Past Psychological History: Anxiety, Depression Smoking Status: Never smoker Past Alcohol Use History: None Reported Past Drug Use History: None Reported - Past Family History Daughter(s) Family Medical History: Cancer Father Family Medical History: Deep Vein Thrombosis (DVT) Mother Family Medical History: Deep Vein Thrombosis (DVT) Additional Family Medical History / Comment(s): Maternal grandmother had DVT and 3 of pt's maternal aunts had DVTs. General Exam Limitations: no limitations General appearance: alert, in no apparent distress Head exam: Present: atraumatic, normocephalic, normal inspection Eye exam: Present: normal appearance, PERRL, EOMI. Absent: scleral icterus, conjunctival injection, periorbital swelling ENT exam: Present: normal exam, mucous membranes moist Neck exam: Present: normal inspection Respiratory exam: Present: normal lung sounds bilaterally. Absent: respiratory distress, wheezes, rales, rhonchi, stridor Cardiovascular Exam: Present: regular rate, normal rhythm, normal heart sounds. Absent: systolic murmur, diastolic murmur, rubs, gallop, clicks Extremities exam: Present: normal inspection, full ROM, tenderness (Right lower leg), normal capillary refill, pedal edema (1+ bilaterally). Absent: joint swelling, calf tenderness Neurological exam: Present: alert, oriented X3 Psychiatric exam: Present: normal affect, normal mood Skin exam: Present: warm, dry, intact, normal color. Absent: rash Course Vital Signs 01/06/21 14:32 Temperature 98 F Pulse Rate 87 Respiratory 20 Rate O2 Sat by Pulse 97 Oximetry Medical Decision Making - Medical Decision Making 70-year-old female complaining of right lower leg pain and swelling, history of blood clots. Ultrasound of the right lower external ordered. Ultrasound shows a chronic deep venous thrombosis, she is currently taking blood thinners. Case discussed with Dr. Pimentel, patient discharge home with follow-up primary care and continuation of what thinners. - Radiology Data Radiology results: report reviewed, image reviewed Ultrasound right lower extremity: Chronic-appearing deep venous thrombosis in the femoral vein with collateral vessel distally. Disposition Clinical Impression: Deep vein blood clot of right lower extremity Disposition: HOME SELF-CARE Condition: Stable Instructions (If sedation given, give patient instructions): Deep Vein Thrombosis (ED) Additional Instructions: Please return to the Emergency Department if symptoms worsen or any other concerns. Continue taking blood thinners as prescribed. Follow-up with primary care 1-2 days. Is patient prescribed a controlled substance at d/c from ED?: No Referrals: Renea Nieto MD [Primary Care Provider] - 1-2 days Time of Disposition: 17:16
== END 2021-01-06 18:08 | disposition home or self-care (01) ==
LOC: EC 13:47
DX: I82.401 Acute embolism and thrombosis of unspecified deep veins of right lower extremity (principal); I48.91 Unspecified atrial fibrillation; E11.9 Type 2 diabetes mellitus without complications; K21.9 Gastro-esophageal reflux disease without esophagitis; E78.5 Hyperlipidemia, unspecified; I10 Essential (primary) hypertension; M19.90 Unspecified osteoarthritis, unspecified site; E07.9 Disorder of thyroid, unspecified; F41.9 Anxiety disorder, unspecified; F32.9 Major depressive disorder, single episode, unspecified; Z79.4 Long term (current) use of insulin; Z79.01 Long term (current) use of anticoagulants; Z88.0 Allergy status to penicillin; Z88.2 Allergy status to sulfonamides; Z88.1 Allergy status to other antibiotic agents; J45.909 Unspecified asthma, uncomplicated; Z86.73 Personal history of transient ischemic attack (TIA), and cerebral infarction without residual deficits; Z86.711 Personal history of pulmonary embolism; Z85.3 Personal history of malignant neoplasm of breast; Z90.89 Acquired absence of other organs; Z90.710 Acquired absence of both cervix and uterus; Z90.49 Acquired absence of other specified parts of digestive tract; Z87.59 Personal history of other complications of pregnancy, childbirth and the puerperium; Z79.899 Other long term (current) drug therapy
CPT/HCPCS: 99283

== ENCOUNTER → 2023-02-04 | Outpatient (CLI) | payer MEDICARE ==
--- NOTE | 2023-02-05 23:57 | MM ---
Reason for Exam: Screening (asymptomatic). Last mammogram was performed 3 year(s) and 4 month(s) ago. Patient History: Menarche at age 13. First Full-Term at age 23. Hysterectomy at age 27. Postmenopausal. Patient has history of breast feeding. Breast cancer, left, age 52. Estrogen for 20 years from age 27 until age 47. 01/01/2008, Excisional Biopsy on the Left side. 10/07/2007, High risk Core Biopsy on the left side. Paternal aunt had breast cancer. Daughter had breast cancer, age 32. Prior Study Comparison: 08/24/2010 Bilateral Diagnostic Mammogram, [facility]. 01/25/2014 Bilateral Diagnostic Mammogram, [facility]. 04/09/2017 Bilateral Screening Mammogram, [facility]. 04/13/2019 Bilateral Diagnostic Mammogram, [facility]. 10/04/2019 Bilateral Diagnostic Mammogram, [facility]. Tissue Density: There are scattered fibroglandular densities. Findings: Analyzed By CAD. There is chronic nodularity on the right. Benign bilateral vascular calcifications. There is no suspicious group of microcalcifications or new suspicious mass in either breast. Overall Assessment: Benign, BI-RAD 2 Management: Screening Mammogram of both breasts in 1 year. . Patient should continue monthly self-breast exams. A clinical breast exam by your physician is recommended on an annual basis. This exam should not preclude additional follow-up of suspicious palpable abnormalities. Electronically signed and approved by: Shandra Brewer M.D. Radiologist
== END | disposition home or self-care (01) ==
LOC: RADMAMWWP 13:07
PROVIDERS: ATTEND Family Medicine
DX: Z12.31 Encounter for screening mammogram for malignant neoplasm of breast (principal); Z78.0 Asymptomatic menopausal state; Z80.3 Family history of malignant neoplasm of breast; Z85.3 Personal history of malignant neoplasm of breast
CPT/HCPCS: 77063; 77067